=== PATIENT | female | born 1965 | race Caucasian/White ===

== ENCOUNTER 2022-07-07 13:17 | Inpatient (IN) ==
[2022-07-07 13:54] LABS: POC Calcium, Ionized 1.16 (1.16-1.32); POC Creatinine 3.9 (0.6-1.2); POC Potassium 6.5 (3.3-5.1)
[2022-07-07] MEDS ORDERED: 0.9 % SODIUM CHLORIDE 1,000 ML IV ONE (15:33)
--- NOTE | 2022-07-07 15:49 | Cat Scan Report ---
CLINICAL INFORMATION: Leg pain. Possible stone COMPARISON: None. TECHNIQUE: 0.625 mm helical slices were obtained from the mid heart through the subtrochanteric regions. Following reconstruction, 2.5 mm sagittal, coronal and axial reformatted images were processed and reviewed at bone and soft tissue windows.The exam was performed using radiation dose optimization techniques including, but not limited to, automated exposure control, adjustment of the mA and/or kV according to patient size and use of iterative reconstruction technique. FINDINGS: The lung bases are clear. No effusions. The visualized heart is grossly normal. Small hiatal hernia noted. Abdominal images show the noncontrasted gallbladder and bile ducts, liver, adrenal glands, spleen, pancreas and aorta are normal in size, configuration and attenuation without focal lesion. There is no free air, free fluid or adenopathy. Both noncontrasted kidneys are normal and symmetric in size, position, configuration and attenuation: Right is 10.2 cm in length and the left is 10.5 cm in length. There are no solid or cystic lesions. There are no stones or hydronephrosis. Pelvic images show mild diffuse wall thickening of the urinary bladder.. Hysterectomy/oophorectomy changes noted. Small sigmoid diverticuli, but no evidence of diverticulitis. The remaining large bowel, inferior pericecal appendix small bowel and stomach are grossly normal. Bone windows show no osseous abnormality. IMPRESSION: 1. No evidence of obstructing ureteral stone or other acute process. 2. Mild diffuse wall thickening of the urinary bladder which could indicate cystitis or other infiltrative pathology. Please correlate with UA. 3. Moderate edema within the Camper's fascia of the right flank. 4. Sigmoid diverticulosis, but no evidence of diverticulitis 5. Small hiatal hernia. Interpreted and Authenticated by: Esau Martin 07/07/22
[2022-07-07 17:13] LABS: POC Calcium, Ionized 1.13 (1.16-1.32); POC Creatinine 3.4 (0.6-1.2); POC Potassium 6.5 (3.3-5.1)
--- NOTE | 2022-07-07 17:49 | Emergency Department Note ---
HPI General Chief complaint: Recheck/Abnormal Lab/Rx Stated complaint: renal Time Seen by Provider: 07/07/22 13:23 Source: patient Mode of arrival: wheelchair Limitations: no limitations History of Present Illness HPI Narrative: This is a 57-year-old female patient resident of the [facility] with history of CKD stage IV, hyperkalemia, lumbar radiculopathy, T2DM, morbid obesity, hypothyroidism, HLD, history of CAD, iron deficiency anemia, COPD on home oxygen of 3 L, major depressive disorder, and chronic LE edema who presents for ROYER and hyperkalemia. Labs at the [facility] revealed a potassium of 6.5. The patient is c/o B/L lower abdominal pain for several weeks with diarrhea. She is also c/o right flank pain. She has a h/o lumbar stenosis s/p fusion and states the pain she is experiencing in her right flank is different. She denies hematochezia, but does think that her stools have been dark. She denies tarry stools. Previous abdominal surgeries include a hysterectomy and cholecystectomy. Related Data Home Medications Medication Instructions Recorded Confirmed carvedilol 12.5 mg tablet 12.5 mg PO BIDCC 09/28/18 05/07/22 epinephrine 0.3 mg/0.3 mL 0.3 mg IJ PRN PRN Allergic Symptoms 09/28/18 05/07/22 injection, auto-injector (EpiPen 2-Abhi) insulin degludec 200 unit/mL (3 60 unit SQ DAILY 09/28/18 05/07/22 mL) subcutaneous pen (Tresiba FlexTouch U-200 insulin) insulin lispro 100 unit/mL 15 unit SQ TIDCC 09/28/18 05/07/22 subcutaneous half-unit pen (Humalog Parminder KwikPen (U-100)) ipratropium 0.5 mg-albuterol 3 mg 3 ml NEB QID 09/28/18 05/07/22 (2.5 mg base)/3 mL nebulization soln levothyroxine 100 mcg tablet 100 mcg PO ACB 09/28/18 05/07/22 montelukast 10 mg tablet 10 mg PO HS 09/28/18 05/07/22 escitalopram oxalate 20 mg tablet 20 mg PO DAILY 09/29/18 05/07/22 acetaminophen 325 mg tablet 325 mg PO DAILYP PRN Pain 10/02/20 05/07/22 (Tylenol) cholecalciferol (vitamin D3) 25 50 mcg PO DAILY 10/02/20 05/07/22 mcg (1,000 unit) capsule (Vitamin D3) famotidine 20 mg tablet 20 mg PO BID 10/02/20 05/07/22 hydrocodone 10 mg-acetaminophen 1 tab PO Q4HP PRN Pain 10/02/20 05/07/22 325 mg tablet atorvastatin 80 mg tablet 80 mg PO QHS 07/29/21 05/07/22 lamotrigine 25 mg tablet 50 mg PO QHS 07/29/21 05/07/22 amlodipine 5 mg tablet 5 mg PO QAM 04/23/22 05/07/22 clopidogrel 75 mg tablet 75 mg PO QAM 04/23/22 05/07/22 dextroamphetamine-amphetamine 30 30 mg PO BID 04/23/22 05/07/22 mg tablet torsemide 20 mg tablet 40 mg PO QDAY 04/23/22 05/07/22 gabapentin 300 mg capsule 900 mg PO HS 05/07/22 05/07/22 bisacodyl 10 mg rectal suppository 10 mg OH QDAY PRN Constipation 07/07/22 07/07/22 (Dulcolax (bisacodyl)) fluticasone 250 mcg-salmeterol 50 1 inh inhalation BID 07/07/22 07/07/22 mcg/dose blistr powdr for inhalation gabapentin 300 mg capsule 900 mg PO QHS 07/07/22 07/07/22 glucagon HCl 1 mg solution for 1 mg subcut Q20M PRN Hypoglycemia 07/07/22 07/07/22 injection (Glucagon (HCl) Emergency Kit) magnesium hydroxide 400 mg/5 mL 30 ml PO QDAY PRN Constipation 07/07/22 07/07/22 oral suspension (Milk of Magnesia) polysaccharide iron complex 150 mg 150 mg PO QDAY 07/07/22 07/07/22 iron capsule potassium chloride 20 mEq 20 meq PO QDAY 07/07/22 07/07/22 tablet,extended release risperidone 0.5 mg tablet 0.5 mg PO BID 07/07/22 07/07/22 sodium phosphates 19 gram-7 118 ml OH ONCE 07/07/22 07/07/22 gram/118 mL enema (Fleet Enema) spironolactone 50 mg tablet 50 mg PO QDAY 07/07/22 07/07/22 Previous Rx's Medication Instructions Recorded ondansetron HCl 4 mg tablet 4 mg PO Q8H PRN nausea and 11/05/20 (Zofran) vomiting #10 tabs Allergies Allergy/AdvReac Type Severity Reaction Status Date / Time aspirin Allergy Severe Other Verified 07/07/22 19:25 theophylline [From James-Dur] Allergy Severe Other Verified 07/07/22 19:25 Opioids - Morphine Analogues Allergy Unknown unknown Verified 07/07/22 19:25 morphine AdvReac Severe Swelling Verified 07/07/22 19:25 acetaminophen AdvReac Mild Agitated Verified 07/07/22 19:25 [From Darvocet-N] adhesive tape AdvReac Mild Rash Verified 07/07/22 19:25 Docusate [From Colace] AdvReac Mild Other Verified 07/07/22 19:25 Iodinated Contrast Media AdvReac Mild Other Verified 07/07/22 19:25 [Iodinated Contrast- Oral and IV Dye] meperidine [From Demerol] AdvReac Mild Anxiety Verified 07/07/22 19:25 Nickel AdvReac Mild Other Verified 07/07/22 19:25 oxycodone [From Percocet] AdvReac Mild Agitated Verified 07/07/22 19:25 promethazine [From Phenergan] AdvReac Mild Agitated Verified 07/07/22 19:25 propoxyphene AdvReac Mild Agitated Verified 07/07/22 19:25 Review of Systems ROS ROS Narrative: Narrative: All systems ED: reviewed and negative except as stated. PFSH Narrative Patient History Narrative: Narrative: Medical/Surgical/Family History All Active Problems (Updated 07/07/22 @ 19:57 by Kylee Reno PA-C) Acute hyperkalemia (Acute) ROYER (acute kidney injury) (Acute) Hyperkalemia (Chronic) Anemia in stage 4 chronic kidney disease (Chronic) Hypertension in stage 4 chronic kidney disease due to type 2 diabetes mellitus (Chronic) Chronic kidney disease (CKD) stage G4/A3, severely decreased glomerular filtration rate (GFR) between 15-29 mL/min/1.73 square meter and albuminuria creatinine ratio greater than 300 mg/g (Chronic) Acute cystitis with positive culture (Acute) Localized edema due to fluid overload (Chronic) Chronic back pain (Chronic) Noncompliance with treatment (Chronic) Disability (Chronic) Patient noncompliance (Chronic) Neuropathy due to secondary diabetes mellitus (Chronic) History of meningitis (Chronic) Dyspnea on exertion (Chronic) Osteoarthritis (Chronic) Generalized edema (Chronic) Anemia of chronic disease (Chronic) Shortness of breath at rest (Chronic) Diastolic heart failure (Chronic) Low back pain (Chronic) Chronic pain (Chronic) Bronchitis (Chronic) ADD (attention deficit disorder) (Chronic) Myocardial infarction (Chronic) Anxiety (Chronic) Back pain (Chronic) Knee pain (Chronic) CAD (coronary artery disease) (Chronic) Hernia (Chronic) Pain in right knee (Chronic) Elevated blood pressure reading (Chronic) Edema of extremity (Chronic) GERD (gastroesophageal reflux disease) (Chronic) Acid reflux (Chronic) Moderate chronic obstructive pulmonary disease (Chronic) Coronary arteriosclerosis (Chronic) Asthma (Chronic) Essential hypertension (Chronic) Abscess of brain (Chronic) Depressive disorder (Chronic) PTSD (post-traumatic stress disorder) (Chronic) Borderline personality disorder (Chronic) Hypercholesterolemia (Chronic) Dyslipidemia (Chronic) Vitamin D deficiency (Chronic) Diabetes mellitus, type II (Chronic) Hypothyroidism (Chronic) Lumbar radiculopathy (Chronic) Weakness (Chronic) Migraine (Chronic) Headache (Chronic) Postoperative pain of right knee (Chronic) Medical History Abscess of brain Acid reflux ADD (attention deficit disorder) Anemia of chronic disease Anxiety Asthma Back pain Borderline personality disorder Bronchitis CAD (coronary artery disease) Chronic back pain Chronic pain Coronary arteriosclerosis Depressive disorder Diabetes mellitus, type II Diastolic heart failure Disability Dyslipidemia Dyspnea on exertion Edema of extremity Elevated blood pressure reading Essential hypertension Generalized edema GERD (gastroesophageal reflux disease) Headache Hernia History of meningitis Hypercholesterolemia Hypothyroidism Knee pain Low back pain Lumbar radiculopathy Migraine Moderate chronic obstructive pulmonary disease Myocardial infarction Neuropathy due to secondary diabetes mellitus Noncompliance with treatment Osteoarthritis Pain in right knee Patient noncompliance Postoperative pain of right knee PTSD (post-traumatic stress disorder) Shortness of breath at rest Vitamin D deficiency Weakness Surgical History History of back surgery L4-5 fusion with cage and posterior fusion with cage History of cardiac cath History of cholecystectomy History of hernia repair History of hysterectomy History of incision and drainage History of knee surgery right knee replacement History of oral surgery Status post peripherally inserted central catheter (PICC) central line placement Family History Mother Alcohol abuse Father Alcohol abuse Brother Drug abuse Social History Smoking Status: Former smoker Alcohol Intake Frequency: holiday/special occasion only Substance Use: does not use Exam Narrative Narrative: General: AOx3, NAD, nontoxic appearing. Pleasant and conversant. Morbidly obese. HEENT: PERRL, EOMI, normocephalic. Moist mucous membranes. Normal facies and normal dentition. Chest: Symmetric, no pain to palpation Respiratory: Lungs clear to auscultation bilaterally. No respiratory distress. Unlabored breathing. Heart: Regular rate and rhythm, no murmurs/clicks/rubs. Abdomen: Non-tender, mild bilateral lower quadrant discomfort, non distended. No rebound tenderness. No organomegaly. Back: No CVA tenderness. Extremities: Warm and well perfused. Bilateral nonpitting edema. DP 2+ bilaterally. No venous stasis. Neuro: No focal deficits. Cranial nerves II-XII grossly normal. Skin: Warm dry, no rashes or lesions, no cyanosis. Psych: Normal mood and affect Heme/Lymph: No abnormal bruising General Limitations: no limitations Course Course Course Narrative: 57-year-old female with CKD stage IV presents with acute on chronic renal insufficiency and hyperkalemia Reevaluation(s) Reevaluation #1: [id number] Chem-8 with a potassium of 6.5. We will repeat a serum potassium. Hematocrit is 26. Creatinine is 3.9 on a [id number]. Last creatinine was 2.7 on 06/24/2022. BUN is significantly elevated 112. We will give her 1 L of IV fluids and recheck her chemistry panel afterwards. We will also order a CT of the abdomen pelvis without contrast to rule out obstructive uropathy as reason for her worsening kidney function. Medications possibly contributing to her hyperkalemia are spironolactone and a daily potassium 20 mEq. Patient is also on torsemide for chronic heart failure. Reevaluation #2: Repeat [id number] potassium is 6.5. Creatinine has down trended to 3.4 after 1 L of IV fluids. I have discussed the case with Dr. Franklin who feels that this is likely due to dehydration versus possible GIB related given that she is on Plavix and her BUN is significantly elevated. I went ahead and did a bedside guaiac which is negative. I reached out to the hospitalist for admission given the persistent hyperkalemia and acute kidney injury. He is requested that he repeat his CBC to ensure that she does not have worsening anemia. Reevaluation #3: CBC is repeated and shows a stable anemia.. Vital Signs Vital signs: Vital Signs Temperature 97.7 F 07/07/22 13:19 Pulse Rate 80 07/07/22 13:19 Respiratory Rate 18 07/07/22 13:19 Blood Pressure 133/65 07/07/22 13:19 Pulse Oximetry (%) 94 07/07/22 13:19 Oxygen Delivery Method 07/07/22 13:19 Oxygen Flow Rate (L/min) 4 07/07/22 13:19 Temperature 97.7 F 07/07/22 13:19 Pulse Rate 80 07/07/22 18:36 Respiratory Rate 14 07/07/22 16:01 Blood Pressure 137/64 07/07/22 18:36 Pulse Oximetry (%) 97 07/07/22 18:36 Oxygen Delivery Method 07/07/22 13:19 Oxygen Flow Rate (L/min) 4 07/07/22 13:19 [facility] MDM Narrative Medical decision making narrative: Acute on chronic kidney disease with ROYER Hyperkalemia Iron deficiency anemia Patient has been accepted by Dr. Ogden for admission for her acute kidney injury and hyperkalemia. Lab Data Result diagrams: 07/07/22 17:05 07/07/22 14:20 Labs: Lab Results 07/07/22 07/07/22 07/07/22 Range/Units 13:50 14:20 17:05 WBC 8.3 (4.5-11.0) K/mcL RBC 2.96 L (3.59-5.38) M/mcL Hgb 8.9 L (11.2-15.7) g/dL Hct 28.3 L (34.1-44.9) % POC Hct 26.0 L (36-48) MCV 95.6 (80.0-100.0) fL MCH 30.1 (26.0-34.0) pg MCHC 31.4 (31.0-36.0) g/dL RDW 12.3 (11.5-14.5) % Plt Count 194 (140-440) K/mcL MPV 13.0 H (7.4-10.4) fL Immature Gran % (Auto) 0.6 H (0.0-0.5) % Neut % (Auto) 54.9 (38.0-78.0) % Lymph % (Auto) 23.8 (15.5-49.0) % Woodruff % (Auto) 12.6 H (1.0-12.0) % Eos % (Auto) 7.4 H (0.0-7.0) % Baso % (Auto) 0.7 (0.0-2.0) % Lymph # (Auto) 1.96 (1.50-4.80) K/mcL Woodruff # (Auto) 1.04 H (0.10-0.90) K/mcL Eos # (Auto) 0.61 (0.00-0.70) K/mcL Baso # (Auto) 0.06 (0.00-0.30) K/mcL Immature Gran # 0.05 (0.00-0.05) K/mcl Absolute Neutrophils 4.53 (1.80-8.00) K/mcL POC Sodium 135 (133-145) POC Potassium 6.5 H* (3.3-5.1) Potassium 6.4 H* (3.3-5.1) mmol/L POC Chloride 98 (96-108) POC Total CO2 30.0 (22-30) POC BUN 112 H* (6-20) POC Creatinine 3.9 H (0.6-1.2) POC Glucose 219 H (70-105) POC WB Ioniz Calcium 1.16 (1.16-1.32) Total Bilirubin (0.1-1.0) mg/dL Direct Bilirubin (0-0.3) mg/dL AST (<32) U/L ALT (<40) U/L Alkaline Phosphatase (39-117) U/L Total Protein (5.9-8.4) gm/dL Albumin (3.2-5.2) gm/dL Globulin (2.2-3.7) gm/dL TSH (0.27-5.01) uIU/mL 07/07/22 07/07/22 07/07/22 Range/Units 17:05 17:05 17:10 WBC (4.5-11.0) K/mcL RBC (3.59-5.38) M/mcL Hgb (11.2-15.7) g/dL Hct (34.1-44.9) % POC Hct 28.0 L (36-48) MCV (80.0-100.0) fL MCH (26.0-34.0) pg MCHC (31.0-36.0) g/dL RDW (11.5-14.5) % Plt Count (140-440) K/mcL MPV (7.4-10.4) fL Immature Gran % (Auto) (0.0-0.5) % Neut % (Auto) (38.0-78.0) % Lymph % (Auto) (15.5-49.0) % Woodruff % (Auto) (1.0-12.0) % Eos % (Auto) (0.0-7.0) % Baso % (Auto) (0.0-2.0) % Lymph # (Auto) (1.50-4.80) K/mcL Woodruff # (Auto) (0.10-0.90) K/mcL Eos # (Auto) (0.00-0.70) K/mcL Baso # (Auto) (0.00-0.30) K/mcL Immature Gran # (0.00-0.05) K/mcl Absolute Neutrophils (1.80-8.00) K/mcL POC Sodium 135 (133-145) POC Potassium 6.5 H* (3.3-5.1) Potassium (3.3-5.1) mmol/L POC Chloride 98 (96-108) POC Total CO2 27.0 (22-30) POC BUN 112 H* (6-20) POC Creatinine 3.4 H (0.6-1.2) POC Glucose 227 H (70-105) POC WB Ioniz Calcium 1.13 L (1.16-1.32) Total Bilirubin < 0.2 (0.1-1.0) mg/dL Direct Bilirubin < 0.2 (0-0.3) mg/dL AST 11 (<32) U/L ALT 10 (<40) U/L Alkaline Phosphatase 135 H (39-117) U/L Total Protein 6.4 (5.9-8.4) gm/dL Albumin 3.5 (3.2-5.2) gm/dL Globulin 2.9 (2.2-3.7) gm/dL TSH 6.56 H (0.27-5.01) uIU/mL Discharge Plan Patient/Caregiver Discharge Instructions Pt seen by [employer]/PA only: Yes Clinical Impression: Acute hyperkalemia, ROYER (acute kidney injury) Patient Disposition: Xfer As Inpt ([facility]) Discharge Date/Time: 07/07/22 19:56
--- NOTE | 2022-07-07 18:23 | Internal Med History&Physical ---
HPI History of Present Illness Patient information: Note initiated : 07/07/22 at 6:09 pm Service Date, if different from initiated Date: [] Patient: Benny Virk a 57 y/o F admitted on for renal. Chief Complaint: [] History of present illness: Ms. Virk is a 57 year old F Sent into the ED for abnormal labs today. Patient resides at a custodial facility. [facility]. Patient is a poor historian and likely compounded by the fact that she is so sleepy and lethargic. Patient did not know why she had labs at the outside facility, whether it was routine labs or if she had any complaints that elicited the lab draw. She does state that she has some lower abdominal pain but that she has that chronically. She has intermittent diarrhea some days with good symptoms as bad. She admits to being quite sleepy lately. She denies taking extra doses of any of her medications. However she is on pain medications and muscle relaxers that she admits to. In the ED her potassium was 6.5 with a BUN of 112 and a creatinine 3.9. She has chronic headaches. Denies fever chills. Says she has some occasional left sharp chest pain which she says feels like it is in her breast and comes on with Anxiety and goes away when she calms down. Nonradiating. She is on chronic oxygen for COPD. Case discussed with Dr. Franklin. I was told the ER the patient was given Kayexalate today and I am assuming that was at the nursing facility by the physician there prior to arriving. Review of Systems: Pertinent positives as above. Denies fever/chills/nausea/vomiting/diarrhea. Remaining 10 point review of system reviewed PFSH PFSH All Active Problems Hyperkalemia (Chronic) Anemia in stage 4 chronic kidney disease (Chronic) Hypertension in stage 4 chronic kidney disease due to type 2 diabetes mellitus (Chronic) Chronic kidney disease (CKD) stage G4/A3, severely decreased glomerular filtration rate (GFR) between 15-29 mL/min/1.73 square meter and albuminuria creatinine ratio greater than 300 mg/g (Chronic) Acute cystitis with positive culture (Acute) Localized edema due to fluid overload (Chronic) Chronic back pain (Chronic) Noncompliance with treatment (Chronic) Disability (Chronic) Patient noncompliance (Chronic) Neuropathy due to secondary diabetes mellitus (Chronic) History of meningitis (Chronic) Dyspnea on exertion (Chronic) Osteoarthritis (Chronic) Generalized edema (Chronic) Anemia of chronic disease (Chronic) Shortness of breath at rest (Chronic) Diastolic heart failure (Chronic) Low back pain (Chronic) Chronic pain (Chronic) Bronchitis (Chronic) ADD (attention deficit disorder) (Chronic) Myocardial infarction (Chronic) Anxiety (Chronic) Back pain (Chronic) Knee pain (Chronic) CAD (coronary artery disease) (Chronic) Hernia (Chronic) Pain in right knee (Chronic) Elevated blood pressure reading (Chronic) Edema of extremity (Chronic) GERD (gastroesophageal reflux disease) (Chronic) Acid reflux (Chronic) Moderate chronic obstructive pulmonary disease (Chronic) Coronary arteriosclerosis (Chronic) Asthma (Chronic) Essential hypertension (Chronic) Abscess of brain (Chronic) Depressive disorder (Chronic) PTSD (post-traumatic stress disorder) (Chronic) Borderline personality disorder (Chronic) Hypercholesterolemia (Chronic) Dyslipidemia (Chronic) Vitamin D deficiency (Chronic) Diabetes mellitus, type II (Chronic) Hypothyroidism (Chronic) Lumbar radiculopathy (Chronic) Weakness (Chronic) Migraine (Chronic) Headache (Chronic) Postoperative pain of right knee (Chronic) Medical History Abscess of brain Acid reflux ADD (attention deficit disorder) Anemia of chronic disease Anxiety Asthma Back pain Borderline personality disorder Bronchitis CAD (coronary artery disease) Chronic back pain Chronic pain Coronary arteriosclerosis Depressive disorder Diabetes mellitus, type II Diastolic heart failure Disability Dyslipidemia Dyspnea on exertion Edema of extremity Elevated blood pressure reading Essential hypertension Generalized edema GERD (gastroesophageal reflux disease) Headache Hernia History of meningitis Hypercholesterolemia Hypothyroidism Knee pain Low back pain Lumbar radiculopathy Migraine Moderate chronic obstructive pulmonary disease Myocardial infarction Neuropathy due to secondary diabetes mellitus Noncompliance with treatment Osteoarthritis Pain in right knee Patient noncompliance Postoperative pain of right knee PTSD (post-traumatic stress disorder) Shortness of breath at rest Vitamin D deficiency Weakness Surgical History History of back surgery L4-5 fusion with cage and posterior fusion with cage History of cardiac cath History of cholecystectomy History of hernia repair History of hysterectomy History of incision and drainage History of knee surgery right knee replacement History of oral surgery Status post peripherally inserted central catheter (PICC) central line placement Family History Mother Alcohol abuse Father Alcohol abuse Brother Drug abuse Social History (Updated 04/23/22 @ 09:46 by Ann Marie Spencer) lives independently: Yes marital status: education level: high school occupational status: unemployed pets and animals: Yes smoking status: Former smoker alcohol intake frequency: holiday/special occasion only substance use type: does not use seatbelt use: always working smoke detector in home: Yes carbon monox detector in home: Yes MEDS/ALLERGIES Home Medications and Allergies Home Medications Medication Instructions Recorded Confirmed Type albuterol sulfate 90 mcg/actuation 2 puff INH Q4-6HP PRN asthma 09/28/18 05/07/22 History aerosol inhaler (Ventolin HFA) carvedilol 12.5 mg tablet 12.5 mg PO BIDCC 09/28/18 05/07/22 History epinephrine 0.3 mg/0.3 mL 0.3 mg IJ PRN PRN Allergic Symptoms 09/28/18 05/07/22 History injection, auto-injector (EpiPen 2-Abhi) insulin degludec 200 unit/mL (3 60 unit SQ DAILY 09/28/18 05/07/22 History mL) subcutaneous pen (Tresiba FlexTouch U-200 insulin) insulin lispro 100 unit/mL 15 unit SQ TIDCC 09/28/18 05/07/22 History subcutaneous half-unit pen (Humalog Parminder KwikPen (U-100)) ipratropium 0.5 mg-albuterol 3 mg 3 ml NEB QID 09/28/18 05/07/22 History (2.5 mg base)/3 mL nebulization soln levothyroxine 100 mcg tablet 100 mcg PO ACB 09/28/18 05/07/22 History montelukast 10 mg tablet 10 mg PO HS 09/28/18 05/07/22 History escitalopram oxalate 20 mg tablet 20 mg PO DAILY 09/29/18 05/07/22 History acetaminophen 325 mg tablet 325 mg PO DAILYP PRN Pain 10/02/20 05/07/22 History (Tylenol) cholecalciferol (vitamin D3) 25 50 mcg PO DAILY 10/02/20 05/07/22 History mcg (1,000 unit) capsule (Vitamin D3) famotidine 20 mg tablet 20 mg PO BID 10/02/20 05/07/22 History hydrocodone 10 mg-acetaminophen 1 tab PO Q4HP PRN Pain 10/02/20 05/07/22 History 325 mg tablet ondansetron HCl 4 mg tablet 4 mg PO Q8H PRN nausea and 11/05/20 05/07/22 Rx (Zofran) vomiting #10 tabs atorvastatin 80 mg tablet 80 mg PO QHS 07/29/21 05/07/22 History lamotrigine 25 mg tablet 50 mg PO QHS 07/29/21 05/07/22 History lidocaine 5 % topical patch 1 patch topical QDAY 07/29/21 05/07/22 History nystatin 100,000 unit/gram topical 1 applic topical BID 07/29/21 05/07/22 History powder (Nyamyc) risperidone 2 mg tablet 2 mg PO BID 07/29/21 05/07/22 History diazepam 5 mg tablet (Valium) 5 mg .Route ONCE PRN anxiety #2 07/31/21 05/07/22 Rx tabs Devil's claw extract See Rx Instructions PO QDAY 04/23/22 05/07/22 History amlodipine 5 mg tablet 5 mg PO QAM 04/23/22 05/07/22 History budesonide 0.5 mg/2 mL suspension 0.5 mg inhalation QDAY 04/23/22 05/07/22 History for nebulization clopidogrel 75 mg tablet 75 mg PO QAM 04/23/22 05/07/22 History colostrum, bovine PO 04/23/22 05/07/22 History dextroamphetamine-amphetamine 30 30 mg PO BID 04/23/22 05/07/22 History mg tablet ergocalciferol (vitamin D2) 1,250 1,250 mcg PO .2XWK 04/23/22 05/07/22 History mcg (50,000 unit) capsule glipizide 10 mg tablet 10 mg PO BID 04/23/22 05/07/22 History methylprednisolone 4 mg tablets in See Rx Instructions PO PER PKG DIR 04/23/22 04/23/22 History a dose pack torsemide 20 mg tablet 40 mg PO QDAY 04/23/22 05/07/22 History docusate sodium 100 mg capsule 100 mg PO BID PRN 05/07/22 History gabapentin 300 mg capsule 900 mg PO HS 05/07/22 05/07/22 History ciprofloxacin HCl 250 mg tablet 250 mg PO BID #10 tabs 05/10/22 Rx Allergies Allergy/AdvReac Type Severity Reaction Status Date / Time aspirin Allergy Severe Other Verified 05/07/22 14:19 theophylline [From James-Dur] Allergy Severe Other Verified 05/07/22 14:19 Opioids - Morphine Analogues Allergy Unknown unknown Verified 05/07/22 14:19 morphine AdvReac Severe Swelling Verified 05/07/22 14:19 acetaminophen AdvReac Mild Agitated Verified 05/07/22 14:19 [From Darvocet-N] adhesive tape AdvReac Mild Rash Verified 05/07/22 14:19 Docusate [From Colace] AdvReac Mild Other Verified 05/07/22 14:19 Iodinated Contrast Media AdvReac Mild Other Verified 05/07/22 14:19 [Iodinated Contrast- Oral and IV Dye] meperidine [From Demerol] AdvReac Mild Anxiety Verified 05/07/22 14:19 Nickel AdvReac Mild Other Verified 05/07/22 14:19 oxycodone [From Percocet] AdvReac Mild Agitated Verified 05/07/22 14:19 promethazine [From Phenergan] AdvReac Mild Agitated Verified 05/07/22 14:19 propoxyphene AdvReac Mild Agitated Verified 05/07/22 14:19 EXAM Constitutional Vitals: Temp Pulse Resp BP Pulse Ox O2 Del Method O2 Flow Rate 97.7 F 85 14 137/62 96 4 07/07/22 13:19 07/07/22 16:49 07/07/22 16:01 07/07/22 16:16 07/07/22 16:49 07/07/22 13:19 07/07/22 13:19 Exam: General: Sleepy but awakens,, No acute Distress, morbidly obese Eyes/N/T: EOMI, PERRL, dry MM Head/Neck: neck supple, normocephalic atraumatic CV: RRR, No murmurs, normal s1/s2 Pulm: Clear b/l, no wheezing/rhonchi/rales Abd: soft, nontender, +BS x4 Ext: no clubbing/cyanosis, chronic b/l LE edema Neuro: Quite drowsy but will awaken answer questions appropriately, no focal deficits, moves all extremities, CN 2-12 grossly intact, symmetrical strength b/l upper/lower, Skin: warm/dry DATA Data Completed and Pending Labs: Labs from last 24 hours 07/07/22 07/07/22 07/07/22 17:10 14:20 13:50 POC Hct 28.0 L 26.0 L POC Sodium 135 135 POC Potassium 6.5 H* 6.5 H* Potassium 6.4 H* POC Chloride 98 98 POC Total CO2 27.0 30.0 POC BUN 112 H* 112 H* POC Creatinine 3.4 H 3.9 H POC Glucose 227 H 219 H POC WB Ioniz Calcium 1.13 L 1.16 A/P Narrative A/P Narrative: A: *ROYER on CKD IV: Likely from volume depletion and home medications/diuretics -We do not have updated medication list yet *Hyperkalemia, acute on chronic since may: *Encephalopathy(Lethargic): 2/2 above *Anemia (MORIS), chronic: -negative FOBT in ED *DM w/neuropathy: *COPD (3L@home): *h/o diastolic(II) CHF: *HTN/HLD: *Depression/anxiety/PTSD: *Morbid obesity: BMI 47 *Hypothyroidism: *GERD: *Tobacco abuse: P: -IVF -Nephrology consult -monitor UOP, renal fxn - -check TSH -hold diuretics/ for royer -SSI -home IH's, supp O2 -PT/OT -Home medication reconciliation -Smoking cessation counseling >3 minutes -ppx: heparin Time Spent With Patient Time: Total time spent is greater than 50% in coordination of care (as documented) at patient's floor/unit and/or counseling patient: Total time spent with greater than 50% in coordination of care (as documented) at patient's floor/unit and/or counseling patient:: Greater than 70 minutes
[2022-07-07 18:27] LABS: Basophils # (Auto) 0.06 K/mcL (0.00-0.30); Basophils % (Auto) 0.7 % (0.0-2.0); Eosinophils # (Auto) 0.61 K/mcL (0.00-0.70); Eosinophils % (Auto) 7.4 % (0.0-7.0); Hematocrit 28.3 % (34.1-44.9); Hemoglobin 8.9 g/dL (11.2-15.7); Lymphocytes # (Auto) 1.96 K/mcL (1.50-4.80); Lymphocytes % (Auto) 23.8 % (15.5-49.0); Mean Cell Volume 95.6 fL (80.0-100.0); Mean Corpuscular HGB Conc 31.4 g/dL (31.0-36.0); Monocytes # (Auto) 1.04 K/mcL (0.10-0.90); Monocytes % (Auto) 12.6 % (1.0-12.0); Neutrophils % (Auto) 54.9 % (38.0-78.0); Platelet Count 194 K/mcL (140-440); RBC 2.96 M/mcL (3.59-5.38); Red Cell Distribution Width 12.3 % (11.5-14.5); WBC 8.3 K/mcL (4.5-11.0)
[2022-07-07 18:46] LABS: ALT/SGPT 10 U/L (<40); AST/SGOT 11 U/L (<32); Albumin 3.5 gm/dL (3.2-5.2); Alkaline Phosphatase 135 U/L (39-117); Bilirubin,Direct < 0.2 mg/dL (0-0.3); Bilirubin,Total < 0.2 mg/dL (0.1-1.0); Globulin 2.9 gm/dL (2.2-3.7)
--- NOTE | 2022-07-07 19:34 | EKG ---
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
[2022-07-07] MEDS ORDERED: DEXTROSE 50% 50 ML VIAL IV ONE (19:57)
[2022-07-07] MEDS ORDERED: DEXTROSE 31 GM ORAL.SUSP PO PRN (19:57)
[2022-07-07] MEDS ORDERED: INSULIN REGULAR, HUMAN 1 UNIT/0.01 ML UNIT IV ONE (19:57)
[2022-07-07] MEDS ORDERED: ONDANSETRON 4 MG/2 ML VIAL IV PRN (19:57)
[2022-07-07] MEDS ORDERED: SENNOSIDES 1 TABLET PO PRN (19:57)
[2022-07-07] MEDS ORDERED: POLYETHYLENE GLYCOL 3350 17 GM PACKET PO PRN (19:57)
[2022-07-07] MEDS ORDERED: DEXTROSE 50% 50 ML VIAL IV PRN (19:57)
[2022-07-07] MEDS ORDERED: POTASSIUM CHLORIDE 40 MEQ in DEXTROSE 5% IN WATER 500 ML IV PRN (19:57)
[2022-07-07] MEDS ORDERED: POTASSIUM CHLORIDE 20 MEQ TABLET PO PRN (19:57)
[2022-07-07] MEDS ORDERED: IPRATROPIUM/ALBUTEROL 3 ML AMPUL.NEB NEB PRN (19:57)
[2022-07-07] MEDS ORDERED: ACETAMINOPHEN 325 MG TABLET PO PRN (19:57)
[2022-07-07] MEDS ORDERED: MAGNESIUM SULFATE 2 GM/50 ML BAG IV PRN (19:57)
[2022-07-07] MEDS: 0.9 % SODIUM CHLORIDE 1,000 ML IV SCH (20:29)
[2022-07-07] MEDS ORDERED: DEXTROSE 50% 50 ML SYRINGE IV ONE (20:35)
[2022-07-07] MEDS: 0.9 % SODIUM CHLORIDE 10 ML SYRINGE IV SCH (20:37)
[2022-07-07] MEDS ORDERED: INSULIN LISPRO 1 UNIT/0.01 ML UNIT SQ SCH (21:00)
[2022-07-07] MEDS: HEPARIN 5,000 UNIT/ML VIAL SQ SCH (21:07)
[2022-07-07] MEDS: HYDROcodone/APAP 10/325MG TABLET PO PRN (21:18)
[2022-07-07] MEDS: INSULIN LISPRO 1 UNIT/0.01 ML UNIT SQ SCH (22:13)
[2022-07-08] MEDS: INSULIN LISPRO 1 UNIT/0.01 ML UNIT SQ SCH ×7 (00:02→21:19)
[2022-07-08 05:43] LABS: Potassium,Urine Random 35.9 mmol/L; Sodium, Urine Random 67 mmol/L
[2022-07-08 06:23] LABS: Basophils # (Auto) 0.04 K/mcL (0.00-0.30); Basophils % (Auto) 0.5 % (0.0-2.0); Eosinophils # (Auto) 0.51 K/mcL (0.00-0.70); Eosinophils % (Auto) 6.8 % (0.0-7.0); Hematocrit 26.8 % (34.1-44.9); Hemoglobin 8.3 g/dL (11.2-15.7); Lymphocytes # (Auto) 1.98 K/mcL (1.50-4.80); Lymphocytes % (Auto) 26.4 % (15.5-49.0); Mean Cell Volume 96.1 fL (80.0-100.0); Mean Platelet Volume 12.6 fL (7.4-10.4); Monocytes # (Auto) 1.03 K/mcL (0.10-0.90); Monocytes % (Auto) 13.8 % (1.0-12.0); Platelet Count 182 K/mcL (140-440); RBC 2.79 M/mcL (3.59-5.38); Red Cell Distribution Width 12.2 % (11.5-14.5); WBC 7.5 K/mcL (4.5-11.0)
[2022-07-08] MEDS: 0.9 % SODIUM CHLORIDE 1,000 ML IV SCH ×4 (06:36→22:07)
[2022-07-08 07:12] LABS: ALT/SGPT 9 U/L (<40); AST/SGOT 10 U/L (<32); Albumin 3.1 gm/dL (3.2-5.2); Albumin/Globulin Ratio 0.9 (1.0-2.3); Alkaline Phosphatase 122 U/L (39-117); Bilirubin,Direct < 0.2 mg/dL (0-0.3); Bilirubin,Total < 0.2 mg/dL (0.1-1.0); Blood Urea Nitrogen 68 mg/dL (6-20); Carbon Dioxide 28 mmol/L (22-30); Chloride 101 mmol/L (96-108); Globulin 3.4 gm/dL (2.2-3.7); Glomerular Filtration Rate 15; Glucose 67 mg/dL (70-105); Lactate Dehydrogenase 216 U/L (135-225); Phosphorous 5.3 mg/dL (2.5-4.5); Triglycerides 140 mg/dL (<150); Uric Acid 8.1 mg/dL (2.5-8.0)
[2022-07-08] MEDS: 0.9 % SODIUM CHLORIDE 10 ML SYRINGE IV SCH ×3 (07:57→21:26)
--- NOTE | 2022-07-08 08:25 | Internal Med Progress Note ---
SUBJECTIVE Subjective Patient information: Note initiated : 07/08/22 at 8:10 am Service Date, if different from initiated Date: [] Patient: Benny Virk a 57 y/o F admitted on 07/07/22 for renal/Acute Kidney Injury. Chief Complaint: [] Interval history: History of present illness: Ms. Virk is a 57 year old F Sent into the ED for abnormal labs today. Patient resides at a snf facility. [place] [facility]. Patient is a poor historian and likely compounded by the fact that she is so sleepy and lethargic. Patient did not know why she had labs at the outside facility, whether it was routine labs or if she had any complaints that elicited the lab draw. She does state that she has some lower abdominal pain but that she has that chronically. She has intermittent diarrhea some days with good symptoms as bad. She admits to being quite sleepy lately. She denies taking extra doses of any of her medications. However she is on pain medications and muscle relaxers that she admits to. In the ED her potassium was 6.5 with a BUN of 112 and a creatinine 3.9. She has chronic headaches. Denies fever chills. Says she has some occasional left sharp chest pain which she says feels like it is in her breast and comes on with Anxiety and goes away when she calms down. Nonradiating. She is on chronic oxygen for COPD. Case discussed with Dr. Franklin. I was told the ER the patient was given Kayexalate today and I am assuming that was at the nursing facility by the physician there prior to arriving. 07/08 Patient not sleepy like she was yesterday falling asleep on me while I was talking to her. She is still quite tired however. On IV fluids and adequate urine output. She does admit to headache but no nausea today. Potassium still elevated but mildly improved. Renal function trending in the right direction albeit slowly. Review of Systems: denies fever/chills/nausea/vomiting/chest or abdominal pain/cough/dyspnea/diarrhea. Otherwise see above. Constitutional Vitals: Vital Signs Temp Pulse Resp BP Pulse Ox O2 Del Method O2 Flow Rate 98.8 F 78 15 162/71 99 3 07/08/22 04:01 07/08/22 07:01 07/08/22 07:01 07/08/22 07:01 07/08/22 07:01 07/08/22 07:01 07/08/22 07:01 Period Temp Pulse Resp BP Sys/Phan Pulse Ox O2 Del Method O2 Flow Rate Last 24 Hr 97.7 F-98.8 F 74-85 9-29 115-162/55-78 94-99 Nasal Cannula- Nasal Cannula 3-4 Intake and Output 07/07/22 07/08/22 07/08/22 21:59 05:59 13:59 Intake Total 3774 147 8681 Output Total 225 845 300 Balance 775 -605 700 Weight 110.178 kg Intake & Output: Intake & Output 07/07/22 07/08/22 07/08/22 21:59 05:59 13:59 Intake Total 5088 960 0895 Output Total 225 845 300 Balance 775 -605 700 Weight 110.178 kg Intake: IV 1000 1000 Sodium Chloride 0.9% 1,000 ml @ 1000 1000 100 mls/hr IV .Q10H PATRICA Rx#: [id number] Oral 240 Output: Urine Catheter Amount 300 Void Amount 225 845 Other: Urine Appearance Cloudy Clear Clear Urine Color Bright Yellow Bright Yellow Yellow Urine Odor Strong Exam: General: tired but awake, No acute Distress, morbidly obese Eyes/N/T: EOMI, Head/Neck: neck supple, CV: RRR, No murmurs, normal s1/s2 Pulm: Clear b/l, no wheezing/rhonchi/rales Abd: soft, nontender, +BS x4 Ext: no clubbing/cyanosis, chronic b/l LE edema (R>L) Neuro: alert, no focal deficits, moves all extremities Skin: warm/dry OBJ DATA Labs CBC & Chem 7: 07/08/22 05:14 07/08/22 05:14 Labs: Abnormal Lab Results 07/08/22 07/08/22 07/08/22 05:14 05:14 05:14 RBC 2.79 L Hgb 8.3 L Hct 26.8 L POC Hct MPV 12.6 H Immature Gran % (Auto) [place] % (Auto) 13.8 H Eos % (Auto) [place] # (Auto) 1.03 H ESR 46 H POC Potassium Potassium 6.2 H* POC BUN BUN 68 H Creatinine 3.2 H POC Creatinine Glucose 67 L POC Glucose Uric Acid 8.1 H POC WB Ioniz Calcium Phosphorus 5.3 H Alkaline Phosphatase 122 H Albumin 3.1 L Albumin/Globulin Ratio 0.9 L TSH Ur Random Chloride 07/07/22 07/07/22 07/07/22 17:10 17:05 17:05 RBC Hgb Hct POC Hct 28.0 L MPV Immature Gran % (Auto) [place] % (Auto) Eos % (Auto) [place] # (Auto) ESR POC Potassium 6.5 H* Potassium POC BUN 112 H* BUN Creatinine POC Creatinine 3.4 H Glucose POC Glucose 227 H Uric Acid POC WB Ioniz Calcium 1.13 L Phosphorus Alkaline Phosphatase 135 H Albumin Albumin/Globulin Ratio TSH 6.56 H Ur Random Chloride 07/07/22 07/07/22 07/07/22 17:05 14:20 13:50 RBC 2.96 L Hgb 8.9 L Hct 28.3 L POC Hct 26.0 L MPV 13.0 H Immature Gran % (Auto) 0.6 H [place] % (Auto) 12.6 H Eos % (Auto) 7.4 H [place] # (Auto) 1.04 H ESR POC Potassium 6.5 H* Potassium 6.4 H* POC BUN 112 H* BUN Creatinine POC Creatinine 3.9 H Glucose POC Glucose 219 H Uric Acid POC WB Ioniz Calcium Phosphorus Alkaline Phosphatase Albumin Albumin/Globulin Ratio TSH Ur Random Chloride 07/07/22 04:46 RBC Hgb Hct POC Hct MPV Immature Gran % (Auto) [place] % (Auto) Eos % (Auto) [place] # (Auto) ESR POC Potassium Potassium POC BUN BUN Creatinine POC Creatinine Glucose POC Glucose Uric Acid POC WB Ioniz Calcium Phosphorus Alkaline Phosphatase Albumin Albumin/Globulin Ratio TSH Ur Random Chloride 48 L Meds: Medications Acetaminophen (Acetaminophen 325 Mg Tablet) 650 mg PO Q6HP PRN; Protocol PRN Reason: Per Pain Protocol/Fever > 101 Hydrocodone Bitart/Acetaminophen (Hydrocodone/Apap 10/325mg Tablet) 1 tab PO Q4HP PRN; Protocol PRN Reason: Per Pain Protocol Last Admin: 07/07/22 21:18 Dose: 1 tab Albuterol/Ipratropium (Ipratropium/Albuterol 3 Ml Ampul.Neb) 3 ml NEB Q4HP PRN PRN Reason: Shortness Of Breath Dextrose (Dextrose 50% 50 Ml Vial) 0 ml IV UD PRN PRN Reason: Per Sliding Scale Diagnostic Test (Pha) (Accu-Chek 1 Each Strip) 1 each FS [facility] Last Admin: 07/08/22 07:56 Dose: 1 each Glucose (Dextrose 31 Gm Oral.Susp) 15 gm PO PRN PRN PRN Reason: Hypoglycemia Heparin Sodium (Porcine) (Heparin 5,000 Unit/Ml Vial) 5,000 unit SQ Q12 [facility] Last Admin: 07/07/22 21:07 Dose: 5,000 unit Hydralazine HCl (Hydralazine 20 Mg/Ml Vial) 0 mg IV Q2HP PRN PRN Reason: Hypertension Sodium Chloride (Sodium Chloride 0.9%) 1,000 mls @ 100 mls/hr IV .Q10H [facility] Last Admin: 07/08/22 06:36 Dose: 100 mls/hr Magnesium Sulfate (Magnesium Sulfate) 2 gm in 50 mls @ 50 mls/hr IV UD PRN PRN Reason: Magnesium </= 1.6 Insulin Human Lispro (Insulin Lispro 1 Unit/0.01 Ml Unit) 0 unit SQ [facility]; Protocol Last Admin: 07/08/22 07:57 Dose: Not Given Ondansetron HCl (Ondansetron 4 Mg/2 Ml Vial) 4 mg IV Q4HP PRN PRN Reason: Nausea And Vomiting Polyethylene Glycol (Polyethylene Glycol 3350 17 Gm Packet) 17 gm PO DAILYP PRN PRN Reason: Constipation Prednisone (Prednisone 20 Mg Tablet) 60 mg PO [facility] Senna (Sennosides 1 Tablet) 2 tab PO DAILYP PRN PRN Reason: Constipation Sodium Chloride (0.9 % Sodium Chloride 10 Ml Syringe) 10 ml IV Q8 [facility] Last Admin: 07/08/22 07:57 Dose: Not Given A/P Narrative A/P Narrative: A: *ROYER on CKD IV: Likely from volume depletion and home medications/diuretics -pt has been on KCl/Aldactone/torsemide, was possibly on bactrim recently *Hyperkalemia, acute on chronic since may: 2/2 above *Encephalopathy(Lethargic): 2/2 above *Anemia (MORIS), chronic: -negative FOBT in ED *DM w/neuropathy: a1c 8.0 *COPD (3L@home): *h/o diastolic(II) CHF: *HTN/HLD: *Depression/anxiety/PTSD: *Morbid obesity: BMI 47 *Hypothyroidism: mildly elevated TSH but normal T4 *GERD: *Tobacco abuse: cessation counseling P: -IVF -Nephrology following -monitor UOP, renal fxn -hold diuretics for royer -cont home bb/norvasc/plavix -hold lluvia for sedation and worsened renal fxn -SSI -home IH's, supp O2 -PT/OT -ppx: heparin Time Spent With Patient Time: Total time spent is greater than 50% in coordination of care (as documented) at patient's floor/unit and/or counseling patient: Total time spent with greater than 50% in coordination of care (as documented) at patient's floor/unit and/or counseling patient:: 35 - 50 minutes
[2022-07-08] MEDS ORDERED: CLOPIDOGREL 75 MG TABLET PO SCH (09:00)
[2022-07-08] MEDS: FLUTICASONE/SALMETEROL 250/50 INHALER #14 INH SCH ×2 (09:01→19:34)
[2022-07-08] MEDS: IPRATROPIUM/ALBUTEROL SULFATE 1 PUFF INHALER INH SCH ×4 (09:02→19:34)
[2022-07-08] MEDS: amLODIPine 5 MG TABLET PO SCH (09:24)
[2022-07-08] MEDS: IRON POLYSACCHARIDE COMPLEX 150 MG CAPSULE PO SCH (09:24)
[2022-07-08] MEDS: ESCITALOPRAM 20 MG TABLET PO SCH (09:24)
[2022-07-08] MEDS: lamoTRIgine 25 MG TABLET PO SCH ×2 (09:24→21:19)
[2022-07-08] MEDS: HEPARIN 5,000 UNIT/ML VIAL SQ SCH (09:24)
[2022-07-08] MEDS: predniSONE 20 MG TABLET PO SCH (09:26)
[2022-07-08] MEDS: HYDROcodone/APAP 10/325MG TABLET PO PRN (12:43)
--- NOTE | 2022-07-08 13:45 | Nephrology Progress Note ---
SUBJECTIVE Subjective Patient information: Note initiated : 07/08/22 at 1:41 pm Service Date, if different from initiated Date: [] Patient: Benny Virk 57 y/o F admitted on 07/07/22 for renal/Acute Kidney Injury. Chief Complaint: [weakness] Principal diagnosis: Acute on chronic renal failure with hyperkalemia Interval history: See my circulation sales representative note of 07/07/2022 for full details. ARF on CKD g3b/a2 with the development of a marked hyperkalemia (w/o acidosis), heavy proteinuria (UPCR 5) w/o obstruction or rhabdomyolysis. As shown in the 3 grafts below, after several months there is been the surreptitious increase in eosinophils, potassium, and serum creatinine with no change in the acid-base status (CO2 on CHEM panel). By I this argues for acute interstitial nephritis as opposed to acute tubular necrosis superimposed on his underlying CKD 3. Does not fit nicely though is the marked increase in pro teinuria that would argue for a glomerular process. That said the argument can be made for percutaneous renal biopsy. She reports NSAIDS up to recently when she saw Dr Galvan who forbade nsaids moving foward. Her CK is <70 so rhabdo is not in the D/Dx. She is non-oliguric with IV hydration. Serum creatinine Serum potassium Serum bicarbonate Peripheral eosinophil count (%) Vital Signs Temp Pulse Resp BP Pulse Ox O2 Del Method O2 Flow Rate 07/08/22 14:40 79 12 154/71 98 Nasal Cannula 07/08/22 12:28 36.4 C 18 143/73 99 07/08/22 10:03 12 147/66 99 Nasal Cannula 07/08/22 09:01 16 135/62 98 Nasal Cannula 07/08/22 08:14 36.3 C 14 143/63 100 Nasal Cannula 07/08/22 08:00 Nasal Cannula 07/08/22 07:01 78 15 162/71 99 Nasal Cannula 07/08/22 06:43 76 11 L 144/68 98 Nasal Cannula 07/08/22 04:01 37.1 C 77 11 L 128/65 98 Nasal Cannula 07/08/22 03:01 75 11 L 115/65 98 Nasal Cannula 07/08/22 02:01 77 9 L 131/70 99 Nasal Cannula 07/08/22 01:01 74 10 L 127/61 98 Nasal Cannula 3 07/08/22 00:01 36.6 C 78 12 139/78 98 Nasal Cannula 3 07/07/22 23:01 80 11 L 119/62 99 Nasal Cannula 3 07/07/22 22:01 29 H 148/72 Nasal Cannula 3 07/07/22 21:01 14 153/77 Nasal Cannula 3 07/07/22 20:16 77 13 125/68 99 Nasal Cannula 3 07/07/22 20:13 36.9 C 79 17 134/55 98 Nasal Cannula 3 07/07/22 18:36 80 137/64 97 07/07/22 18:35 81 96 07/07/22 16:49 85 96 Intake and Output 07/08/22 07/08/22 07/08/22 05:59 13:59 21:59 Intake Total 240 1547 Output Total 845 850 Balance -605 697 Intake: IV 1307 Sodium Chloride 0.9% 1,000 ml @ 1307 100 mls/hr IV .Q10H [facility] Rx#: [id number] Oral 240 240 Output: Urine Catheter Amount 300 Void Amount 845 550 Other: Meal Breakfast Percent of Meal Consumed 100% Feeding Ability Independent Urine Appearance Clear Clear Urine Color Bright Yellow Yellow Weight 110.178 kg Patient Weight 07/09/22 05:59 Weight 110.178 kg Pertinent ROS: N/A Additional PMFSH (Level 3 Only): N/A Constitutional Vitals: Vital Signs Temp Pulse Resp BP Pulse Ox O2 Del Method O2 Flow Rate 36.4 C 78 18 143/73 99 3 07/08/22 12:28 07/08/22 07:01 07/08/22 12:28 07/08/22 12:28 07/08/22 12:28 07/08/22 10:03 07/08/22 10:03 Period Temp Pulse Resp BP Sys/Phan Pulse Ox O2 Del Method O2 Flow Rate Last 24 Hr 36.3 C-37.1 C 74-85 9-29 115-162/55-78 96-100 Nasal Cannula- Nasal Cannula 3-3 Intake and Output 07/07/22 07/08/22 07/08/22 21:59 05:59 13:59 Intake Total 8804 934 3204 Output Total 225 845 850 Balance 775 -605 697 Weight 110.178 kg Intake & Output: Intake & Output 07/07/22 07/08/22 07/08/22 21:59 05:59 13:59 Intake Total 2452 335 3941 Output Total 225 845 850 Balance 775 -605 697 Weight 110.178 kg Intake: IV 1000 1307 Sodium Chloride 0.9% 1,000 ml @ 1000 1307 100 mls/hr IV .Q10H [facility] Rx#: [id number] Oral 240 240 Output: Urine Catheter Amount 300 Void Amount 225 845 550 Other: Meal Breakfast Percent of Meal Consumed 100% Feeding Ability Independent Urine Appearance Cloudy Clear Clear Urine Color Bright Yellow Bright Yellow Yellow Urine Odor Strong General appearance: no acute distress and obese Head Head exam: Present normal inspection Eye Eye exam: Present EOMI and PERRL ENT ENT exam: Present mucous membranes moist Neck Neck exam: Absent meningismus Additional comments: No visiable JVD Respiratory Respiratory exam: Present rales (coarse, velcro) and rhonchi Cardiovascular Cardiovascular exam: Present normal rate and rhythm, +S1 and +S2; Absent gallop GI/Abdominal GI/Abdominal exam: Present normal bowel sounds Extremities Exam Extremities exam: Absent pedal edema Neurological Exam Neurological exam: Present alert, CN II-XII intact and oriented X3 Additional comments: Some Memory defect Psychiatric Psychiatric exam: Present anxious (Worse with prednisone), normal affect and normal mood Skin Skin exam: Present dry; Absent petechiae or rash A/P Narrative A/P Narrative: 1. ARF on CKD 3/A2 2. ARF is dehydration/diuretics/RAASI therapy(pre-renal), vs ATN (few granular cast and extended pre-renal state) vs AIN (eosinophilia and bactrim therapy in april/may 2022)...no evidence of obstruction 3. CKD 3/A2 is likely NSAID use prior to seeing Dr Galvan earlier this year but damage was done (ANTONIO or less likely membranous GN as no proteinuria before admission). 4. New nephrotic range proteinuria. Plan of Treatment: 1. Hydrate with NS 2. Trend labs 3. I recommend percutaneous renal Biopsy to decide AIN/ANTONIO/ATN/ Membranous GN or diabetic nephropathy. Time Spent With Patient Time: Total time spent is greater than 50% in coordination of care (as documented) at patient's floor/unit and/or counseling patient:
--- NOTE | 2022-07-08 14:50 | Internal Med Progress Note ---
SUBJECTIVE Subjective Patient information: Note initiated : 07/08/22 at 2:47 pm Service Date, if different from initiated Date: [] Patient: Benny Virk a 57 y/o F admitted on 07/07/22 for renal/Acute Kidney Injury. Chief Complaint: [] Interval history: History of present illness: Ms. Virk is a 57 year old F Sent into the ED for abnormal labs today. Patient resides at a correction facility. [facility]. Patient is a poor historian and likely compounded by the fact that she is so sleepy and lethargic. Patient did not know why she had labs at the outside facility, whether it was routine labs or if she had any complaints that elicited the lab draw. She does state that she has some lower abdominal pain but that she has that chronically. She has intermittent diarrhea some days with good symptoms as bad. She admits to being quite sleepy lately. She denies taking extra doses of any of her medications. However she is on pain medications and muscle relaxers that she admits to. In the ED her potassium was 6.5 with a BUN of 112 and a creatinine 3.9. She has chronic headaches. Denies fever chills. Says she has some occasional left sharp chest pain which she says feels like it is in her breast and comes on with Anxiety and goes away when she calms down. Nonradiating. She is on chronic oxygen for COPD. Case discussed with Dr. Franklin. I was told the ER the patient was given Kayexalate today and I am assuming that was at the nursing facility by the physician there prior to arriving. 07/08 Patient not sleepy like she was yesterday falling asleep on me while I was talking to her. She is still quite tired however. On IV fluids and adequate urine output. She does admit to headache but no nausea today. Potassium still elevated but mildly improved. Renal function trending in the right direction albeit slowly. Complement C3 and C4 were in the normal range. 07/09 Patient is on 3L/min nasal cannula oxygen supplementation, elevated blood pressure. Good urine output with improvement in renal function labs. Potassium elevated at 6.5, the patient received IV D50, IV regular insulin and a dose of Kayexalate. She was later started on Lokelma by nephrology. Repeat potassium improved to 6.1. The patient complained of chest pain, reproducible on palpation. No hyperkalemia or ischemic changes on EKG. Troponin T was normal. NT proBNP elevated. Because of acute kidney injury is not clear, nephrology is recommending a percutaneous renal biopsy. Physical exam Head: Atraumatic, normal inspection. Eyes: normal appearance, no scleral icterus. Neck: full ROM Respiratory: no respiratory distress. Cardiovascular: normal rate and rhythm, S1, S2, reproducible chest tenderness with palpation. GI/Abdominal: soft, nontender, no guarding. Extremities: Bilateral lower extremity pitting edema, full range of motion, nontender. Neurological: CN II-XII intact, intact motor, intact sensation. Psychiatric: normal mood. Skin: warm, normal color Constitutional Vitals: Vital Signs Temp Pulse Resp BP Pulse Ox O2 Del Method O2 Flow Rate 97.5 F 78 18 143/73 99 3 07/08/22 12:28 07/08/22 07:01 07/08/22 12:28 07/08/22 12:28 07/08/22 12:28 07/08/22 10:03 07/08/22 10:03 Period Temp Pulse Resp BP Sys/Phan Pulse Ox O2 Del Method O2 Flow Rate Last 24 Hr 97.4 F-98.8 F 74-85 9-29 115-162/55-78 96-100 Nasal Cannula- Nasal Cannula 3-3 Intake and Output 07/08/22 07/08/22 07/08/22 05:59 13:59 21:59 Intake Total 240 1547 Output Total 845 850 Balance -605 697 Intake & Output: Intake & Output 07/08/22 07/08/22 07/08/22 05:59 13:59 21:59 Intake Total 240 1547 Output Total 845 850 Balance -605 697 Intake: IV 1307 Sodium Chloride 0.9% 1,000 ml @ 1307 100 mls/hr IV .Q10H [facility] Rx#: [id number] Oral 240 240 Output: Urine Catheter Amount 300 Void Amount 845 550 Other: Meal Breakfast Percent of Meal Consumed 100% Feeding Ability Independent Urine Appearance Clear Clear Urine Color Bright Yellow Yellow OBJ DATA Labs CBC & Chem 7: 07/09/22 06:04 07/09/22 12:01 Labs: Abnormal Lab Results 07/08/22 07/08/22 07/08/22 05:15 05:14 05:14 RBC Hgb Hct POC Hct MPV Immature Gran % (Auto) [place] % (Auto) Eos % (Auto) [place] # (Auto) ESR 46 H POC Potassium Potassium 6.2 H* POC BUN BUN 68 H Creatinine 3.2 H POC Creatinine Glucose 67 L POC Glucose Hemoglobin A1c 8.0 H Uric Acid 8.1 H POC WB Ioniz Calcium Phosphorus 5.3 H Alkaline Phosphatase 122 H Albumin 3.1 L Albumin/Globulin Ratio 0.9 L TSH Ur Random Chloride 07/08/22 07/07/22 07/07/22 05:14 17:10 17:05 RBC 2.79 L Hgb 8.3 L Hct 26.8 L POC Hct 28.0 L MPV 12.6 H Immature Gran % (Auto) [place] % (Auto) 13.8 H Eos % (Auto) [place] # (Auto) 1.03 H ESR POC Potassium 6.5 H* Potassium POC BUN 112 H* BUN Creatinine POC Creatinine 3.4 H Glucose POC Glucose 227 H Hemoglobin A1c Uric Acid POC WB Ioniz Calcium 1.13 L Phosphorus Alkaline Phosphatase Albumin Albumin/Globulin Ratio TSH 6.56 H Ur Random Chloride 07/07/22 07/07/22 07/07/22 17:05 17:05 14:20 RBC 2.96 L Hgb 8.9 L Hct 28.3 L POC Hct MPV 13.0 H Immature Gran % (Auto) 0.6 H [place] % (Auto) 12.6 H Eos % (Auto) 7.4 H [place] # (Auto) 1.04 H ESR POC Potassium Potassium 6.4 H* POC BUN BUN Creatinine POC Creatinine Glucose POC Glucose Hemoglobin A1c Uric Acid POC WB Ioniz Calcium Phosphorus Alkaline Phosphatase 135 H Albumin Albumin/Globulin Ratio TSH Ur Random Chloride 07/07/22 07/07/22 13:50 04:46 RBC Hgb Hct POC Hct 26.0 L MPV Immature Gran % (Auto) [place] % (Auto) Eos % (Auto) [place] # (Auto) ESR POC Potassium 6.5 H* Potassium POC BUN 112 H* BUN Creatinine POC Creatinine 3.9 H Glucose POC Glucose 219 H Hemoglobin A1c Uric Acid POC WB Ioniz Calcium Phosphorus Alkaline Phosphatase Albumin Albumin/Globulin Ratio TSH Ur Random Chloride 48 L Meds: Medications Acetaminophen (Acetaminophen 325 Mg Tablet) 650 mg PO Q6HP PRN; Protocol PRN Reason: Per Pain Protocol/Fever > 101 Hydrocodone Bitart/Acetaminophen (Hydrocodone/Apap 10/325mg Tablet) 1 tab PO Q4HP PRN; Protocol PRN Reason: Per Pain Protocol Last Admin: 07/08/22 12:43 Dose: 1 tab Albuterol/Ipratropium (Ipratropium/Albuterol 3 Ml Ampul.Neb) 3 ml NEB Q4HP PRN PRN Reason: Shortness Of Breath Albuterol/Ipratropium (Ipratropium/Albuterol Sulfate 1 Puff Inhaler) 1 puff INH QID [facility] Last Admin: 07/08/22 12:56 Dose: Not Given Amlodipine Besylate (Amlodipine 5 Mg Tablet) 5 mg PO QAM [facility] Last Admin: 07/08/22 09:24 Dose: 5 mg Atorvastatin Calcium (Atorvastatin 40 Mg Tablet) 80 mg PO QHS [facility] Carvedilol (Carvedilol 12.5 Mg Tablet) 6.25 mg PO BIDCC [facility] Clopidogrel Bisulfate (Clopidogrel 75 Mg Tablet) 75 mg PO QAM [facility] Last Admin: 07/08/22 09:24 Dose: 75 mg Dextrose (Dextrose 50% 50 Ml Vial) 0 ml IV UD PRN PRN Reason: Per Sliding Scale Diagnostic Test (Pha) (Accu-Chek 1 Each Strip) 1 each FS ACHS [facility] Last Admin: 07/08/22 11:42 Dose: 1 each Escitalopram Oxalate (Escitalopram 20 Mg Tablet) 20 mg PO DAILY [facility] Last Admin: 07/08/22 09:24 Dose: 20 mg Famotidine (Famotidine 20 Mg Tablet) 20 mg PO HS [facility] Glucose (Dextrose 31 Gm Oral.Susp) 15 gm PO PRN PRN PRN Reason: Hypoglycemia Heparin Sodium (Porcine) (Heparin 5,000 Unit/Ml Vial) 5,000 unit SQ Q12 [facility] Last Admin: 07/08/22 09:24 Dose: 5,000 unit Hydralazine HCl (Hydralazine 20 Mg/Ml Vial) 0 mg IV Q2HP PRN PRN Reason: Hypertension Magnesium Sulfate (Magnesium Sulfate) 2 gm in 50 mls @ 50 mls/hr IV UD PRN PRN Reason: Magnesium </= 1.6 Sodium Chloride (Sodium Chloride 0.9%) 1,000 mls @ 75 mls/hr IV .[id number] [facility] Last Admin: 07/08/22 09:36 Dose: Not Given Insulin Human Lispro (Insulin Lispro 1 Unit/0.01 Ml Unit) 0 unit SQ ACHS [facility]; Protocol Last Admin: 07/08/22 12:43 Dose: 2 units Lamotrigine (Lamotrigine 25 Mg Tablet) 50 mg PO BID [facility] Last Admin: 07/08/22 09:24 Dose: 50 mg Levothyroxine Sodium (Levothyroxine 100 Mcg Tablet) 100 mcg PO ACB [facility] Montelukast Sodium (Montelukast 10 Mg Tablet) 10 mg PO HS [facility] Ondansetron HCl (Ondansetron 4 Mg/2 Ml Vial) 4 mg IV Q4HP PRN PRN Reason: Nausea And Vomiting Polyethylene Glycol (Polyethylene Glycol 3350 17 Gm Packet) 17 gm PO DAILYP PRN PRN Reason: Constipation Polysaccharide Iron Complex (Iron Polysaccharide Complex 150 Mg Capsule) 150 mg PO QDAY [facility] Last Admin: 07/08/22 09:24 Dose: 150 mg Prednisone ([facility] 20 Mg Tablet) [facility] Last Admin: 07/08/22 09:26 Dose: 60 mg Fluticasone/Salmeterol (Fluticasone/Salmeterol 250/50 Inhaler #14) 1 puff INH BID [facility] Last Admin: 07/08/22 09:01 Dose: Not Given Senna (Sennosides 1 Tablet) 2 tab PO DAILYP PRN PRN Reason: Constipation Sodium Chloride (0.9 % Sodium Chloride 10 Ml Syringe) 10 ml IV Q8 [facility] Last Admin: 07/08/22 13:45 Dose: Not Given A/P Assessment and plan (1) Renal failure (ARF), acute on chronic: Status: Acute Narrative A/P Narrative: Assessment: 57-year-old female with a history of hypertension, hyperlipidemia, diabetes mellitus, chronic kidney disease stage IV, chronic diastolic heart failure, chronic anemia, hypothyroidism, depression, anxiety, PTSD, GERD, obesity admitted for acute on chronic kidney disease injury complicated by hyperkalemia. #ROYER on CKD IV, broad differential #Hyperkalemia, acute on chronic since may: 11/27 above #DM w/neuropathy: a1c 8.0 #COPD (3L@home): #h/o diastolic(II) CHF: #HTN/HLD: #Depression/anxiety/PTSD: #Morbid obesity: BMI 47 #Hypothyroidism: #GERD: #Tobacco abuse: cessation counseling Plan -D-50 and IV regular insulin, Kayexalate today, follow potassium closely. -Started on Lokelma for hyperkalemia. -Nephrology following, recommends renal biopsy. -monitor UOP, renal fxn, volume status. -cont home bb/norvasc/plavix -hold lluvia for sedation and worsened renal fxn -SSI -tobacco sampler. -home IH's, supp O2 -PT/OT -ppx: heparin Plan of Treatment: 1. Hydrate with NS 2. Trend labs 3. I recommend percutaneous renal Biopsy to decide AIN/ANTONIO/ATN/ Membranous GN or diabetic nephropathy. Time Spent With Patient Time: Total time spent is greater than 50% in coordination of care (as documented) at patient's floor/unit and/or counseling patient:
[2022-07-08] MEDS: hydrALAZINE 20 MG/ML VIAL IV PRN (16:29)
[2022-07-08] MEDS: CARVEDILOL 12.5 MG TABLET PO SCH (17:39)
[2022-07-08] MEDS ORDERED: FAMOTIDINE 20 MG TABLET PO SCH (21:00)
[2022-07-08] MEDS: MONTELUKAST 10 MG TABLET PO SCH (21:19)
[2022-07-08] MEDS: ATORVASTATIN 40 MG TABLET PO SCH (21:19)
[2022-07-08] MEDS ORDERED: INSULIN GLARGINE, HUMAN 1 UNIT/0.01 ML SQ SCH (21:45)
[2022-07-09] MEDS: 0.9 % SODIUM CHLORIDE 10 ML SYRINGE IV SCH ×3 (05:39→20:47)
[2022-07-09] MEDS: LEVOTHYROXINE 100 MCG TABLET PO SCH (07:12)
[2022-07-09] MEDS: INSULIN LISPRO 1 UNIT/0.01 ML UNIT SQ SCH ×6 (07:19→22:25)
[2022-07-09] MEDS: 0.9 % SODIUM CHLORIDE 1,000 ML IV SCH (07:20)
[2022-07-09 07:32] LABS: INR 1.1 (0.9-1.1); Partial Thromboplastin Time 30.1 sec (20.0-37.0); Prothrombin Time 14.8 sec (11.9-14.5)
[2022-07-09 08:34] LABS: Basophils # (Auto) 0.02 K/mcL (0.00-0.30); Basophils % (Auto) 0.2 % (0.0-2.0); Eosinophils # (Auto) 0 K/mcL (0.00-0.70); Eosinophils % (Auto) 0 % (0.0-7.0); Hematocrit 42.1 % (34.1-44.9); Hemoglobin 13.6 g/dL (11.2-15.7); Lymphocytes # (Auto) 1.12 K/mcL (1.50-4.80); Lymphocytes % (Auto) 11.1 % (15.5-49.0); Mean Cell Volume 93.1 fL (80.0-100.0); Mean Corpuscular HGB Conc 32.3 g/dL (31.0-36.0); Mean Platelet Volume 12.8 fL (7.4-10.4); Monocytes # (Auto) 0.52 K/mcL (0.10-0.90); Monocytes % (Auto) 5.1 % (1.0-12.0); Neutrophils % (Auto) 82.3 % (38.0-78.0); Platelet Count 106 K/mcL (140-440); RBC 4.52 M/mcL (3.59-5.38); Red Cell Distribution Width 12.1 % (11.5-14.5); WBC 10.1 K/mcL (4.5-11.0)
[2022-07-09 08:40] LABS: ALT/SGPT 8 U/L (<40); AST/SGOT 9 U/L (<32); Albumin 3.2 gm/dL (3.2-5.2); Albumin/Globulin Ratio 0.9 (1.0-2.3); Alkaline Phosphatase 122 U/L (39-117); Bilirubin,Direct < 0.2 mg/dL (0-0.3); Bilirubin,Total < 0.2 mg/dL (0.1-1.0); Blood Urea Nitrogen 68 mg/dL (6-20); Calcium 9.3 mg/dL (8.6-10.4); Carbon Dioxide 23 mmol/L (22-30); Chloride 104 mmol/L (96-108); Globulin 3.5 gm/dL (2.2-3.7); Glomerular Filtration Rate 18; Glucose 238 mg/dL (70-105); Lactate Dehydrogenase 215 U/L (135-225); Phosphorous 4.4 mg/dL (2.5-4.5); Triglycerides 57 mg/dL (<150); Uric Acid 8.2 mg/dL (2.5-8.0)
[2022-07-09] MEDS ORDERED: INSULIN REGULAR, HUMAN 1 UNIT/0.01 ML UNIT IV ONE (08:43)
[2022-07-09] MEDS ORDERED: SODIUM POLYSTYRENE SULFONATE 15 GM/60 ML SUSPENSION PO ONE (08:44)
[2022-07-09] MEDS: CARVEDILOL 12.5 MG TABLET PO SCH ×2 (08:52→17:03)
[2022-07-09] MEDS: predniSONE 20 MG TABLET PO SCH (08:53)
[2022-07-09] MEDS: ESCITALOPRAM 20 MG TABLET PO SCH (08:58)
[2022-07-09] MEDS: lamoTRIgine 25 MG TABLET PO SCH ×2 (08:58→20:47)
[2022-07-09] MEDS: amLODIPine 5 MG TABLET PO SCH (08:58)
[2022-07-09] MEDS: IRON POLYSACCHARIDE COMPLEX 150 MG CAPSULE PO SCH (08:58)
[2022-07-09] MEDS ORDERED: DEXTROSE 50% 50 ML SYRINGE IV ONE (09:00)
[2022-07-09] MEDS: HYDROcodone/APAP 10/325MG TABLET PO PRN ×3 (09:16→20:49)
[2022-07-09] MEDS ORDERED: NON FORMULARY MEDICATION 1 DOSE MISCELL PO PRN (10:36)
[2022-07-09] MEDS ORDERED: Sodium Zirconium Cyclosilicate [Lokelma] 10 gm Packet PO PRN (10:43)
[2022-07-09] MEDS: FLUTICASONE/SALMETEROL 250/50 INHALER #14 INH SCH ×2 (10:47→20:47)
[2022-07-09] MEDS: IPRATROPIUM/ALBUTEROL SULFATE 1 PUFF INHALER INH SCH ×4 (10:47→20:47)
[2022-07-09] MEDS: hydrALAZINE 20 MG/ML VIAL IV PRN (14:00)
[2022-07-09] MEDS ORDERED: BUTALB/ACETAMINOPHEN/CAFFEINE 1 TABLET PO PRN (14:37)
[2022-07-09] MEDS ORDERED: LABETALOL 5 MG/ML ML IV PRN (14:40)
[2022-07-09] MEDS ORDERED: PHENobarb/HYOSCY/ATROPINE/SCOP 1 DOSE BOTTLE PO ONE (14:40)
--- NOTE | 2022-07-09 15:47 | EKG ---
[facility] Test Date: 2022-07-09 Pat Name: Benny Virk Department: ICU Room: 120C Gender: Female Manager University: : 1965 Requested By: Arun Mcmahan Order Number: [id number] Reading MD: Jessy Schuster D.O. Measurements Intervals [place] Rate: 94 P: 63 [place]: 163 QRS: -32 QRSD: 92 T: 39 QT: 338 QTc: 423 Interpretive Statements Sinus rhythm INFERIOR INFARCT, OLD Borderline low voltage, extremity leads Electronically Signed On 07-09-2022 15:47:30 PDT by Jessy Schuster D.O. /store/M0/[id number]
--- NOTE | 2022-07-09 17:36 | Nephrology Progress Note ---
SUBJECTIVE Subjective Patient information: Note initiated : 07/09/22 at 8:19 am Service Date, if different from initiated Date: [] Patient: Benny Virk 57 y/o F admitted on 07/07/22 for renal/Acute Kidney Injury. Chief Complaint: [] Principal diagnosis: Acute on chronic renal failure with hyperkalemia Interval history: Planned renal biopsy elevated until Thursday as the patient was on Plavix at the time of admission for reasons unknown to me. Differential of acute renal failure remains unclear but high on the list is acute interstitial nephritis evidenced by eosinophilia and prior treatment with Bactrim, overzealous diuresis in the setting of RAASI therapy leading to renal hypoperfusion, and because of the findings of some granular casts on initial urinalysis ATN is in the differential. No evidence found for any obstructive uropathy based on admission scanning. The patient did report nonsteroidal anti-inflammatory medication use for quite a while which may explain her baseline CKD 3 with minimal proteinuria reported by Dr. Galvan and later Dr. Wynn. She also developed nephrotic range proteinuria on this admission. Stopped the RAASI inhibitors as well as her bumetanide, started 60 mg a day of prednisone (which she says will make her crazy), and brought some samples of Lokelma to help control her hyperkalemia. Eosinophils now 0% after prednisone started Pertinent ROS: N/A Additional PMFSH (Level 3 Only): N/A Constitutional Vitals: Vital Signs Temp Pulse Resp BP Pulse Ox O2 Del Method O2 Flow Rate 36.6 C 98 H 31 H 161/81 96 3 07/09/22 08:00 07/09/22 08:00 07/09/22 08:00 07/09/22 08:00 07/09/22 08:00 07/09/22 08:00 07/09/22 08:00 Period Temp Pulse Resp BP Sys/Phan Pulse Ox O2 Del Method O2 Flow Rate Last 24 Hr 36.4 C-36.8 C 79-98 10-31 127-168/50-81 96-100 Nasal Cannula- Nasal Cannula 3-3.0 Intake and Output 07/08/22 07/09/22 07/09/22 21:59 05:59 13:59 Intake Total 660 1000 Output Total 425 1150 400 Balance 235 -1150 600 Weight 110.172 kg Intake & Output: Intake & Output 07/08/22 07/09/22 07/09/22 21:59 05:59 13:59 Intake Total 660 1000 Output Total 425 1150 400 Balance 235 -1150 600 Weight 110.172 kg Intake: IV 0 1000 Sodium Chloride 0.9% 1,000 ml @ 0 1000 75 mls/hr IV .[id number] [facility] Rx#: [id number] Oral 660 Output: Void Amount 425 1150 400 Other: Meal Dinner Percent of Meal Consumed 100% Urine Appearance Clear Clear Cloudy Urine Color Yellow Bright Yellow Bright Yellow Urine Odor Normal General appearance: mild distress and obese Head Head exam: Present normal inspection Eye Eye exam: Present EOMI; Absent scleral icterus Pupils: Present PERRL ENT ENT exam: Present mucous membranes moist Neck Neck exam: Absent meningismus Respiratory Respiratory exam: Present normal respiratory exam Cardiovascular Cardiovascular exam: Present normal rate and rhythm, +S1 and +S2 GI/Abdominal GI/Abdominal exam: Present normal bowel sounds Neurological Exam Neurological exam: Present alert, CN II-XII intact and motor sensory deficit Psychiatric Psychiatric exam: Present anxious Additional comments: More alert than yesterday Skin Skin exam: Present dry; Absent petechiae or rash A/P Assessment and plan (1) Hyperkalemia: Status: Acute (2) Eosinophilia: Status: Acute (3) Acute renal failure superimposed on stage 3 chronic kidney disease: Status: Acute (4) Thrombocytopenia: Status: Acute (5) Essential hypertension: Status: Chronic Plan see below Narrative Plan of Treatment: 1. Hydrate with NS - done 2. Trend labs 3. I recommend percutaneous renal Biopsy to decide AIN/ANTONIO/ATN/ Membranous GN or diabetic nephropathy on THURSDAY 4. HOLD HEPARIN and clopidogrel. 5. Use Lokelma in place of kalexalate for high potassium (>5.8) 6. Avoid RASSI therapy 7. Continue prednisone till post biopsy Time Spent With Patient Time: Total time spent is greater than 50% in coordination of care (as documented) at patient's floor/unit and/or counseling patient:
[2022-07-09] MEDS: MONTELUKAST 10 MG TABLET PO SCH (20:47)
[2022-07-09] MEDS: ATORVASTATIN 40 MG TABLET PO SCH (20:47)
[2022-07-09] MEDS ORDERED: INSULIN GLARGINE, HUMAN 1 UNIT/0.01 ML SQ ONE (20:49)
[2022-07-09] MEDS ORDERED: INSULIN LISPRO 1 UNIT/0.01 ML UNIT SQ ONE (20:50)
[2022-07-09] MEDS ORDERED: INSULIN GLARGINE, HUMAN 1 UNIT/0.01 ML SQ SCH ×2 (21:00)
[2022-07-09] MEDS ORDERED: FAMOTIDINE 20 MG TABLET PO SCH (21:00)
[2022-07-10] MEDS: 0.9 % SODIUM CHLORIDE 10 ML SYRINGE IV SCH ×2 (05:45→14:32)
[2022-07-10] MEDS: LEVOTHYROXINE 100 MCG TABLET PO SCH (07:45)
[2022-07-10] MEDS: CARVEDILOL 12.5 MG TABLET PO SCH (07:45)
[2022-07-10] MEDS: predniSONE 20 MG TABLET PO SCH (07:45)
[2022-07-10] MEDS: INSULIN LISPRO 1 UNIT/0.01 ML UNIT SQ SCH ×2 (07:52→11:58)
--- NOTE | 2022-07-10 08:17 | Nephrology Progress Note ---
SUBJECTIVE Subjective Patient information: Note initiated : 07/10/22 at 8:16 am Service Date, if different from initiated Date: [] Patient: Benny Virk 57 y/o F admitted on 07/07/22 for renal/Acute Kidney Injury. 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 Started on empiric prednisone (60 mg qD) with expected disappearance in eosinophils on CBC. Renal biopsy cancelled till at least Thursday due to mildly elevated INR, Plavix (stopped 07/08 and unclear why she was on this Rx), and development of decreased platelets since hospitalization (~104K 07/09/22). Will d/c today on Prednisone 60 mg a day, holding Plavix and plan for renal bx Thursday to decide if steroids are indicated for AIN vs ATN, and GN as the etiology of UPCR of 5 which is new. Also on hold is spironolactone due hyperkalemia and Bumetamide due to ARF. Serum Creatinine Eosinophils Pertinent ROS: N/A Additional PMFSH (Level 3 Only): N/A Constitutional Vitals: Vital Signs Temp Pulse Resp BP Pulse Ox O2 Del Method O2 Flow Rate 35.9 C L 78 16 139/61 100 3 07/10/22 04:00 07/10/22 06:01 07/10/22 06:01 07/10/22 06:01 07/10/22 06:01 07/10/22 06:01 07/10/22 06:01 Period Temp Pulse Resp BP Sys/Phan Pulse Ox O2 Del Method O2 Flow Rate Last 24 Hr 35.9 C-36.8 C 78-98 10-24 137-184/58-85 95-100 Nasal Cannula- Nasal Cannula 2.5-3 Intake and Output 07/09/22 07/10/22 07/10/22 21:59 05:59 13:59 Intake Total 940 400 150 Output Total 800 750 200 Balance 140 -350 -50 Weight 112.808 kg Intake & Output: Intake & Output 07/09/22 07/10/22 07/10/22 21:59 05:59 13:59 Intake Total 940 400 150 Output Total 800 750 200 Balance 140 -350 -50 Weight 112.808 kg Intake: Oral 940 400 150 Output: Void Amount 800 750 200 Other: Urine Appearance Clear Clear Clear Urine Color Bright Yellow Bright Yellow Yellow Urine Odor Normal Normal Stool Size Small Stool Color Brown Stool Consistency Soft Formed # Bowel Movements 1 General appearance: no acute distress and obese Head Head exam: Present normal inspection Eye Eye exam: Present EOMI Pupils: Present PERRL Respiratory Respiratory exam: Present rhonchi Cardiovascular Cardiovascular exam: Present normal rate and rhythm, +S1 and +S2 GI/Abdominal GI/Abdominal exam: Present normal bowel sounds Extremities Exam Extremities exam: Present pedal edema Additional comments: trace to 1+ Neurological Exam Neurological exam: Present CN II-XII intact and oriented X3 Additional comments: Improved MS Psychiatric Psychiatric exam: Present anxious Skin Skin exam: Present dry A/P Assessment and plan (1) Acute renal failure superimposed on stage 3 chronic kidney disease: Plan: Treating like AIN with Prednisone Biopsy on Thursday Holding RAASI Status: Acute (2) Acute hyperkalemia: Status: Acute Comment: Improved with kayexalate, Lokelma, Insulin and glucose (3) Renal failure (ARF), acute on chronic: Status: Acute (4) Thrombocytopenia: Assessment and plan: Resolved with stopping heparin and hydralazine. Good to go for Bx Thursday. Status: Acute Narrative Plan of Treatment: 1. Hydrate with NS - done 2. Trend labs 3. I recommend percutaneous renal Biopsy to decide AIN/ANTONIO/ATN/ Membranous GN or diabetic nephropathy on THURSDAY 4. HOLD HEPARIN and clopidogrel. 5. Use Lokelma in place of kalexalate for high potassium (>5.8) - currently on hold 6. Avoid RASSI therapy 7. Continue prednisone till post biopsy 8. Follow up with Dr Wynn 1 week post Bx Time Spent With Patient Time: Total time spent is greater than 50% in coordination of care (as documented) at patient's floor/unit and/or counseling patient:
[2022-07-10 08:20] LABS: Basophils # (Auto) 0.02 K/mcL (0.00-0.30); Basophils % (Auto) 0.2 % (0.0-2.0); Eosinophils # (Auto) 0 K/mcL (0.00-0.70); Eosinophils % (Auto) 0 % (0.0-7.0); Hematocrit 27.9 % (34.1-44.9); Hemoglobin 8.6 g/dL (11.2-15.7); Lymphocytes % (Auto) 17.1 % (15.5-49.0); Mean Cell Volume 97.9 fL (80.0-100.0); Mean Corpuscular HGB Conc 30.8 g/dL (31.0-36.0); Mean Platelet Volume 12.3 fL (7.4-10.4); Monocytes # (Auto) 0.97 K/mcL (0.10-0.90); Monocytes % (Auto) 8.3 % (1.0-12.0); Neutrophils % (Auto) 73.6 % (38.0-78.0); Platelet Count 195 K/mcL (140-440); RBC 2.85 M/mcL (3.59-5.38); Red Cell Distribution Width 12.3 % (11.5-14.5); WBC 11.7 K/mcL (4.5-11.0)
[2022-07-10 08:46] LABS: Blood Urea Nitrogen 76 mg/dL (6-20); Calcium 9.2 mg/dL (8.6-10.4); Carbon Dioxide 25 mmol/L (22-30); Chloride 105 mmol/L (96-108); Glomerular Filtration Rate 19; Glucose 115 mg/dL (70-105)
[2022-07-10] MEDS: lamoTRIgine 25 MG TABLET PO SCH (09:19)
[2022-07-10] MEDS: IRON POLYSACCHARIDE COMPLEX 150 MG CAPSULE PO SCH (09:19)
[2022-07-10] MEDS: amLODIPine 5 MG TABLET PO SCH (09:20)
[2022-07-10] MEDS: ESCITALOPRAM 20 MG TABLET PO SCH (09:20)
[2022-07-10] MEDS: FLUTICASONE/SALMETEROL 250/50 INHALER #14 INH SCH (09:20)
[2022-07-10] MEDS: IPRATROPIUM/ALBUTEROL SULFATE 1 PUFF INHALER INH SCH ×2 (09:20→13:43)
[2022-07-10] MEDS: HYDROcodone/APAP 10/325MG TABLET PO PRN (09:43)
--- NOTE | 2022-07-10 11:15 | Discharge Summary ---
Discharge Provider Provider IMPORTANT FOLLOW-UP INFORMATION FOR PCP: Patient information: Note initiated : 07/10/22 at 11:13 am Service Date, if different from initiated Date: [] Patient: Benny Virk a 57 y/o F admitted on 07/07/22 for renal/Acute Kidney Injury. Chief Complaint: [] Date of admission: 07/07/22 19:56 Discharge date: 07/10/22 Primary care physician: VALERIO Negro Consults: 07/07/22 17:36 Consult to Physician [CONS] Stat Comment: Consulting Provider: Jarvis Ogden Reason For Exam: Physician to Consult 07/07/22 17:41 Consult to Physician [CONS] Stat Comment: Consulting Provider: Guanaco Franklin Reason For Exam: Physician to Consult COURSE Hospital Course Hospital course: Ms. Virk is a 57 year old F Sent into the ED for abnormal labs today. Patient [facility]. [place]. Patient is a poor historian and likely compounded by the fact that she is so sleepy and lethargic. Patient did not know why she had labs at the outside facility, whether it was routine labs or if she had any complaints that elicited the lab draw. She does state that she has some lower abdominal pain but that she has that chronically. She has intermittent diarrhea some days with good symptoms as bad. She admits to being quite sleepy lately. She denies taking extra doses of any of her medications. However she is on pain medications and muscle relaxers that she admits to. In the ED her potassium was 6.5 with a BUN of 112 and a creatinine 3.9. She has chronic headaches. Denies fever chills. Says she has some occasional left sharp chest pain which she says feels like it is in her breast and comes on with Anxiety and goes away when she calms down. Nonradiating. She is on chronic oxygen for COPD. Case discussed with Dr. Franklin. I was told the ER the patient was given Kayexalate today and I am assuming that was at the nursing facility by the physician there prior to arriving. 07/08 Patient not sleepy like she was yesterday falling asleep on me while I was talking to her. She is still quite tired however. On IV fluids and adequate urine output. She does admit to headache but no nausea today. Potassium still elevated but mildly improved. Renal function trending in the right direction albeit slowly. Complement C3 and C4 were in the normal range. 07/09 Patient is on 3L/min nasal cannula oxygen supplementation, elevated blood pressure. Good urine output with improvement in renal function labs. Potassium elevated at 6.5, the patient received IV D50, IV regular insulin and a dose of Kayexalate. She was later started on Lokelma by nephrology. Repeat potassium improved to 6.1. The patient complained of chest pain, reproducible on palpation. No hyperkalemia or ischemic changes on EKG. Troponin T was normal. NT proBNP elevated. Because of acute kidney injury is not clear, nephrology is recommending a percutaneous renal biopsy. 07/10 Renal function improving, urine output almost 2 L during the last shift. Potassium down to 5.5. Nephrology feels the patient is ready to discharge with nephrology follow-up, the plan is for an outpatient renal biopsy. Prednisone 60 mg daily continued at discharge per nephrology recommendation. Holding Plavix for the upcoming biopsy. Holding spironolactone per nephrology recommendations. Holding Torsemide until nephrology follow up in clinic. Avoid Bactrim indefinitely. Nephrology provided the patient with a sample of Lokelma and instructions on how to take that medication. Physical exam Head: Atraumatic, normal inspection. Eyes: normal appearance, no scleral icterus. Neck: full ROM Respiratory: no respiratory distress. Cardiovascular: normal rate and rhythm, S1, S2, reproducible chest tenderness with palpation. GI/Abdominal: soft, nontender, no guarding. Extremities: Bilateral lower extremity pitting edema, full range of motion, nontender. Neurological: CN II-XII intact, intact motor, intact sensation. Psychiatric: normal mood. Skin: warm, normal color Discharge diagnosis: Acute on chronic kidney disease injury Secondary discharge diagnosis: Hyperkalemia Time Spent with Patient Time attestation: Total time spent providing and/or coordinating discharge services: Time spent: Greater than 30 minutes EXAM Constitutional Vitals: Temp Pulse Resp BP Pulse Ox O2 Del Method O2 Flow Rate 97 F 83 15 158/69 100 3 07/10/22 08:00 07/10/22 10:01 07/10/22 10:01 07/10/22 10:01 07/10/22 10:01 07/10/22 10:01 07/10/22 10:01 Discharge Data Data Completed and Pending Labs on day of discharge: Labs from last 24 hours 07/10/22 07/10/22 07/09/22 07:33 07:33 18:11 WBC 11.7 H RBC 2.85 L Hgb 8.6 L Hct 27.9 L MCV 97.9 MCH 30.2 MCHC 30.8 L RDW 12.3 Plt Count 195 MPV 12.3 H Immature Gran % (Auto) 0.8 H Neut % (Auto) 73.6 Lymph % (Auto) 17.1 [place] % (Auto) 8.3 Eos % (Auto) 0 Baso % (Auto) 0.2 Lymph # (Auto) 2.00 [place] # (Auto) 0.97 H Eos # (Auto) 0 Baso # (Auto) 0.02 Immature Gran # 0.09 H Absolute Neutrophils 8.61 H Sodium 137 Potassium 5.5 H 5.7 H Chloride 105 Carbon Dioxide 25 Anion Gap 7.0 L BUN 76 H Creatinine 2.6 H GFR Calculation 19 Glucose 115 H Calcium 9.2 Phosphorus 5.0 H Troponin T NT-Pro-B Natriuret Pep Albumin 3.0 L 07/09/22 07/09/22 07/09/22 12:01 12:00 12:00 WBC RBC Hgb Hct MCV MCH MCHC RDW Plt Count MPV Immature Gran % (Auto) Neut % (Auto) Lymph % (Auto) [place] % (Auto) Eos % (Auto) Baso % (Auto) Lymph # (Auto) [place] # (Auto) Eos # (Auto) Baso # (Auto) Immature Gran # Absolute Neutrophils Sodium Potassium 6.1 H* Chloride Carbon Dioxide Anion Gap BUN Creatinine GFR Calculation Glucose Calcium Phosphorus Troponin T 0.02 NT-Pro-B Natriuret Pep 2139.0 H Albumin Discharge Plan Patient/Caregiver Discharge Instructions Activity: increase activity as tolerated Diet: Renal/Consistent Carbs Activity Restrictions/Additional Instructions: You are scheduled for a CT Guided Renal Biopsy on Thursday, July 14. Please check in @ 8:30am at [facility] Radiology Department. Do not take any Aspirin or blood thinners for 3 days prior to procedure. Do not eat or drink anything after midnight prior to procedure. Prescriptions: New gabapentin 300 mg capsule 300 mg PO BID Qty: 60 2RF prednisone 20 mg Tablet 60 mg PO QAMCC 14 Days Qty: 42 0RF Tresiba FlexTouch U-100 100 unit/mL (3 mL) insulin pen 40 unit subcut QDAY Qty: 15 5RF Continued atorvastatin 80 mg tablet 80 mg PO QHS amlodipine 5 mg tablet 5 mg PO QAM carvedilol 12.5 MG tablet 12.5 mg PO BIDCC levothyroxine 100 MCG tablet 100 mcg PO ACB montelukast 10 MG tablet 10 mg PO HS epinephrine [EpiPen 2-Abhi] 0.3 MG/0.3 ML auto-injector 0.3 mg IM PRN PRN (Reason: Allergic Symptoms) escitalopram oxalate 20 MG tablet 20 mg PO DAILY hydrocodone-acetaminophen 10-325 mg Tablet 1 tab PO Q4HP PRN (Reason: Pain) famotidine 20 mg Tablet 20 mg PO QDAY cholecalciferol (vitamin D3) [Vitamin D3] 25 mcg (1,000 unit) Capsule 25 mcg PO DAILY acetaminophen [Tylenol] 325 mg Tablet 650 mg PO Q4H PRN (Reason: Pain) fluticasone propion-salmeterol 250-50 mcg/dose Blister With Device 1 inh INHALATION BID polysaccharide iron complex 150 mg iron Capsule 150 mg PO QDAY magnesium hydroxide [Milk of Magnesia] 400 mg/5 mL Suspension 30 ml PO QDAY PRN (Reason: Constipation) Rx Instructions: As needed for no BM in 3 days bisacodyl [Dulcolax (bisacodyl)] 10 mg Suppository 10 mg ID QDAY PRN (Reason: Constipation) Rx Instructions: insert 1 suppository rectally as needed for no BM on shift following Milk of Magnesia dose risperidone 0.5 mg Tablet 0.5 mg PO BID Glucagon (HCl) Emergency Kit 1 mg Recon Soln 1 mg SUBCUT Q15M PRN (Reason: Hypoglycemia) Rx Instructions: until target blood sugar attained Combivent Respimat 20-100 mcg/actuation mist 1 puff INHALATION QID insulin lispro [Humalog KwikPen Insulin] 100 unit/mL Insulin Pen See Protocol SUBCUT ACHS Protocol: Insulin Sliding Scale, Med Condition: HUMALOG/NOVALOG SC SLIDING Dose/Route: SCALE Condition: FSBS < 70 Dose/Route: Give 4 Oz juice, or 15gm oral Instruction: Glucose, or 25ml D50W IV if Dose/Route: unable to take PO. Recheck in Instruction: 15 min and repeat if FSBS < 70 Condition: FSBS 71-140 Dose/Route: NO COVERAGE Condition: FSBS 141-170 Dose/Route: 2 UNITS Condition: FSBS 171-200 Dose/Route: 4 UNITS Condition: FSBS 201-250 Dose/Route: 6 UNITS Condition: FSBS 251-300 Dose/Route: 8 UNITS Condition: FSBS 301-350 Dose/Route: 10 UNITS Condition: FSBS 351-400 Dose/Route: 12 UNITS Condition: FSBS > 400 Dose/Route: 14 UNITS; REPEAT Q2H X2 Instruction: CONTINUE FOLLOWING SLIDING Condition: SCALE; IF STILL > 400; CALL Dose/Route: PHYSICIAN lamotrigine 50 mg Tablet Extended Release 24hr 50 mg PO BID ondansetron HCl 4 mg tablet 4 mg PO DAILY PRN (Reason: nausea) Discontinued clopidogrel 75 mg tablet 75 mg PO QAM dextroamphetamine-amphetamine 30 mg tablet 30 mg PO BID Rx Instructions: administer doses at least 4-6 hours apart torsemide 20 mg tablet 40 mg PO BID Tresiba FlexTouch U-200 200 UNIT/ML insulin pen 73 unit SQ 1200 Rx Instructions: Take daily in the afternoon gabapentin 300 mg capsule 900 mg PO HS Rx Instructions: 1-2 caps by mouth every morning, and afternoon, and take up to 3 caps every evening Fleet Enema 19-7 gram/118 mL Enema 118 ml ID ONCE Rx Instructions: For no BM on shift following Dulcolax suppository application gabapentin 300 mg Capsule 300 - 600 mg PO BID Rx Instructions: Take 1-2 caps every and afternoon and up to 3 capsules at night spironolactone 50 mg Tablet 50 mg PO QDAY potassium chloride 20 mEq Tablet Extended Release 20 meq PO QDAY Follow Up Plan Follow up with: Lyric Crowder ARNP [Primary Care Provider] - Shaye Wynn MD [Physician] - (Follow up ROYRE on CKD. ) Patient Disposition: [facility] Plan of Treatment: 1. Hydrate with NS - done 2. Trend labs 3. I recommend percutaneous renal Biopsy to decide AIN/ANTONIO/ATN/ Membranous GN or diabetic nephropathy on THURSDAY 4. HOLD HEPARIN and clopidogrel. 5. Use Lokelma in place of kalexalate for high potassium (>5.8) 6. Avoid RASSI therapy 7. Continue prednisone till post biopsy Rehab Potential: Fair I certify that the patient requires SNF services: Yes Overall status at discharge: patient is progressing back to baseline Discharge Orders: Discharge Order (Routine); Ordered 07/10/22 Ordered By: Arun Mcmahan
[2022-07-10] MEDS ORDERED: FLU VACC QS2022-23(6MOS UP)/PF 60 MCG/0.5 ML SYRINGE IM ONE (12:30)
[2022-07-10] MEDS ORDERED: INSULIN GLARGINE, HUMAN 1 UNIT/0.01 ML SQ SCH (21:00)
== END 2022-07-10 14:22 | DRG 682 ==
LOC: ED 13:17 → ICU 19:56
PROVIDERS: ADMIT Internal Medicine; ATTEND Internal Medicine

== ENCOUNTER 2022-09-10 09:26 | Inpatient (IN) ==
--- NOTE | 2022-09-10 10:11 | Internal Med History&Physical ---
HPI History of Present Illness Patient information: Note initiated : 09/10/22 at 10:11 am Service Date, if different from initiated Date: [] Patient: Benny Virk a 57 y/o F admitted on for Acute kidney injury. Chief Complaint: [] History of present illness: Ms. Virk is a 57 year old F 57-year-old female who presented to the ED from a nursing facility for increasing edema and volume overload. She was found to have electrolyte disturbance a potassium of 6.2 creatinine 5.1 BUN of 130. Is mildly hypoglycemic at 68. He was anemic at 6.1. Phos was also elevated. Dr. Wynn was contacted as this is a known patient of him. Patient has a known history of chronic kidney disease stage V. Hemodialysis catheter was requested before transfer to [facility] for likely dialysis. Patient continued become volume overloaded over time and renal function declined. she c/o dyspnea/cough, nausea but no vomiting, constipation. she uses 2-3L O2@home for copd. she received treatment for hyperkalemia in ED as well as d50 for hypoglycemia and blood transfusion for symptomatic anemia. Review of Systems: Pertinent positives as above. Denies fever/chills//vomiting/diarrhea. Remaining 10 point review of system reviewed negative PFSH PFSH All Active Problems (Updated 08/04/22 @ 18:22 by Minesh Pathak PA-C) Fall (on) (from) other stairs and steps, initial encounter (Acute) Contusion of head (Acute) Musculoskeletal pain (Acute) Overdose of loop diuretic (Acute) Postoperative pain of right knee (Chronic) Headache (Chronic) Migraine (Chronic) Weakness (Chronic) Lumbar radiculopathy (Chronic) Hypothyroidism (Chronic) Diabetes mellitus, type II (Chronic) Vitamin D deficiency (Chronic) Dyslipidemia (Chronic) Hypercholesterolemia (Chronic) Borderline personality disorder (Chronic) PTSD (post-traumatic stress disorder) (Chronic) Depressive disorder (Chronic) Abscess of brain (Chronic) Essential hypertension (Chronic) Asthma (Chronic) Coronary arteriosclerosis (Chronic) Moderate chronic obstructive pulmonary disease (Chronic) Acid reflux (Chronic) GERD (gastroesophageal reflux disease) (Chronic) Edema of extremity (Chronic) Elevated blood pressure reading (Chronic) Pain in right knee (Chronic) Hernia (Chronic) CAD (coronary artery disease) (Chronic) Knee pain (Chronic) Back pain (Chronic) Anxiety (Chronic) Myocardial infarction (Chronic) ADD (attention deficit disorder) (Chronic) Bronchitis (Chronic) Chronic pain (Chronic) Low back pain (Chronic) Diastolic heart failure (Chronic) Shortness of breath at rest (Chronic) Anemia of chronic disease (Chronic) Generalized edema (Chronic) Osteoarthritis (Chronic) Dyspnea on exertion (Chronic) History of meningitis (Chronic) Neuropathy due to secondary diabetes mellitus (Chronic) Patient noncompliance (Chronic) Disability (Chronic) Noncompliance with treatment (Chronic) Chronic back pain (Chronic) Localized edema due to fluid overload (Chronic) Acute cystitis with positive culture (Acute) Chronic kidney disease (CKD) stage G4/A3, severely decreased glomerular filtration rate (GFR) between 15-29 mL/min/1.73 square meter and albuminuria creatinine ratio greater than 300 mg/g (Chronic) Hypertension in stage 4 chronic kidney disease due to type 2 diabetes mellitus (Chronic) Anemia in stage 4 chronic kidney disease (Chronic) Hyperkalemia (Acute) ORYER (acute kidney injury) (Acute) Thrombocytopenia (Acute) Eosinophilia (Acute) Medical History Abscess of brain Acid reflux ADD (attention deficit disorder) Anemia of chronic disease Anxiety Asthma Back pain Borderline personality disorder Bronchitis CAD (coronary artery disease) Chronic back pain Chronic pain Coronary arteriosclerosis Depressive disorder Diabetes mellitus, type II Diastolic heart failure Disability Dyslipidemia Dyspnea on exertion Edema of extremity Elevated blood pressure reading Essential hypertension Generalized edema GERD (gastroesophageal reflux disease) Headache Hernia History of meningitis Hypercholesterolemia Hypothyroidism Knee pain Low back pain Lumbar radiculopathy Migraine Moderate chronic obstructive pulmonary disease Myocardial infarction Neuropathy due to secondary diabetes mellitus Noncompliance with treatment Osteoarthritis Pain in right knee Patient noncompliance Postoperative pain of right knee PTSD (post-traumatic stress disorder) Shortness of breath at rest Vitamin D deficiency Weakness Surgical History History of back surgery L4-5 fusion with cage and posterior fusion with cage History of cardiac cath History of cholecystectomy History of hernia repair History of hysterectomy History of incision and drainage History of knee surgery right knee replacement History of oral surgery Status post peripherally inserted central catheter (PICC) central line placement Family History Mother Alcohol abuse Father Alcohol abuse Brother Drug abuse Social History (Updated 04/23/22 @ 09:46 by Ann Marie Spencer) lives independently: Yes marital status: education level: high school occupational status: unemployed pets and animals: Yes smoking status: Former smoker alcohol intake frequency: holiday/special occasion only substance use type: does not use seatbelt use: always working smoke detector in home: Yes carbon monox detector in home: Yes MEDS/ALLERGIES Home Medications and Allergies Home Medications Medication Instructions Recorded Confirmed Type carvedilol 12.5 mg tablet 12.5 mg PO BIDCC 09/28/18 07/17/22 History epinephrine 0.3 mg/0.3 mL 0.3 mg IM PRN PRN Allergic Symptoms 09/28/18 07/17/22 History injection, auto-injector (EpiPen 2-Abhi) levothyroxine 100 mcg tablet 100 mcg PO ACB 09/28/18 07/17/22 History montelukast 10 mg tablet 10 mg PO HS 09/28/18 07/17/22 History escitalopram oxalate 20 mg tablet 20 mg PO DAILY 09/29/18 07/17/22 History acetaminophen 325 mg tablet 650 mg PO Q4H PRN Pain 10/02/20 07/17/22 History (Tylenol) cholecalciferol (vitamin D3) 25 25 mcg PO DAILY 10/02/20 07/17/22 History mcg (1,000 unit) capsule (Vitamin D3) famotidine 20 mg tablet 20 mg PO QDAY 10/02/20 07/17/22 History hydrocodone 10 mg-acetaminophen 1 tab PO Q4HP PRN Pain 10/02/20 07/17/22 History 325 mg tablet atorvastatin 80 mg tablet 80 mg PO QHS 07/29/21 07/17/22 History amlodipine 5 mg tablet 5 mg PO QAM 04/23/22 07/17/22 History bisacodyl 10 mg rectal suppository 10 mg MN QDAY PRN Constipation 07/07/22 07/17/22 History (Dulcolax (bisacodyl)) fluticasone 250 mcg-salmeterol 50 1 inh inhalation BID 07/07/22 07/17/22 History mcg/dose blistr powdr for inhalation glucagon HCl 1 mg solution for 1 mg subcut Q15M PRN Hypoglycemia 07/07/22 07/17/22 History injection (Glucagon (HCl) Emergency Kit) magnesium hydroxide 400 mg/5 mL 30 ml PO QDAY PRN Constipation 07/07/22 07/17/22 History oral suspension (Milk of Magnesia) risperidone 0.5 mg tablet 0.5 mg PO BID 07/07/22 07/17/22 History insulin lispro 100 unit/mL See Protocol subcut ACHS 07/08/22 07/17/22 History subcutaneous pen (Humalog KwikPen (U-100) Insulin) ipratropium 20 mcg-albuterol 100 1 puff inhalation QID 07/08/22 07/17/22 History mcg/actuation mist for inhalation (Combivent Respimat) lamotrigine 50 mg tablet,extended 50 mg PO BID 07/08/22 07/17/22 History release 24 hr ondansetron HCl 4 mg tablet 4 mg PO DAILY PRN nausea 07/08/22 07/17/22 History gabapentin 300 mg capsule 300 mg PO BID #60 caps 07/10/22 07/17/22 Rx insulin degludec 100 unit/mL (3 40 unit (0.4 mL) subcut QDAY #15 mL 07/10/22 07/17/22 Rx mL) subcutaneous pen (Tresiba FlexTouch U-100 insulin) prednisone 20 mg tablet 20 mg PO QDAY #10 tabs 07/17/22 07/17/22 Rx darbepoetin cem in polysorbat 100 100 mcg subcut Q2W PRN hemoglobin 08/05/22 Rx mcg/mL in polysorbate injection <10.0 #1 mL (Aranesp) dextroamphetamine-amphetamine 30 30 mg PO BID 08/05/22 History mg tablet (Adderall) ferrous gluconate 324 mg (38 mg 324 mg PO QDAY 08/05/22 History iron) tablet lidocaine 4 % topical patch 1 patch topical QDAY PRN 08/05/22 History methocarbamol 750 mg tablet 750 mg PO Q6H PRN 08/05/22 History potassium chloride 20 mEq 20 meq PO QDAY 08/05/22 History tablet,extended release torsemide 40 mg tablet 40 mg PO QAM 08/05/22 History Allergies Allergy/AdvReac Type Severity Reaction Status Date / Time theophylline [From James-Dur] Allergy Severe Other Verified 08/04/22 17:04 Opioids - Morphine Analogues Allergy Unknown unknown Verified 08/04/22 17:04 sulfamethoxazole Allergy Unknown Other Verified 08/04/22 17:04 [From Bactrim] trimethoprim [From Bactrim] Allergy Unknown Other Verified 08/04/22 17:04 aspirin AdvReac Severe Other Verified 08/04/22 17:04 morphine AdvReac Severe Swelling Verified 08/04/22 17:04 adhesive tape AdvReac Mild Rash Verified 08/04/22 17:04 Docusate [From Colace] AdvReac Mild CONSTIPATIO Verified 08/04/22 17:04 N Iodinated Contrast Media AdvReac Mild Other Verified 08/04/22 17:04 [Iodinated Contrast- Oral and IV Dye] meperidine [From Demerol] AdvReac Mild Anxiety Verified 08/04/22 17:04 Nickel AdvReac Mild Other Verified 08/04/22 17:04 oxycodone [From Percocet] AdvReac Mild Agitated Verified 08/04/22 17:04 promethazine [From Phenergan] AdvReac Mild Agitated Verified 08/04/22 17:04 propoxyphene AdvReac Mild Agitated Verified 08/04/22 17:04 EXAM Constitutional Exam: General: Alert, Awake, No acute Distress, obesity Eyes/N/T: EOMI, PERRL Head/Neck: neck supple, normocephalic atraumatic CV: RRR, No murmurs, normal s1/s2 Pulm: mild rales b/l, no wheezing Abd: soft, nontender, +BS x4 Ext: no clubbing/cyanosis, b/l LE 3+ edema, anasarca Neuro: Alert, no focal deficits, moves all extremities, CN 2-12 grossly intact, sensations intact b/l upper/lower Skin: warm/dry A/P Narrative A/P Narrative: A: *Volume overload/anasarca: *Hyperkalemia: *ROYER on CKD V w/Renal Failure: *Acute on chronic anemia(MORIS), symptomatic: No gross bleeding -1prbc in outside facility *DM2 w/Hypoglycemia: *diastolic(II) CHF: cxr at outside facility with vascular congestion *CAD w/angioplasty no stents: *COPD(2-3L @home): *Pulm HTN: *HTN/HLD: *GERD: *Hypothyroidism: tsh *Depression/anxiety/OCD: *Obesity: BMI 56 P: -Dr. Wynn for dialysis vs Lasix gtt, electrolytes -Monitor renal function, electrolytes, uop -Follow-up potassium -Monitor H&H -s/p d50 -Basal(hold for now for hypoglycemia) and SSI -Check TSH -Supplemental O2 per home regimen, IS -teds, elevate legs -Home medication reconciliation, cont pertinent medications -CM for placement -ppx: Heparin / home H2 Time Spent With Patient Time: Total time spent is greater than 50% in coordination of care (as documented) at patient's floor/unit and/or counseling patient: Total time spent with greater than 50% in coordination of care (as documented) at patient's floor/unit and/or counseling patient:: Greater than 70 minutes
[2022-09-10] MEDS ORDERED: DEXTROSE 50% 50 ML VIAL IV PRN (10:34)
[2022-09-10] MEDS ORDERED: SENNOSIDES 1 TABLET PO PRN (10:34)
[2022-09-10] MEDS ORDERED: MAGNESIUM SULFATE 2 GM/50 ML BAG IV PRN (10:34)
[2022-09-10] MEDS ORDERED: POTASSIUM CHLORIDE 40 MEQ in DEXTROSE 5% IN WATER 500 ML IV PRN (10:34)
[2022-09-10] MEDS ORDERED: POLYETHYLENE GLYCOL 3350 17 GM PACKET PO PRN (10:34)
[2022-09-10] MEDS ORDERED: DEXTROSE 31 GM ORAL.SUSP PO PRN (10:34)
[2022-09-10] MEDS ORDERED: ONDANSETRON 4 MG/2 ML VIAL IV PRN (10:34)
[2022-09-10] MEDS ORDERED: IPRATROPIUM/ALBUTEROL 3 ML AMPUL.NEB NEB PRN (10:34)
[2022-09-10] MEDS ORDERED: ACETAMINOPHEN 325 MG TABLET PO PRN (10:34)
[2022-09-10] MEDS ORDERED: POTASSIUM CHLORIDE 20 MEQ TABLET PO PRN ×2 (10:34)
[2022-09-10] MEDS: INSULIN LISPRO 1 UNIT/0.01 ML UNIT SQ SCH ×3 (12:30→20:41)
--- OUTSIDE RECORDS SUMMARY | 2022-09-10 12:35 | External Medical Summary | Encounter Summary ---
:1965 Author Care Team Providers Name Role Phone Lyric Crowder NP Primary Care Provider [phone] Esau Love DO Primary Care Provider [phone] Bipin Fernandez MD Yarder Engineer [phone] Esau Sesay MD Interventional Radiologist [phone] Reason for Visit new patient; congestive heart failure Assessment and Plan 1. Chronic diastolic heart failure Fluid status difficult to evalaute give n body habitus. Remains on 3L NC. Stable. LE edema relatively stable. Continue low do se lasix for now. 2. Edema of lower extremity Multifactorial -- obesity, venous insuf ficiency, renal failure, and CHF. Continue low dose lasix. Advised compression. Sto p amlodipine and increase coreg. 3. Mild aortic valve stenosis Stable. 4. Essential hypertension Stop amlodipine. Increase coreg to 25 m g bid. Discussion Note 1. Stop amlodipine 2. Increase coreg to 25 mg bid 3. Start compression 4. Follow up in 4 weeks. Patient educational handouts: No information available. Plan of Care Reminders Provider Appointments Medicare Annual Wellness on or around Lyric Crowder, 10/08/2022 RELIEF PHARMACIST Ir- Established 04/17/2023 11:00AM Esau tello MD Lab None recorded. Referral None recorded. Procedures None recorded. Surgeries None recorded. Imaging None recorded. Medications Name Start Date acetaminophen 325 mg prn Adderall XR 30 mg capsule,extended release 1 tab 2 times everyday albuterol sulf 90 mcg/actuation breath activated powde r inhaler,sensor Inhale 2 puffs twice a day by inhalation route as nee ded. amlodipine 5 mg tablet take 1 tablet by mouth every morning atorvastatin 80 mg tablet Take 1 tablet every day by oral route at bedtime. BD Regina 2nd Gen Pen Needle 32 gauge x 5/32" USE THREE TIMES DAILY budesonide 0.5 mg/2 mL suspension for nebulization Inhale the contents of 1 vial (2 mL) in the nebulizer twice daily carvedilol 12.5 mg tablet 07/23/2022 TAKE 1 TABLET BY MOUTH TWICE DAILY cholecalciferol (vitamin D3) 25 mcg1 tablet po daily Combivent Respimat 20 mcg-100 mcg/actuation solution f or inhalation inhale 1 puff by mouth four times a day Dulcolax (bisacodyl) 10 mg rectal suppository Insert 1 suppository every 8 hours by rectal route as needed. EpiPen 2-Abhi 0.3 mg/0.3 mL injection, auto-injector Take 0.3 autos by injection route as needed. escitalopram 20 mg tablet Take 1 tablet every day by oral route for 30 days. famotidine 20 mg tablet take 1 tablet by mouth once daily Fleet Enema 19 gram-7 gram/118 mL Insert 1 mL by rectal route as needed. fluticasone 250 mcg-salmeterol 50 mcg/dose blistr powd r for inhalation Inhale 1 puff twice a day by inhalation route. gabapentin 300 mg capsule glipizide 10 mg tablet glipizide ER 10 mg tablet, extended release 24 hr Take 1 tablet twice a day by oral route. Glucagon (HCl) Emergency Kit 1 mg solution for injecti on Take 1 mg by injection route as directed. Humalog KwikPen (U-100) Insulin 100 unit/mL subcutaneo us INJECT PER MEDIUM SLIDING SCALE *MAX OF 60 UNITS DELORES Y* hydrocodone 10 mg-acetaminophen 325 mg tablet Take 1 tablet every 4 hours by oral route as needed. insulin lispro (U-100) 100 unit/mL subcutaneous soluti on ipratropium 0.5 mg-albuterol 3 mg (2.5 mg base)/3 mL n ebulization soln Inhale 3 mL 4 times a day by nebulization route. lamotrigine 100 mg tablet take 1/2 tablet by mouth twice a day levothyroxine 100 mcg tablet take 1 tablet by mouth every morning before meals methocarbamol 750 mg tablet Take 1 tablet twice a day by oral route as needed. methylprednisolone 4 mg tablets in a dose pack use as directed FOLLOW DIRECTIONS ON BACK OF FOIL PAC K Milk of Magnesia 400 mg/5 mL oral suspension Take 30 mL every day by oral route as needed. montelukast 10 mg tablet Take 1 tablet every day by oral route. ondansetron 4 mg disintegrating tablet OneTouch Ultra Blue Test Strip TEST three to four times a day OneTouch Ultra Test strips TEST three to four times a day OneTouch UltraSoft Lancets TEST three to four times a day oxygen 2 L at HS polysaccharide iron complex 150 mg iron tablet Take 1 tablet every day by oral route. prednisone 20 mg tablet Take 1 tablet every day by oral route. risperidone 0.5 mg tablet torsemide 20 mg tablet 30 mg once daily in the morning Tresiba FlexTouch U-100 insulin 100 unit/mL (3 mL) sub cutaneous pen inject 70 units subcutaneously daily Tresiba U-100 Insulin 100 unit/mL subcutaneous solutio n 04/17/2022 inject 70 units once daily Notes: Verified medications per facili ty MAR. 08/14/22 Medications Administered None recorded. Vitals Height Weight BMI Blood Pressure 5 ft 1 in 252 lbs 47.6 kg/m2 150/62 mm[Hg] Results Lab Results None recorded. Allergies Code Code System Name Reaction Severity Onset Adhesive Tape 1191 RxNorm Aspirin DARVOCET-N 145898 RxNorm Demerol Iodinated Contrast Media 7052 RxNorm Morphine 58102 RxNorm Percocet 394804 RxNorm Phenergan 8785 RxNorm Propoxyphene CHRISTA-DUR Notes: Some allergies listed in Docume nts: #[id number], #[id number], #[id number], #[id number], #[id number] could not be added to this cole ent's chart. Please review these documents and add these allergies to the patient's chart manually as needed. Problems Name Status Onset Date Source Hypothyroidism Active 01/11/2018 Type 2 Diabetes Mellitus Active 01/11/2018 Dyslipidemia Active 01/11/2018 Borderline Personality Disorder Active 01/11/2018 Posttraumatic Stress Disorder Active 01/11/2018 Coronary Arteriosclerosis Active 01/11/2018 Moderate Chronic Obstructive Pulmonary Disease Active 0 01/11/2018 Chronic Back Pain Active 01/11/2018 Edema of Extremity Active 01/11/2018 Pain in Right Knee Active 02/01/2018 Depressive Disorder Active 07/27/2018 Chronic Kidney Disease Stage 2 Active 03/24/2019 Noncompliance with Treatment Active 03/24/2019 Gastroesophageal Reflux Disease Active 09/27/2020 Vitamin D Deficiency Active 11/15/2020 Disability Active 01/03/2021 Hypercholesterolemia Active 05/21/2021 Essential Hypertension Active 05/21/2021 Asthma Active 05/21/2021 Acid Reflux Active 05/21/2021 Lumbar Radiculopathy Active 07/29/2021 Neuropathy Due to Diabetes Mellitus Active 10/08/2021 History of Meningitis Active 10/08/2021 Patient Noncompliance - General Active 10/30/2021 Left Carotid Artery Stenosis Active 12/30/2021 Osteoarthritis Active 02/10/2022 Anemia of Chronic Disease Active 02/13/2022 Dyspnea on Exertion Active 02/13/2022 Dyspnea at Rest Active 02/13/2022 Generalized Edema Active 02/13/2022 Carotid Artery Stenosis Active 02/27/2022 Diastolic Heart Failure Active 03/06/2022 Abscess of Brain Active Procedures Date Name Performed by 03/18/2022 Angiogram w/Intervention Information not available 10/08/2020 Knee Surgery Information not avai lable Notes: Right total knee arthroplasty. 07/25/2020 PICC Insertion Information not avai lable Notes: PICC line placement as stated above. Ultrasound was used for access and fluoroscopy confirmed placement. 07/25/2020 PICC Insertion Information not avai lable Notes: PICC line placement as stated above. Ultrasound was used for access and fluoroscopy confirmed placement. 06/15/2020 Incision and Drainage of Abscess Informa tion not available Notes: Sterotactic drainag e of intracerebral abscess with multiple cultures taken. 10/26/2019 Hysterectomy Information not avai lable 05/04/2017 Incision and Drainage of Abscess Informa tion not available 09/19/2014 Heart Catheterization Information not av ailable Oral Surgery Procedure Information not a vailable Hernia Repair Information not avai lable Cholecystectomy Information not avai lable Back Surgery Information not avai lable Vaccine List Vaccine Type influenza, injectable, quadrivalent, pre servative free 07/27/20180.5 mL 09/14/20190.5 mL 10/04/20200.5 mL 10.5 mL influenza, unspecified formulation 10/26/2016 pneumococcal polysaccharide PPV23 07/27/20180.5 mL Tdap 06/22/20190.5 mL Notes: Some vaccines listed in Documen ts: #[id number], #[id number], #[id number], #[id number], #[id number], #[id number], #[id number] could not b e added to this patient's chart. Please review these documents and add these vac cines to the patient's chart manually as needed. Social History Tobacco Smoking Status Former Smoker (2 packs per day) Do you have difficulty walking N or climbing stairs? What type of diet are you REGULAR following? Are you able to walk? YESASSIST Are you able to care for Y yourself? Are you currently employed? N Have you processed blood or body N fluids from an Ebola virus disease patient without appropriate PPE? How much tobacco do you chew? none What is your level of alcohol Occasional consumption? Do you have any pets? Y Which illicit or recreational None drugs have you used? Have you been to an area known N to be high risk for COVID-19? Are you deaf or do you have N serious difficulty hearing? Are you passively exposed to Y smoke? Do you use your seat belt or car Y seat routinely? Do you or have you ever used any N other forms of tobacco or nicotine? Do you have difficulty dressing N or bathing? What is the highest grade or [id number] level of school you have completed or the highest degree you have received? Has tobacco cessation counseling Y been provided? Are you blind or do you have N difficulty seeing? Do you have smoke and carbon Y monoxide detectors in your home? Do you have difficulty doing N errands alone? In the 14 days before symptom N onset, have you had close contact with a person who is under investigation for COVID-19 while that person was ill? Do you reside in or have you N traveled to an area where Ebola virus transmission is active? What was the date of your most 07/23/2022 recent tobacco screening? Do you or have you ever used Never used electronic e-cigarettes or vape? cigarettes Do you have an advanced Y directive? General stress level High Do you use any illicit or N recreational drugs? When did you quit smoking? 1-5yearssincelastcigarette Notes : Quit 5 years ago Have there been any changes to Y Notes: having son Sylvester your family or social situation? removed from all record How many years have you smoked 20 tobacco? In the 14 days before symptom N onset, have you had close contact with a laboratory-confirmed COVID-19 while that case was ill? What is your exercise level? None Live alone or with others? with others Do you or have you ever used Never used smokeless tobacco smokeless tobacco? On what date was tobacco 04/17/2022 Notes: N/A cessation counseling provided? Do you have difficulty N concentrating, remembering or making decisions? What is your level of caffeine Occasional consumption? Do you feel stressed (tense, [id number] restless, nervous, or anxious, or unable to sleep at night)? What is your occupation? N/A Functional Status No Impairment. Past Encounters 07/23/2022 Chronic Diastolic Heart Failure; Edema o f Lower Extremity; Mild Aortic Valve Stenosis; Essential Hypertension Bipin Fernandez MD: [address] [place] [address] , [place] [id number], Ph. History of Present Illness Note: <div>Hospital admission for both CHF as well as dehydration.</div><div>
</div><div>Has some SOB. Severe COPD as well -- home oxygen dependant 3LNC. Chronic LE edema.</div><div>
</div><div>Admitted recently to [facility] for acute on chronic renal failure -- partially due to dehydration? Given IVF. Creatinine improved. Now on lower dose diuretic?</div><div>
</div><div><strong>CARDIAC and medical h istory:</strong></div><div>COPD</div><div>Diastolic CHF</div><div>Mild aortic stenosis</div><div>Coronary disease</div><div>CKD stage 4</div><div>Admission 06/2022 renal failure. Dehydration.</div><div>
</div><div><strong>Data review:</strong></div><div>I have independently interpreted:</div><div><div><div><div>CXR . Possible CHF.&l t;/div></div></div></div><div>Echo 02/2022 Normal LV function. Mild .< /div><div><div><div><div>Cardiolite stress test September 2020. The official report states normal study. My review however reveals an ischemic inferior wall defect. The SDS calculated to be 5.</div><div>Echocardiogram April 2020. This reveals normal LV systolic function.</div><div><div>Angiography from 2013. This reveals a nondominant right coronary artery. There is high-grade disease.</div></div></div></div></div>&l t;div>
</div><div><strong>Labs:</strong></div><div>Cr 2.6 06/2022</div><div>BNP 2139 06/2022</div><div>Cr 2.3 04/2022</div><div>AST 19 04/2022</div><div>BNP 454 03/2022</div><div>LDL September& lt;/div><div><div><div>GFR 50 with a creatinine of 1.2. This was September 2020&l t;/div></div></div><div>B12 361</div><div>Ferritin 91.2</div><div>HCT 30</div><div>
</div><div>
</div>Review of Systems: ROS as noted in the HPI Review of Systems Brief Cardiology ROS Reported By: Patient Cardio Basic: Cardiovascular Symptoms: no chest pressure, no chest pain, no syncope, no orthopnea, no palpitation s, no PND, no claudication, lightheadedness, dyspnea on exertion, fatigue, leg edema, shortness of breath Physical Exam Notes: <div>Examination</div><div>< br></div><div>Vitals see above</div><div>
</div><d iv>General. No acute distress. Conversant.</div><div>
</div><div>HEENT. Normocephalic atraumatic. Mucous membranes moist. Scle ra anicteric. Oropharynx clear.</div><div>
</div>< div>Chest. Clear. Normal effort. Symmetric.</div><div>
</d iv><div>Cardiovascular. JVP is normal. Normal S1 and S2. No gallops or rubs.< /div><div>
</div><div>Abdomen. Normal bowel sounds. Soft nontender nondi stended. No appreciated hepatosplenomegaly.</div> <div>
</div><div>Extremities. No cyanosis. No clubbing. 2+ edema.</div><di v>
</div><div>Skin. Warm and dry. No rashes.</div><div>
</d iv><div>Neurological. Alert and oriented x3. Nonfocal. No asymmetry is no felix.</div><div>
</div><div>Psychiatric. Affect and tone are normal.</div><d iv>
</div><div>
</div><div>
</div>
--- OUTSIDE RECORDS SUMMARY | 2022-09-10 12:35 | External Medical Summary ---
:1965 Author Care Team Providers Name Role Phone LYRIC HATFIELD NP Primary Care Provider [phone] RIK CORCORAN MD [employer] Concierge [phone] AMARJIT WU MD Interventional Radiologist [phone] AMARJIT WONG DO Primary Care Provider [phone] Allergies Code Code System Name Reaction Severity Status Onset Adhesive Tape Active 1191 RxNorm Aspirin Active DARVOCET-N Active 670495 RxNorm Demerol Active Iodinated Contrast Media Activ e 7052 RxNorm Morphine Active 90984 RxNorm Percocet Active 046480 RxNorm Phenergan Active 8785 RxNorm Propoxyphene Active CHRISTA-DUR Active Notes: Some allergies listed in Docume nts: #[id number], #[id number], #[id number], #[id number], #[id number] could not be added to this cole ent's chart. Please review these documents and add these allergies to the patient's chart manually as needed. Medications Name Status Start Date Stop Date acetaminophen Active Not available 325 mg prn Adderall XR 30 mg capsule,extended release Active Not available 1 tab 2 times everyday albuterol sulf 90 mcg/actuation breath activated powder inhaler, sensor Active Not available Inhale 2 puffs twice a day by inhalation route as needed. alprazolam 1 mg tablet Completed 06/18/2020 0 Take 1 tablet by oral route as needed. amlodipine 5 mg tablet Active Not avail able aspirin 325 mg tablet,delayed release Completed 10/08/2020 04/17/2022 Take 325 mg by oral route. atorvastatin 40 mg tablet Completed 09/28/20182019 80 mg by oral route. atorvastatin 80 mg tablet Active Not av ailable azithromycin 250 mg tablet Completed 04/15 take 2 tablets by mouth TODAY then take 1 tablet DAILY FOR 4 DA YS BD Regina 2nd Gen Pen Needle 32 gauge x 5/32" Active Not available USE THREE TIMES DAILY BD Ultra-Fine Micro Pen Needle 32 gauge x 1/4" Completed 01/08/2022 INJECT TWICE DAILY (FOR USE WITH HUMALOG) ICD 10:E11.9 BD Veo Insulin Syringe Ultra-Fine 1 mL 31 gauge x 15/64" Complet ed 01/08/2022 INJECT TRESIBA ONCE DAILY NEEDED benzonatate 200 mg capsule Completed 09/28/201810/02 200 mg by oral route. budesonide 0.5 mg/2 mL suspension for Active Not available nebulization carvedilol 12.5 mg tablet Active 07/23/2022 Not av ailable ceftriaxone 1 gram intravenous solution Completed 06/16/20 20 09/10/2020 Inject 2 g twice a day by intravenous route. cefuroxime axetil 500 mg tablet Completed 07/23/2022 cephalexin 500 mg capsule Completed 09/29/20182019 500 mg by oral route. cholecalciferol (vitamin D3) Active Not available 25 mcg1 tablet po daily cholecalciferol (vitamin D3) 25 mcg (1,000 unit) capsule Active 10/02/2020 Not available 50 micrograms by oral route. cholecalciferol (vitamin D3) 25 mcg (1,000 unit) tablet Complete d 12/27/2020 10/30/2021 take 2 tablets by mouth once daily cholecalciferol (vitamin D3) 50 mcg (2,000 unit) capsule Complet ed 07/23/2022 Take 1 capsule twice a week by oral route. ciprofloxacin 250 mg tablet Completed 06/27 ciprofloxacin 500 mg tablet Completed 10/26 Take 1 tablet every 12 hours by oral route. clopidogrel 75 mg tablet Completed 022 colostrum, bovine Completed 04/17/2022 2 tabs QD Combivent Respimat 20 mcg-100 mcg/actuation solution for inhalat ion Active Not available inhale 1 puff by mouth four times a day devil's claw extract (bulk) Completed 03/27 1 cap QD dextroamphetamine-amphetamine 30 mg tablet Completed 07/23/2022 diazepam 5 mg tablet Completed 07/23/2022 Take 1 tablet as needed by oral route before meals. docusate sodium 100 mg capsule Completed 10/08/2020 0 04/17/2022 Take 100 mg by oral route. doxycycline hyclate 100 mg capsule Completed 04/04/2020 Take 1 capsule twice a day by oral route. Dulcolax (bisacodyl) 10 mg rectal suppository Active Not available Insert 1 suppository every 8 hours by rectal route as needed. Eliquis 5 mg tablet Completed 10/08/2021 empagliflozin 25 mg tablet Completed 09/27 Take 1 tablet every day by oral route in the morning. EpiPen 2-Abhi 0.3 mg/0.3 mL injection, auto-injector Active Not available Take 0.3 autos by injection route as needed. escitalopram 10 mg tablet Completed 2017 TAKE ONE TABLET BY MOUTH DAILY escitalopram 20 mg tablet Active Not av ailable famotidine 20 mg tablet Active Not avai lable take 1 tablet by mouth once daily FeroSul 325 mg (65 mg iron) tablet Completed 07/23/2022 Take 1 tablet every day by oral route. Flagyl 500 mg tablet Completed 09/27/2020 Take 1 tablet 4 times a day by oral route. Fleet Enema 19 gram-7 gram/118 mL Active Not available Insert 1 mL by rectal route as needed. Flovent HFA 110 mcg/actuation aerosol inhaler Completed 09/27/2020 Inhale 1 puff twice a day by inhalation route. fluticasone 250 mcg-salmeterol 50 mcg/dose blistr powdr for inha lation Active Not available Inhale 1 puff twice a day by inhalation route. furosemide 20 mg tablet Active 10/02/2020 Not avai lable 20 mg by oral route. furosemide 40 mg tablet Completed 08/14/20 22 Take 1 tablet every day by oral route. gabapentin 300 mg capsule Active Not av ailable gabapentin 600 mg tablet Completed 022 glipizide 10 mg tablet Active Not avail able glipizide ER 10 mg tablet, extended release 24 hr Active Not available Take 1 tablet twice a day by oral route. Glucagon (HCl) Emergency Kit 1 mg solution for injection Active Not available Take 1 mg by injection route as directed. guaifenesin 100 mg/5 mL oral liquid Completed 11/13/2020 Take 10 mL every 4 hours by oral route as needed. Humalog KwikPen (U-100) Insulin 100 unit/mL Active Not available subcutaneous Humalog KwikPen U-200 Insulin 200 unit/mL (3 mL) subcutaneous Un known Not available USE HIGH SLIDING SCALE PRIOR TO MEALS. *MAX 60 UNITS PER DAY.* hydrochlorothiazide 25 mg tablet Completed 09/28/2018 10/02/2020 25 mg by oral route. hydrocodone 10 mg-acetaminophen 325 mg tablet Active Not available Take 1 tablet every 4 hours by oral route as needed. hydrocodone-acetaminophen 325-10 mg tablet Completed 01/11/2018 TAKE 1 TAB QID PRN hydroxyzine pamoate 25 mg capsule Completed 10/08/2021 take 1 capsule by mouth every 6 hours if needed for anxiety ibuprofen 200 mg tablet Completed 09/28/2018 10/02/20 20 600 mg by oral route. ibuprofen 600 mg tablet Completed 03/31/20 19 TAKE ONE TABLET BY MOUTH THREE TIMES A DAY insulin aspart (U-100) 100 unit/mL (3 mL) Completed 11/15/2020 subcutaneous pen insulin degludec (U-200) 200 unit/mL (3 mL) subcutaneous pen Act kat 09/28/2018 Not available 60 units by sub-q route. insulin lispro Completed 11/13/2020 15 units AM insulin lispro (U-100) 100 unit/mL subcutaneous half-unit pe n Completed 09/28/2018 04/17/2022 Inject 15 units by sub-q route. insulin lispro (U-100) 100 unit/mL subcutaneous Active Not available solution ipratropium 0.5 mg-albuterol 3 mg (2.5 mg Active Not available base)/3 mL nebulization soln Januvia 50 mg tablet Completed 09/27/2020 Take 1 tablet every day by oral route. Jardiance 10 mg tablet Completed 0 Take 1 tablet every day by oral route. lamotrigine 100 mg tablet Active Not av ailable take 1/2 tablet by mouth twice a day lamotrigine 25 mg tablet Completed 022 lamotrigine 50 mg disintegrating tablet Completed 11/13/2020 Take 1 tablet every day by oral route at bedtime. Lantus Solostar U-100 Insulin 100 unit/mL (3 mL) subcutaneous pe n Completed 05/23/2019 INJECT 40 UNITS SUBCUTANEOUSLY TWICE DAILY (MORNING AND BEDTIME ) Lantus U-100 Insulin 100 unit/mL subcutaneous solution Completed 01/11/2018 45 U QAM 45 U QHS WITH TAPER UP DIRECTED levothyroxine 100 mcg capsule Completed Take 1 capsule every day by oral route. levothyroxine 100 mcg tablet Active Not available take 1 tablet by mouth every morning before meals lidocaine 5 % medicated patch and dimethicone 5 % topical cream Completed 07/23/2022 Apply 1 Patch to the affected area delores y, leave on for 12 and then off for 12 hours if needed for back pain lidocaine 5 % topical patch Completed 06/2022 apply 1 patch TO THE AFFECTED AREA DELORES Y. LEAVE ON FOR 12 HOURS A... (REFER TO PRESCRIPTION NOTES). rizatriptan 5 mg disintegrating tablet Completed 8 10/02/2020 5 mg by oral route. methocarbamol 750 mg tablet Active Not available methylprednisolone 4 mg tablets in a dose pack Active Not available use as directed FOLLOW DIRECTIONS ON BACK OF FOIL PACK Milk of Magnesia 400 mg/5 mL oral suspension Active Not available Take 30 mL every day by oral route as needed. montelukast 10 mg tablet Active Not tung ilable Take 1 tablet every day by oral route. Nyamyc 100,000 unit/gram topical powder Completed 03/03/2022 apply topically to affected area twice a day ondansetron 4 mg disintegrating tablet Active Not available OneTouch Ultra Blue Test Strip Active N ot available TEST three to four times a day OneTouch Ultra Test strips Active Not a vailable TEST three to four times a day OneTouch UltraSoft Lancets Active Not a vailable TEST three to four times a day oxygen Active Not available 2 L at HS semaglutide 0.25 mg or 0.5 mg (2 mg/1.5 mL) subcutaneous pen injector Completed 10/02/2020 10/02/2020 0.5 mg by sub-q route. polysaccharide iron complex 150 mg iron tablet Active Not available Take 1 tablet every day by oral route. potassium chloride ER 20 mEq tablet,extended Completed 07/23/2022 release(part/cryst) prednisone 10 mg tablet Completed 04/04/20 20 Take 1 tablet every day by oral route. prednisone 20 mg tablet Active Not avai lable Take 1 tablet every day by oral route. prednisone 50 mg tablet Completed 07/23/20 22 Take 1 tablet every day by oral route in the morning. ProAir HFA 90 mcg/actuation aerosol inhaler Completed 07/23/2022 INHALE 2 PUFFS BY MOUTH EVERY 6 HOURS NEEDED risperidone 0.5 mg tablet Active Not av ailable risperidone 1 mg tablet Completed 07/23/20 risperidone 2 mg tablet Completed 03/03/20 spironolactone 50 mg tablet Completed 06/27 sulfamethoxazole 800 mg-trimethoprim 160 mg tablet Completed 03/03/2022 take 1 tablet by mouth twice a day Tessalon Perles 100 mg capsule Completed 0 04/04/2020 Take 1 capsule 3 times a day by oral route. torsemide 20 mg tablet Active Not avail able 30 mg once daily in the morning Tresiba FlexTouch U-100 insulin 100 unit/mL (3 Active Not available mL) subcutaneous pen Tresiba U-100 Insulin 100 unit/mL subcutaneous solution Active 04/17/2022 Not available inject 70 units once daily Tylenol 325 mg tablet Active 10/02/2020 Not availa ble 325 mg by oral route. Vicodin HP 10 mg-300 mg tablet Completed 09/28/2018 1 12/03/2019 1 each by oral route. Vitamin D2 1,250 mcg (50,000 unit) capsule Completed 07/23/2022 vitamin D3 1,250 mcg (50,000 unit)-vitamin K2 200 mcg capsul e Completed 05/08/2022 05/13/2022 Take 1 capsule every week by oral route. Zofran 4 mg tablet Completed 11/05/2020 04/17/2022 Take 4 mg by oral route. Notes: [facility] 08/14/22 Problems Name Status Onset Date Source Hypothyroidism Active 01/11/2018 Type 2 Diabetes Mellitus Active 01/11/2018 Dyslipidemia Active 01/11/2018 Borderline Personality Disorder Active 01/11/2018 Posttraumatic Stress Disorder Active 01/11/2018 Coronary Arteriosclerosis Active 01/11/2018 Moderate Chronic Obstructive Pulmonary Disease Active 0 01/11/2018 Chronic Back Pain Active 01/11/2018 Edema of Extremity Active 01/11/2018 Elevated Blood Pressure Unknown 01/11/2018 Pain in Right Knee Active 02/01/2018 Depressive Disorder Active 07/27/2018 Chronic Kidney Disease Stage 2 Active 03/24/2019 Noncompliance with Treatment Active 03/24/2019 Gastroesophageal Reflux Disease Active 09/27/2020 Vitamin D Deficiency Active 11/15/2020 Disability Active 01/03/2021 Hypercholesterolemia Active 05/21/2021 Essential Hypertension Active 05/21/2021 Asthma Active 05/21/2021 Acid Reflux Active 05/21/2021 Contraception Unknown 07/12/2021 Lumbar Radiculopathy Active 07/29/2021 Neuropathy Due to [...] lable Back Surgery Information not avai lable 11/25/2018 US, Doppler Echocardiogram [facility] [address] [place] [id number] (Work Place) 03/24/2019 US, Renal [facility] [address] [place] [id number] (Work Place) 06/22/2019 Electrocardiogram Chip Perez [facility] [address] [facility] [place] [address] [place] [address], [place] [id number] (Work Place) 05/02/2020 Electrocardiogram Chip Perez [facility]ona [address] [facility] [address] [place] [id number] (Work Place) 07/03/2020 CT, Brain, W/wo Contrast [facility] [address] [place] [id number] (Work Place) 07/03/2020 CT, Maxillofacial, W/o Contrast rm Ra [facility] [address] [place] [id number] (Work Place) 07/24/2020 US, Duplex, Venous, Upper Extremity [facility] [address] [place] [id number] (Work Place) 10/04/2020 MAMMO, Screening, Digital, Bilateral [facility] [address] [place] [id number] (Work Place) 04/09/2021 Electrocardiogram Chip Perez Cardona [address] [facility] [place] [address] [place] [phone] (Work Place) 04/09/2021 MRI, Lumbar Spine, W/o Contrast [facility] [address] [place] [id number] (Work Place) 10/08/2021 US, Duplex, Carotid Artery [facility] [address] [place] [id number] (Work Place) 01/08/2022 XR, Chest, 2 View [facility] [address] [place] [id number] (Work Place) 02/13/2022 US, Echocardiogram [facility] [address] [place] [phone] (Work Place) Results Lab Results Date Name Specimen Result Interpretation Description Value Range Status Address 05/07/2022 Vitamin D, Plasma Low Vitamin D, 21.18 >30.00 Rosy bowling [facility]' 25-Hydroxy, 25-Hydroxy NG/mL NG/mL Michael harrington Lab: Total, Serum [address] [facility] 05/01/2022 CMP, Serum Plasma High Glucose,ran 189 70-105 Aníbal luke [facility]ologists' or Plasma dom mg/dL mg/dL Leydaa l Lab: [address] , [place] Plasma High Blood Urea 53 6-20 Final Patho logists' Nitrogen mg/dL mg/dL Regional Lab: [address] [facility] , [place] Plasma High Creatinine 2.3 0.6-1.1 Final Path ologists' mg/dL mg/dL Regional L ab: [address] [facility] , [place] Plasma Sodium 140 133-145 Final Patholog ists' mmol/L mmol/L Regional L ab: [address] [facility] , [place] Plasma Potassium 4.4 3.3-5.1 Final Patho logists' mmol/L mmol/L Regional L ab: [address] [facility] , [place] Plasma Chloride 103 96-108 Final Patholo gists' mmol/L mmol/L Regional L ab: [address] [facility] , [place] Plasma Carbon 24 22-30 Final Pathologi sts' Dioxide mmol/L mmol/L Regional Lab: [address] [facility] , [place] Plasma Anion Gap 13.0 8.0-16.0 Final Path ologists' Regional L ab: [address] [facility] , [place] Plasma Calcium 9.4 8.6-10.4 Final Pathol ogists' mg/dL mg/dL Regional L ab: [address] [facility] , [place] Plasma Total 6.4 5.9-8.4 Final Pathologi sts' Protein gm/dL gm/dL Regional Lab: [address] [facility] , [place] Plasma Albumin 3.8 3.2-5.2 Final Patholo gists' gm/dL gm/dL Regional L ab: [address] [facility] , [place] Plasma Globulin 2.6 2.2-3.7 Final Pathol ogists' gm/dL gm/dL Regional L ab: [address] [facility] , [place] Plasma Alb/glob 1.5 1.0-2.3 Final Pathol ogists' Ratio Regional L ab: [address] [facility] , [place] Plasma Bilirubin,t 0.2 0.1-1.0 Final Pat hologists' otal mg/dL mg/dL Regional L ab: [address] [facility] , [place] Plasma AST/SGOT 19 U/L <32 U/L Final Pathol ogists' Regional L ab: [address] [facility] , [place] Plasma ALT/SGPT 14 U/L <40 U/L Final Pathol ogists' Regional L ab: [address] [facility] , [place] Plasma High Alkaline 118 U/L 39-117 Final Pathol ogists' Phosphatase U/L Regio nal Lab: [address] [facility] , [place] Plasma Glomerular 23 Final Patho logists' Filtration Region al Lab: Rate [address] [facility] [address] , [place] 04/15/2022 CBC W/ Auto Whole Wbc 8.4 4.5-11.0 Final Pathologists' Diff Blood K/mcL K/mcL Regional L ab: [address] [facility] , [place] Whole Low Rbc 2.84 3.59-5.3 Final Patholog ists' Blood M/mcL 8 M/mcL Regional Lab: [address] [facility] [address] , [place] Whole Low Hgb 8.2 11.2-15. Final Patholog ists' Blood g/dL 7 g/dL Regional L ab: [address] [facility] , [place] Whole Low Hct 26.2 % 34.1-44. Final Patholog ists' Blood 9 % Regional L ab: [address] [facility] , [place] Whole Mcv 92.3 fL 80.0-100 Final Patholo gists' Blood .0 fL Regional L ab: [address] [facility] , [place] Whole Mch 28.9 pg 26.0-34. Final Patholo gists' Blood 0 pg Regional L ab: [address] [facility] , [place] Whole Mchc 31.3 31.0-36. Final Patholog ists' Blood g/dL 0 g/dL Regional L ab: [address] [facility] , [place] Whole Rdw 13.6 % 11.5-14. Final Patholog ists' Blood 5 % Regional L ab: [address] [facility] , [place] Whole Plt CT 232 140-440 Final Patholog ists' Blood K/mcL K/mcL Regional L ab: [address] [facility] , [place] Whole High Mpv 13.2 fL 7.4-10.4 Final Patholo gists' Blood fL Regional L ab: [address] [facility] , [place] Whole Neutrophil 52.6 % 38.0-78. Final Pat hologists' Blood % 0 % Regional L ab: [address] [facility] , [place] Whole Lymphocyte 29.8 % 15.5-49. Final Pat hologists' Blood % 0 % Regional L ab: [address] [facility] , [place] Whole Monocyte % 10.8 % 1.0-12.0 Final Pat hologists' Blood % Regional L ab: [address] [facility] , [place] Whole Eosinophil 6.1 % 0.0-7.0 Final Path ologists' Blood % % Regional L ab: [address] [facility] , [place] Whole Basophil % 0.7 % 0.0-2.0 Final Path ologists' Blood % Regional L ab: [address] [facility] , [place] Whole Absolute 4.39 1.80-8.0 Final Patho logists' Blood Neutrophil K/mcL 0 K/mcL Regio nal Lab: Count [address] [facility] , [place] Whole Lymphocyte 2.49 1.50-4.8 Final Pat hologists' Blood # K/mcL 0 K/mcL Regional Lab: [address] [facility] , [place] Whole Monocyte # 0.90 0.10-0.9 Final Pat hologists' Blood K/mcL 0 K/mcL Regional Lab: [address] [facility] , [place] Whole Eosinophil 0.51 0.00-0.7 Final Pat hologists' Blood # K/mcL 0 K/mcL Regional Lab: [address] [facility] , [place] Whole Basophil # 0.06 0.00-0.3 Final Pat hologists' Blood K/mcL 0 K/mcL Regional Lab: [address] [facility] , [place] 04/15/2022 CMP, Serum Plasma Glucose,ran 92 70-105 Fin al Pathologists' or Plasma dom mg/dL mg/dL Regiona l Lab: [address] [facility] , [place] Plasma High Blood Urea 93 6-20 Final Patho logists' Nitrogen mg/dL mg/dL Regional Lab: [address] [facility] , [place] Plasma High Creatinine 2.8 0.6-1.1 Final Path ologists' mg/dL mg/dL Regional L ab: [address] [facility] , [place] Plasma Sodium 140 133-145 Final Patholog ists' mmol/L mmol/L Regional L ab: [address] [facility] , [place] Plasma Potassium 4.9 3.3-5.1 Final Patho logists' mmol/L mmol/L Regional L ab: [address] [facility] , [place] Plasma Chloride 102 96-108 Final Patholo gists' mmol/L mmol/L Regional L ab: [address] [facility] , [place] Plasma Carbon 23 22-30 Final Pathologi sts' Dioxide mmol/L mmol/L Regional Lab: [address] [facility] , [place] Plasma Anion Gap 15.0 8.0-16.0 Final Path ologists' Regional L ab: [address] [facility] , [place] Plasma Calcium 9.1 8.6-10.4 Final Pathol ogists' mg/dL mg/dL Regional L ab: [address] , [place] Plasma Total 7.0 5.9-8.4 Final Pathologi sts' Protein gm/dL gm/dL Regional Lab: [address] , [place] Plasma Albumin 4.1 3.2-5.2 Final Patholo gists' gm/dL gm/dL Regional L ab: [address] , [place] Plasma Globulin 2.9 2.2-3.7 Final Pathol ogists' gm/dL gm/dL Regional L ab: [address] , [place] Plasma Alb/glob 1.4 1.0-2.3 Final Pathol ogists' Ratio Regional L ab: [address] , [place] Plasma Bilirubin,t 0.2 0.1-1.0 Final Pat hologists' otal mg/dL mg/dL Regional L ab: [address] , [place] Plasma AST/SGOT 23 U/L <32 U/L Final Pathol ogists' Regional L ab: [address] , [place] Plasma ALT/SGPT 17 U/L <40 U/L Final Pathol ogists' Regional L ab: [address] [facility] , [place] Plasma Alkaline 104 U/L 39-117 Final Pathol ogists' Phosphatase U/L Regio nal Lab: [address] , [place] Plasma Glomerular 18 Final Patho logists' Filtration Region al Lab: Rate [address] , [place] 03/27/2022 Pro BNP (Pro Plasma High Probnp 454.9 <125.0 Final Pathologists' B-type pg/mL pg/mL Regional L ab: Natriuretic [address], Peptide), [place] Serum or Plasma 03/27/2022 CMP, Serum Plasma High Glucose,ran 131 70-105 Fin al Pathologists' or Plasma dom mg/dL mg/dL Regiona l Lab: [address] , [place] Plasma High Blood Urea 35 6-20 Final Patho logists' Nitrogen mg/dL mg/dL Regional Lab: [address] , [place] Plasma High Creatinine 1.7 0.6-1.1 Final Path ologists' mg/dL mg/dL Regional L ab: [address] , [place] Plasma Sodium 139 133-145 Final Patholog ists' mmol/L mmol/L Regional L ab: [address] , [place] Plasma High Potassium 5.3 3.3-5.1 Final Patho logists' mmol/L mmol/L Regional L ab: [address] [facility] , [place] Plasma Chloride 103 96-108 Final Patholo gists' mmol/L mmol/L Regional L ab: [address] [facility] , [place] Plasma Carbon 24 22-30 Final Pathologi sts' Dioxide mmol/L mmol/L Regional Lab: [address] [facility] , [place] Plasma Anion Gap 12.0 8.0-16.0 Final Path ologists' Regional L ab: [address] [facility] , [place] Plasma Calcium 9.1 8.6-10.4 Final Pathol ogists' mg/dL mg/dL Regional L ab: [address] [facility] , [place] Plasma Total 6.4 5.9-8.4 Final Pathologi sts' Protein gm/dL gm/dL Regional Lab: [address] [facility] , [place] Plasma Albumin 3.7 3.2-5.2 Final Patholo gists' gm/dL gm/dL Regional L ab: [address] [facility] , [place] Plasma Globulin 2.7 2.2-3.7 Final Pathol ogists' gm/dL gm/dL Regional L ab: [address] [facility] , [place] Plasma Alb/glob 1.4 1.0-2.3 Final Pathol ogists' Ratio Regional L ab: [address] [facility] , [place] Plasma Bilirubin,t 0.2 0.1-1.0 Final Pat hologists' otal mg/dL mg/dL Regional L ab: [address] [facility] , [place] Plasma AST/SGOT 20 U/L <32 U/L Final Pathol ogists' Regional L ab: [address] [facility] , [place] Plasma ALT/SGPT 13 U/L <40 U/L Final Pathol ogists' Regional L ab: [address] [facility] , [place] Plasma Alkaline 106 U/L 39-117 Final Pathol ogists' Phosphatase U/L Regio nal Lab: [address] [facility] , [place] Plasma Glomerular 32 Final Patho logists' Filtration Region al Lab: Rate [address] [facility] , [place] 03/27/2022 HbA1C Hba1C 8.7 Family (Hemoglobin Medic ine: 222 a1C), Blood [facility] 02/27/2022 CBC W/ Auto Whole Wbc 9.9 4.5-11.0 Final Pathologists' Diff Blood K/mcL K/mcL Regional L ab: [address] [facility] , [place] Whole Low Rbc 3.57 3.59-5.3 Final Patholog ists' Blood M/mcL 8 M/mcL Regional Lab: [address] [facility] , [place] Whole Low Hgb 10.2 11.2-15. Final Patholog ists' Blood g/dL 7 g/dL Regional L ab: [address] [facility] , [place] Whole Low Hct 32.6 % 34.1-44. Final Patholog ists' Blood 9 % Regional L ab: [address] [facility] , [place] Whole Mcv 91.3 fL 80.0-100 Final Patholo gists' Blood .0 fL Regional L ab: [address] [facility] , [place] Whole Mch 28.6 pg 26.0-34. Final Patholo gists' Blood 0 pg Regional L ab: [address] [facility] , [place] Whole Mchc 31.3 31.0-36. Final Patholog ists' Blood g/dL 0 g/dL Regional L ab: [address] [facility] , [place] Whole Rdw 12.8 % 11.5-14. Final Patholog ists' Blood 5 % Regional L ab: [address] [facility] , [place] Whole [address]t [place] 197 140-440 Final Patholog ists' Blood K/mcL K/mcL Regional L ab: [address] [facility] , [place] Whole High Mpv 13.5 fL 7.4-10.4 Final Patholo gists' Blood fL Regional L ab: [address] [facility] , [place] Whole Neut % 66.6 % 38.0-78. Final Patholo gists' Blood 0 % Regional L ab: [address] [facility] , [place] Whole Lymph % 20.4 % 15.5-49. Final Pathol ogists' Blood 0 % Regional L ab: [address] [facility] , [place] Whole [place] % 6.5 % 1.0-12.0 Final Patholo gists' Blood % Regional L ab: [address] [facility] , [place] Whole Eos % 5.9 % 0.0-7.0 Final Pathologi sts' Blood % Regional L ab: [address] [facility] , [place] Whole Baso % 0.6 % 0.0-2.0 Final Patholog ists' Blood % Regional L ab: [address] [facility] , [place] Whole Absolute 6.58 1.80-8.0 Final Patho logists' Blood Neutrophil K/mcL 0 K/mcL Regio nal Lab: Count [address] [facility] , [place] Whole Lymph # 2.02 1.50-4.8 Final Pathol ogists' Blood K/mcL 0 K/mcL Regional Lab: [address] [facility] , [place] Whole [place] # 0.64 0.10-0.9 Final Patholo gists' Blood K/mcL 0 K/mcL Regional Lab: [address] [facility] , [place] Whole Eos # 0.58 0.00-0.7 Final Patholog ists' Blood K/mcL 0 K/mcL Regional Lab: [address] [place] [address] , [place] Whole Baso # 0.06 0.00-0.3 Final Patholo gists' Blood K/mcL 0 K/mcL Regional Lab: [address] [place] [address] , [place] 02/27/2022 Pro BNP (Pro Plasma High Probnp 492.8 <125.0 Final Pathologists' B-type pg/mL pg/mL Regional L ab: Natriuretic [address] , Peptide), Lewis n Serum or Plasma 02/27/2022 CMP, Serum Plasma High Glucose,ran 195 70-105 Fin al Pathologists' or Plasma dom mg/dL mg/dL Regiona l Lab: [address] [facility] , [place] Plasma High Blood Urea 60 6-20 Final Patho logists' Nitrogen mg/dL mg/dL Regional Lab: [address] [place] [address] , [place] Plasma High Creatinine 1.8 0.6-1.1 Final Path ologists' mg/dL mg/dL Regional L ab: [address] [facility] , [place] Plasma Sodium 138 133-145 Final Patholog ists' mmol/L mmol/L Regional L ab: [address] [facility] , [place] Plasma Potassium 5.0 3.3-5.1 Final Patho logists' mmol/L mmol/L Regional L ab: [address] [facility] , [place] Plasma Chloride 99 96-108 Final Patholo gists' mmol/L mmol/L Regional L ab: [address] [facility] , [place] Plasma Carbon 27 22-30 Final Pathologi sts' Dioxide mmol/L mmol/L Regional Lab: [address] [facility] , [place] Plasma Anion Gap 12.0 8.0-16.0 Final Path ologists' Regional L ab: [address] [facility] , [place] Plasma Calcium 9.2 8.6-10.4 Final Pathol ogists' mg/dL mg/dL Regional L ab: [address] [facility] , [place] Plasma Total 6.8 5.9-8.4 Final Pathologi sts' Protein gm/dL gm/dL Regional Lab: [address] , [place] Plasma Albumin 4.0 3.2-5.2 Final Patholo gists' gm/dL gm/dL Regional L ab: [address] , [place] Plasma Globulin 2.8 2.2-3.7 Final Pathol ogists' gm/dL gm/dL Regional L ab: [address] , [place] Plasma Alb/glob 1.4 1.0-2.3 Final Pathol ogists' Ratio Regional L ab: [address] [facility] , [place] Plasma Bilirubin,t 0.2 0.1-1.0 Final Pat hologists' otal mg/dL mg/dL Regional L ab: [address] , [place] Plasma AST/SGOT 20 U/L <32 U/L Final Pathol ogists' Regional L ab: [address] [facility] , [place] Plasma ALT/SGPT 24 U/L <40 U/L Final Pathol ogists' Regional L ab: [address] [facility] , [place] Plasma High Alkaline 130 U/L 39-117 Final Pathol ogists' Phosphatase U/L Regio nal Lab: [address] [facility] , [place] Plasma Glomerular 30 Final Patho logists' Filtration Region al Lab: Rate [address] [facility] , [place] 02/13/2022 Pro BNP (Pro Plasma High Probnp 286.1 <125.0 Final Pathologists' B-type pg/mL pg/mL Regional L ab: Natriuretic [address] , Peptide), Lewisto n Serum or Plasma 02/13/2022 CMP, Serum Plasma High Glucose,ran 240 70-105 Fin al Pathologists' or Plasma dom mg/dL mg/dL Regiona l Lab: [address] [facility] , [place] Plasma High Blood Urea 65 6-20 Final Patho logists' Nitrogen mg/dL mg/dL Regional Lab: [address] [facility] , [place] Plasma High Creatinine 1.6 0.6-1.1 Final Path ologists' mg/dL mg/dL Regional L ab: [address] , [place] Plasma Sodium 141 133-145 Final Patholog ists' mmol/L mmol/L Regional L ab: [address] , [place] Plasma Potassium 5.0 3.3-5.1 Final Patho logists' mmol/L mmol/L Regional L ab: [address] , [place] Plasma Chloride 104 96-108 Final Patholo gists' mmol/L mmol/L Regional L ab: [address] [facility] , [place] Plasma Carbon 29 22-30 Final Pathologi sts' Dioxide mmol/L mmol/L Regional Lab: [address] [facility] , [place] Plasma Anion Gap 8.0 8.0-16.0 Final Path ologists' Regional L ab: [address] [facility] , [place] Plasma Calcium 8.8 8.6-10.4 Final Pathol ogists' mg/dL mg/dL Regional L ab: [address] , [place] Plasma Total 6.2 5.9-8.4 Final Pathologi sts' Protein gm/dL gm/dL Regional Lab: [address] [facility] , [place] Plasma Albumin 3.6 3.2-5.2 Final Patholo gists' gm/dL gm/dL Regional L ab: [address] [facility] , [place] Plasma Globulin 2.6 2.2-3.7 Final Pathol ogists' gm/dL gm/dL Regional L ab: [address] [facility] , [place] Plasma Alb/glob 1.4 1.0-2.3 Final Pathol ogists' Ratio Regional L ab: [address] [facility] , [place] Plasma Bilirubin,t <0.2 0.1-1.0 Final Pat hologists' otal mg/dL mg/dL Regional L ab: [address] [facility] , [place] Plasma AST/SGOT 11 U/L <32 U/L Final Pathol ogists' Regional L ab: [address] [facility] , [place] Plasma ALT/SGPT 11 U/L <40 U/L Final Pathol ogists' Regional L ab: [address] [facility] , [place] Plasma Alkaline 110 U/L 39-117 Final Pathol ogists' Phosphatase U/L Regio nal Lab: [address] [facility] , [place] Plasma Glomerular 35 Final Patho logists' Filtration Region al Lab: Rate [address] [facility] , [place] 02/05/2022 Pro BNP (Pro Plasma High Probnp 4201.0 <125.0 Final Pathologists' B-type pg/mL pg/mL Regional L ab: Natriuretic [address], Peptide), Jerrellto n Serum or Plasma 01/29/2022 Drug Screen, U ABNOR Amphetamine suspect Final Pathologists' Urine MAL ,urine positiv Regional Lab: Screen e [address] [facility] , [place] U Barbiturate none Final Path ologists' s, Urine detecte Regiona l Lab: Screen d [address] [facility] , [place] U Benzodiazep none Final Path ologists' letha,urine,s detecte Reg ional Lab: cre d [address] , [place] U Cannabinoid none Final Path ologists' ,urine detecte Regional Lab: Screen d [address] , [place] U Cocaine,uri none Final Path ologists' ne Screen detecte Region al Lab: d [address] , [place] U ABNOR Opiate,urin suspect Final Pat hologists' MAL e Screen positiv Regiona l Lab: e [address] , [place] U Oxycodone,u none Final Path ologists' rine Screen detecte [facility]hi onal Lab: d [address] , [place] U Phenycyclid none Final Path ologists' ine,urine detecte Region al Lab: Screen d [address] , [place] U Methadone,u none Final Path ologists' rine Screen detecte Sh[facility]hi onal Lab: d [address] , [place] 01/29/2022 Amphetamine, U Amphetamine positiv Final Pathologists' QN, Confirm, Confirmation e Regional Lab: Urine [address] , [place] 01/29/2022 Opiates, U Opiate positiv Final Pa thologists' Quantitative Confirmation e Regional Lab: , Urine [address], [place] 01/08/2022 CBC W/ Auto Whole Wbc 7.9 4.5-11.0 Final Pathologists' Diff Blood K/mcL K/mcL Regional L ab: [address] [place] [address] Whole Low Rbc 2.91 3.59-5.3 Final Patholog ists' Blood M/mcL 8 M/mcL Regional Lab: [address] [place] [address] Whole Low Hgb 8.5 11.2-15. Final Patholog ists' Blood g/dL 7 g/dL Regional L ab: [address] [facility] Whole Low Hct 28.0 % 34.1-44. Final Patholog ists' Blood 9 % Regional L ab: [address] [place] [address] Whole Mcv 96.2 fL 80.0-100 Final Patholo gists' Blood .0 fL Regional L ab: [address] [place] [address] Whole Mch 29.2 pg 26.0-34. Final Patholo gists' Blood 0 pg Regional L ab: [address] [facility] , [place] Whole Low Mchc 30.4 31.0-36. Final Patholog ists' Blood g/dL 0 g/dL Regional L ab: [address] [facility] , [place] Whole Rdw 12.7 % 11.5-14. Final Patholog ists' Blood 5 % Regional L ab: [address] [facility] , [place] Whole [address]t [address] 192 140-440 Final Patholog ists' Blood K/mcL K/mcL Regional L ab: [address] [facility] , [facility] High Mpv 13.0 fL 7.4-10.4 Final Patholo gists' Blood fL Regional L ab: [address] [facility] , [place] Whole Neut % 58.5 % 38.0-78. Final Patholo gists' Blood 0 % Regional L ab: [address] [facility] , [place] Whole Lymph % 25.4 % 15.5-49. Final Pathol ogists' Blood 0 % Regional L ab: [address] [facility] , [place] Whole [place] % 9.5 % 1.0-12.0 Final Patholo gists' Blood % Regional L ab: [address] [facility] , [place] Whole Eos % 6.0 % 0.0-7.0 Final Pathologi sts' Blood % Regional L ab: [address] [facility] , [place] Whole Baso % 0.6 % 0.0-2.0 Final Patholog ists' Blood % Regional L ab: [address] [facility] , [place] Whole Absolute 4.59 1.80-8.0 Final Patho logists' Blood Neutrophil K/mcL 0 K/mcL Regio nal Lab: Count [address] [facility] , [place] Whole Lymph # 2.00 1.50-4.8 Final Pathol ogists' Blood K/mcL 0 K/mcL Regional Lab: [address] [facility] , [place] Whole [place] # 0.75 0.10-0.9 Final Patholo gists' Blood K/mcL 0 K/mcL Regional Lab: [address] [facility] , [place] Whole Eos # 0.47 0.00-0.7 Final Patholog ists' Blood K/mcL 0 K/mcL Regional Lab: [address] [facility] , [place] Whole Baso # 0.05 0.00-0.3 Final Patholo gists' Blood K/mcL 0 K/mcL Regional Lab: [address] [facility] , [place] 01/08/2022 Troponin T, Plasma Troponin T 0.01 <0.03 Fin al Pathologists' Serum NG/mL NG/mL Regional L ab: [address] [facility] , [place] 01/08/2022 TIBC (Total Plasma Iron 51 37-145 Final P athologists' Iron-binding ug/dL ug/dL Sh[facility]hi onal Lab: Capacity), [address], Serum [place] Plasma Unsaturated 280 112-346 Final Pat hologists' Iron Binding mcg/dL mcg/dL [facility]hi onal Lab: Cap [address] , [place] Plasma TIBC 331 228-428 Final Pathologi sts' Calculation ug/dL ug/dL Regio nal Lab: [address] , [place] Plasma % 15 % 15-50 % Final Pathologi sts' Transferrin Regio nal Lab: Saturation [address] , [place] 01/08/2022 Ferritin, Plasma Ferritin 36.6 13.0-150 Final Pathologists' Serum or NG/mL .0 NG/mL Region al Lab: Plasma [address] , [place] 01/08/2022 Vitamin B12, Serum Vitamin B12 448.5 232.0-12 Final Pathologists' Serum pg/mL 45.0 Regional L ab: pg/mL [address] [facility] , [place] 01/08/2022 PTH Serum High Parathyroid 65.8 15.0-65. Final Pathologists' (Parathyroid Hormone,inta pg/mL 0 pg/mL Regional Lab: Hormone), ct [address] , [place], [place] Serum or Plasma 01/08/2022 Vitamin D, Plasma Low Vitamin D, 10.20 >30.00 Rosy l Pathologists' 25-Hydroxy, 25-Hydroxy NG/mL NG/mL R egional Lab: Total, Serum [address] , [place] 12/26/2021 Microalbumin U Microalbumi 115.2 F inal Pathologists' , Urine n mg/dL Regional Lab: [address] [place] [address] U High Microalbumi 1398.1 0.5-30.0 Final Pa thologists' n/creatinine mg/gm mg/gm Sh[facility]hi onal Lab: Ratio [address] [facility] U Urine 82.4 28.0-217 Final Patholog ists' Creatinine mg/dL .0 mg/dL Shanthi onal Lab: [address] , [place] 12/26/2021 Hemoglobin Supernate High Hemoglobin 9.2 % 4.0-6.0 Final Pathologists' a1C + a1C HGB % HGB Regional L ab: Average [address], Glucose, QN, [place] ston Blood Supernate Estimated 217 Final Pat hologists' Average mg/dL Regional Lab: Glucose [address], [place] 12/26/2021 CMP, Serum Plasma High Glucose,ran 253 70-105 Fin al Pathologists' or Plasma dom mg/dL mg/dL Regiona l Lab: [address] , [place] Plasma High Blood Urea 53 6-20 Final Patho logists' Nitrogen mg/dL mg/dL Regional Lab: [address] , [place] Plasma High Creatinine 1.8 0.6-1.1 Final Path ologists' mg/dL mg/dL Regional L ab: [address] , [place] Plasma Sodium 138 133-145 Final Patholog ists' mmol/L mmol/L Regional L ab: [address] , [place] Plasma Potassium 4.7 3.3-5.1 Final Patho logists' mmol/L mmol/L Regional L ab: [address] , [place] Plasma Chloride 100 96-108 Final Patholo gists' mmol/L mmol/L Regional L ab: [address] , [place] Plasma Carbon 26 22-30 Final Pathologi sts' Dioxide mmol/L mmol/L Regional Lab: [address] , [place] Plasma Anion Gap 12.0 8.0-16.0 Final Path ologists' Regional L ab: [address] , [place] Plasma Calcium 9.2 8.6-10.4 Final Pathol ogists' mg/dL mg/dL Regional L ab: [address] , [place] Plasma Total 6.8 5.9-8.4 Final Pathologi sts' Protein gm/dL gm/dL Regional Lab: [address] , [place] Plasma Albumin 3.7 3.2-5.2 Final Patholo gists' gm/dL gm/dL Regional L ab: [address] , [place] Plasma Globulin 3.1 2.2-3.7 Final Pathol ogists' gm/dL gm/dL Regional L ab: [address] , [place] Plasma Alb/glob 1.2 1.0-2.3 Final Pathol ogists' Ratio Regional L ab: [address] , [place] Plasma Bilirubin,t 0.3 0.1-1.0 Final Pat hologists' otal mg/dL mg/dL Regional L ab: [address] , [place] Plasma AST/SGOT 21 U/L <32 U/L Final Pathol ogists' Regional L ab: [address] , [place] Plasma ALT/SGPT 13 U/L <40 U/L Final Pathol ogists' Regional L ab: [address] , [place] Plasma Alkaline 116 U/L 39-117 Final Pathol ogists' Phosphatase U/L Regio nal Lab: [address] [facility] , [place] Plasma Glomerular 30 Final Patho logists' Filtration Region al Lab: Rate [address] [facility] , [place] 10/08/2021 UA U Urine Color yellow Final Pathologists' W/microscopi [facility] onal Lab: c Always, [address] , (CS If Ind.) Lewi ston U ABNOR Urine hazy clear Final Pathologis ts' MAL Appearance Region al Lab: [address] [facility] , [place] U Specific 1.013 1.000-1. Final Patho logists' [place],urin 035 Shanthi onal Lab: e [address] , [place] U pH,urine 5.0 5.0-9.0 Final Pathol ogists' Regional L ab: [address] [facility] , [place] U ABNOR Urine 100 negative Final Patholog ists' MAL Protein mg/dL mg/dL Regional Lab: [address] [facility] , [place] U ABNOR Urine 50 negative Final Patholog ists' MAL Glucose (UA) mg/dL mg/dL [facility]hi onal Lab: [address] [facility] , [place] U Urine negativ negative Final Patholo gists' Ketone e mg/dL mg/dL Regional Lab: [address] [facility] , [place] U Urine negativ negative Final Patholo gists' Urobilinogen e mg/dL /normal Re gional Lab: mg/dL [address] [facility] , [place] U Urine negativ negative Final Patholo gists' Bilirubin e mg/dL mg/dL Region al Lab: [address] [facility] , [place] U Urine Blood negativ negative Final P athologists' e mg/dL mg/dL Regional Lab: [address] [facility] , [place] U Urine negativ negative Final Patholo gists' Nitrite e Regional Lab: [address] [facility] , [place] U ABNOR Urine 75 /uL negative Final Patholog ists' MAL Leukocyte /uL Regiona l Lab: Esterase [address] [facility], [place] U Urine RBC 1 /hpf 0-3 /hpf Final Path ologists' Regional L ab: [address] , [place] U High Urine WBC 29 /hpf 0-4 /hpf Final Pat hologists' Regional L ab: [address] [place] [address] U High Urine 5 /hpf 0-4 /hpf Final Patholog ists' Squamous Epi Sh[facility]hi onal Lab: Cells [address] [place] [address] U ABNOR Urine mod 0 /hpf Final Pathologis ts' MAL Bacteria /hpf Regional Lab: [address] [place] [address] U High Urine 19 /lph 0-2 /lph Final Patholo gists' Hyaline Cast [facility] onal Lab: [address] [place] [address] U ABNOR Urine Mucus few none Final Path ologists' MAL /hpf /hpf Regional L ab: [address] [place] [address] U Add no Final Pathologis ts' Culture? Regional Lab: [address] [place] [address] 10/08/2021 CBC W/ Auto Whole Wbc 9.9 4.5-11.0 Final Pathologists' Diff Blood K/mcL K/mcL Regional L ab: [address] [place] [address] Whole Low Rbc 3.47 3.59-5.3 Final Patholog ists' Blood M/mcL 8 M/mcL Regional Lab: [address] [place] [address] Whole Low Hgb 10.2 11.2-15. Final Patholog ists' Blood g/dL 7 g/dL Regional L ab: [address] [place] [address] Whole Low Hct 31.9 % 34.1-44. Final Patholog ists' Blood 9 % Regional L ab: [address] [place] [address] Whole Mcv 91.9 fL 80.0-100 Final Patholo gists' Blood .0 fL Regional L ab: [address] [place] [address] Whole Mch 29.4 pg 26.0-34. Final Patholo gists' Blood 0 pg Regional L ab: [address] [place] [address] Whole Mchc 32.0 31.0-36. Final Patholog ists' Blood g/dL 0 g/dL Regional L ab: [address] [place] [address] Whole Rdw 12.8 % 11.5-14. Final Patholog ists' Blood 5 % Regional L ab: [address] [place] [address] 248 140-440 Final Patholog ists' Blood K/mcL K/mcL Regional L ab: [address] [place] [address] Whole High Mpv 12.8 fL 7.4-10.4 Final Patholo gists' Blood fL Regional L ab: [address] [place] [address] Whole Neut % 65.6 % 38.0-78. Final Patholo gists' Blood 0 % Regional L ab: [address] [facility] , [place] Whole Lymph % 21.7 % 15.5-49. Final Pathol ogists' Blood 0 % Regional L ab: [address] [facility] , [place] Whole [place] % 6.8 % 1.0-12.0 Final Patholo gists' Blood % Regional L ab: [address] [facility] , [place] Whole Eos % 5.4 % 0.0-7.0 Final Pathologi sts' Blood % Regional L ab: [address] [facility] , [place] Whole Baso % 0.5 % 0.0-2.0 Final Patholog ists' Blood % Regional L ab: [address] [facility] , [place] Whole Absolute 6.49 1.80-8.0 Final Patho logists' Blood Neutrophil K/mcL 0 K/mcL Regio nal Lab: Count [address] [facility] , [place] Whole Lymph # 2.14 1.50-4.8 Final Pathol ogists' Blood K/mcL 0 K/mcL Regional Lab: [address] [facility] , [place] Whole [place] # 0.67 0.10-0.9 Final Patholo gists' Blood K/mcL 0 K/mcL Regional Lab: [address] [facility] , [place] Whole Eos # 0.53 0.00-0.7 Final Patholog ists' Blood K/mcL 0 K/mcL Regional Lab: [address] [facility] , [place] Whole Baso # 0.05 0.00-0.3 Final Patholo gists' Blood K/mcL 0 K/mcL Regional Lab: [address] [place] [address] 10/08/2021 Pro BNP (Pro Plasma High Probnp 242.2 <125.0 Final Pathologists' B-type pg/mL pg/mL Regional L ab: Natriuretic [address] , Peptide), [place] n Serum or Plasma 10/08/2021 CMP, Serum Plasma High Glucose,ran 389 70-105 Fin al Pathologists' or Plasma dom mg/dL mg/dL Regiona l Lab: [address] [place] [address] Plasma High Blood Urea 41 6-20 Final Patho logists' Nitrogen mg/dL mg/dL Regional Lab: [address] [place] [address] Plasma High Creatinine 1.6 0.6-1.1 Final Path ologists' mg/dL mg/dL Regional L ab: [address] [facility] , [place] Plasma Sodium 135 133-145 Final Patholog ists' mmol/L mmol/L Regional L ab: [address] , [place] Plasma Potassium 4.7 3.3-5.1 Final Patho logists' mmol/L mmol/L Regional L ab: [address] , [place] Plasma Chloride 96 96-108 Final Patholo gists' mmol/L mmol/L Regional L ab: [address] [facility] , [place] Plasma Carbon 28 22-30 Final Pathologi sts' Dioxide mmol/L mmol/L Regional Lab: [address] [facility] , [place] Plasma Anion Gap 11.0 8.0-16.0 Final Path ologists' Regional L ab: [address] [facility] , [place] Plasma Calcium 9.6 8.6-10.4 Final Pathol ogists' mg/dL mg/dL Regional L ab: [address] [facility] , [place] Plasma Total 6.9 5.9-8.4 Final Pathologi sts' Protein gm/dL gm/dL Regional Lab: [address] [facility] , [place] Plasma Albumin 3.9 3.2-5.2 Final Patholo gists' gm/dL gm/dL Regional L ab: [address] [facility] , [place] Plasma Globulin 3.0 2.2-3.7 Final Pathol ogists' gm/dL gm/dL Regional L ab: [address] [facility] , [place] Plasma Alb/glob 1.3 1.0-2.3 Final Pathol ogists' Ratio Regional L ab: [address] [facility] , [place] Plasma Bilirubin,t 0.2 0.1-1.0 Final Pat hologists' otal mg/dL mg/dL Regional L ab: [address] [facility] , [place] Plasma AST/SGOT 13 U/L <32 U/L Final Pathol ogists' Regional L ab: [address] [facility] , [place] Plasma ALT/SGPT 11 U/L <40 U/L Final Pathol ogists' Regional L ab: [address] [facility] , [place] Plasma High Alkaline 143 U/L 39-117 Final Pathol ogists' Phosphatase U/L Regio nal Lab: [address] [facility] , [place] Plasma Glomerular 35 Final Patho logists' Filtration Region al Lab: Rate [address] [facility] , [place] 10/08/2021 Lipid Panel, Plasma High Cholesterol 206 <200 F inal Pathologists' Blood mg/dL mg/dL Regional L ab: [address] [place] [address] Plasma High Triglycerid 196 <150 Final Path ologists' es mg/dL mg/dL Regional L ab: [address] [place] [address] Plasma High LDL,calcula 119 <100 Final Path ologists' felix mg/dL mg/dL Regional L ab: [address] [place] [address] Plasma HDL 48 >40 Final Pathologis ts' Cholesterol mg/dL mg/dL Regio nal Lab: [address] [place] [address] Plasma High non-HDL 158 <130 Final Patholog ists' Cholesterol mg/dL mg/dL Regio nal Lab: [address] [place] [address] 10/08/2021 TSH, Serum Plasma Thyroid 3.79 0.27-5.0 Final Pathologists' or Plasma Stimulating uIU/mL 1 uIU/mL Regional Lab: Hormone [address] [place] [address] 10/08/2021 Hemoglobin Supernate High Hemoglobin 11.0 % 4.0-6.0 Final Pathologists' a1C + a1C HGB % HGB Regional L ab: Average 415 [facility] S , Glucose, QN, Lewi ston Blood Supernate Estimated 269 Final Pat hologists' Average mg/dL Regional Lab: Glucose [address] [place] [address] 10/08/2021 Microalbumin U Microalbumi 81.2 F inal Pathologists' , Urine n mg/dL Regional Lab: [address] [place] [address] U High Microalbumi 891.3 0.5-30.0 Final Pa thologists' n/creatinine mg/gm mg/gm Sh[facility]hi onal Lab: Ratio [address] [place] [address] U Urine 91.1 28.0-217 Final Patholog ists' Creatinine mg/dL .0 mg/dL Sh[facility] onal Lab: [address] [place] [address] 07/09/2021 CMP, Serum Plasma High Glucose,ran 124 70-105 Fin al Pathologists' or Plasma dom mg/dL mg/dL Regiona l Lab: [address] [place] [address] Plasma High Blood Urea 32 6-20 Final Patho logists' Nitrogen mg/dL mg/dL Regional Lab: [address] [place] [address] Plasma High Creatinine 1.2 0.6-1.1 Final Path ologists' mg/dL mg/dL Regional L ab: [address] [place] [address] Plasma Sodium 140 133-145 Final Patholog ists' mmol/L mmol/L Regional L ab: [address] [facility] [facility] , [place] Plasma Potassium 5.0 3.3-5.1 Final Patho logists' mmol/L mmol/L Regional L ab: [address] [facility] , [place] Plasma Chloride 100 96-108 Final Patholo gists' mmol/L mmol/L Regional L ab: [address] [facility] , [place] Plasma Carbon 26 22-30 Final Pathologi sts' Dioxide mmol/L mmol/L Regional Lab: [address] [facility] , [place] Plasma Anion Gap 14.0 8.0-16.0 Final Path ologists' Regional L ab: [address] [facility] , [place] Plasma Calcium 9.4 8.6-10.4 Final Pathol ogists' mg/dL mg/dL Regional L ab: [address] [facility] , [place] Plasma Total 7.1 5.9-8.4 Final Pathologi sts' Protein gm/dL gm/dL Regional Lab: [address] [facility] , [place] Plasma Albumin 3.8 3.2-5.2 Final Patholo gists' gm/dL gm/dL Regional L ab: [address] [facility] , [place] Plasma Globulin 3.3 2.2-3.7 Final Pathol ogists' gm/dL gm/dL Regional L ab: [address] [facility] , [place] Plasma Alb/glob 1.2 1.0-2.3 Final Pathol ogists' Ratio Regional L ab: [address] [facility] , [place] Plasma Bilirubin,t 0.4 0.1-1.0 Final Pat hologists' otal mg/dL mg/dL Regional L ab: [address] [facility] , [place] Plasma AST/SGOT 14 U/L <32 U/L Final Pathol ogists' Regional L ab: [address] [facility] , [place] Plasma ALT/SGPT 11 U/L <40 U/L Final Pathol ogists' Regional L ab: [address] [facility] , [place] Plasma Alkaline 111 U/L 39-117 Final Pathol ogists' Phosphatase U/L Regio nal Lab: [address] [facility] , [place] Plasma Glomerular 50 Final Patho logists' Filtration Region al Lab: Rate [address] [facility] , [place] 07/09/2021 Microalbumin U Microalbumi 43.4 F inal Pathologists' , Urine n mg/dL Regional Lab: [address] [place] [address] U High Microalbumi 434.0 0.5-30.0 Final Pa thologists' n/creatinine mg/gm mg/gm Shanthi onal Lab: Ratio [address] [place] [address] U Urine 100.0 28.0-217 Final Patholog ists' Creatinine mg/dL .0 mg/dL Shanthi onal Lab: [address] [facility] , [place] 07/09/2021 Hemoglobin Supernate High Hemoglobin 8.7 % 4.0-6.0 Final Pathologists' a1C + a1C HGB % HGB Regional L ab: Average [address], Glucose, QN, Lewi ston Blood Supernate Estimated 203 Final Pat hologists' Average mg/dL Regional Lab: Glucose [address], [place] 04/09/2021 CMP, Serum Plasma High Glucose,ran 111 70-105 Fin al Pathologists' or Plasma dom mg/dL mg/dL Regiona l Lab: [address] [facility] , [place] Plasma High Blood Urea 70 6-20 Final Patho logists' Nitrogen mg/dL mg/dL Regional Lab: [address] [facility] , [place] Plasma High Creatinine 1.7 0.6-1.1 Final Path ologists' mg/dL mg/dL Regional L ab: [address] [facility] , [place] Plasma Sodium 142 133-145 Final Patholog ists' mmol/L mmol/L Regional L ab: [address] [facility] , [place] Plasma High Potassium 5.4 3.3-5.1 Final Patho logists' mmol/L mmol/L Regional L ab: [address] [facility] , [place] Plasma Cl 103 96-108 Final Pathologis ts' mmol/L mmol/L Regional L ab: [address] [facility] , [place] Plasma Carbon 27 22-30 Final Pathologi sts' Dioxide mmol/L mmol/L Regional Lab: [address] [facility] , [place] Plasma Anion Gap 12.0 8.0-16.0 Final Path ologists' Regional L ab: [address] [facility] , [place] Plasma Calcium 9.4 8.6-10.4 Final Pathol ogists' mg/dL mg/dL Regional L ab: [address] [facility] , [place] Plasma Total 7.2 5.9-8.4 Final Pathologi sts' Protein gm/dL gm/dL Regional Lab: [address] [facility] , [place] Plasma Albumin 4.3 3.2-5.2 Final Patholo gists' gm/dL gm/dL Regional L ab: [address] [facility] , [place] Plasma Globulin 2.9 2.2-3.7 Final Pathol ogists' gm/dL gm/dL Regional L ab: [address] [place] [address] , [place] Plasma Alb/glob 1.5 1.0-2.3 Final Pathol ogists' Ratio Regional L ab: [address] [facility] , [place] Plasma Bilirubin,t 0.2 0.1-1.0 Final Pat hologists' otal mg/dL mg/dL Regional L ab: [address] [facility] , [place] Plasma AST/SGOT 17 U/L <32 U/L Final Pathol ogists' Regional L ab: [address] [facility] , [place] Plasma ALT/SGPT 11 U/L <40 U/L Final Pathol ogists' Regional L ab: [address] [place] [address] , [place] Plasma Alkaline 112 U/L 39-117 Final Pathol ogists' Phosphatase U/L Regio nal Lab: [address] [place] [address] , [place] Plasma Glomerular 33 Final Patho logists' Filtration Region al Lab: Rate [address] [place] [address] , [place] 04/09/2021 Troponin T, Plasma Troponin T 0.01 <0.03 Fin al Pathologists' Serum NG/mL NG/mL Regional L ab: [address] [place] [address] , [place] 04/08/2021 CMP, Serum Plasma High Glucose,ran 114 70-105 Fin al Pathologists' or Plasma dom mg/dL mg/dL Regiona l Lab: [address] [facility] , [place] Plasma High Blood Urea 45 6-20 Final Patho logists' Nitrogen mg/dL mg/dL Regional Lab: [address] [place] [address] , [place] Plasma High Creatinine 1.2 0.6-1.1 Final Path ologists' mg/dL mg/dL Regional L ab: [address] [facility] , [place] Plasma Sodium 140 133-145 Final Patholog ists' mmol/L mmol/L Regional L ab: [address] [facility] , [place] Plasma Potassium 5.0 3.3-5.1 Final Patho logists' mmol/L mmol/L Regional L ab: [address] [facility] , [place] Plasma Cl 101 96-108 Final Pathologis ts' mmol/L mmol/L Regional L ab: [address] [facility] , [place] Plasma High Carbon 31 22-30 Final Pathologi sts' Dioxide mmol/L mmol/L Regional Lab: [address] [place] [address] , [place] Plasma Anion Gap 8.0 8.0-16.0 Final Path ologists' Regional L ab: [address] [facility] , [place] Plasma Calcium 9.3 8.6-10.4 Final Pathol ogists' mg/dL mg/dL Regional L ab: [address] , [place] Plasma Total 6.9 5.9-8.4 Final Pathologi sts' Protein gm/dL gm/dL Regional Lab: [address] [facility] , [place] Plasma Albumin 4.0 3.2-5.2 Final Patholo gists' gm/dL gm/dL Regional L ab: [address] [facility] , [place] Plasma Globulin 2.9 2.2-3.7 Final Pathol ogists' gm/dL gm/dL Regional L ab: [address] [facility] , [place] Plasma Alb/glob 1.4 1.0-2.3 Final Pathol ogists' Ratio Regional L ab: [address] [facility] , [place] Plasma Bilirubin,t 0.2 0.1-1.0 Final Pat hologists' otal mg/dL mg/dL Regional L ab: [address] [facility] , [place] Plasma AST/SGOT 15 U/L <32 U/L Final Pathol ogists' Regional L ab: [address] [facility] , [place] Plasma ALT/SGPT 11 U/L <40 U/L Final Pathol ogists' Regional L ab: [address] [facility] , [place] Plasma Alkaline 116 U/L 39-117 Final Pathol ogists' Phosphatase U/L Regio nal Lab: [address] [facility] , [place] Plasma Glomerular 50 Final Patho logists' Filtration Region al Lab: Rate [address] [place] [address] 04/08/2021 Microalbumin U Microalbumi 21.6 F inal Pathologists' , Urine n mg/dL Regional Lab: [address] [place] [address] U High Microalbumi 169.1 0.5-30.0 Final Pa thologists' n/creatinine mg/gm mg/gm Shanthi onal Lab: Ratio [address] [facility] , [place] U Urine 127.7 28.0-217 Final Patholog ists' Creatinine mg/dL .0 mg/dL Shanthi onal Lab: [address] [place] [address] 04/08/2021 Hemoglobin Supernate High Hemoglobin 7.9 % 4.0-6.0 Final Pathologists' a1C + a1C HGB % HGB Regional L ab: Average [address], Glucose, QN, Lewi ston Blood Supernate Estimated 180 Final Pat hologists' Average mg/dL Regional Lab: Glucose [address], [place] 03/05/2021 Drug Screen, U Amphetamine none F inal Pathologists' Urine ,urine detecte Regional Lab: Screen d [address] , [place] U Barbiturate none Final Path ologists' s, Urine detecte Regiona l Lab: Screen d [address] , [place] U Benzodiazep none Final Path ologists' letha,urine,s detecte Reg ional Lab: cre d [address] , [place] U Cannabinoid none Final Path ologists' ,urine detecte Regional Lab: Screen d [address] , [place] U Cocaine,uri none Final Path ologists' ne Screen detecte Region al Lab: d [address] , [place] U ABNOR Opiate,urin suspect Final Pat hologists' MAL e Screen positiv Regiona l Lab: e [address] , [place] U Oxycodone,u none Final Path ologists' rine Screen detecte Shanthi onal Lab: d [address] , [place] U Phenycyclid none Final Path ologists' ine,urine detecte Region al Lab: Screen d [address] , [place] U Methadone,u none Final Path ologists' rine Screen detecte Shanthi onal Lab: d [address] , [place] 03/05/2021 Opiates, U Opiate positiv Final Pa thologists' Quantitative Confirmation e Regional Lab: , Urine [address], [place] 02/19/2021 Drug Screen, U Amphetamine none F inal Pathologists' Urine ,urine detecte Regional Lab: Screen d [address] , [place] U Barbiturate none Final Path ologists' s, Urine detecte Regiona l Lab: Screen d [address] , [place] U Benzodiazep none Final Path ologists' letha,urine,s detecte Reg ional Lab: cre d [address] , [place] U Cannabinoid none Final Path ologists' ,urine detecte Regional Lab: Screen d [address] , [place] U Cocaine,uri none Final Path ologists' ne Screen detecte Region al Lab: d [address] , [place] U Opiate,urin none Final Path ologists' e Screen detecte Regiona l Lab: d [address] , [place] U Oxycodone,u none Final Path ologists' rine Screen detecte Shanthi onal Lab: d [address] [place] [address] , [place] U Phenycyclid none Final Path ologists' ine,urine detecte Region al Lab: Screen d [address] [facility] , [place] U Methadone,u none Final Path ologists' rine Screen detecte Shanthi onal Lab: d [address] [facility] , [place] 10/04/2020 CBC W/ Auto Whole High Wbc 12.4 4.5-11.0 Final Pathologists' Diff Blood K/mcL K/mcL Regional L ab: [address] [facility] , [place] Whole Low Rbc 3.19 4.00-5.2 Final Patholog ists' Blood M/mcL 0 M/mcL Regional Lab: [address] [place] [address] , [place] Whole Low Hgb 8.9 12.0-15. Final Patholog ists' Blood g/dL 0 g/dL Regional L ab: [address] [place] [address] , [place] Whole Low Hct 30.3 % 36.0-48. Final Patholog ists' Blood 0 % Regional L ab: [address] [place] [address] Whole Mcv 95.0 fL 80.0-100 Final Patholo gists' Blood .0 fL Regional L ab: [address] [place] [address] Whole Mch 27.9 pg 26.0-34. Final Patholo gists' Blood 0 pg Regional L ab: [address] [place] [address] Whole Low Mchc 29.4 31.0-36. Final Patholog ists' Blood g/dL 0 g/dL Regional L ab: [address] [place] [address] Whole High Rdw 16.3 % 11.5-14. Final Patholog ists' Blood 5 % Regional L ab: [address] [place] [address] , [place] Whole [address]t [address] 200 140-440 Final Patholog ists' Blood K/mcL K/mcL Regional L ab: [address] [place] [address] , [place] Whole High Mpv 13.0 fL 7.4-10.4 Final Patholo gists' Blood fL Regional L ab: [address] [place] [address] , [place] Whole Neut % 70.2 % 38.0-78. Final Patholo gists' Blood 0 % Regional L ab: [address] [place] [address] , [place] Whole Lymph % 17.3 % 15.0-49. Final Pathol ogists' Blood 0 % Regional L ab: [address] [place] [address] , [place] Whole [place] % 7.5 % 1.0-12.0 Final Patholo gists' Blood % Regional L ab: [address] [facility] , [place] Whole Eos % 4.7 % 0.0-7.0 Final Pathologi sts' Blood % Regional L ab: [address] [facility] , [place] Whole Baso % 0.3 % 0.0-2.0 Final Patholog ists' Blood % Regional L ab: [address] [facility] , [place] Whole High Absolute 8.72 1.80-8.0 Final Patho logists' Blood Neutrophil K/mcL 0 K/mcL Regio nal Lab: Count [address] [facility] , [place] Whole Lymph # 2.15 1.50-4.8 Final Pathol ogists' Blood K/mcL 0 K/mcL Regional Lab: [address] [facility] , [place] Whole High [place] # 0.93 0.10-0.9 Final Patholo gists' Blood K/mcL 0 K/mcL Regional Lab: [address] [facility] , [place] Whole Eos # 0.59 0.00-0.7 Final Patholog ists' Blood K/mcL 0 K/mcL Regional Lab: [address] [facility] , [place] Whole Baso # 0.04 0.00-0.2 Final Patholo gists' Blood K/mcL 0 K/mcL Regional Lab: [address] [place] [address] 10/04/2020 Urinalysis, U Urine Color straw Fi nal Pathologists' Microscopic Regio nal Lab: [address] [facility] , [place] U Urine clear clear Final Pathologis ts' Appearance Region al Lab: [address] [place] [address] U Specific 1.014 1.000-1. Final Patho logists' [place],urin 035 Shanthi onal Lab: e [address] [place] [address] U pH,urine 6.0 5.0-9.0 Final Pathol ogists' Regional L ab: [address] [facility] , [place] U Urine negativ negative Final Patholo gists' Protein e mg/dL mg/dL Regional Lab: [address] [facility] , [place] U ABNOR Urine 150 negative Final Patholog ists' MAL Glucose (UA) mg/dL mg/dL Shanthi onal Lab: [address] [place] [address] U Urine negativ negative Final Patholo gists' Ketone e mg/dL mg/dL Regional Lab: [address] [place] [address] U Urine negativ negative Final Patholo gists' Urobilinogen e mg/dL /normal Re gional Lab: mg/dL [address] [facility] , [place] U Urine negativ negative Final Patholo gists' Bilirubin e mg/dL mg/dL Region al Lab: [address] [place] [address] U Urine Blood negativ negative Final P athologists' e mg/dL mg/dL Regional Lab: [address] [place] [address] U ABNOR Urine pos negative Final Patholog ists' MAL Nitrite Regional Lab: [address] [facility] , [place] U ABNOR Urine 250 /ug negative Final Patholo gists' MAL Leukocyte /ug Regiona l Lab: Esterase [address] [facility], [place] U Urine RBC <1 /hpf 0-1 /hpf Final Pat hologists' Regional L ab: [address] [facility] , [place] U High Urine WBC 53 /hpf 0-4 /hpf Final Pat hologists' Regional L ab: [address] [facility] , [place] U Urine 1 /hpf 0-4 /hpf Final Patholog ists' Squamous Epi Shanthi onal Lab: Cells [address] [place] [address] U ABNOR Urine few 0 /hpf Final Pathologis ts' MAL Bacteria /hpf Regional Lab: [address] [place] [address] U High Urine 8 /lph 0-2 /lph Final Patholog ists' Hyaline Cast Shanthi onal Lab: [address] [place] [address] U ABNOR Urine Mucus few none Final Path ologists' MAL /hpf /hpf Regional L ab: [address] [place] [address] U Add yes Final Pathologis ts' Culture? Regional Lab: [address] [place] [address] 10/04/2020 Ferritin, Plasma Ferritin 91.2 13.0-150 Final Pathologists' Serum or NG/mL .0 NG/mL Region al Lab: Plasma [address] [place] [address] 10/04/2020 Vitamin B12, Serum Vitamin B12 361.2 232.0-12 Final Pathologists' Serum pg/mL 45.0 Regional L ab: pg/mL [address] [place] [address] 09/27/2020 Urinalysis, U Urine Color yellow Fi nal Pathologists' Microscopic Regio nal Lab: [address] [place] [address] U Urine clear clear Final Pathologis ts' Appearance Region al Lab: [address] [place] [address] U Specific 1.017 1.000-1. Final Patho logists' [place],urin 035 Shanthi onal Lab: e [address] [place] [address] U pH,urine 6.0 5.0-9.0 Final Pathol ogists' Regional L ab: [address] , [place] U ABNOR Urine 30 negative Final Patholog ists' MAL Protein mg/dL mg/dL Regional Lab: [address] , [place] U Urine negativ negative Final Patholo gists' Glucose (UA) e mg/dL mg/dL Reg ional Lab: [address] , [place] U Urine negativ negative Final Patholo gists' Ketone e mg/dL mg/dL Regional Lab: [address] , [place] U Urine negativ negative Final Patholo gists' Urobilinogen e mg/dL /normal Re gional Lab: mg/dL [address] , [place] U Urine negativ negative Final Patholo gists' Bilirubin e mg/dL mg/dL Region al Lab: [address] [facility] , [place] U Urine Blood negativ negative Final P athologists' e mg/dL mg/dL Regional Lab: [address] [facility] , [place] U Urine negativ negative Final Patholo gists' Nitrite e Regional Lab: [address] [facility] , [place] U Urine negativ negative Final Patholo gists' Leukocyte e /ug /ug Regiona l Lab: Esterase [address] , [place] U Urine RBC 1 /hpf 0-1 /hpf Final Path ologists' Regional L ab: [address] , [place] U High Urine WBC 10 /hpf 0-4 /hpf Final Pat hologists' Regional L ab: [address] [facility] , [place] U Urine 2 /hpf 0-4 /hpf Final Patholog ists' Squamous Epi Shanthi onal Lab: Cells [address] , [place] U ABNOR Urine few 0 /hpf Final Pathologis ts' MAL Bacteria /hpf Regional Lab: [address] [facility] , [place] U High Urine 8 /lph 0-2 /lph Final Patholog ists' Hyaline Cast Shanthi onal Lab: [address] [facility] , [place] U ABNOR Urine Mucus few none Final Path ologists' MAL /hpf /hpf Regional L ab: [address] [facility] , [place] U Add yes Final Pathologis ts' Culture? Regional Lab: [address] [facility] , [place] 09/27/2020 CBC W/ Auto Whole Wbc 8.7 4.5-11.0 Final Pathologists' Diff Blood K/mcL K/mcL Regional L ab: [address] [facility] , [place] Whole Low Rbc 3.06 4.00-5.2 Final Patholog ists' Blood M/mcL 0 M/mcL Regional Lab: [address] [facility] , [place] Whole Low Hgb 8.5 12.0-15. Final Patholog ists' Blood g/dL 0 g/dL Regional L ab: [address] [facility] , [place] Whole Low Hct 29.0 % 36.0-48. Final Patholog ists' Blood 0 % Regional L ab: [address] [facility] , [place] Whole Mcv 94.8 fL 80.0-100 Final Patholo gists' Blood .0 fL Regional L ab: [address] [facility] , [place] Whole Mch 27.8 pg 26.0-34. Final Patholo gists' Blood 0 pg Regional L ab: [address] [facility] , [place] Whole Low Mchc 29.3 31.0-36. Final Patholog ists' Blood g/dL 0 g/dL Regional L ab: [address] [facility] , [place] Whole High Rdw 16.6 % 11.5-14. Final Patholog ists' Blood 5 % Regional L ab: [address] [facility] , [place] Whole Plt CT 238 140-440 Final Patholog ists' Blood K/mcL K/mcL Regional L ab: [address] [facility] , [place] Whole High Mpv 12.7 fL 7.4-10.4 Final Patholo gists' Blood fL Regional L ab: [address] [facility] , [place] Whole Neut % 60.2 % 38.0-78. Final Patholo gists' Blood 0 % Regional L ab: [address] [facility] , [place] Whole Lymph % 22.6 % 15.0-49. Final Pathol ogists' Blood 0 % Regional L ab: [address] [facility] , [place] Whole [place] % 11.6 % 1.0-12.0 Final Patholo gists' Blood % Regional L ab: [address] [facility] , [place] Whole Eos % 5.1 % 0.0-7.0 Final Pathologi sts' Blood % Regional L ab: [address] [facility] , [place] Whole Baso % 0.5 % 0.0-2.0 Final Patholog ists' Blood % Regional L ab: [address] [facility] , [place] Whole Absolute 5.22 1.80-8.0 Final Patho logists' Blood Neutrophil K/mcL 0 K/mcL Regio nal Lab: Count [address] [facility] , [place] Whole Lymph # 1.96 1.50-4.8 Final Pathol ogists' Blood K/mcL 0 K/mcL Regional Lab: [address] [place] [address] , [place] Whole High [place] # 1.01 0.10-0.9 Final Patholo gists' Blood K/mcL 0 K/mcL Regional Lab: [address] [place] [address] , [place] Whole Eos # 0.44 0.00-0.7 Final Patholog ists' Blood K/mcL 0 K/mcL Regional Lab: [address] [place] [address] , [place] Whole Baso # 0.04 0.00-0.2 Final Patholo gists' Blood K/mcL 0 K/mcL Regional Lab: [address] [place] [address] , [place] 09/27/2020 CMP, Serum Plasma High Glucose,ran 210 70-105 Fin al Pathologists' or Plasma dom mg/dL mg/dL Regiona l Lab: [address] [place] [address] , [place] Plasma High Blood Urea 25 6-20 Final Patho logists' Nitrogen mg/dL mg/dL Regional Lab: [address] [place] [address] , [place] Plasma High Creatinine 1.2 0.6-1.1 Final Path ologists' mg/dL mg/dL Regional L ab: [address] [facility] , [place] Plasma Sodium 140 133-145 Final Patholog ists' mmol/L mmol/L Regional L ab: [address] [place] [address] , [place] Plasma Potassium 4.3 3.3-5.1 Final Patho logists' mmol/L mmol/L Regional L ab: [address] [place] [address] , [place] Plasma Chloride 101 96-108 Final Patholo gists' mmol/L mmol/L Regional L ab: [address] [place] [address] , [place] Plasma Carbon 30 22-30 Final Pathologi sts' Dioxide mmol/L mmol/L Regional Lab: [address] [place] [address] , [place] Plasma Anion Gap 9.0 8.0-16.0 Final Path ologists' Regional L ab: [address] [place] [address] , [place] Plasma Calcium 9.4 8.6-10.4 Final Pathol ogists' mg/dL mg/dL Regional L ab: [address] [facility] , [place] Plasma Total 7.2 5.9-8.4 Final Pathologi sts' Protein gm/dL gm/dL Regional Lab: [address] [place] [address] , [place] Plasma Albumin 3.7 3.2-5.2 Final Patholo gists' gm/dL gm/dL Regional L ab: [address] [place] [address] , [place] Plasma Globulin 3.5 2.2-3.7 Final Pathol ogists' gm/dL gm/dL Regional L ab: [address] , [place] Plasma Alb/glob 1.1 1.0-2.3 Final Pathol ogists' Ratio Regional L ab: [address] [facility] , [place] Plasma Bilirubin,t 0.2 0.1-1.0 Final Pat hologists' otal mg/dL mg/dL Regional L ab: [address] [facility] , [place] Plasma AST/SGOT 12 U/L <32 U/L Final Pathol ogists' Regional L ab: [address] [facility] , [place] Plasma ALT/SGPT 9 U/L <40 U/L Final Pathol ogists' Regional L ab: [address] [facility] , [place] Plasma Alkaline 94 U/L 39-117 Final Patholo gists' Phosphatase U/L Regio nal Lab: [address] [facility] , [place] Plasma Glomerular 50 Final Patho logists' Filtration Region al Lab: Rate [address] [facility] , [place] 09/27/2020 TSH, Serum Plasma Thyroid 2.94 0.27-5.0 Final Pathologists' or Plasma Stimulating uIU/mL 1 uIU/mL Regional Lab: Hormone [address], [place] 09/27/2020 Lipid Panel, Plasma Cholesterol 139 <200 F inal Pathologists' Blood mg/dL mg/dL Regional L ab: [address] [facility] , [place] Plasma Triglycerid 115 <150 Final Path ologists' es mg/dL mg/dL Regional L ab: [address] [facility] , [place] Plasma LDL,calcula 73 <100 Final Path ologists' felix mg/dL mg/dL Regional L ab: [address] [facility] , [place] Plasma HDL 44 >40 Final Pathologis ts' Cholesterol mg/dL mg/dL Regio nal Lab: [address] [facility] , [place] Plasma non-HDL 95 <130 Final Patholog ists' Cholesterol mg/dL mg/dL Regio nal Lab: [address] [facility] , [place] 09/27/2020 Hemoglobin Supernate High Hemoglobin 7.9 % 4.0-6.0 Final Pathologists' a1C + a1C HGB % HGB Regional L ab: Average [address], Glucose, QN, Lewi ston Blood Supernate Estimated 180 Final Pat hologists' Average mg/dL Regional Lab: Glucose [address], [place] 09/27/2020 Vitamin D, Plasma Low Vitamin D, 24.38 >30.00 Rosy l Pathologists' 25-Hydroxy, 25-Hydroxy NG/mL NG/mL R egional Lab: Total, Serum [address] , [place] 09/27/2020 Culture, U Source urine Final Pat hologists' Urine Regional L ab: [address] , [place] U [place] Final Pathologi sts' Count Regional L ab: [address] [facility] , [place] U Result (isolat Final Patholog ists' Comment e 2) Regional Lab: differe [address], nt [place] morphol ogy 2nd colony type U Result Final Pathologi sts' Regional L ab: [address] , [place] 09/27/2020 Microalbumin U Microalbumi 10.5 F inal Pathologists' , Urine n mg/dL Regional Lab: [address] , [place] U High Microalbumi 103.3 0.0-30.0 Final Pa thologists' n/creatinine mg/gm mg/gm [facility]: Ratio [address] [facility] , [place] U Urine 101.6 28.0-217 Final Patholog ists' Creatinine mg/dL .0 mg/dL [facility]: [address] , [place] 06/15/2020 Fungus, ASPIRATE Results P athologists' Culture, Regional Lab: Unspecified [address], Specimen [place] 06/15/2020 Fungus, ASPIRATE Results P athologists' Culture, Regional Lab: Unspecified [address], Specimen [place] 06/15/2020 Culture, Afb ASPIRATE Results Pathologists' (Acid-fast Region al Lab: Bacilli) [address] , [place] 06/15/2020 Culture, Afb ASPIRATE Results Pathologists' (Acid-fast Region al Lab: Bacilli) [address], [place] 04/02/2020 Microalbumin 24 hour Urine 56.8 Final Pathologists' , Urine urine Creatinine mg/dL Regio nal Lab: microalbu [address], min/creat [place] inine mass ratio 24 hour Urine 3.0 Final Pathologi sts' urine Microalbumin mg/dL [facility]: microalbu [address], min/creat [place] inine mass ratio 24 hour High Microalbumi 52.8 0.5-30.0 Final P athologists' urine n/creatinine mg/gm mg/gm [facility]: microalbu Ratio [address], min/creat [place] inine mass ratio 04/02/2020 CMP, Serum Estimatio High Glucose,ran 238 70-105 Final Pathologists' or Plasma n of dom mg/dL mg/dL Regiona l Lab: glomerula [address], r [place] vicentatratio n rate (GFR)/1.7 3 sq m using serum, plasma, or whole blood creatin Estimatio High Blood Urea 38 6-20 Final Pa thologists' n of Nitrogen mg/dL mg/dL Regional Lab: glomerula [address], r [place] filtratio n rate (GFR)/1.7 3 sq m using serum, plasma, or whole blood creatin Estimatio High Creatinine 1.2 0.6-1.1 Final P athologists' n of mg/dL mg/dL Regional L ab: glomerula [address], r [place] filtratio n rate (GFR)/1.7 3 sq m using serum, plasma, or whole blood creatin Estimatio Sodium 138 133-145 Final Patho logists' n of mmol/L mmol/L Regional L ab: glomerula [address], r [place] filtratio n rate (GFR)/1.7 3 sq m using serum, plasma, or whole blood creatin Estimatio Potassium 4.6 3.3-5.1 Final Pa thologists' n of mmol/L mmol/L Regional L ab: glomerula [address], r [place] vicentatratio n rate (GFR)/1.7 3 sq m using serum, plasma, or whole blood creatin Estimatio Chloride 97 96-108 Final Path ologists' n of mmol/L mmol/L Regional L ab: glomerula [address], r [place] filtratio n rate (GFR)/1.7 3 sq m using serum, plasma, or whole blood creatin Estimatio Carbon 28 22-30 Final Pathol ogists' n of Dioxide mmol/L mmol/L Regional Lab: glomerula [address], r [place] filtratio n rate (GFR)/1.7 3 sq m using serum, plasma, or whole blood creatin Estimatio Anion Gap 13.0 8-16 Final Pat hologists' n of Regional L ab: glomerula [address], r [place] filtratio n rate (GFR)/1.7 3 sq m using serum, plasma, or whole blood creatin Estimatio Calcium 10.1 8.6-10.4 Final Pat hologists' n of mg/dL mg/dL Regional L ab: glomerula [address], r [place] filtratio n rate (GFR)/1.7 3 sq m using serum, plasma, or whole blood creatin Estimatio Total 7.5 5.9-8.4 Final Pathol ogists' n of Protein gm/dL gm/dL Regional Lab: glomerula [address], r [place] filtratio n rate (GFR)/1.7 3 sq m using serum, plasma, or whole blood creatin Estimatio Albumin 4.3 3.2-5.2 Final Path ologists' n of gm/dL gm/dL Regional L ab: glomerula [address], r [place] filtratio n rate (GFR)/1.7 3 sq m using serum, plasma, or whole blood creatin Estimatio Globulin 3.2 2.2-3.7 Final Pat hologists' n of gm/dL gm/dL Regional L ab: glomerula [address], r [place] filtratio n rate (GFR)/1.7 3 sq m using serum, plasma, or whole blood creatin Estimatio Alb/glob 1.3 1.0-2.3 Final Pat hologists' n of Ratio Regional L ab: glomerula [address], r [place] filtratio n rate (GFR)/1.7 3 sq m using serum, plasma, or whole blood creatin Estimatio Bilirubin,t 0.2 0.0-1.0 Final Pathologists' n of otal mg/dL mg/dL Regional L ab: glomerula [address], r [place] filtratio n rate (GFR)/1.7 3 sq m using serum, plasma, or whole blood creatin Estimatio AST/SGOT 22 U/l 0-37 U/l Final Pa thologists' n of Regional L ab: glomerula [address], r [place] filtratio n rate (GFR)/1.7 3 sq m using serum, plasma, or whole blood creatin Estimatio ALT/SGPT 21 U/l 0-40 U/l Final Pa thologists' n of Regional L ab: glomerula [address], r [place] filtratio n rate (GFR)/1.7 3 sq m using serum, plasma, or whole blood creatin Estimatio Alkaline 109 U/L 39-117 Final Pat hologists' n of Phosphatase U/L Regio nal Lab: glomerula [address], r [place] filtratio n rate (GFR)/1.7 3 sq m using serum, plasma, or whole blood creatin Estimatio Glomerular 50 Final Pa thologists' n of Filtration Region al Lab: glomerula Rate [address], r [place] filtratio n rate (GFR)/1.7 3 sq m using serum, plasma, or whole blood creatin Estimatio Results Patho logists' n of Regional L ab: glomerula [address], r [place] filtratio n rate (GFR)/1.7 3 sq m using serum, plasma, or whole blood creatin 04/02/2020 Hemoglobin Whole High Hemoglobin 11.3 % 4.0-6.0 Fin al Pathologists' a1C + blood a1C HGB % HGB Regional L ab: Average estimated [address], Glucose, QN, average [place] Blood glucose determina tion by estimatio n fromglyca felix hemoglobi n (mass/vol ume) Whole Estimated 278 Final Pathol ogists' blood Average mg/dL Regional Lab: estimated Glucose [address], average [place] glucose determina tion by estimatio n fromglyca felix hemoglobi n (mass/vol ume) Whole Results Patholog ists' blood Regional L ab: estimated [address], average [place] glucose determina tion by estimatio n fromglyca felix hemoglobi n (mass/vol ume) 12/14/2019 Hemoglobin Whole High Hemoglobin 10.0 % 4.0-6.0 Fin al Pathologists' a1C + blood a1C HGB % HGB Regional L ab: Average estimated [address], Glucose, QN, average [place] Blood glucose determina tion by estimatio n fromglyca felix hemoglobi n (mass/vol ume) Whole Estimated 240 Final Pathol ogists' blood Average mg/dL Regional Lab: estimated Glucose [address], average [place] glucose determina tion by estimatio n fromglyca felix hemoglobi n (mass/vol ume) Whole Results Patholog ists' blood Regional L ab: estimated [address], average [place] glucose determina tion by estimatio n fromglyca felix hemoglobi n (mass/vol ume) 09/12/2019 Hemoglobin Whole High Hemoglobin 13.1 % 4.0-6.0 Fin al Pathologists' a1C + blood a1C HGB % HGB Regional L ab: Average estimated [address], Glucose, QN, average [place] Blood glucose determina tion by estimatio n fromglyca felix hemoglobi n (mass/vol ume) Whole Estimated 329 Final Pathol ogists' blood Average mg/dL Regional Lab: estimated Glucose [address], average [place] glucose determina tion by estimatio n fromglyca felix hemoglobi n (mass/vol ume) Whole Results Patholog ists' blood Regional L ab: estimated [address], average [place] glucose determina tion by estimatio n fromglyca felix hemoglobi n (mass/vol ume) 06/22/2019 Drug Screen, Urine High Amphetamine suspect nondete c Final Pathologists' Urine methadone ,urine positiv [facility] Lab: detection Screen e [address], by [place] screening method Urine Barbiturate none nondetec Final Alexandr mireles' methadone s, Urine detecte felix [facility]: detection Screen d [address], by [place] screening method Urine Benzodiazep none nondetec Final Alexandr fraga methadone letha,urine,s detecte [facility] Lab: detection creen d [address], by [place] screening method Urine Cannabinoid none nondetec Final Alexandr mireles' methadone ,urine detecte [facility] al Lab: detection Screen d [address], by [place] screening method Urine Cocaine,uri none nondetec Final Alexandr mireles' methadone ne Screen detecte felix Reg ional Lab: detection d [address], by [place] screening method Urine Opiate,urin none nondetec Final Alexandr fraga methadone e Screen detecte felix [facility]: detection d [address], by [place] screening method Urine Oxycodone,u none nondetec Final Alexandr fraga methadone rine Screen detecte felix R egional Lab: detection d [address], by [place] screening method Urine Phenycyclid none nondetec Final Pa thologists' methadone ine,urine detecte felix Reg ional Lab: detection Screen d [address], by [place] screening method Urine Methadone,u none nondetec Final Pa thologists' methadone rine Screen detecte felix R egional Lab: detection d [address], by [place] screening method Urine Results Patholog ists' methadone Regiona l Lab: detection [address], by [place] screening method 06/22/2019 Hepatitis C Serum Hepatitis C non negative Final Pathologists' Ab, Serum hepatitis Antibody reactiv R egional Lab: C virus e [address], antibody [place] detection Serum Results Patholog ists' hepatitis Regiona l Lab: C virus [address], antibody [place] detection 06/22/2019 Lipid Panel, Cholesterol 164 <200 F inal Pathologists' Blood mg/dL mg/dL Regional L ab: [address] , [place] Triglycerid 118 <150 Final Path ologists' es mg/dL mg/dL Regional L ab: [address] , [place] HDL 43 >40 Final Pathologis ts' Cholesterol mg/dL mg/dL Regio nal Lab: [address] , [place] LDL,calcula 98 see Final Path ologists' felix mg/dL chart Regional L ab: mg/dL [address] , [place] non-HDL 121 LDL Final Patholog ists' Cholesterol target+3 Reg ional Lab: [address] , [place] 06/22/2019 TSH, Serum Serum or TSH with 0.83 0.27-5.0 Fi nal Pathologists' or Plasma plasma Reflex FT4 uIU/mL 1 uIU/mL R egional Lab: thyroid [address], stimulati [place] ng hormone (TSH) measureme nt (units/vo lume) Serum or Results Pathol ogists' plasma Regional L ab: thyroid [address], stimulati [place] ng hormone (TSH) measureme nt (units/vo lume) 06/22/2019 CBC W/ Auto Automated High Wbc 11.4 4.5-11.0 Fin al Pathologists' Diff blood K/mcL K/mcL Regional L ab: basophil [address], count [place] (number/v olume) Automated Rbc 4.15 4.00-5.2 Final Patho logists' blood M/mcL 0 M/mcL Regional Lab: basophil [address], count [place] (number/v olume) Automated Low Hemoglobin 11.6 12.0-15. Final Pathologists' blood g/dL 0 g/dL Regional L ab: basophil [address], count [place] (number/v olume) Automated Hematocrit 36.0 % 36.0-48. Final Pathologists' blood 0 % Regional L ab: basophil [address], count [place] (number/v olume) Automated Mean Cell 86.9 fL 80.0-100 Final Pathologists' blood Volume .0 fL Regional L ab: basophil [address], count [place] (number/v olume) Automated Mean 27.9 pg 26.0-34. Final Path ologists' blood Corpuscular 0 pg Regio nal Lab: basophil Hemoglobin [address], count [place] (number/v olume) Automated Mean 32.1 31.0-36. Final Patho logists' blood Corpuscular g/dL 0 g/dL Regio nal Lab: basophil HGB Conc [address], count [place] (number/v olume) Automated Red Cell 13.8 % 11.5-14. Final Pa thologists' blood Distribution 5 % [facility] Lab: basophil Width [address], count [place] (number/v olume) Automated Platelet 273 140-440 Final Pat hologists' blood Count K/mcL K/mcL Regional L ab: basophil [address], count [place] (number/v olume) Automated High Mean 11.4 fL 7.4-10.4 Final Path ologists' blood Platelet fL Regional Lab: basophil Volume [address], count [place] (number/v olume) Automated Gran % 68.9 % 38.0-78. Final Path ologists' blood 0 % Regional L ab: basophil [address], count [place] (number/v olume) Automated Lymph % 22.4 % 15.5-49. Final Pat hologists' blood 0 % Regional L ab: basophil [address], count [place] (number/v olume) Automated [place] % 6.1 % 1.0-12.0 Final Path ologists' blood % Regional L ab: basophil [address], count [place] (number/v olume) Automated Eos % 2.1 % 0.0-7.0 Final Pathol ogists' blood % Regional L ab: basophil [address], count [place] (number/v olume) Automated Baso % 0.5 % 0.0-2.0 Final Patho logists' blood % Regional L ab: basophil [address], count [place] (number/v olume) Automated Gran # 7.9 1.8-8.0 Final Patho logists' blood K/mcL K/mcL Regional L ab: basophil [address], count [place] (number/v olume) Automated Lymph # 2.6 1.5-4.8 Final Path ologists' blood K/mcL K/mcL Regional L ab: basophil [address], count [place] (number/v olume) Automated [place] # 0.7 0.1-0.9 Final Patho logists' blood K/mcL K/mcL Regional L ab: basophil [address], count [place] (number/v olume) Automated Eos # 0.2 0.0-0.7 Final Pathol ogists' blood K/mcL K/mcL Regional L ab: basophil [address], count [place] (number/v olume) Automated Baso # 0.1 0.0-0.3 Final Patho logists' blood K/mcL K/mcL Regional L ab: basophil [address], count [place] (number/v olume) 06/22/2019 Hemoglobin Whole High Hemoglobin 14.4 % 4.0-6.0 Fin al Pathologists' a1C + blood a1C HGB % HGB Regional L ab: Average estimated [address], Glucose, QN, average [place] Blood glucose determina tion by estimatio n fromglyca felix hemoglobi n (mass/vol ume) Whole Estimated 367 Final Pathol ogists' blood Average mg/dL Regional Lab: estimated Glucose [address], average [place] glucose determina tion by estimatio n fromglyca felix hemoglobi n (mass/vol ume) Whole Results Patholog ists' blood Regional L ab: estimated [address], average [place] glucose determina tion by estimatio n fromglyca felix hemoglobi n (mass/vol ume) 06/22/2019 Urinalysis, Urine Color yellow Fi nal Pathologists' Microscopic Regio nal Lab: [address] , [place] Urine clear Final Pathologis ts' Appearance Region al Lab: [address] , [place] Specific 1.020 1.003-1. Final Patho logists' [place],urin 030 [facility] Lab: e [address] , [place] pH,urine 7.0 5.0-9.0 Final Pathol ogists' Regional L ab: [address] , [place] Urine neg neg Final Pathologis ts' Protein mg/dL mg/dL Regional Lab: [address] , [place] Urine 500 neg Final Pathologis ts' Glucose (UA) (2+) mg/dL [facility]: mg/dL [address] , [place] Urine neg neg Final Pathologis ts' Ketone mg/dL mg/dL Regional L ab: [address] , [place] Urine norm neg Final Pathologis ts' Urobilinogen mg/dL mg/dL [facility]: [address] , [place] Urine neg neg Final Pathologis ts' Bilirubin mg/dL mg/dL Regiona l Lab: [address] , [place] Urine Blood neg <0.03 Final Path ologists' mg/dL mg/dL Regional L ab: [address] , [place] Urine neg neg Final Pathologis ts' Nitrite Regional Lab: [address] , [place] Urine neg /uL neg /uL Final Patholog ists' Leukocyte Regiona l Lab: Esterase [address], [place] Urine RBC 0 /hpf 0-1 /hpf Final Path ologists' Regional L ab: [address] , [place] Urine WBC 1 /hpf 0-4 /hpf Final Path ologists' Regional L ab: [address] , [place] Urine 3 /hpf 0-4 /hpf Final Patholog ists' Squamous Regional Lab: Epithelial [address], Cell [place] Urine 0 /hpf 0 /hpf Final Pathologis ts' Bacteria Regional Lab: [address] , [place] High Urine 4 /lpf 0-2 /lpf Final Patholog ists' Hyaline Cast [facility] Lab: [address] , [place] Add no Final Pathologis ts' Culture? Regional Lab: [address] , [place] 06/22/2019 Cytology Cervix Specimen satisfa Final [place] Adequacy ctory, Family no Medicine - endocer [place]: [address], compone [place] nt present Cervix Comment Final [facility] - [place]: [address] e [address], [place] Cervix General negativ Final [facility] Categorizati e for Fami ly on intraep Medicine - [facility]: [address] e 2, lesion [place] or maligna ncy Cervix Screening negativ Final [facility] Test e for Family Interpretati intraep Med icine - on [facility]: [address] e 2, lesion [place] or maligna ncy 06/22/2019 Amphetamine, Confirmat Amphetamine positiv N NG /mL Final Pathologists' QN, Confirm, ory Confirmation e NG/mL Regional Lab: Urine quantitat Paml [address], kat urine [place] amphetami ne measureme nt Confirmat Results Patho logists' ory Regional L ab: quantitat [address], kat urine [place] amphetami ne measureme nt 03/28/2019 5-Hydroxyind 24 hour 5-Hiaa,sushila 4.1 < or = Final Pathologists' oleacetate, urine titative 24 mg/24 h 6.0 Regional Lab: 24-Hour creatinin Hour mg/[address], Urine e New measureme nt (mass/guero e) 24 hour Urine Total 2640.0 () mL Final Pat hologists' urine Volume mL Regional L ab: creatinin [address], e [place] measureme nt (mass/guero e) 24 hour Creatinine, 1.06 0.50-2.1 Final P athologists' urine urine g/24 h 5 g/24 h Regional Lab: creatinin [address], e [place] measureme nt (mass/guero e) 24 hour Results Patholo gists' urine Regional L ab: creatinin [address], e [place] measureme nt (mass/guero e) 03/24/2019 CBC W/ Auto Automated Wbc 10.8 4.5-11.0 Fin al Pathologists' Diff blood K/mcL K/mcL Regional L ab: basophil [address], count [place] (number/v olume) Automated Rbc 4.22 4.00-5.2 Final Patho logists' blood M/mcL 0 M/mcL Regional Lab: basophil [address], count [place] (number/v olume) Automated Low Hemoglobin 11.8 12.0-15. Final Pathologists' blood g/dL 0 g/dL Regional L ab: basophil [address], count [place] (number/v olume) Automated Hematocrit 37.3 % 36.0-48. Final Pathologists' blood 0 % Regional L ab: basophil [address], count [place] (number/v olume) Automated Mean Cell 88.3 fL 80.0-100 Final Pathologists' blood Volume .0 fL Regional L ab: basophil [address], count [place] (number/v olume) Automated Mean 27.8 pg 26.0-34. Final Path ologists' blood Corpuscular 0 pg Regio nal Lab: basophil Hemoglobin [address], count [place] (number/v olume) Automated Mean 31.5 31.0-36. Final Patho logists' blood Corpuscular g/dL 0 g/dL Regio nal Lab: basophil HGB Conc [address], count [place] (number/v olume) Automated Red Cell 12.9 % 11.5-14. Final Pa thologists' blood Distribution 5 % [facility] Lab: basophil Width [address], count [place] (number/v olume) Automated Platelet 275 140-440 Final Pat hologists' blood Count K/mcL K/mcL Regional L ab: basophil [address], count [place] (number/v olume) Automated High Mean 13.7 fL 7.4-10.4 Final Path ologists' blood Platelet fL Regional Lab: basophil Volume [address], count [place] (number/v olume) Automated Gran % 70.6 % 38.0-78. Final Path ologists' blood 0 % Regional L ab: basophil [address], count [place] (number/v olume) Automated Lymph % 16.6 % 15.5-49. Final Pat hologists' blood 0 % Regional L ab: basophil [address], count [place] (number/v olume) Automated [place] % 6.2 % 1.0-12.0 Final Path ologists' blood % Regional L ab: basophil [address], count [place] (number/v olume) Automated Eos % 6.1 % 0.0-7.0 Final Pathol ogists' blood % Regional L ab: basophil [address], count [place] (number/v olume) Automated Baso % 0.5 % 0.0-2.0 Final Patho logists' blood % Regional L ab: basophil [address], count [place] (number/v olume) Automated Gran # 7.6 1.8-8.0 Final Patho logists' blood K/mcL K/mcL Regional L ab: basophil [address], count [place] (number/v olume) Automated Lymph # 1.8 1.5-4.8 Final Path ologists' blood K/mcL K/mcL Regional L ab: basophil [address], count [place] (number/v olume) Automated [place] # 0.7 0.1-0.9 Final Patho logists' blood K/mcL K/mcL Regional L ab: basophil [address], count [place] (number/v olume) Automated Eos # 0.7 0.0-0.7 Final Pathol ogists' blood K/mcL K/mcL Regional L ab: basophil [address], count [place] (number/v olume) Automated Baso # 0.1 0.0-0.3 Final Patho logists' blood K/mcL K/mcL Regional L ab: basophil [address], count [place] (number/v olume) 03/24/2019 Microalbumin 24 hour Urine 157.5 Final Pathologists' , Urine urine Creatinine mg/dL Regio nal Lab: microalbu [address], min/creat [place] inine mass ratio 24 hour Urine 7.4 Final Pathologi sts' urine Microalbumin mg/dL [facility] Lab: microalbu [address], min/creat [place] inine mass ratio 24 hour High Microalbumi 46.9 0.5-30.0 Final P athologists' urine n/creatinine mg/gm mg/gm [facility] on[facility] Lab: microalbu Ratio [address], min/creat [place] inine mass ratio 03/24/2019 CMP, Serum Panic Glucose,ran 531 70-105 Fin al Pathologists' or Plasma High dom mg/dL mg/dL Regiona l Lab: [address] , [place] High Blood Urea 37 6-20 Final Patho logists' Nitrogen mg/dL mg/dL Regional Lab: [address] , [place] High Creatinine 1.7 0.6-1.1 Final Path ologists' mg/dL mg/dL Regional L ab: [address] [facility] , [place] Sodium 133 133-145 Final Patholog ists' mmol/L mmol/L Regional L ab: [address] [facility] , [place] Potassium 4.4 3.3-5.1 Final Patho logists' mmol/L mmol/L Regional L ab: [address] [facility] , [place] Low Chloride 88 96-108 Final Patholo gists' mmol/L mmol/L Regional L ab: [address] [facility] , [place] Carbon 29 22-30 Final Pathologi sts' Dioxide mmol/L mmol/L Regional Lab: [address] [place] [address] Anion Gap 16.0 8-16 Final Pathol ogists' Regional L ab: [address] [facility] , [place] Calcium 10.2 8.6-10.4 Final Pathol ogists' mg/dL mg/dL Regional L ab: [address] [facility] , [place] Total 7.9 5.9-8.4 Final Pathologi sts' Protein gm/dL gm/dL Regional Lab: [address] [place] [address] Albumin 4.3 3.2-5.2 Final Patholo gists' gm/dL gm/dL Regional L ab: [address] [facility] , [place] Globulin 3.6 2.2-3.7 Final Pathol ogists' gm/dL gm/dL Regional L ab: [address] [facility] , [place] Alb/glob 1.2 1.0-2.3 Final Pathol ogists' Ratio Regional L ab: [address] [facility] , [place] Bilirubin,t 0.4 0.0-1.0 Final Pat hologists' otal mg/dL mg/dL Regional L ab: [address] [place] [address] AST/SGOT 16 U/l 0-37 U/l Final Patho logists' Regional L ab: [address] [facility] , [place] ALT/SGPT 14 U/l 0-40 U/l Final Patho logists' Regional L ab: [address] [facility] , [place] High Alkaline 150 U/L 39-117 Final Pathol ogists' Phosphatase U/L Regio nal Lab: [address] [facility] , [place] Glomerular 33 Final Patho logists' Filtration Region al Lab: Rate [address] [facility] , [place] 03/24/2019 Lipid Panel, Cholesterol 190 <200 F inal Pathologists' Blood mg/dL mg/dL Regional L ab: [address] , [place] High Triglycerid 239 <150 Final Path ologists' es mg/dL mg/dL Regional L ab: [address] , [place] Low HDL 32 >40 Final Pathologis ts' Cholesterol mg/dL mg/dL Regio nal Lab: [address] , [place] High LDL,calcula 111 see Final Path ologists' felix mg/dL chart Regional L ab: mg/dL [address] , [place] High non-HDL 158 LDL Final Patholog ists' Cholesterol target+3 Reg ional Lab: [address] , [place] 03/24/2019 TSH, Serum Serum or TSH with 1.96 0.27-5.0 Fi nal Pathologists' or Plasma plasma Reflex FT4 uIU/mL 1 uIU/mL R egional Lab: thyroid [address], stimulati [place] ng hormone (TSH) measureme nt (units/vo lume) Serum or Results Pathol ogists' plasma Regional L ab: thyroid [address], stimulati [place] ng hormone (TSH) measureme nt (units/vo lume) 03/24/2019 Hemoglobin Whole High Hemoglobin 15.6 % 4.0-6.0 Fin al Pathologists' a1C + blood a1C HGB % HGB Regional L ab: Average estimated [address], Glucose, QN, average [facility] Blood glucose determina tion by estimatio n fromglyca felix hemoglobi n (mass/vol ume) Whole Estimated 401 Final Pathol ogists' blood Average mg/dL Regional Lab: estimated Glucose [address], average [place] glucose determina tion by estimatio n fromglyca felix hemoglobi n (mass/vol ume) Whole Results Patholog ists' blood Regional L ab: estimated [address], average [place] glucose determina tion by estimatio n fromglyca felix hemoglobi n (mass/vol ume) 11/25/2018 Urinalysis, Urine Color yellow Fi nal Pathologists' Microscopic Regio nal Lab: [address] , [place] Urine turbid Final Pathologis ts' Appearance Region al Lab: [address] , [place] Specific 1.021 1.000-1. Final Patho logists' [place],urin 035 [facility] onal Lab: e [address] , [place] pH,urine 5.0 5.0-9.0 Final Pathol ogists' Regional L ab: [address] , [place] High Urine 100 neg Final Pathologis ts' Protein mg/dL mg/dL Regional Lab: [address] , [place] High Urine 50 neg Final Pathologis ts' Glucose (UA) mg/dL mg/dL [facility] on[facility] Lab: [address] , [place] Urine neg neg Final Pathologis ts' Ketone mg/dL mg/dL Regional L ab: [address] , [place] Urine neg neg Final Pathologis ts' Urobilinogen mg/dL mg/dL [facility] on[facility] Lab: [address] , [place] Urine neg neg Final Pathologis ts' Bilirubin mg/dL mg/dL Regiona l Lab: [address] , [place] High Urine Blood 0.03 <0.03 Final Path ologists' mg/dL mg/dL Regional L ab: [address] , [place] Urine neg neg Final Pathologis ts' Nitrite Regional Lab: [address] , [place] High Urine 500 /uL neg /uL Final Patholog ists' Leukocyte Regiona l Lab: Esterase [address], [place] High Urine RBC 95 /hpf 0-1 /hpf Final Pat hologists' Regional L ab: [address] , [place] High Urine WBC > 182 0-4 /hpf Final Path ologists' /hpf Regional L ab: [address] , [place] High Urine 15 /hpf 0-4 /hpf Final Patholo gists' Squamous Regional Lab: Epithelial [address], Cell [place] High Urine mod 0 /hpf Final Pathologis ts' Bacteria /hpf Regional Lab: [address] , [place] High Urine 95 /lpf 0-2 /lpf Final Patholo gists' Hyaline Cast [facility] onal Lab: [address] , [place] Urine Mucus mod 0 /hpf Final Path ologists' /hpf Regional [facility] ab: [address] , [place] High Urine many 0 /hpf Final Pathologis ts' Budding /hpf Regional Lab: Yeast [address] , [place] Add no Final Pathologis ts' Culture? Regional Lab: [address] , [place] Results Patholog ists' Regional L ab: [address] , [place] 11/25/2018 Microalbumin 24 hour Urine 248.7 Final Pathologists' , Urine urine Creatinine mg/dL Regio nal Lab: microalbu [address], min/creat [place] mass ratio 24 hour Urine 13.7 Final Pathologi sts' urine Microalbumin mg/dL [facility] onal Lab: microalbu [address], min/creat [place] mass ratio 24 hour High Microalbumi 55.0 0.5-30.0 Final P athologists' urine n/creatinine mg/gm mg/gm [facility] onal Lab: microalbu Ratio [address], min/creat [place] mass ratio 11/25/2018 CBC W/ Auto Automated Wbc 10.1 4.5-11.0 Fin al Pathologists' Diff blood K/mcL K/mcL Regional L ab: basophil [address], count [place] (number/v olume) Automated Low Rbc 3.84 4.00-5.2 Final Patho logists' blood M/mcL 0 M/mcL Regional Lab: basophil [address], count [place] (number/v olume) Automated Low Hemoglobin 11.3 12.0-15. Final Pathologists' blood g/dL 0 g/dL Regional L ab: basophil [address], count [place] (number/v olume) Automated Low Hematocrit 35.0 % 36.0-48. Final Pathologists' blood 0 % Regional L ab: basophil [address], count [place] (number/v olume) Automated Mean Cell 91.0 fL 80.0-100 Final Pathologists' blood Volume .0 fL Regional L ab: basophil [address], count [place] (number/v olume) Automated Mean 29.5 pg 26.0-34. Final Path ologists' blood Corpuscular 0 pg Regio nal Lab: basophil Hemoglobin [address], count [place] (number/v olume) Automated Mean 32.4 31.0-36. Final Patho logists' blood Corpuscular g/dL 0 g/dL Regio nal Lab: basophil HGB Conc [address], count [place] (number/v olume) Automated Red Cell 12.5 % 11.5-14. Final Pa thologists' blood Distribution 5 % [facility] onal Lab: basophil Width [address], count [place] (number/v olume) Automated Platelet 297 140-440 Final Pat hologists' blood Count K/mcL K/mcL Regional L ab: basophil [address], count [place] (number/v olume) Automated High Mean 12.6 fL 7.4-10.4 Final Path ologists' blood Platelet fL Regional Lab: basophil Volume [address], count [place] (number/v olume) Automated Gran % 54.5 % 38.0-78. Final Path ologists' blood 0 % Regional L ab: basophil [address], count [place] (number/v olume) Automated Lymph % 32.5 % 15.5-49. Final Pat hologists' blood 0 % Regional L ab: basophil [address], count [place] (number/v olume) Automated [place] % 7.1 % 1.0-12.0 Final Path ologists' blood % Regional L ab: basophil [address], count [place] (number/v olume) Automated Eos % 5.2 % 0.0-7.0 Final Pathol ogists' blood % Regional L ab: basophil [address], count [place] (number/v olume) Automated Baso % 0.7 % 0.0-2.0 Final Patho logists' blood % Regional L ab: basophil [address], count [place] (number/v olume) Automated Gran # 5.5 1.8-8.0 Final Patho logists' blood K/mcL K/mcL Regional L ab: basophil [address], count [place] (number/v olume) Automated Lymph # 3.3 1.5-4.8 Final Path ologists' blood K/mcL K/mcL Regional L ab: basophil [address], count [place] (number/v olume) Automated [place] # 0.7 0.1-0.9 Final Patho logists' blood K/mcL K/mcL Regional L ab: basophil [address], count [place] (number/v olume) Automated Eos # 0.5 0.0-0.7 Final Pathol ogists' blood K/mcL K/mcL Regional L ab: basophil [address], count [place] (number/v olume) Automated Baso # 0.1 0.0-0.3 Final Patho logists' blood K/mcL K/mcL Regional L ab: basophil [address], count [place] (number/v olume) 11/25/2018 Pro BNP (Pro Probnp 59.9 0-125 Final Pathologists' B-type pg/mL pg/mL Regional L ab: Natriuretic [address], Peptide), [place] Serum or Plasma 11/25/2018 TSH, Serum Serum or TSH with 1.10 0.27-5.0 Fi nal Pathologists' or Plasma plasma Reflex FT4 uIU/mL 1 uIU/mL R egional Lab: thyroid [address], stimulati [place] ng hormone (TSH) measureme nt (units/vo lume) Serum or Results Pathol ogists' plasma Regional L ab: thyroid [address], stimulati [place] ng hormone (TSH) measureme nt (units/vo lume) 11/25/2018 CMP, Serum Glucose,ran 95 70-105 Fin al Pathologists' or Plasma dom mg/dL mg/dL Regiona l Lab: [address] [place] [address] High Blood Urea 37 6-20 Final Patho logists' Nitrogen mg/dL mg/dL Regional Lab: [address] [place] [address] High Creatinine 1.8 0.6-1.1 Final Path ologists' mg/dL mg/dL Regional L ab: [address] [place] [address] Sodium 138 133-145 Final Patholog ists' mmol/L mmol/L Regional L ab: [address] [place] [address] Potassium 3.7 3.3-5.1 Final Patho logists' mmol/L mmol/L Regional L ab: [address] [place] [address] Low Chloride 95 96-108 Final Patholo gists' mmol/L mmol/L Regional L ab: [address] [place] [address] Carbon 29 22-30 Final Pathologi sts' Dioxide mmol/L mmol/L Regional Lab: [address] [place] [address] Anion Gap 14.0 8-16 Final Pathol ogists' Regional L ab: [address] [place] [address] Calcium 9.5 8.6-10.4 Final Pathol ogists' mg/dL mg/dL Regional L ab: [address] [facility] , [place] Total 7.8 5.9-8.4 Final Pathologi sts' Protein gm/dL gm/dL Regional Lab: [address] [place] [address] Albumin 4.4 3.2-5.2 Final Patholo gists' gm/dL gm/dL Regional L ab: [address] [place] [address] Globulin 3.4 2.2-3.7 Final Pathol ogists' gm/dL gm/dL Regional L ab: [address] , [place] Alb/glob 1.3 1.0-2.3 Final Pathol ogists' Ratio Regional L ab: [address] , [place] Bilirubin,t 0.3 0.0-1.0 Final Pat hologists' otal mg/dL mg/dL Regional L ab: [address] [facility] , [place] AST/SGOT 14 U/l 0-37 U/l Final Patho logists' Regional L ab: [address] , [place] ALT/SGPT 17 U/l 0-40 U/l Final Patho logists' Regional L ab: [address] , [place] High Alkaline 122 U/L 39-117 Final Pathol ogists' Phosphatase U/L Regio nal Lab: [address] [facility] , [place] Glomerular 31 Final Patho logists' Filtration Region al Lab: Rate [address] [facility] , [place] 11/25/2018 Lipid Panel, High Cholesterol 201 <200 F inal Pathologists' Blood mg/dL mg/dL Regional L ab: [address] [facility] , [place] High Triglycerid 234 <150 Final Path ologists' es mg/dL mg/dL Regional L ab: [address] [facility] , [place] HDL 47 >40 Final Pathologis ts' Cholesterol mg/dL mg/dL Regio nal Lab: [address] [facility] , [place] High LDL,calcula 108 see Final Path ologists' felix mg/dL chart Regional L ab: mg/dL [address] [facility] , [place] High non-HDL 154 LDL Final Patholog ists' Cholesterol target+3 Reg ional Lab: 0 [address] [facility] , [place] 11/25/2018 Hemoglobin Whole High Hemoglobin 14.0 % 4.0-6.0 Fin al Pathologists' a1C + blood a1C HGB % HGB Regional L ab: Average estimated [address], Glucose, QN, average [facility] Blood glucose determina tion by estimatio n fromglyca felix hemoglobi n (mass/vol ume) Whole Estimated 355 Final Pathol ogists' blood Average mg/dL Regional Lab: estimated Glucose [address], average [place] glucose determina tion by estimatio n fromglyca felix hemoglobi n (mass/vol ume) Whole Results Patholog ists' blood Regional L ab: estimated [address], average [place] glucose determina tion by estimatio n fromglyca felix hemoglobi n (mass/vol ume) 09/29/2018 Hemoglobin No Pa thologists' a1C + observation Regio nal Lab: Average recorded. [address], Glucose, QN, [place] Blood 06/23/2018 Lipid Panel, Serum or High Cholesterol 209 <200 Final Pathologists' Blood plasma mg/dL mg/dL Regional L ab: cholester [address], ol non [place] HDL measureme nt (mass/vol ume) Serum or High Triglycerid 216 <150 Final Pa thologists' plasma es mg/dL mg/dL Regional L ab: cholester [address], ol non [place] HDL measureme nt (mass/vol ume) Serum or Low HDL 39 >40 Final Patholog ists' plasma Cholesterol mg/dL mg/dL Regio nal Lab: cholester [address], ol non [place] HDL measureme nt (mass/vol ume) Serum or High LDL,calcula 127 see Final Pa thologists' plasma felix mg/dL chart Regional L ab: cholester mg/dL [address], ol non [place] HDL measureme nt (mass/vol ume) Serum or High non-HDL 170 LDL Final Pathol ogists' plasma Cholesterol target+3 Reg ional Lab: cholester [address], ol non [place] HDL measureme nt (mass/vol ume) Serum or Results Pathol ogists' plasma Regional L ab: cholester [address], ol non [place] HDL measureme nt (mass/vol ume) 04/07/2018 CBC W/ Auto Automated Wbc 9.9 4.5-11.0 Fin al Pathologists' Diff blood K/mcL K/mcL Regional L ab: basophil [address], count [place] (count/vo lume) Automated Low Rbc 3.61 4.00-5.2 Final Patho logists' blood M/mcL 0 M/mcL Regional Lab: basophil [address], count [place] (count/vo lume) Automated Low Hemoglobin 10.6 12.0-15. Final Pathologists' blood g/dL 0 g/dL Regional L ab: basophil [address], count [place] (count/vo lume) Automated Low Hematocrit 31.9 % 36.0-48. Final Pathologists' blood 0 % Regional L ab: basophil [address], count [place] (count/vo lume) Automated Mean Cell 88.4 fL 80.0-100 Final Pathologists' blood Volume .0 fL Regional L ab: basophil [address], count [place] (count/vo lume) Automated Mean 29.3 pg 26.0-34. Final Path ologists' blood Corpuscular 0 pg Regio nal Lab: basophil Hemoglobin [address], count [place] (count/vo lume) Automated Mean 33.1 31.0-36. Final Patho logists' blood Corpuscular g/dL 0 g/dL Regio nal Lab: basophil HGB Conc [address], count [place] (count/vo lume) Automated Red Cell 13.1 % 11.5-14. Final Pa thologists' blood Distribution 5 % [facility] onal Lab: basophil Width [address], count [place] (count/vo lume) Automated Platelet 242 140-440 Final Pat hologists' blood Count K/mcL K/mcL Regional L ab: basophil [address], count [place] (count/vo lume) Automated High Mean 13.0 fL 7.4-10.4 Final Path ologists' blood Platelet fL Regional Lab: basophil Volume [address], count [place] (count/vo lume) Automated Gran % 55.9 % 38.0-78. Final Path ologists' blood 0 % Regional L ab: basophil [address], count [place] (count/vo lume) Automated Lymph % 29.4 % 15.5-49. Final Pat hologists' blood 0 % Regional L ab: basophil [address], count [place] (count/vo lume) Automated [place] % 7.5 % 1.0-12.0 Final Path ologists' blood % Regional L ab: basophil [address], count [place] (count/vo lume) Automated Eos % 6.7 % 0.0-7.0 Final Pathol ogists' blood % Regional L ab: basophil [address], count [place] (count/vo lume) Automated Baso % 0.5 % 0.0-2.0 Final Patho logists' blood % Regional L ab: basophil [address], count [place] (count/vo lume) Automated Gran # 5.6 1.8-8.0 Final Patho logists' blood K/mcL K/mcL Regional L ab: basophil [address], count [place] (count/vo lume) Automated Lymph # 2.9 1.5-4.8 Final Path ologists' blood K/mcL K/mcL Regional L ab: basophil [address], count [place] (count/vo lume) Automated [place] # 0.7 0.1-0.9 Final Patho logists' blood K/mcL K/mcL Regional L ab: basophil [address], count [place] (count/vo lume) Automated Eos # 0.7 0.0-0.7 Final Pathol ogists' blood K/mcL K/mcL Regional L ab: basophil [address], count [place] (count/vo lume) Automated Baso # 0.1 0.0-0.3 Final Patho logists' blood K/mcL K/mcL Regional L ab: basophil [address], count [place] (count/vo lume) 04/07/2018 TIBC (Total Serum or Serum Iron 57 37-145 F inal Pathologists' Iron-binding plasma mcg/dL mcg/dL [facility] onal Lab: Capacity), iron [address], Serum saturatio [place] n measureme nt (molar fraction) Serum or Unsaturated 291 112-346 Final P athologists' plasma Iron Binding mcg/dL mcg/dL [facility] onal Lab: iron Cap [address] , saturatio [place] n measureme nt (molar fraction) Serum or TIBC 348 228-428 Final Patholo gists' plasma Calculation ug/dL ug/dL Regio nal Lab: iron [address] , saturatio [place] n measureme nt (molar fraction) Serum or % 16 % 15-50 % Final Patholo gists' plasma Transferrin Regio nal Lab: iron Saturation [address], saturatio [place] n measureme nt (molar fraction) 04/07/2018 Ferritin, Serum or Ferritin 135.0 13-150 Final Pathologists' Serum or plasma NG/mL NG/mL Regional Lab: Plasma ferritin [address], measureme [place] nt by immunoass ay (mass/vol ume) 04/07/2018 Folate, Folic 5.8 4.2-19.9 Final Pat hologists' Serum Acid/folate NG/mL NG/mL Regio nal Lab: [address] , [place] 04/07/2018 Vitamin B12, Vitamin B12 351.2 232-1245 Final Pathologists' Serum pg/mL pg/mL Regional L ab: [address] , [place] 04/06/2018 CBC W/ Auto Automated Wbc 9.9 4.5-11.0 Fin al Pathologists' Diff blood K/mcL K/mcL Regional L ab: basophil [address], count [place] (count/vo lume) Automated Low Rbc 3.64 4.00-5.2 Final Patho logists' blood M/mcL 0 M/mcL Regional Lab: basophil [address], count [place] (count/vo lume) Automated Low Hemoglobin 10.5 12.0-15. Final Pathologists' blood g/dL 0 g/dL Regional L ab: basophil [address], count [place] (count/vo lume) Automated Low Hematocrit 32.1 % 36.0-48. Final Pathologists' blood 0 % Regional L ab: basophil [address], count [place] (count/vo lume) Automated Mean Cell 88.1 fL 80.0-100 Final Pathologists' blood Volume .0 fL Regional L ab: basophil [address], count [place] (count/vo lume) Automated Mean 29.0 pg 26.0-34. Final Path ologists' blood Corpuscular 0 pg Regio nal Lab: basophil Hemoglobin [address], count [place] (count/vo lume) Automated Mean 32.9 31.0-36. Final Patho logists' blood Corpuscular g/dL 0 g/dL Regio nal Lab: basophil HGB Conc [address], count [place] (count/vo lume) Automated Red Cell 12.8 % 11.5-14. Final Pa thologists' blood Distribution 5 % [facility] onal Lab: basophil Width [address], count [place] (count/vo lume) Automated Platelet 234 140-440 Final Pat hologists' blood Count K/mcL K/mcL Regional L ab: basophil [address], count [place] (count/vo lume) Automated High Mean 12.4 fL 7.4-10.4 Final Path ologists' blood Platelet fL Regional Lab: basophil Volume [address], count [place] (count/vo lume) Automated Gran % 53.7 % 38.0-78. Final Path ologists' blood 0 % Regional L ab: basophil [address], count [place] (count/vo lume) Automated Lymph % 30.1 % 15.5-49. Final Pat hologists' blood 0 % Regional L ab: basophil [address], count [place] (count/vo lume) Automated [place] % 8.5 % 1.0-12.0 Final Path ologists' blood % Regional L ab: basophil [address], count [place] (count/vo lume) Automated High Eos % 7.2 % 0.0-7.0 Final Pathol ogists' blood % Regional L ab: basophil [address], count [place] (count/vo lume) Automated Baso % 0.5 % 0.0-2.0 Final Patho logists' blood % Regional L ab: basophil [address], count [place] (count/vo lume) Automated Gran # 5.3 1.8-8.0 Final Patho logists' blood K/mcL K/mcL Regional L ab: basophil [address], count [place] (count/vo lume) Automated Lymph # 3.0 1.5-4.8 Final Path ologists' blood K/mcL K/mcL Regional L ab: basophil [address], count [place] (count/vo lume) Automated [place] # 0.8 0.1-0.9 Final Patho logists' blood K/mcL K/mcL Regional L ab: basophil [address], count [place] (count/vo lume) Automated Eos # 0.7 0.0-0.7 Final Pathol ogists' blood K/mcL K/mcL Regional L ab: basophil [address], count [place] (count/vo lume) Automated Baso # 0.1 0.0-0.3 Final Patho logists' blood K/mcL K/mcL Regional L ab: basophil [address], count [place] (count/vo lume) 04/06/2018 Unlisted Lab High Hemoglobin 9.1 % 4.0-6.0 F inal Pathologists' a1C HGB % HGB Regional L ab: [address] , [place] Estimated 214 Final Pathol ogists' Average mg/dL Regional Lab: Glucose [address], [place] Results Patholog ists' Regional L ab: [address] , [place] 03/01/2018 Drug Screen, Urine High Amphetamine suspect nondete c Final Pathologists' Urine methadone ,urine positiv felix Region al Lab: detection Screen e [address], by [place] screening method Urine Barbiturate none nondetec Final Pa thologists' methadone s, Urine detecte felix [facility] onal Lab: detection Screen d [address], by [place] screening method Urine Benzodiazep none nondetec Final Pa chi' methadone letha,urine,s detecte felix Regional Lab: detection creen d [address], by [place] screening method Urine Cannabinoid none nondetec Final Pa thologists' methadone ,urine detecte felix Region al Lab: detection Screen d [address], by [place] screening method Urine Cocaine,uri none nondetec Final Pa sukhdevologists' methadone ne Screen detecte felix Reg ional Lab: detection d [address], by [place] screening method Urine High Opiate,urin suspect nondetec Final P athologists' methadone e Screen positiv felix [facility] onal Lab: detection e [address], by [place] screening method Urine Oxycodone,u none nondetec Final Pa chi' methadone rine Screen detecte felix R egional Lab: detection d [address], by [place] screening method Urine Phenycyclid none nondetec Final Pa sukhdevologists' methadone ine,urine detecte felix Reg ional Lab: detection Screen d [address], by [place] screening method Urine Methadone,u none nondetec Final Pa chi' methadone rine Screen detecte felix R egional Lab: detection d [address], by [place] screening method Urine Results Patholog ists' methadone Regiona l Lab: detection [address], by [place] screening method 03/01/2018 Amphetamine, Amphetamine positiv N NG/mL Final Pathologists' QN, Confirm, Confirmation e NG/mL Regional Lab: Urine Paml [address] , [place] 03/01/2018 Opiates, Opiate positiv N NG/mL Final P athologists' Quantitative Confirmation e NG/mL Regional Lab: , Urine Paml [address], [place] Results Patholog ists' Regional L ab: [address] , [place] 01/11/2018 CBC W/ Auto Automated # Wbc 8.8 4.5-11.0 Fin al Pathologists' Diff blood K/mcL K/mcL Regional L ab: basophil [address], count [place] (count/vo lume) Automated Low Rbc 3.48 4.00-5.2 Final Patho logists' blood M/mcL 0 M/mcL Regional Lab: basophil [address], count [place] (count/vo lume) Automated Low Hemoglobin 10.4 12.0-15. Final Pathologists' blood g/dL 0 g/dL Regional L ab: basophil [address], count [place] (count/vo lume) Automated Low Hematocrit 31.6 % 36.0-48. Final Pathologists' blood 0 % Regional L ab: basophil [address], count [place] (count/vo lume) Automated Mean Cell 90.7 fL 80.0-100 Final Pathologists' blood Volume .0 fL Regional L ab: basophil [address], count [place] (count/vo lume) Automated Mean 30.0 pg 26.0-34. Final Path ologists' blood Corpuscular 0 pg Regio nal Lab: basophil Hemoglobin [address], count [place] (count/vo lume) Automated Mean 33.0 31.0-36. Final Patho logists' blood Corpuscular g/dL 0 g/dL Regio nal Lab: basophil HGB Conc [address], count [place] (count/vo lume) Automated Red Cell 12.6 % 11.5-14. Final Pa thologists' blood Distribution 5 % [facility] onal Lab: basophil Width [address], count [place] (count/vo lume) Automated Platelet 232 140-440 Final Pat hologists' blood Count K/mcL K/mcL Regional L ab: basophil [address], count [place] (count/vo lume) Automated High Mean 12.3 fL 7.4-10.4 Final Path ologists' blood Platelet fL Regional Lab: basophil Volume [address], count [place] (count/vo lume) Automated Gran % 53.7 % 38.0-78. Final Path ologists' blood 0 % Regional L ab: basophil [address], count [place] (count/vo lume) Automated Lymph % 31.2 % 15.5-49. Final Pat hologists' blood 0 % Regional L ab: basophil [address], count [place] (count/vo lume) Automated [place] % 4.1 % 1.0-12.0 Final Path ologists' blood % Regional L ab: basophil [address], count [place] (count/vo lume) Automated High Eos % 10.4 % 0.0-7.0 Final Pathol ogists' blood % Regional L ab: basophil [address], count [place] (count/vo lume) Automated Baso % 0.6 % 0.0-2.0 Final Patho logists' blood % Regional L ab: basophil [address], count [place] (count/vo lume) Automated Gran # 4.7 1.8-8.0 Final Patho logists' blood K/mcL K/mcL Regional L ab: basophil [address], count [place] (count/vo lume) Automated Lymph # 2.7 1.5-4.8 Final Path ologists' blood K/mcL K/mcL Regional L ab: basophil [address], count [place] (count/vo lume) Automated [place] # 0.4 0.1-0.9 Final Patho logists' blood K/mcL K/mcL Regional L ab: basophil [address], count [place] (count/vo lume) Automated High Eos # 0.9 0.0-0.7 Final Pathol ogists' blood K/mcL K/mcL Regional L ab: basophil [address], count [place] (count/vo lume) Automated Baso # 0.1 0.0-0.3 Final Patho logists' blood K/mcL K/mcL Regional L ab: basophil [address], count [place] (count/vo lume) 01/11/2018 Unlisted Lab High Hemoglobin 7.3 % 4.0-6.0 F inal Pathologists' a1C HGB % HGB Regional L ab: [address] , [place] Estimated 163 Final Pathol ogists' Average mg/dL Regional Lab: Glucose [address], [place] Results Patholog ists' Regional L ab: [address] , [place] 01/11/2018 CMP, Serum [place] High Glucose,ran 177 70-105 Final Pathologists' or Plasma r dom mg/dL mg/dL Regiona l Lab: filtratio [address], n [place] rate/1.73 sq m.predict ed by creatinin e-based formula (mdrd) [place] High Blood Urea 31 6-20 Final Pa thologists' r Nitrogen mg/dL mg/dL Regional Lab: [address], n [place] rate/1.73 sq m.predict ed by creatinin e-based formula (mdrd) [place] Creatinine 0.9 0.6-1.1 Final P athologists' r mg/dL mg/dL Regional L ab: [address], n [place] rate/1.73 sq m.predict ed by creatinin e-based formula (mdrd) [place] Sodium 141 133-145 Final Patho logists' r mmol/L mmol/L Regional L ab: [address], n [place] rate/1.73 sq m.predict ed by creatinin e-based formula (mdrd) [place] Potassium 4.8 3.3-5.1 Final Pa thologists' r mmol/L mmol/L Regional L ab: [address], n [place] rate/1.73 sq m.predict ed by creatinin e-based formula (mdrd) [place] Chloride 100 96-108 Final Path ologists' r mmol/L mmol/L Regional L ab: [address], n [place] rate/1.73 sq m.predict ed by creatinin e-based formula (mdrd) [place] Carbon 29 22-30 Final Pathol ogists' r Dioxide mmol/L mmol/L Regional Lab: [address], n [place] rate/1.73 sq m.predict ed by creatinin e-based formula (mdrd) [place] Anion Gap 12.0 8-16 Final Pat hologists' r Regional L ab: [address], n [place] rate/1.73 sq m.predict ed by creatinin e-based formula (mdrd) [place] Calcium 9.4 8.6-10.4 Final Pat hologists' r mg/dL mg/dL Regional L ab: [address], n [place] rate/1.73 sq m.predict ed by creatinin e-based formula (mdrd) [place] Total 7.3 5.9-8.4 Final Pathol ogists' r Protein gm/dL gm/dL Regional Lab: [address], n [place] rate/1.73 sq m.predict ed by creatinin e-based formula (mdrd) [place] Albumin 4.3 3.2-5.2 Final Path ologists' r gm/dL gm/dL Regional L ab: filtratio [address] n [place] rate/1.73 sq m.predict ed by creatinin e-based formula (mdrd) [place] Globulin 3.0 2.2-3.7 Final Pat hologists' r gm/dL gm/dL Regional L ab: filtratio [address] [facility], n [place] rate/1.73 sq m.predict ed by creatinin e-based formula (mdrd) [place] Alb/glob 1.4 1.0-2.3 Final Pat hologists' r Ratio Regional L ab: filtratio [address] [facility], n [place] rate/1.73 sq m.predict ed by creatinin e-based formula (mdrd) [place] Bilirubin,t 0.2 0.0-1.0 Final Pathologists' r otal mg/dL mg/dL Regional L ab: filtratio [address] [facility], n [place] rate/1.73 sq m.predict ed by creatinin e-based formula (mdrd) [place] AST/SGOT 13 U/l 0-37 U/l Final Pa thologists' r Regional L ab: filtratio [address] [facility] [facility], n [place] rate/1.73 sq m.predict ed by creatinin e-based formula (mdrd) [place] ALT/SGPT 12 U/l 0-40 U/l Final Pa thologists' r Regional L ab: filtratio [address] [facility], n [place] rate/1.73 sq m.predict ed by creatinin e-based formula (mdrd) [place] Alkaline 95 U/L 39-117 Final Path ologists' r Phosphatase U/L Regio nal Lab: filtratio [address] [facility] [address], n [place] rate/1.73 sq m.predict ed by creatinin e-based formula (mdrd) [place] Glomerular 72 Final Pa thologists' r Filtration Region al Lab: filtratio Rate [address], n [place] rate/1.73 sq m.predict ed by creatinin e-based formula (mdrd) [place] Results Patho logists' r Regional L ab: filtratio [address] [facility], n [place] rate/1.73 sq m.predict ed by creatinin e-based formula (mdrd) Past Encounters 08/14/2022 Chronic Diastolic Heart Failure; Edema o f Lower Extremity; Mild Aortic Valve Stenosis; Essential Hypertension; Chronic Kidney Disease Stage 4; Pulmonary Hypertension Danyelle Mederos [employer]CROSSE PLAYER: [address] [place] [address], [place] [address], Ph. 07/23/2022 Chronic Diastolic Heart Failure; Edema o f Lower Extremity; Mild Aortic Valve Stenosis; Essential Hypertension Rik Corcoran MD: [address] [place] [address] , [place] [address], Ph. 05/01/2022 Type 2 Diabetes Mellitus; Chronic Kidney Disease Stage 2 Lyric Hatfield [employer]CROSSE PLAYER: [address] [facility] [place] [address], Ph. 04/17/2022 Carotid Artery Stenosis Amarjit Wu MD: [address] [place] [address], [place] [phone], Ph. 04/15/2022 Type 2 Diabetes Mellitus; Borderline Per sonality Disorder; Posttraumatic Stress Disorder; Depressive Disorder Lyric Hatfield [employer]CROSSE PLAYER: [address] [facility] [place] [address], Ph. 03/27/2022 Type 2 Diabetes Mellitus; Chronic Kidney Disease Stage 2; Essential Hypertension; Generalized Edema; Carotid Artery Stenosis; Moderate Chronic Obstructive Pulmonary Disease Lyric Hatfield [employer]CROSSE PLAYER: [address] [facility] [place] [address], Ph. 03/03/2022 Right Carotid Artery Stenosis Amarjit Wu MD: [address] [place] [address], [place] [address], Ph. 02/27/2022 Generalized Edema; Dyspnea on Exertion; Carotid Artery Stenosis; Anemia of Chronic Disease; Type 2 Diabetes Mellitus; Osteoarthritis Lyric Hatfield LACROSSE PLAYER: [address] [facility] [place] [address], Ph. 02/13/2022 Generalized Edema; Dyspnea on Exertion; Dyspnea at Rest; Moderate Chronic Obstructive Pulmonary Disease; Type 2 Diabetes Mellitus; Chronic Kidney Disease Stage 2; Vitamin D Deficiency; Anemia of Chronic Disease Lyric Hatfield LACROSSE PLAYER: 222 [facility] [place] [address], Ph. 01/29/2022 Moderate Chronic Obstructive Pulmonary D isease; Chronic Back Pain; Long-term Current Use of Opiate Analgesic Drug Lyric Hatfield LACROSSE PLAYER: [address] [facility] [place] [address], Ph. 01/08/2022 Chronic Kidney Disease Stage 3; Type 2 D iabetes Mellitus; Essential Hypertension; Anemia; Atypical Chest Pain; Body Fluid Retention; Neuropathy Due to Diabetes Mellitus Lyric Hatfield [employer]CROSSE PLAYER: [address] [place] [address], Ph. 10/30/2021 Type 2 Diabetes Mellitus; Chronic Kidney Disease Stage 3; Patient Noncompliance - General; Hypercholesterolemia Lyric Hatfield [employer]CROSSE PLAYER: [address] [place] [address], Ph. 10/08/2021 Adult Health Examination; Coronary Arter iosclerosis; Hypercholesterolemia; Essential Hypertension; Chronic Kidney Disease Stage 2; Type 2 Diabetes Mellitus; Moderate Chronic Obstructive Pulmonary Diseas e; Asthma; Hypothyroidism; Lumbar Radicu lopathy; History of Meningitis; Borderline Personality Disorder; Depressive Disorder; Disability; Posttraumatic Stress Disorder; Vitamin D Deficiency; Carotid Bru it; Administration of Influenza Vaccine; Neuropathy Due to Diabetes Mellitus Lyric Hatfield [employer]CROSSE PLAYER: [address] [place] [address], Ph. 07/12/2021 Borderline Personality Disorder; Type 2 Diabetes Mellitus; Lumbar Radiculopathy; Chronic Back Pain; Homeless Single Person Lyric Hatfield LACROSSE PLAYER: [address] [address], [place] [address], Ph. 04/09/2021 Chest Pain; Coronary Arteriosclerosis; C hronic Back Pain; Lumbar Radiculopathy; Type 2 Diabetes Mellitus Lyric Hatfield [employer]CROSSE PLAYER: [address] [address], [place] [address], Ph. Social History Tobacco Smoking Status Former Smoker (2 packs per day) Vaccine List Vaccine Type influenza, injectable, quadrivalent, pre servative free 07/27/20180.5 mL 09/14/20190.5 mL 10/04/20200.5 mL 10.5 mL influenza, unspecified formulation 10/26/2016 pneumococcal polysaccharide PPV23 .5 mL Tdap 06/22/20190.5 mL Notes: Some vaccines listed in Documen ts: #[id number], #[id number], #[id number], #[id number], #[id number], #[id number], #[id number] could not b e added to this patient's chart. Please review these documents and add these vac cines to the patient's chart manually as needed. Plan of Care Reminders Provider Appointments None recorded. Lab None recorded. Referral None recorded. Procedures None recorded. Surgeries None recorded. Imaging None recorded. Vitals 08/14/2022 02:00PM Danyelle- Established Long Height Weight BMI Blood Pressure 5 ft 1 in 262 lbs 49.5 kg/m2 146/68 mm[Hg] 07/23/2022 12:15PM CARDIO- NEW PATIENT Height Weight BMI Blood Pressure 5 ft 1 in 252 lbs 47.6 kg/m2 150/62 mm[Hg] 05/01/2022 01:30PM Established Patient 30 Height Weight BMI Blood Pressure 5 ft 1 in 219 lbs 41.4 kg/m2 116/66 mm[Hg] 04/17/2022 11:20AM IR- ESTABLISHED Height Weight BMI Blood Pressure 5 ft 1.5 in 220 lbs 40.9 kg/m2 (1) 132/64 mm[H g] (2) 111/54 mm[Hg ] 04/15/2022 03:30PM Established Patient 45 Height Weight BMI Blood Pressure 5 ft 1.5 in 224.5 lbs 41.7 kg/m2 128/66 mm[Hg] 03/27/2022 02:00PM Established Patient 45 Height Weight BMI Blood Pressure 5 ft 1.5 in 228.6 lbs 42.5 kg/m2 168/82 mm[Hg] 03/03/2022 02:20PM IR- NEW PATIENT Height Weight BMI Blood Pressure 5 ft 1.5 in 219.2 lbs 40.7 kg/m2 (1) 158/84 mm[H g] (2) 157/65 mm[Hg ] 02/27/2022 02:15PM Established Patient 30 Height Weight BMI Blood Pressure 5 ft 1.5 in 219.2 lbs 40.7 kg/m2 130/70 mm[Hg] 02/13/2022 02:45PM Established Patient 30 Height Weight BMI Blood Pressure 5 ft 1.5 in 224.8 lbs 41.8 kg/m2 132/72 mm[Hg] 01/29/2022 03:00PM Established Patient 30 Height Weight BMI Blood Pressure 5 ft 1.5 in 229.4 lbs 42.6 kg/m2 154/78 mm[Hg] 01/08/2022 02:30PM Established Patient 30 Height Weight BMI Blood Pressure 5 ft 1.5 in 234.4 lbs 43.6 kg/m2 140/80 mm[Hg] 10/30/2021 01:30PM Established Patient 30 Height Weight BMI Blood Pressure 5 ft 1.5 in 207.3 lbs 38.5 kg/m2 132/80 mm[Hg] 10/08/2021 03:00PM Physical 45 Height Weight BMI Blood Pressure 5 ft 1.5 in 208.8 lbs 38.8 kg/m2 132/70 mm[Hg] 07/12/2021 10:30AM Established Patient 30 Height Weight BMI Blood Pressure 5 ft 1.5 in 210.4 lbs 39.1 kg/m2 128/70 mm[Hg] 04/09/2021 02:00PM Established Patient 30 Height Weight BMI Blood Pressure 5 ft 1.5 in 210.7 lbs 39.2 kg/m2 132/86 mm[Hg] 02/11/2021 03:00PM CARDIO-ESTABLISHED PATIENT Height Weight BMI Blood Pressure 5 ft 1.5 in 210 lbs 39 kg/m2 136/84 mm[Hg] 01/03/2021 03:00PM Established Patient 30 Height Weight BMI Blood Pressure 5 ft 1.5 in 198.6 lbs 36.9 kg/m2 120/68 mm[Hg] 12/27/2020 03:00PM Established Patient 30 Weight Blood Pressure 208 lbs 130/76 mm[Hg] 11/15/2020 01:15PM Established Patient 30 Height Weight BMI Blood Pressure 5 ft 1.5 in 192.3 lbs 35.7 kg/m2 122/78 mm[Hg] 11/13/2020 03:45PM CARDIO- NEW PATIENT Height Weight BMI Blood Pressure 5 ft 1.5 in 193 lbs 35.9 kg/m2 108/80 mm[Hg] 10/04/2020 10:15AM New Patient 45 Height Weight BMI Blood Pressure 5 ft 1.5 in 213 lbs 39.6 kg/m2 104/68 mm[Hg] 09/27/2020 11:00AM Established Patient 30 Height Weight BMI Blood Pressure 5 ft 1.5 in 218 lbs 40.5 kg/m2 106/64 mm[Hg] 09/10/2020 10:00AM Established Patient 30 Height Weight BMI Blood Pressure 5 ft 1.5 in 211 lbs 39.2 kg/m2 146/80 mm[Hg] 06/18/2020 02:00PM Established Patient 30 Height Weight BMI Blood Pressure 5 ft 1.5 in 211 lbs 39.2 kg/m2 150/82 mm[Hg] 05/17/2020 03:00PM Established Patient 30 Height Weight BMI Blood Pressure 5 ft 1.5 in 211 lbs 39.2 kg/m2 165/101 mm[Hg] 05/02/2020 01:30PM Established Patient 30 Height Weight BMI Blood Pressure 5 ft 1.5 in 210 lbs 39 kg/m2 122/80 mm[Hg] 04/04/2020 01:30PM Established Patient 30 Height Weight BMI Blood Pressure 5 ft 1.5 in 204 lbs 37.9 kg/m2 102/64 mm[Hg] 01/02/2020 01:30PM Established Patient 30 Height Weight BMI Blood Pressure 5 ft 1.5 in 203 lbs 37.7 kg/m2 136/74 mm[Hg] 10/03/2019 02:00PM Established Patient 30 Height Weight BMI Blood Pressure 5 ft 1.5 in 186.9 lbs 34.7 kg/m2 112/70 mm[Hg] 09/14/2019 02:00PM Established Patient 30 Height Weight BMI Blood Pressure 5 ft 1.5 in 186.8 lbs 34.7 kg/m2 110/64 mm[Hg] 07/06/2019 03:00PM Established Patient 30 Height Weight BMI Blood Pressure 5 ft 1.5 in 177.8 lbs 33.1 kg/m2 124/78 mm[Hg] 06/22/2019 11:00AM Physical 45 Height Weight BMI Blood Pressure 5 ft 1.5 in 180.9 lbs 33.6 kg/m2 140/86 mm[Hg] 03/31/2019 02:00PM Established Patient 30 Height Weight BMI Blood Pressure 5 ft 1.5 in 186.9 lbs 34.7 kg/m2 106/74 mm[Hg] 03/24/2019 02:30PM Established Patient 30 Height Weight BMI Blood Pressure 5 ft 1.5 in 181.1 lbs 33.7 kg/m2 98/70 mm[Hg] 11/25/2018 02:30PM Any 30 Height Weight BMI Blood Pressure 5 ft 1.5 in 191 lbs 35.5 kg/m2 112/78 mm[Hg] 07/27/2018 02:30PM Any 30 Height Weight BMI Blood Pressure 5 ft 1.5 in 180.3 lbs 33.5 kg/m2 132/82 mm[Hg] 06/23/2018 04:00PM Any 30 Height Weight BMI Blood Pressure 5 ft 1.5 in 184.3 lbs 34.3 kg/m2 124/78 mm[Hg] 04/21/2018 11:00AM Established Patient 30 Height Weight BMI Blood Pressure 5 ft 1.5 in 188 lbs 34.9 kg/m2 90/60 mm[Hg] 04/07/2018 11:30AM Any 30 Height Weight BMI Blood Pressure 5 ft 1.5 in 189.2 lbs 35.2 kg/m2 100/60 mm[Hg] 03/01/2018 02:00PM Any 15 Height Weight BMI Blood Pressure 5 ft 1.5 in 188 lbs 34.9 kg/m2 130/76 mm[Hg] 02/01/2018 03:15PM Any 15 Height Weight BMI Blood Pressure 5 ft 1.5 in 187.3 lbs 34.8 kg/m2 118/74 mm[Hg] 01/18/2018 04:00PM Any 15 Height Weight BMI Blood Pressure 5 ft 1.5 in 195.4 lbs 36.3 kg/m2 124/84 mm[Hg] 01/11/2018 01:00PM Any 15 Height Weight BMI Blood Pressure 5 ft 1.5 in 197 lbs 36.6 kg/m2 172/84 mm[Hg]
--- OUTSIDE RECORDS SUMMARY | 2022-09-10 12:35 | External Medical Summary | Encounter Summary ---
:1965 Author Care Team Providers Name Role Phone Lyric Crowder NP Primary Care Provider [phone] Esau Love DO Primary Care Provider [phone] Bipin Fernandez MD Corridor Redevelopment Manager [phone] Esau Sesay MD Interventional Radiologist [phone] Reason for Visit hospital follow up Admit to [facility] 08/06 - 08/09 for CHF exa cerbation Assessment and Plan Assessment Note Total time: 45 minutes. Preparing to se e the patient (i.e. review of tests, prior records, imaging, etc.), obtaining revie wing history, performing medically appropriate examination and evaluation, counseling and education with the patient/family/caregiver, ordering medic ations, tests, or procedures, referring and communicating with other healthcare prof essionals, documenting clinical information in the health record, documentation on t he day of encounter, independently interpreting results (not if separately reported), communicating results to patient/family/caregiver, and care coord ination (that is not separately reported). 1. Chronic diastolic heart failure Fluid status difficult to evalaute give n body habitus. Remains on 3L NC. Stable. LE edema relatively stable. We will increase furosemide. Likely XOCHITL. Does not want to wear a CPAP . instructions to custodial* - 1. Ca rvedilol 25 mg bid 2. Increase torsemide to 60 mg daily for one week 3. BMP before a ppointment next week 4. Start sildenafil 20 mg tid 5. F/U one week NO NITRATES 2. Edema of lower extremity Multifactorial given obesity, venous in sufficiency, renal failure, and CHF. We will try increasing the furosemide ov er the next week. Likely she is heading toward dialysis given her fluid status continues to worsen. 3. Mild aortic valve stenosis Stable. 4. Essential hypertension Stop amlodipine. Did not increase Coreg previously. Instructed to do so. 5. Chronic kidney disease stage 4 CKD IV-V Will try increasing diuretics for the ne xt week. Progressing to hemodialysis? 6. Pulmonary hypertension We will try sildenafil 20 mg tid. Needs to diurese as well. CCB not a good choice currently given edema. Discussion Note 1. Carvedilol 25 mg bid 2. Increase torsemide to 60 mg daily fo r one week 3. BMP before appointment next week 4. Start sildenafil 20 mg tid 5. F/U one week Patient educational handouts: No information available. Plan of Care Reminders Provider Appointments Medicare Annual Wellness on or around Lyric Crowder, 10/08/2022 SUPERVISOR TUBING Ir- Established 04/17/2023 11:00AM Esau tello MD [...] 2nd Gen Pen Needle 32 gauge x 32" USE THREE TIMES DAILY budesonide 0.5 mg/2 [...] in 262 lbs 49.5 kg/m2 146/68 mm[Hg] Results Lab Results None recorded. Allergies Code Code System Name Reaction Severity Onset Adhesive Tape 1191 RxNorm Aspirin DARVOCET-N 563623 RxNorm Demerol Iodinated Contrast Media 7052 RxNorm Morphine 32936 RxNorm Percocet 058310 RxNorm Phenergan 8785 RxNorm Propoxyphene CHRISTA-DUR Notes: Some allergies listed in Docume nts: #[id number], #[id number], #[id number], #[id number], #[id number] could not be added to this cole [...] Notes: Some vaccines listed in Documen ts: #[id number], #[id number], #[id number], #[id number], #[id number], #[id number], #[id number] could not b e added to this [...] bathing? What is the highest grade or [id number] level of school you have completed or [...] Occasional consumption? Do you feel stressed (tense, [id number] restless, nervous, or anxious, or unable to sleep at night)? What is your occupation? N/A Functional Status No Impairment. Past Encounters 08/14/2022 Chronic Diastolic Heart Failure; Edema o f Lower Extremity; Mild Aortic Valve Stenosis; Essential Hypertension; Chronic Kidney Disease Stage 4; Pulmonary Hypertension Danyelle Mederos NP: [address] [place] [address], [place] [address], Ph. 07/23/2022 Chronic Diastolic Heart Failure; Edema o f Lower Extremity; Mild Aortic Valve Stenosis; Essential Hypertension Bipin Fernandez MD: [address] [place] [address] , [place] [address], Ph. History of Present Illness Note: <div>Benny returns today for hospital f/u for CHF. </div><div>
</div ><div>Last visit:</div><div>1. Stop amlodipine </div><div>2. Increase coreg to 25 mg bid </div><div>3. Start compression </div><div>4. Follow upin 4 weeks.</div><div>
</div><div>CARDIAC and medical history: </div><div>COPD </div><div>Diastolic CHF </div><div>Mild aortic stenosis </div><div>Coronary disease </div><div>CKD stage 4 </div><div>Admission 06/2022 renal failure. Dehydration. </div><div>Admission 07/2022 CHF exacerbation</div><div> </div><div>Data review: </div><div>I have independently interpreted: </div><div>
</div><div>08/07/22 US/COMPLETE ECHOCAR DIOGRAPHY</div><div>CONCLUSIONS: </div><div>1. Normal biventricular size and systolic function. The estimated </div><div>left ventricular ejection fraction is 65-70%with no segmental wall </div><div>motion abnormalities. </div><div>2. Moderate grade 2 left ventricular diastolic dysfunction, with </div><div>elevated left ventricular filling pressure. </div><div>3. Mild biatrial enlargement. </div><div>4. Mild calcific aortic stenosis. </div><div>5. Mild mitral and tricuspid regurgitation. </div><div>6. Moderate pulmonary hypertension with a pulmonary artery systolic </div><div>pressure of 51 mm Hg. </div><div>7. No pericardial effusion. </div><div>8. To the prior study 5 months ago in February 2022, the pulmonary artery </div><div>pressures have increased. </div><div>
</div><div>
</div><div>Echo 02/2022 Normal LV function. Mild . </div><div>Cardiolite stress test September 2020. The official report states normal study. My review however reveals an ischemic inferior wall defect. The SDS calculated to be 5. </div><div>Echocardiogram April 2020. This reveals normal LV systolic function. </div><div>Angiography from 2013. This reveals a nondominantright coronary artery. There is high-grade disease. </div><div> </div><div>Labs: </div><div>
</div><div>08/09/22</div><div>CR 2.8</div><div>NA 138</div><div>K 4.5</div><div>
</div>&lt ;div>08/08/22</div><div>A1C 7.9</div><div>
</div><div&gt ;08/06/22</div><div>PROBNP 1891</div><div>
</div><div>Cr 2.6 06/2022 </div><div>BNP 2139 06/2022 </div><div>Cr 2.3 04/2022 </div><div>AST 19 04/2022 </div><div>BNP 454 03/2022 </div><div>LDL 70 September2020 </div><div>GFR 50 with a creatinine of 1.2. This was September 2020 </div><div>B12 361 </div><div>Ferritin 91.2 </div><div>HCT 30</div>Review of Systems: ROS as noted in the HPI Review of Systems Brief Cardiology ROS Reported By: Patient Cardio Basic: Cardiovascular Symptoms: no chest pressure, no chest pain, no syncope, no orthopnea, no palpitation s, no PND, no claudication, lightheadedness, dyspnea on exertion, fatigue, leg edema, shortness of breath Physical Exam Notes: <div>General. No acute distr ess. Conversant. </div><div> </div><div>HEENT. Normocephalic atraumatic. Mu cous membranes moist. Sclera anicteric. Oropharynx clear. </div><div> </div> <div>Chest. Clear. Normal effort. Symmetric. </div><div> </div><div>Ca rdiovascular. JVP is normal. Normal S1 and S2. No gallops or rubs. </div><d iv> </div><div>Abdomen. Normal bowel sounds. Soft nontender nondistended. No a ppreciated hepatosplenomegaly. </div><div> </div><div>Extremities. No c yanosis. No clubbing. 2+ edema. </div><div> </div><div>Skin. Warm and dr y. No rashes. </div><div> </div><div>Neurological. Alert and oriented x3. Nonfo sukh. No asymmetry is noted. </div><div> </div><div>Psychiatric. Affe ct and tone are normal.</div>
--- OUTSIDE RECORDS SUMMARY | 2022-09-10 12:36 | External Medical Summary ---
:1965 Author Organization [facility] Address [address] [place] [address] Care Team Providers Name Role Phone AMANDA HUBBARD Unavailable Unavailable PROBLEMS Type Condition ICD9-CM Code EDN84-DQ Code Onset Condition SNO MED Code Dates Status Problem Status post Z95.828 Active PICC central line placement ALLERGIES Substance Reaction Event Type Date Status Promethazine HCl Unknown Drug Allergy Aug, Active Metoclopramide HCl Unknown Drug Allergy Aug, Active Propoxyphene Unknown Drug Allergy Aug, Active Tape Unknown Non Drug Allergy Aug, Active Theophylline Unknown Drug Allergy Aug, Active Meperidine HCl Unknown Drug Allergy Aug, Active Oxycodone HCl Unknown Drug Allergy Aug, Active Morphine Sulfate Unknown Drug Allergy Aug, Active Iodinated Contrast Agents Unknown Non Drug Allergy Aug, 0 Active ENCOUNTERS Encounter Location Date Diagnosis [facility] [address] Jul,2018 [place] [id number] disease (COVID-19) U07.1 [facility] [address] Jun, [place] [id number] knee M25 .561 [facility] [address] May, [place] [id number] disorder , currently manic, moderate F31.12 and Status post PICC central line sandy cement Z95.828 IMMUNIZATIONS No Known Immunizations SOCIAL HISTORY Qualifiers Date Former Smoker REASON FOR REFERRAL FUNCTIONAL STATUS PLAN OF CARE Activity Details Follow Up prn Reason: VITAL SIGNS Height 62 in 2020-07-26 Height 62 in 2020-06-26 Height 62 in 2020-06-05 Weight 208 lbs 2020-07-26 Weight 215 lbs 2020-06-26 Weight 205.6 lbs 2020-06-05 BMI 38.04 kg/m2 2020-07-26 BMI 39.32 kg/m2 2020-06-26 BMI 37.60 kg/m2 2020-06-05 Heart Rate 82 2020-06-26 Heart Rate 83 2020-06-05 Oximetry 06 2020-07-26 Temperature 97 degrees Fahrenheit 2020-07-26 Temperature 97.5 degrees Fahrenheit 2020-06-26 Temperature 97.3 degrees Fahrenheit 2020-06-05 Blood pressure systolic 130 2020-07-26 Blood pressure diastolic 90 2020-07-26 MEDICATIONS Medication Instructions Dosage Frequency Start Date End Date Duration S tatus See facility med Active list in pt docs PROCEDURES Procedure Date Ordered Result Body Site DOC MEDS VERIFIED W/PT OR RE Jun 05, 2020 SNF Sub Level 2 Jul 26, 2020 SNF Sub Level 2 Jun 26, 2020 RESULTS No Results REASON FOR VISIT nhv, NHV, New admit Insurance Providers Formerly [facility] Member Patient Patient Patient Patient Patient Subscriber Subscriber Subscriber Group Insurance Plan Plan Plan Plan ID Relationship Address Phone Name Date of ID Name Date of No Type Insurance Insurance Insurance Coverage to Subscriber Address Phone Name Dates MEDICAID [address] [phone] [place] self [id number] OF ID [id number] POP ID [id number] OF ID EDS [place] [id number]
--- NOTE | 2022-09-10 13:17 | Nephrology Consult Note ---
HPI Date of Consult Consult Date: 09/10/22 Requesting physician: Jarvis Ogden Primary Care Provider: VALERIO Negro Consult Narrative Chief complaint: Edema Reason for consult: End stage renal disease History of present illness: Benny Virk is a 57-year-old female with diabetes mellitus type 2, hypertension, chronic kidney disease stage G5/A3 with nephrotic range proteinuria due to diabetic nephropathy by a kidney biopsy on 07/14/22 transferred from [facility] on 09/10/22. She presented to [facility] ED on 09/09/22 for worsening edema. She has been on oral diuretics. In ED, her labs was significant for worsening kidney function with hyperkalemia. She had a recent presentation in July, sent to [facility] for admission. Kassie jang had an outpatient appointment with me on 09/11/22. I was planning initiation of chronic hemodialysis. I discussed the patient with the ED physician. I recommended admission to [facility] overnight, treatment of hyperkalemia medically, placement of tunneled hemodialysis catheter by IR and inpatient transfer to [facility] for hemodialysis. cc:: CC: Jarvis Ogden Constitutional Constitutional: Present lethargy and weakness EENT Nose, mouth and throat: Absent nasal congestion or nasal discharge Cardiovascular Cardiovascular: Present dyspnea and leg edema Respiratory Respiratory: Present dyspnea and dyspnea on exertion Gastrointestinal Gastrointestinal: Absent nausea or vomiting Genitourinary Genitourinary: Absent dysuria or hematuria Musculoskeletal Musculoskeletal: Absent deformity or joint swelling Integumentary Integumentary: Absent rash or wounds Neurological Neurological: Absent confusion or weakness Psychiatric Psychiatric: Absent anxiety or panic attacks Hematologic/Lymphatic Hematologic/Lymphatic: Absent easy bleeding or easy bruising Allergic/Immunologic Allergic/Immunologic: Absent tongue swelling or uticaria PFSH PFSH All Active Problems (Updated 09/10/22 @ 13:13 by Shaye Wynn MD) Anemia in ESRD (end-stage renal disease) (Chronic) Renal anasarca (Chronic) ESRD (end stage renal disease) on dialysis (Chronic) Fall (on) (from) other stairs and steps, initial encounter (Acute) Contusion of head (Acute) Musculoskeletal pain (Acute) Overdose of loop diuretic (Acute) Postoperative pain of right knee (Chronic) Headache (Chronic) Migraine (Chronic) Weakness (Chronic) Lumbar radiculopathy (Chronic) Hypothyroidism (Chronic) Diabetes mellitus, type II (Chronic) Vitamin D deficiency (Chronic) Dyslipidemia (Chronic) Hypercholesterolemia (Chronic) Borderline personality disorder (Chronic) PTSD (post-traumatic stress disorder) (Chronic) Depressive disorder (Chronic) Abscess of brain (Chronic) Essential hypertension (Chronic) Asthma (Chronic) Coronary arteriosclerosis (Chronic) Moderate chronic obstructive pulmonary disease (Chronic) Acid reflux (Chronic) GERD (gastroesophageal reflux disease) (Chronic) Edema of extremity (Chronic) Elevated blood pressure reading (Chronic) Pain in right knee (Chronic) Hernia (Chronic) CAD (coronary artery disease) (Chronic) Knee pain (Chronic) Back pain (Chronic) Anxiety (Chronic) Myocardial infarction (Chronic) ADD (attention deficit disorder) (Chronic) Bronchitis (Chronic) Chronic pain (Chronic) Low back pain (Chronic) Diastolic heart failure (Chronic) Shortness of breath at rest (Chronic) Anemia of chronic disease (Chronic) Generalized edema (Chronic) Osteoarthritis (Chronic) Dyspnea on exertion (Chronic) History of meningitis (Chronic) Neuropathy due to secondary diabetes mellitus (Chronic) Patient noncompliance (Chronic) Disability (Chronic) Noncompliance with treatment (Chronic) Chronic back pain (Chronic) Localized edema due to fluid overload (Chronic) Chronic kidney disease (CKD) stage G4/A3, severely decreased glomerular filtration rate (GFR) between 15-29 mL/min/1.73 square meter and albuminuria creatinine ratio greater than 300 mg/g (Chronic) Hypertension in stage 4 chronic kidney disease due to type 2 diabetes mellitus (Chronic) Anemia in stage 4 chronic kidney disease (Chronic) Hyperkalemia (Acute) Thrombocytopenia (Acute) Eosinophilia (Acute) Medical History Abscess of brain Acid reflux ADD (attention deficit disorder) Anemia of chronic disease Anxiety Asthma Back pain Borderline personality disorder Bronchitis CAD (coronary artery disease) Chronic back pain Chronic pain Coronary arteriosclerosis Depressive disorder Diabetes mellitus, type II Diastolic heart failure Disability Dyslipidemia Dyspnea on exertion Edema of extremity Elevated blood pressure reading Essential hypertension Generalized edema GERD (gastroesophageal reflux disease) Headache Hernia History of meningitis Hypercholesterolemia Hypothyroidism Knee pain Low back pain Lumbar radiculopathy Migraine Moderate chronic obstructive pulmonary disease Myocardial infarction Neuropathy due to secondary diabetes mellitus Noncompliance with treatment Osteoarthritis Pain in right knee Patient noncompliance Postoperative pain of right knee PTSD (post-traumatic stress disorder) Shortness of breath at rest Vitamin D deficiency Weakness Surgical History History of back surgery L4-5 fusion with cage and posterior fusion with cage History of cardiac cath History of cholecystectomy History of hernia repair History of hysterectomy History of incision and drainage History of knee surgery right knee replacement History of oral surgery Status post peripherally inserted central catheter (PICC) central line placement Family History Mother Alcohol abuse Father Alcohol abuse Brother Drug abuse Social History (Updated 04/23/22 @ 09:46 by Ann Marie Spencer) lives independently: Yes marital status: education level: high school occupational status: unemployed pets and animals: Yes smoking status: Former smoker alcohol intake frequency: holiday/special occasion only substance use type: does not use seatbelt use: always working smoke detector in home: Yes carbon monox detector in home: Yes MEDS/ALLERGIES Home Medications and Allergies Home Medications Medication Instructions Recorded Confirmed Type carvedilol 12.5 mg tablet 12.5 mg PO BIDCC 09/28/18 07/17/22 History epinephrine 0.3 mg/0.3 mL 0.3 mg IM PRN PRN Allergic Symptoms 09/28/18 07/17/22 History injection, auto-injector (EpiPen 2-Abhi) levothyroxine 100 mcg tablet 100 mcg PO ACB 09/28/18 07/17/22 History montelukast 10 mg tablet 10 mg PO HS 09/28/18 07/17/22 History escitalopram oxalate 20 mg tablet 20 mg PO DAILY 09/29/18 07/17/22 History acetaminophen 325 mg tablet 650 mg PO Q4H PRN Pain 10/02/20 07/17/22 History (Tylenol) cholecalciferol (vitamin D3) 25 25 mcg PO DAILY 10/02/20 07/17/22 History mcg (1,000 unit) capsule (Vitamin D3) famotidine 20 mg tablet 20 mg PO QDAY 10/02/20 07/17/22 History hydrocodone 10 mg-acetaminophen 1 tab PO Q4HP PRN Pain 10/02/20 07/17/22 History 325 mg tablet atorvastatin 80 mg tablet 80 mg PO QHS 07/29/21 07/17/22 History amlodipine 5 mg tablet 5 mg PO QAM 04/23/22 07/17/22 History bisacodyl 10 mg rectal suppository 10 mg MI QDAY PRN Constipation 07/07/22 07/17/22 History (Dulcolax (bisacodyl)) fluticasone 250 mcg-salmeterol 50 1 inh inhalation BID 07/07/22 07/17/22 History mcg/dose blistr powdr for inhalation glucagon HCl 1 mg solution for 1 mg subcut Q15M PRN Hypoglycemia 07/07/22 07/17/22 History injection (Glucagon (HCl) Emergency Kit) magnesium hydroxide 400 mg/5 mL 30 ml PO QDAY PRN Constipation 07/07/22 07/17/22 History oral suspension (Milk of Magnesia) risperidone 0.5 mg tablet 0.5 mg PO BID 07/07/22 07/17/22 History insulin lispro 100 unit/mL See Protocol subcut ACHS 07/08/22 07/17/22 History subcutaneous pen (Humalog KwikPen (U-100) Insulin) ipratropium 20 mcg-albuterol 100 1 puff inhalation QID 07/08/22 07/17/22 History mcg/actuation mist for inhalation (Combivent Respimat) lamotrigine 50 mg tablet,extended 50 mg PO BID 07/08/22 07/17/22 History release 24 hr ondansetron HCl 4 mg tablet 4 mg PO DAILY PRN nausea 07/08/22 07/17/22 History gabapentin 300 mg capsule 300 mg PO BID #60 caps 07/10/22 07/17/22 Rx insulin degludec 100 unit/mL (3 40 unit (0.4 mL) subcut QDAY #15 mL 07/10/22 07/17/22 Rx mL) subcutaneous pen (Tresiba FlexTouch U-100 insulin) prednisone 20 mg tablet 20 mg PO QDAY #10 tabs 07/17/22 07/17/22 Rx darbepoetin cem in polysorbat 100 100 mcg subcut Q2W PRN hemoglobin 08/05/22 Rx mcg/mL in polysorbate injection <10.0 #1 mL (Aranesp) dextroamphetamine-amphetamine 30 30 mg PO BID 08/05/22 History mg tablet (Adderall) ferrous gluconate 324 mg (38 mg 324 mg PO QDAY 08/05/22 History iron) tablet lidocaine 4 % topical patch 1 patch topical QDAY PRN 08/05/22 History methocarbamol 750 mg tablet 750 mg PO Q6H PRN 08/05/22 History potassium chloride 20 mEq 20 meq PO QDAY 08/05/22 History tablet,extended release torsemide 40 mg tablet 40 mg PO QAM 08/05/22 History Allergies Allergy/AdvReac Type Severity Reaction Status Date / Time theophylline [From James-Dur] Allergy Severe Other Verified 08/04/22 17:04 Opioids - Morphine Analogues Allergy Unknown unknown Verified 08/04/22 17:04 sulfamethoxazole Allergy Unknown Other Verified 08/04/22 17:04 [From Bactrim] trimethoprim [From Bactrim] Allergy Unknown Other Verified 08/04/22 17:04 aspirin AdvReac Severe Other Verified 08/04/22 17:04 morphine AdvReac Severe Swelling Verified 08/04/22 17:04 adhesive tape AdvReac Mild Rash Verified 08/04/22 17:04 Docusate [From Colace] AdvReac Mild CONSTIPATIO Verified 08/04/22 17:04 N Iodinated Contrast Media AdvReac Mild Other Verified 08/04/22 17:04 [Iodinated Contrast- Oral and IV Dye] meperidine [From Demerol] AdvReac Mild Anxiety Verified 08/04/22 17:04 Nickel AdvReac Mild Other Verified 08/04/22 17:04 oxycodone [From Percocet] AdvReac Mild Agitated Verified 08/04/22 17:04 promethazine [From Phenergan] AdvReac Mild Agitated Verified 08/04/22 17:04 propoxyphene AdvReac Mild Agitated Verified 08/04/22 17:04 Physical Examination Vital Signs Vital signs: Temp Pulse Resp BP Pulse Ox O2 Del Method O2 Flow Rate 97.6 F 87 20 137/68 93 2 09/10/22 12:20 09/10/22 12:20 09/10/22 12:20 09/10/22 12:20 09/10/22 12:20 09/10/22 12:20 09/10/22 12:20 General Appearance General appearance: obese, chronically ill and fatigue EENT EENT: mucous membranes dry Respiratory Respiratory: rales and course breath sounds Cardiovascular Cardiology: edema, regular rate and regular rhythm Gastrointestinal Gastrointestinal: no tenderness and no guarding Integumentary Integumentary: no rash and warm and dry Neurologic Neurologic: alert and oriented x3 Musculoskeletal Musculoskeletal: no deformities Psychiatric Psychiatric: mood/affect appropriate and cooperative A/P Assessment and plan (1) ESRD (end stage renal disease) on dialysis: Assessment and plan: End stage renal disease due to diabetic nephropathy by a kidney biopsy on 07/14/22 requiring inpatient chronic hemodialysis initiation for intractable fluid overload, hyperkalemia and uremia (weakness). eGFR 51 in 2017, 29-56 in 2019, 27-55 in 2020, 45 on 01/17/22, 38 on 02/05/22, 45 on 03/12/22, 18 on 04/15/22, 23 on 05/07/22, 21 on 06/11/22, 19 on 07/10/22, 14 on 09/03/22. Random urine microalbumin/creatinine ratio 4,431 mg/g creatinine, random urine total protein/creatinine ratio 6,130 mg/g creatinine on 06/11/22. Kidney biopsy on 07/14/22. Diabetic nephropathy, advanced with focal global and focal segmental glomerulosclerosis/scarring; patchy interstitial neutrophilic aggregates and rare neutrophilic casts; acute tubular injury; mild arteriosclerosis and focal severe arteriolar hyalinosis; moderate interstitial fibrosis and tubular atrophy. Renal Doppler US on 05/14/22: Both kidneys and urinary bladder unremarkable. 60% stenosis proximal right renal artery. Left renal artery widely patent. No family history of kidney disease. History of NSAID use: She quit Ibuprofen in 2019. Serologic work-up was unremarkable. Renal replacement therapy options with risks and benefits discussed. She required in-center hemodialysis with a tunneled hemodialysis catheter. Kidney transplant, US vein mapping and vascular surgery AV fistula referral will be done subsequently. Hypertension, well controlled. Localized edema associated with fluid overload, not adequately controlled. Home medications: Amlodipine 10 mg daily, Carvedilol 25 mg twice daily, Hydralazine 50 mg three times daily, Furosemide 60 mg twice daily. 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 Most recent (05/07/22) Vitamin D Total (25-Hydroxy) 10.20, PTH (intact) 56.1. Cholecalciferol 2,000 units daily will be resumed. Chronic anemia associated with chronic kidney disease and iron deficiency, not adequately controlled. She received 1 unit PRBC for Hb of 6.1 in [facility] ED on 09/09/22. Most recent hemoglobin 6.6 (09/10/22), TIBC 28% (05/07/22), vitamin B12 355.3 (05/07/22), RBC folate 882 (05/07/22). Target hemoglobin >10, TIBC >25% and ferritin >200 ng/mL. Aranesp will be started with hemodialysis. Plan: Hemodialysis daily for 2.5 hours, QD/QB 500/250, target UF: 2.5 kg, 2K dialysate, Heparin 2,000 units bolus, 500 units per hour. Outpatient hemodialysis set up. Antihypertensive medications: Change Furosemide to 20 mg/hour infusion. Keep Wilson catheter for now. Hold Amlodipine 10 mg daily, Carvedilol 25 mg twice daily and Hydralazine 50 mg three times daily. Status: Chronic (2) Renal anasarca: Status: Chronic (3) Hyperkalemia: Status: Acute (4) Anemia in ESRD (end-stage renal disease): Status: Chronic Time Spent With Patient Time: Total time spent is greater than 50% in coordination of care (as documented) at patient's floor/unit and/or counseling patient:
[2022-09-10] MEDS: FUROSEMIDE 250 MG in 0.9 % SODIUM CHLORIDE 225 ML IV SCH (13:20)
[2022-09-10] MEDS: 0.9 % SODIUM CHLORIDE 10 ML SYRINGE IV SCH ×2 (13:20→22:40)
[2022-09-10] MEDS: HYDROcodone/APAP 10/325MG TABLET PO PRN ×2 (18:00→21:39)
[2022-09-10] MEDS: HEPARIN 5,000 UNIT/ML VIAL SQ SCH (20:34)
[2022-09-10] MEDS: FAMOTIDINE 20 MG TABLET PO SCH (20:34)
[2022-09-10] MEDS: DOCUSATE SODIUM 100 MG CAPSULE PO SCH (20:35)
[2022-09-11] MEDS: FUROSEMIDE 250 MG in 0.9 % SODIUM CHLORIDE 225 ML IV SCH ×2 (00:14→13:33)
[2022-09-11 02:53] LABS: ALT/SGPT 16 U/L (<40); AST/SGOT 16 U/L (<32); Albumin 3.5 gm/dL (3.2-5.2); Albumin/Globulin Ratio 1.4 (1.0-2.3); Alkaline Phosphatase 113 U/L (39-117); Basophils # (Auto) 0.02 K/mcL (0.00-0.30); Basophils % (Auto) 0.3 % (0.0-2.0); Bilirubin,Direct < 0.2 mg/dL (0-0.3); Bilirubin,Total 0.3 mg/dL (0.1-1.0); Blood Urea Nitrogen 82 mg/dL (6-20); Calcium 7.9 mg/dL (8.6-10.4); Carbon Dioxide 25 mmol/L (22-30); Chloride 98 mmol/L (96-108); Eosinophils # (Auto) 0.52 K/mcL (0.00-0.70); Eosinophils % (Auto) 6.7 % (0.0-7.0); Globulin 2.5 gm/dL (2.2-3.7); Glomerular Filtration Rate 14; Glucose 49 mg/dL (70-105); Hematocrit 21.4 % (34.1-44.9); Hemoglobin 6.5 g/dL (11.2-15.7); Lactate Dehydrogenase 334 U/L (135-225); Lymphocytes # (Auto) 1.22 K/mcL (1.50-4.80); Lymphocytes % (Auto) 15.7 % (15.5-49.0); Mean Cell Volume 96.8 fL (80.0-100.0); Mean Corpuscular HGB Conc 30.4 g/dL (31.0-36.0); Mean Platelet Volume 12.9 fL (8.8-12.5); Monocytes # (Auto) 0.94 K/mcL (0.10-0.90); Monocytes % (Auto) 12.1 % (1.0-12.0); Neutrophils % (Auto) 64.6 % (38.0-78.0); Phosphorous 6.6 mg/dL (2.5-4.5); Platelet Count 172 K/mcL (140-440); RBC 2.21 M/mcL (3.59-5.38); Red Cell Distribution Width 16.3 % (11.5-14.5); Triglycerides 46 mg/dL (<150); Uric Acid 7.1 mg/dL (2.5-8.0); WBC 7.8 K/mcL (4.5-11.0)
[2022-09-11] MEDS ORDERED: 0.9 % SODIUM CHLORIDE 250 ML IV SCH (03:15)
[2022-09-11] MEDS: 0.9 % SODIUM CHLORIDE 10 ML SYRINGE IV SCH ×3 (05:19→21:23)
--- NOTE | 2022-09-11 06:06 | Nephrology Progress Note ---
SUBJECTIVE Subjective Patient information: Note initiated : 09/11/22 at 6:03 am Patient: Benny Virk 57 y/o F admitted on 09/10/22 for Acute kidney injury. Chief Complaint: Altered mental status Pertinent ROS: Altered mental status Weakness Anasarca Wilson catheter with clear urine Constitutional Vitals: Vital Signs Temp Pulse Resp BP Pulse Ox O2 Del Method O2 Flow Rate 97.8 F 80 20 119/62 93 2 09/11/22 04:00 09/11/22 04:33 09/11/22 04:33 09/11/22 04:30 09/11/22 04:33 09/11/22 02:21 09/11/22 02:21 Period Temp Pulse Resp BP Sys/Phan Pulse Ox O2 Del Method O2 Flow Rate Last 24 Hr 97.4 F-97.8 F 77-88 12-25 105-150/49-100 90-96 Nasal Cannula- Nasal Cannula 2-2 Intake and Output 09/10/22 09/11/22 09/11/22 19:59 03:59 11:59 Intake Total 218 Output Total 3025 950 Balance -3025 -732 Weight 287 lb 281 lb 6 oz Intake & Output: Intake & Output 09/10/22 09/11/22 09/11/22 19:59 03:59 11:59 Intake Total 218 Output Total 3025 950 Balance -3025 -732 Weight 287 lb 281 lb 6 oz Intake: IV 218 Lasix 250 mg In Sodium Chloride 218 0.9% 225 ml @ 20 MG/HR 20 mls/ hr IV Q12H [facility] Rx#:[id number] Output: Urine Catheter Amount 525 950 Hemodialysis UF 2500 Other: Meal Dinner Percent of Meal Consumed 100% Feeding Ability Assist with Tray Set Up Urine Appearance Clear Clear Uretheral (Wilson) Clear Clear Urine Color Bright Yellow Yellow Uretheral (Wilson) Yellow Yellow Pale Urine Odor Normal General appearance: cooperative and no acute distress Head Head exam: Present atraumatic, normal inspection and normocephalic ENT ENT exam: Present mucous membranes moist Respiratory Respiratory exam: Present rales Cardiovascular Cardiovascular exam: Present RRR, +S1 and +S2 GI/Abdominal GI/Abdominal exam: Present soft Extremities Exam Extremities exam: Present pedal edema Neurological Exam Neurological exam: Present alert Psychiatric Psychiatric exam: Present normal affect and normal mood Skin Skin exam: Present pallor A/P Assessment and plan (1) ESRD (end stage renal disease) on dialysis: Assessment and plan: End stage renal disease due to diabetic nephropathy by a kidney biopsy on 07/14/22 requiring inpatient chronic hemodialysis initiation for intractable fluid overload, hyperkalemia and uremia (weakness). Labs on 09/09/22 from [facility]: Serum creatinine 5.3, BUN 134, eGFR 9. eGFR 51 in 2017, 29-56 in 2019, 27-55 in 2020, 45 on 01/17/22, 38 on 02/05/22, 45 on 03/12/22, 18 on 04/15/22, 23 on 05/07/22, 21 on 06/11/22, 19 on 07/10/22, 14 on 09/03/22, 9 on 09/09/22. Random urine microalbumin/creatinine ratio 4,431 mg/g creatinine, random urine total protein/creatinine ratio 6,130 mg/g creatinine on 06/11/22. Kidney biopsy on 07/14/22. Diabetic nephropathy, advanced with focal global and focal segmental glomerulosclerosis/scarring; patchy interstitial neutrophilic aggregates and rare neutrophilic casts; acute tubular injury; mild arteriosclerosis and focal severe arteriolar hyalinosis; moderate interstitial fibrosis and tubular atrophy. Renal Doppler US on 05/14/22: Both kidneys and urinary bladder unremarkable. 60% stenosis proximal right renal artery. Left renal artery widely patent. No family history of kidney disease. History of NSAID use: She quit Ibuprofen in 2019. Serologic work-up was unremarkable. Renal replacement therapy options with risks and benefits discussed. She requires in-center hemodialysis with a tunneled hemodialysis catheter. Kidney transplant, US vein mapping and vascular surgery AV fistula referral will be done subsequently. Hypertension, well controlled. Renal anasarca, not adequately controlled. Home medications: Amlodipine 10 mg daily, Carvedilol 25 mg twice daily, Hydralazine 50 mg three times daily, Furosemide 60 mg twice daily. 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 Most recent (05/07/22) Vitamin D Total (25-Hydroxy) 10.20, PTH (intact) 56.1. Chronic anemia associated with chronic kidney disease and iron deficiency, not adequately controlled. She received 1 unit PRBC for Hb of 6.1 in [facility] ED on 09/09/22. Most recent hemoglobin 6.6 (09/10/22), TIBC 28% (05/07/22), vitamin B12 355.3 (05/07/22), RBC folate 882 (05/07/22). Target hemoglobin >10, TIBC >25% and ferritin >200 ng/mL. Aranesp will be started with hemodialysis. Progress: First hemodialysis on 09/10/22 for 2.5 hours, QD/QB 500/250, net UF: 2.5 kg, 2K dialysate, Heparin 2,000 units bolus, 500 units per hour. Plan: Hemodialysis today for 2.5 hours, QD/QB 500/250, target UF: 2.5 kg, 4K dialysate, Heparin 2,000 units bolus, 500 units per hour. Outpatient hemodialysis set up. Antihypertensive medications: Furosemide to 20 mg/hour infusion. Keep Wilson catheter for now. Hold Amlodipine 10 mg daily, Carvedilol 25 mg twice daily and Hydralazine 50 mg three times daily. PRBC transfusion pending for Hb 6.5. Ergocalciferol 50,000 units weekly ordered. Status: Chronic (2) Renal anasarca: Status: Chronic (3) Hyperkalemia: Status: Acute (4) Anemia in ESRD (end-stage renal disease): Status: Chronic Time Spent With Patient Time: Total time spent is greater than 50% in coordination of care (as documented) at patient's floor/unit and/or counseling patient:
[2022-09-11] MEDS ORDERED: DEXTROSE 50% 50 ML SYRINGE IV ONE (07:58)
[2022-09-11] MEDS: INSULIN LISPRO 1 UNIT/0.01 ML UNIT SQ SCH ×4 (08:16→21:31)
[2022-09-11] MEDS ORDERED: ERGOCALCIFEROL (VITAMIN D2) 50,000 UNIT CAPSULE PO SCH (09:00)
[2022-09-11] MEDS: HEPARIN 5,000 UNIT/ML VIAL SQ SCH ×2 (10:12→21:30)
[2022-09-11] MEDS: DOCUSATE SODIUM 100 MG CAPSULE PO SCH ×2 (10:12→21:05)
[2022-09-11] MEDS: HYDROcodone/APAP 10/325MG TABLET PO PRN (12:58)
--- NOTE | 2022-09-11 13:05 | Internal Med Progress Note ---
SUBJECTIVE Subjective Patient information: Note initiated : 09/11/22 at 1:04 pm Service Date, if different from initiated Date: [] Patient: Benny Virk 57 y/o F admitted on 09/10/22 for Acute kidney injury. Chief Complaint: [] Interval history: 09/11 Hypertensive overnight, hemoglobin this morning was 6.5. 1 unit RBC transfusion ordered. Patient was difficult to match for transfustion due to multiple antibodies. Continues on Lasix infusion per nephrology. Plan is to repeat hemodialysis today. Physical exam Head: Atraumatic, normal inspection. Eyes: normal appearance, no scleral icterus. Neck: full ROM Respiratory: Nasal cannula oxygen supplementation,no respiratory distress. Cardiovascular: Right IJ tunneled catheter, normal rate and rhythm, S1, S2. GI/Abdominal: Obesely distended, soft, nontender, no guarding. Extremities: Bilateral lower extremity pitting edema full range of motion, nontender. Neurological: CN II-XII intact, intact motor, intact sensation. Psychiatric: normal mood. Skin: warm, normal color Constitutional Vitals: Vital Signs Temp Pulse Resp BP Pulse Ox O2 Del Method O2 Flow Rate 97.7 F 84 10 L 156/74 95 2 09/11/22 12:14 09/11/22 12:14 09/11/22 12:04 09/11/22 12:14 09/11/22 12:04 09/11/22 08:26 09/11/22 08:26 Period Temp Pulse Resp BP Sys/Phan Pulse Ox O2 Del Method O2 Flow Rate Last 24 Hr 96.6 F-98.6 F 76-88 10-25 105-167/49-100 93-96 Nasal Cannula- Nasal Cannula 2-2 Intake and Output 09/11/22 09/11/22 09/11/22 03:59 11:59 19:59 Intake Total 218 120 Output Total 412 204 0528 Balance -732 -230 -2500 Weight 127.63 kg Intake & Output: Intake & Output 09/11/22 09/11/22 09/11/22 03:59 11:59 19:59 Intake Total 218 120 Output Total 650 350 2956 Balance -732 -230 -2500 Weight 127.63 kg Intake: IV 218 Lasix 250 mg In Sodium Chloride 218 0.9% 225 ml @ 20 MG/HR 20 mls/ hr IV Q12H [facility] Rx#:[id number] Oral 120 Output: Urine Catheter Amount 950 350 Hemodialysis UF 2500 Other: Meal Breakfast Percent of Meal Consumed 25% Feeding Ability Assist with Tray Set Up Urine Appearance Clear Clear Uretheral (Wilson) Clear Clear Urine Color Yellow Yellow Pale Uretheral (Wilson) Yellow Yellow Pale Pale Urine Odor Normal Normal Uretheral (Wilson) Normal OBJ DATA Labs CBC & Chem 7: 09/11/22 09:39 09/11/22 01:39 Labs: Abnormal Lab Results 09/11/22 09/11/22 09/11/22 09:39 01:39 01:39 RBC 2.21 L Hgb 6.8 L* 6.5 L* Hct 21.4 L MCHC 30.4 L RDW 16.3 H MPV 12.9 H Immature Gran % (Auto) 0.6 H Miller % (Auto) 12.1 H Lymph # (Auto) 1.22 L [place] # (Auto) 0.94 H BUN 82 H Creatinine 3.4 H Glucose 49 L Calcium 7.9 L Phosphorus 6.6 H* Magnesium 2.6 H GGT 65 H Lactate Dehydrogenase 334 H Meds: Medications Acetaminophen (Acetaminophen 325 Mg Tablet) 650 mg PO Q6HP PRN; Protocol PRN Reason: Per Pain Protocol/Fever > 101 Last Admin: 09/10/22 16:58 Dose: 650 mg Hydrocodone Bitart/Acetaminophen (Hydrocodone/Apap 10/325mg Tablet) 1 tab PO Q4HP PRN; Protocol PRN Reason: Per Pain Protocol Last Admin: 09/11/22 12:58 Dose: 1 tab Albuterol/Ipratropium (Ipratropium/Albuterol 3 Ml Ampul.Neb) 3 ml NEB Q4HP PRN PRN Reason: Shortness Of Breath Dextrose (Dextrose 50% 50 Ml Vial) 0 ml IV UD PRN PRN Reason: Per Sliding Scale Last Admin: 09/11/22 08:00 Dose: 25 ml Diagnostic Test (Pha) (Accu-Chek 1 Each Strip) 1 each FS ACHS [facility] Last Admin: 09/11/22 11:22 Dose: 1 each Docusate Sodium (Docusate Sodium 100 Mg Capsule) 100 mg PO BID [facility] Last Admin: 09/11/22 10:12 Dose: 100 mg Ergocalciferol (Ergocalciferol (Vitamin D2) 50,000 Unit Capsule) 50,000 unit PO Th@0900 [facility] Last Admin: 09/11/22 10:12 Dose: 50,000 unit Famotidine (Famotidine 20 Mg Tablet) 20 mg PO HS [facility] Last Admin: 09/10/22 20:34 Dose: 20 mg Glucose (Dextrose 31 Gm Oral.Susp) 15 gm PO PRN PRN PRN Reason: Hypoglycemia Heparin Sodium (Porcine) (Heparin 5,000 Unit/Ml Vial) 5,000 unit SQ Q12 [facility] Last Admin: 09/11/22 10:12 Dose: 5,000 unit Potassium Chloride 40 meq/ (Dextrose) 520 mls @ 130 mls/hr IV UD PRN PRN Reason: Potassium < 3 Magnesium Sulfate (Magnesium Sulfate) 2 gm in 50 mls @ 50 mls/hr IV UD PRN PRN Reason: Magnesium </= 1.6 Furosemide 250 mg/ Sodium (Chloride) 250 mls @ 20 mls/hr IV Q12H [facility]; Protocol Last Admin: 09/11/22 00:14 Dose: 20 mg/hr, 20 mls/hr Sodium Chloride (Sodium Chloride 0.9%) 250 mls @ 20 mls/hr IV .[id number] [facility] Stop: 09/11/22 15:44 Insulin Human Lispro (Insulin Lispro 1 Unit/0.01 Ml Unit) 0 unit SQ ACHS [facility]; Protocol Last Admin: 09/11/22 11:23 Dose: Not Given Ondansetron HCl (Ondansetron 4 Mg/2 Ml Vial) 4 mg IV Q4HP PRN PRN Reason: Nausea And Vomiting Polyethylene Glycol (Polyethylene Glycol 3350 17 Gm Packet) 17 gm PO DAILYP PRN PRN Reason: Constipation Potassium Chloride (Potassium Chloride 20 Meq Tablet) 40 meq PO UD PRN PRN Reason: Potssium is 3-3.5 Potassium Chloride (Potassium Chloride 20 Meq Tablet) 40 meq PO UD PRN PRN Reason: Potassium < 3 Senna (Sennosides 1 Tablet) 2 tab PO DAILYP PRN PRN Reason: Constipation Sodium Chloride (0.9 % Sodium Chloride 10 Ml Syringe) 10 ml IV Q8 [facility] Last Admin: 09/11/22 05:19 Dose: 10 ml A/P Narrative A/P Narrative: A: *Volume overload/anasarca: *ROYER on CKD V w/Renal Failure: *Acute on chronic anemia(MORIS), symptomatic: No gross bleeding -1prbc in outside facility -1prbc at [facility] *Resolved hyperkalemia: *DM2 w/Hypoglycemia: *diastolic(II) CHF: cxr at outside facility with vascular congestion *CAD w/angioplasty no stents: *COPD(2-3L @home): *Pulm HTN: *HTN/HLD: *GERD: *Hypothyroidism: *Depression/anxiety/OCD: *Obesity: BMI 56 *High risk for XOCHITL *Polypharmacy P: -Dr. Wynn for dialysis vs Lasix gtt, electrolytes -Monitor hemoglobin, transfuse for hemoglobin less than 7 or symptomatic anemia. -Check iron and TIBC. -Monitor renal function, electrolytes, uop -Humalog SSIlow dose. -Supplemental O2 per home regimen, IS -teds, elevate legs -Continue home Tylenol, albuterol, formoterol, budesonide, Plavix, risperidone, sildenafil, atorvastatin, escitalopram, famotidine, lamotrigine, levothyroxine, montelukast. -CM for placement -ppx: Heparin / home H2 Time Spent With Patient Time: Total time spent is greater than 50% in coordination of care (as documented) at patient's floor/unit and/or counseling patient: QUALITY VTE Deep Vein Thrombosis/Pulmonary Embolism Present on Admission: No
[2022-09-11] MEDS ORDERED: ACETAMINOPHEN (PP) 325MG TABLET (#50) PO PRN (13:15)
[2022-09-11] MEDS ORDERED: ALBUTEROL SULFATE 60 PUFF INHALER INH PRN (13:15)
[2022-09-11] MEDS: CARVEDILOL 12.5 MG TABLET PO SCH ×2 (13:35→17:21)
[2022-09-11] MEDS: diphenhydrAMINE 50 MG/ML VIAL IV PRN (13:50)
[2022-09-11 14:04] LABS: POC Calcium, Ionized 1.01 (1.16-1.32); POC Creatinine 2.8 (0.6-1.2); POC Potassium 3.5 (3.3-5.1)
[2022-09-11] MEDS: IPRATROPIUM/ALBUTEROL SULFATE 1 PUFF INHALER INH SCH ×2 (18:11→21:08)
[2022-09-11] MEDS: FORMOTEROL FUMARATE 20 MCG/2 ML INH SCH (20:25)
[2022-09-11] MEDS ORDERED: LAMOTRIGINE 50 MG PO SCH (21:00)
[2022-09-11] MEDS: MONTELUKAST 10 MG TABLET PO SCH (21:31)
[2022-09-11] MEDS: risperiDONE 0.25 MG TABLET PO SCH (21:31)
[2022-09-11] MEDS: lamoTRIgine 25 MG TABLET PO SCH (21:31)
[2022-09-11] MEDS: LEVOTHYROXINE 100 MCG TABLET PO SCH (21:31)
[2022-09-11] MEDS: ATORVASTATIN 40 MG TABLET PO SCH (21:31)
[2022-09-11] MEDS: FAMOTIDINE 20 MG TABLET PO SCH (21:32)
[2022-09-12] MEDS: HYDROcodone/APAP 10/325MG TABLET PO PRN ×3 (01:58→20:22)
[2022-09-12] MEDS: FUROSEMIDE 250 MG in 0.9 % SODIUM CHLORIDE 225 ML IV SCH ×2 (02:00→15:14)
[2022-09-12 07:00] LABS: Basophils # (Auto) 0.03 K/mcL (0.00-0.30); Basophils % (Auto) 0.4 % (0.0-2.0); Eosinophils # (Auto) 0.39 K/mcL (0.00-0.70); Eosinophils % (Auto) 4.8 % (0.0-7.0); Hematocrit 22.7 % (34.1-44.9); Hemoglobin 7.1 g/dL (11.2-15.7); Lymphocytes # (Auto) 1.22 K/mcL (1.50-4.80); Lymphocytes % (Auto) 14.9 % (15.5-49.0); Mean Cell Volume 93.8 fL (80.0-100.0); Mean Corpuscular HGB Conc 31.3 g/dL (31.0-36.0); Monocytes # (Auto) 1.22 K/mcL (0.10-0.90); Monocytes % (Auto) 14.9 % (1.0-12.0); Neutrophils % (Auto) 64.6 % (38.0-78.0); Platelet Count 168 K/mcL (140-440); RBC 2.42 M/mcL (3.59-5.38); Red Cell Distribution Width 15.9 % (11.5-14.5); WBC 8.2 K/mcL (4.5-11.0)
[2022-09-12 07:30] LABS: Albumin 3.3 gm/dL (3.2-5.2); Calcium 8.6 mg/dL (8.6-10.4)
[2022-09-12] MEDS: INSULIN LISPRO 1 UNIT/0.01 ML UNIT SQ SCH ×4 (07:43→20:24)
[2022-09-12] MEDS: 0.9 % SODIUM CHLORIDE 10 ML SYRINGE IV SCH ×3 (07:43→20:52)
[2022-09-12] MEDS: diphenhydrAMINE 50 MG/ML VIAL IV PRN ×3 (07:44→20:23)
[2022-09-12] MEDS: CARVEDILOL 12.5 MG TABLET PO SCH ×2 (07:44→17:08)
--- NOTE | 2022-09-12 07:44 | Nephrology Progress Note ---
SUBJECTIVE Subjective Patient information: Note initiated : 09/12/22 at 7:40 am Patient: Benny Virk 57 y/o F admitted on 09/10/22 for Acute kidney injury. Chief Complaint: Weakness Pertinent ROS: Weakness Edema Constitutional Vitals: Vital Signs Temp Pulse Resp BP Pulse Ox O2 Del Method O2 Flow Rate 99.7 F H 80 9 L 147/68 95 2 09/12/22 02:00 09/12/22 06:02 09/12/22 06:02 09/12/22 05:01 09/12/22 06:02 09/12/22 04:01 09/12/22 04:01 Period Temp Pulse Resp BP Sys/Phan Pulse Ox O2 Del Method O2 Flow Rate Last 24 Hr 96.6 F-99.7 F 76-95 07-17 114-183/52-154 90-100 Nasal Cannula- Room Air 2-2 Intake and Output 09/11/22 09/12/22 09/12/22 19:59 03:59 11:59 Intake Total 690 874 Output Total 3395 1400 404 Balance -2705 -526 -404 Weight 281 lb 6 oz 274 lb 11.2 oz Intake & Output: Intake & Output 09/11/22 09/12/22 09/12/22 19:59 03:59 11:59 Intake Total 690 874 Output Total 3395 1400 404 Balance -2705 -526 -404 Weight 281 lb 6 oz 274 lb 11.2 oz Intake: IV 250 249 Lasix 250 mg In Sodium Chloride 250 249 0.9% 225 ml @ 20 MG/HR 20 mls/ hr IV Q12H [facility] Rx#:[id number] Oral 440 300 Blood Product 325 Output: Urine Catheter Amount 670 1400 404 # of times incontinent of urine 225 Hemodialysis UF 2500 Other: Meal Dinner Percent of Meal Consumed 100% Feeding Ability Assist with Tray Set Up Urine Appearance Clear Clear Uretheral (Wilson) Clear Urine Color Yellow Yellow Yellow Pale Pale Pale Uretheral (Wilson) Yellow Pale Urine Odor Normal Uretheral (Wilson) Normal Stool Size Moderate Small Stool Color Brown Brown Black Blood Tinged Stool Consistency Soft Soft Formed # Bowel Movements 1 3 # of times incontinent of 0 Bowels General appearance: cooperative and no acute distress Head Head exam: Present atraumatic, normal inspection and normocephalic ENT ENT exam: Present mucous membranes dry Respiratory Respiratory exam: Present rales Cardiovascular Cardiovascular exam: Present normal rate and rhythm GI/Abdominal GI/Abdominal exam: Present soft Extremities Exam Extremities exam: Present pedal edema Neurological Exam Neurological exam: Present alert Psychiatric Psychiatric exam: Present normal affect and normal mood Skin Skin exam: Present pallor A/P Assessment and plan (1) ESRD (end stage renal disease) on dialysis: Assessment and plan: End stage renal disease due to diabetic nephropathy by a kidney biopsy on 07/14/22 requiring inpatient chronic hemodialysis initiation for intractable f luid overload, hyperkalemia and uremia (weakness). Labs on 09/09/22 from [facility]: Serum creatinine 5.3, BUN 134, eGFR 9. eGFR 51 in 2018, 29-56 in 2019, 27-55 in 2020, 45 on 01/17/22, 38 on 02/05/22, 45 on 03/12/22, 18 on 04/15/22, 23 on 05/07/22, 21 on 06/11/22, 19 on 07/10/22, 14 on 09/03/22, 9 on 09/09/22. Random urine microalbumin/creatinine ratio 4,431 mg/g creatinine, random urine total protein/creatinine ratio 6,130 mg/g creatinine on 06/11/22. Kidney biopsy on 07/14/22. Diabetic nephropathy, advanced with focal global and focal segmental glomerulosclerosis/scarring; patchy interstitial neutrophilic aggregates and rare neutrophilic casts; acute tubular injury; mild arteriosclerosis and focal severe arteriolar hyalinosis; moderate interstitial fibrosis and tubular atrophy. Renal Doppler US on 05/14/22: Both kidneys and urinary bladder unremarkable. 60% stenosis proximal right renal artery. Left renal artery widely patent. No family history of kidney disease. History of NSAID use: She quit Ibuprofen in 2019. Serologic work-up was unremarkable. Renal replacement therapy options with risks and benefits discussed. She requires in-center hemodialysis with a tunneled hemodialysis catheter. Kidney transplant, US vein mapping and vascular surgery AV fistula referral will be done subsequently. Hypertension, well controlled. Renal anasarca, not adequately controlled. Home medications: Amlodipine 10 mg daily, Carvedilol 25 mg twice daily, Hydralazine 50 mg three times daily, Furosemide 60 mg twice daily. 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 Most recent (05/07/22) Vitamin D Total (25-Hydroxy) 10.20, PTH (intact) 56.1. Chronic anemia associated with chronic kidney disease and iron deficiency, not adequately controlled. She received 1 unit PRBC for Hb of 6.1 in [facility] ED on 09/09/22. Most recent hemoglobin 6.6 (09/10/22), TIBC 28% (05/07/22), vitamin B12 355.3 (05/07/22), RBC folate 882 (05/07/22). Target hemoglobin >10, TIBC >25% and ferritin >200 ng/mL. Aranesp will be started with hemodialysis. Progress: First hemodialysis on 09/10/22 for 2.5 hours, QD/QB 500/250, net UF: 2.5 kg, 2K dialysate, Heparin 2,000 units bolus, 500 units per hour. Second hemodialysis on 09/11/22 for 2.5 hours, QD/QB 500/250, target UF: 2.5 kg, 4K dialysate, Heparin 2,000 units bolus, 500 units per hour. Urine output: 2,420 ml reported in the past 24 hours. Plan: Hemodialysis today for 2.5 hours, QD/QB 500/250, target UF: 2.5 kg, 4K dialysate, Heparin 2,000 units bolus, 500 units per hour. Outpatient hemodialysis set up. Antihypertensive medications: Furosemide to 20 mg/hour infusion. Keep Wilson catheter for now. Carvedilol 25 mg twice daily resumed. Hold Amlodipine 10 mg daily and Hydralazine 50 mg three times daily. She may be discharged from dialysis point of view. Discharge recommendations: Continue:Carvedilol 25 mg twice daily and Furosemide 80 mg twice daily. Discontinue Amlodipine 10 mg daily and Hydralazine 50 mg three times daily. She was not on any other diuretics or antihypertensive. Status: Chronic (2) Renal anasarca: Status: Chronic (3) Hyperkalemia: Status: Acute (4) Anemia in ESRD (end-stage renal disease): Status: Chronic Time Spent With Patient Time: Total time spent is greater than 50% in coordination of care (as documented) at patient's floor/unit and/or counseling patient:
[2022-09-12] MEDS: HEPARIN 5,000 UNIT/ML VIAL SQ SCH ×2 (08:33→20:23)
[2022-09-12] MEDS: lamoTRIgine 25 MG TABLET PO SCH ×2 (08:34→20:23)
[2022-09-12] MEDS: CLOPIDOGREL 75 MG TABLET PO SCH (08:35)
[2022-09-12] MEDS: FAMOTIDINE 20 MG TABLET PO SCH ×2 (08:35→20:22)
[2022-09-12] MEDS: DOCUSATE SODIUM 100 MG CAPSULE PO SCH ×2 (09:08→20:04)
[2022-09-12] MEDS: BUDESONIDE 0.5 MG/2 ML AMPUL.NEB NEB SCH (09:45)
[2022-09-12] MEDS: FORMOTEROL FUMARATE 20 MCG/2 ML INH SCH ×2 (09:47→19:32)
[2022-09-12] MEDS: IPRATROPIUM/ALBUTEROL SULFATE 1 PUFF INHALER INH SCH (11:43)
[2022-09-12] MEDS: risperiDONE 0.25 MG TABLET PO SCH ×2 (11:44→20:22)
[2022-09-12] MEDS: ESCITALOPRAM 20 MG TABLET PO SCH (11:45)
[2022-09-12 12:52] LABS: Hemoglobin 8.1 g/dL (11.2-15.7)
--- NOTE | 2022-09-12 14:06 | Internal Med Progress Note ---
SUBJECTIVE Subjective Patient information: Note initiated : 09/12/22 at 2:03 pm Service Date, if different from initiated Date: [] Patient: Benny Virk 57 y/o F admitted on 09/10/22 for Acute kidney injury. Chief Complaint: [] Interval history: 09/11 Hypertensive overnight, hemoglobin this morning was 6.5. 1 unit RBC transfusion ordered. Patient was difficult to match for transfustion due to multiple antibodies. Continues on Lasix infusion per nephrology. Plan is to repeat hemodialysis today. 09/12 Nephrology okay with discharge back to [facility], the patient will continue on Lasix infusion until discharge. The patient will not receive hemodialysis over the weekend. Likely [facility] to the [facility] tomorrow morning. Physical exam Head: Atraumatic, normal inspection. Eyes: normal appearance, no scleral icterus. Neck: full ROM Respiratory: Nasal cannula oxygen supplementation,no respiratory distress. Cardiovascular: Right IJ tunneled catheter, normal rate and rhythm, S1, S2. GI/Abdominal: Obesely distended, soft, nontender, no guarding. Extremities: Bilateral lower extremity pitting edema full range of motion, nontender. Neurological: CN II-XII intact, intact motor, intact sensation. Psychiatric: normal mood. Skin: warm, normal color Constitutional Vitals: Vital Signs Temp Pulse Resp BP Pulse Ox O2 Del Method O2 Flow Rate 97.8 F 79 13 138/48 100 2 09/12/22 12:18 09/12/22 13:09 09/12/22 13:09 09/12/22 13:01 09/12/22 13:09 09/12/22 10:15 09/12/22 10:15 Period Temp Pulse Resp BP Sys/Phan Pulse Ox O2 Del Method O2 Flow Rate Last 24 Hr 97.7 F-99.7 F 70-95 9-23 88-183/42-154 72-100 Nasal Cannula- Nasal Cannula 2-2 Intake and Output 09/12/22 09/12/22 09/12/22 03:59 11:59 19:59 Intake Total 874 240 Output Total 1400 3499 Balance -526 -0665 Weight 124.602 kg Intake & Output: Intake & Output 09/12/22 09/12/22 09/12/22 03:59 11:59 19:59 Intake Total 874 240 Output Total 1400 3499 Balance -522 -7259 Weight 124.602 kg Intake: IV 249 Lasix 250 mg In Sodium Chloride 249 0.9% 225 ml @ 20 MG/HR 20 mls/ hr IV Q12H [facility] Rx#:[id number] Oral 300 240 Blood Product 325 Output: Urine Catheter Amount 1400 1499 Hemodialysis UF 1999 Other: Meal Breakfast Percent of Meal Consumed 100% Feeding Ability Assist with Tray Set Up Urine Appearance Clear Clear Uretheral (Wilson) Clear Clear Urine Color Yellow Yellow Pale Pale Uretheral (Wilson) Yellow Yellow Pale Pale Urine Odor Normal Uretheral (Wilson) Normal Normal Stool Size Small Large Stool Color Brown Brown Blood Tinged Stool Consistency Soft Soft Loose # Bowel Movements 3 3 # of times incontinent of 0 0 Bowels OBJ DATA Labs CBC & Chem 7: 09/12/22 12:13 09/12/22 05:21 Labs: Abnormal Lab Results 09/12/22 09/12/22 09/12/22 12:13 05:21 05:21 RBC 2.42 L Hgb 8.1 L 7.1 L Hct 25.0 L 22.7 L POC Hct MCHC RDW 15.9 H MPV 13.0 H Immature Gran % (Auto) Lymph % (Auto) 14.9 L [place] % (Auto) 14.9 H Lymph # (Auto) 1.22 L [place] # (Auto) 1.22 H POC BUN BUN 66 H Creatinine 2.7 H POC Creatinine Glucose POC Glucose Calcium POC WB Ioniz Calcium Phosphorus 5.0 H Magnesium Iron 35 L TIBC 184 L GGT Lactate Dehydrogenase 09/11/22 09/11/22 09/11/22 16:15 14:02 09:39 RBC Hgb 7.0 L* 6.8 L* Hct POC Hct 21.0 L MCHC RDW MPV Immature Gran % (Auto) Lymph % (Auto) [place] % (Auto) Lymph # (Auto) [place] # (Auto) POC BUN 58 H BUN Creatinine POC Creatinine 2.8 H Glucose POC Glucose 111 H Calcium POC WB Ioniz Calcium 1.01 L Phosphorus Magnesium Iron TIBC GGT Lactate Dehydrogenase 09/11/22 09/11/22 01:39 01:39 RBC 2.21 L Hgb 6.5 L* Hct 21.4 L POC Hct MCHC 30.4 L RDW 16.3 H MPV 12.9 H Immature Gran % (Auto) 0.6 H Lymph % (Auto) [place] % (Auto) 12.1 H Lymph # (Auto) 1.22 L [place] # (Auto) 0.94 H POC BUN BUN 82 H Creatinine 3.4 H POC Creatinine Glucose 49 L POC Glucose Calcium 7.9 L POC WB Ioniz Calcium Phosphorus 6.6 H* Magnesium 2.6 H Iron TIBC GGT 65 H Lactate Dehydrogenase 334 H Meds: Medications Acetaminophen (Acetaminophen 325 Mg Tablet) 650 mg PO Q6HP PRN; Protocol PRN Reason: Per Pain Protocol/Fever > 101 Last Admin: 09/10/22 16:58 Dose: 650 mg Hydrocodone Bitart/Acetaminophen (Hydrocodone/Apap 10/325mg Tablet) 1 tab PO Q4HP PRN; Protocol PRN Reason: Per Pain Protocol Last Admin: 09/12/22 01:58 Dose: 1 tab Albuterol Sulfate (Albuterol Sulfate 200 Puff Inhaler) 2 puff INH Q6HP PRN PRN Reason: wheezing Albuterol/Ipratropium (Ipratropium/Albuterol 3 Ml Ampul.Neb) 3 ml NEB AC PATRICA Albuterol/Ipratropium (Ipratropium/Albuterol 3 Ml Ampul.Neb) 3 ml NEB Q6HRT PATRICA Atorvastatin Calcium (Atorvastatin 40 Mg Tablet) 80 mg PO HS [facility] Last Admin: 09/11/22 21:31 Dose: 80 mg Budesonide (Budesonide 0.5 Mg/2 Ml Ampul.Neb) 0.5 mg NEB DAILY [facility] Last Admin: 09/12/22 09:45 Dose: 0.5 mg Carvedilol (Carvedilol 12.5 Mg Tablet) 25 mg PO BIDCC [facility] Last Admin: 09/12/22 07:44 Dose: 25 mg Clopidogrel Bisulfate (Clopidogrel 75 Mg Tablet) 75 mg PO QAM [facility] Last Admin: 09/12/22 08:35 Dose: 75 mg Dextrose (Dextrose 50% 50 Ml Vial) 0 ml IV UD PRN PRN Reason: Per Sliding Scale Last Admin: 09/11/22 08:00 Dose: 25 ml Diagnostic Test (Pha) (Accu-Chek 1 Each Strip) 1 each FS ACHS [facility] Last Admin: 09/12/22 11:17 Dose: 1 each Diphenhydramine HCl (Diphenhydramine 50 Mg/Ml Vial) 50 mg IV Q6HP PRN PRN Reason: Allergic Symptoms Docusate Sodium (Docusate Sodium 100 Mg Capsule) 100 mg PO BID [facility] Last Admin: 09/12/22 09:08 Dose: Not Given Ergocalciferol (Ergocalciferol (Vitamin D2) 50,000 Unit Capsule) 50,000 unit PO Th@0900 [facility] Last Admin: 09/11/22 10:12 Dose: 50,000 unit Escitalopram Oxalate (Escitalopram 20 Mg Tablet) 20 mg PO DAILY [facility] Last Admin: 09/12/22 11:45 Dose: 20 mg Famotidine (Famotidine 20 Mg Tablet) 20 mg PO HS [facility] Last Admin: 09/11/22 21:32 Dose: 20 mg Famotidine (Famotidine 20 Mg Tablet) 20 mg PO QDAY [facility] Last Admin: 09/12/22 08:35 Dose: 20 mg Glucose (Dextrose 31 Gm Oral.Susp) 15 gm PO PRN PRN PRN Reason: Hypoglycemia Heparin Sodium (Porcine) (Heparin 5,000 Unit/Ml Vial) 5,000 unit SQ Q12 [facility] Last Admin: 09/12/22 08:33 Dose: 5,000 unit Potassium Chloride 40 meq/ (Dextrose) 520 mls @ 130 mls/hr IV UD PRN PRN Reason: Potassium < 3 Magnesium Sulfate (Magnesium Sulfate) 2 gm in 50 mls @ 50 mls/hr IV UD PRN PRN Reason: Magnesium </= 1.6 Furosemide 250 mg/ Sodium (Chloride) 250 mls @ 20 mls/hr IV Q12H [facility]; Protocol Last Admin: 09/12/22 02:00 Dose: 20 mg/hr, 20 mls/hr Insulin Human Lispro (Insulin Lispro 1 Unit/0.01 Ml Unit) 0 unit SQ ACHS [facility]; Protocol Last Admin: 09/12/22 11:22 Dose: Not Given Lamotrigine (Lamotrigine 25 Mg Tablet) 50 mg PO BID [facility] Last Admin: 09/12/22 08:34 Dose: 50 mg Levothyroxine Sodium (Levothyroxine 100 Mcg Tablet) 100 mcg PO [facility] Last Admin: 09/11/22 21:31 Dose: 100 mcg Montelukast Sodium (Montelukast 10 Mg Tablet) 10 mg PO [facility] Last Admin: 09/11/22 21:31 Dose: 10 mg Ondansetron HCl (Ondansetron 4 Mg/2 Ml Vial) 4 mg IV Q4HP PRN PRN Reason: Nausea And Vomiting Formoterol Fumarate 20 Mcg/2 Ml Solution For Nebulizing 1 dose INH BID [facility] Last Admin: 09/12/22 09:47 Dose: 1 dose Sildenafil (Pulm. Hypertension) 20 Mg Tablet 1 dose PO TID [facility] Last Admin: 09/12/22 08:34 Dose: 1 dose Polyethylene Glycol (Polyethylene Glycol 3350 17 Gm Packet) 17 gm PO DAILYP PRN PRN Reason: Constipation Potassium Chloride (Potassium Chloride 20 Meq Tablet) 40 meq PO UD PRN PRN Reason: Potssium is 3-3.5 Last Admin: 09/11/22 17:55 Dose: 40 meq Potassium Chloride (Potassium Chloride 20 Meq Tablet) 40 meq PO UD PRN PRN Reason: Potassium < 3 Risperidone (Risperidone 0.25 Mg Tablet) 0.5 mg PO BID [facility] Last Admin: 09/12/22 11:44 Dose: 0.5 mg Senna (Sennosides 1 Tablet) 2 tab PO DAILYP PRN PRN Reason: Constipation Sodium Chloride (0.9 % Sodium Chloride 10 Ml Syringe) 10 ml IV Q8 [facility] Last Admin: 09/12/22 07:43 Dose: 10 ml A/P Narrative A/P Narrative: A: *Volume overload/anasarca: *ROYER on CKD V w/Renal Failure: *Acute on chronic anemia(MORIS), symptomatic: No gross bleeding -1prbc in outside facility -1prbc at [facility] *Resolved hyperkalemia: *DM2 w/Hypoglycemia: *diastolic(II) CHF: cxr at outside facility with vascular congestion *CAD w/angioplasty no stents: *COPD(2-3L @home): *Pulm HTN: *HTN/HLD: *GERD: *Hypothyroidism: *Depression/anxiety/OCD: *Obesity: BMI 56 *High risk for XOCHITL *Polypharmacy P: -Dr. Wynn for nephrology. -Lasix infusion. -Monitor hemoglobin, transfuse for hemoglobin less than 7 or symptomatic anemia. -Monitor renal function, electrolytes, uop -Humalog SSIlow dose. -Supplemental O2 per home regimen, IS -Continue home Tylenol, albuterol, Coreg, formoterol, budesonide, Plavix, risperidone, sildenafil, atorvastatin, escitalopram, famotidine, lamotrigine, levothyroxine, montelukast. -CM for placement -ppx: Heparin / home H2 -Disposition: [facility], likely tomorrow [facility]. Time Spent With Patient Time: Total time spent is greater than 50% in coordination of care (as documented) at patient's floor/unit and/or counseling patient: QUALITY VTE Deep Vein Thrombosis/Pulmonary Embolism Present on Admission: No
[2022-09-12] MEDS: hydrALAZINE 25 MG TABLET PO SCH ×2 (15:29→20:23)
[2022-09-12] MEDS: IPRATROPIUM/ALBUTEROL 3 ML AMPUL.NEB NEB SCH (19:32)
[2022-09-12] MEDS: ATORVASTATIN 40 MG TABLET PO SCH (20:22)
[2022-09-12] MEDS: LEVOTHYROXINE 100 MCG TABLET PO SCH (20:23)
[2022-09-12] MEDS: MONTELUKAST 10 MG TABLET PO SCH (20:24)
[2022-09-13] MEDS: IPRATROPIUM/ALBUTEROL 3 ML AMPUL.NEB NEB SCH ×2 (02:05→07:24)
[2022-09-13] MEDS: diphenhydrAMINE 50 MG/ML VIAL IV PRN ×2 (03:05→07:57)
[2022-09-13 04:47] LABS: Albumin 3.4 gm/dL (3.2-5.2); Blood Urea Nitrogen 48 mg/dL (6-20); Calcium 8.7 mg/dL (8.6-10.4); Carbon Dioxide 28 mmol/L (22-30); Chloride 100 mmol/L (96-108); Glomerular Filtration Rate 22; Glucose 252 mg/dL (70-105)
[2022-09-13] MEDS: FUROSEMIDE 250 MG in 0.9 % SODIUM CHLORIDE 225 ML IV SCH (04:53)
[2022-09-13] MEDS: 0.9 % SODIUM CHLORIDE 10 ML SYRINGE IV SCH (05:53)
--- NOTE | 2022-09-13 06:59 | Nephrology Progress Note ---
SUBJECTIVE Subjective Patient information: Note initiated : 09/13/22 at 6:56 am Patient: Benny Virk 57 y/o F admitted on 09/10/22 for Acute kidney injury. Chief Complaint: Weakness Pertinent ROS: Weakness Wilson catheter removed Dressed for discharge Constitutional Vitals: Vital Signs Temp Pulse Resp BP Pulse Ox O2 Del Method O2 Flow Rate 97.9 F 85 14 148/88 95 2 09/13/22 04:00 09/13/22 04:00 09/13/22 06:03 09/13/22 06:03 09/13/22 04:00 09/13/22 06:03 09/13/22 06:03 Period Temp Pulse Resp BP Sys/Phan Pulse Ox O2 Del Method O2 Flow Rate Last 24 Hr 97.8 F-98.9 F 70-87 - 88-171/42-99 72-100 Nasal Cannula- Room Air 2-2 Intake and Output 09/12/22 09/13/22 09/13/22 19:59 03:59 11:59 Intake Total 625 250 Output Total 1280 1000 Balance -655 250 -1000 Weight 272 lb 8 oz Intake & Output: Intake & Output 09/12/22 09/13/22 09/13/22 19:59 03:59 11:59 Intake Total 625 250 Output Total 1280 1000 Balance -655 250 -1000 Weight 272 lb 8 oz Intake: IV 250 250 Lasix 250 mg In Sodium Chloride 250 250 0.9% 225 ml @ 20 MG/HR 20 mls/ hr IV Q12H PATRICA Rx#:[id number] Oral 375 Output: Urine Catheter Amount 1280 1000 Other: Meal Lunch snack Percent of Meal Consumed 100% 75% Urine Appearance Clear Clear Urine Color Yellow Pale Pale Urine Odor Normal Stool Size Small Stool Color Brown Stool Consistency Soft Loose # Bowel Movements 1 General appearance: cooperative and no acute distress Head Head exam: Present normal inspection Eye Eye exam: Present normal appearance ENT ENT exam: Present mucous membranes moist Respiratory Respiratory exam: Absent respiratory distress Cardiovascular Cardiovascular exam: Present normal rate and rhythm GI/Abdominal GI/Abdominal exam: Present soft; Absent tenderness Extremities Exam Extremities exam: Absent joint swelling or pedal edema Neurological Exam Neurological exam: Present alert and oriented X3 Psychiatric Psychiatric exam: Present normal affect and normal mood Skin Skin exam: Present warm; Absent rash A/P Assessment and plan (1) ESRD (end stage renal disease) on dialysis: Assessment and plan: End stage renal disease due to diabetic nephropathy by a kidney biopsy on 07/14/22 requiring inpatient chronic hemodialysis initiation for intractable fluid overload, hyperkalemia and uremia (weakness, anorexia, confusion). Predialysis labs on 09/09/22 from [facility]: Serum creatinine 5.3, BUN 134, eGFR 9. eGFR 51 in 2018, 29-56 in 2019, 27-55 in 2020, 45 on 01/17/22, 38 on 02/05/22, 45 on 03/12/22, 18 on 04/15/22, 23 on 05/07/22, 21 on 06/11/22, 19 on 07/10/22, 14 on 09/03/22, 9 on 09/09/22. Random urine microalbumin/creatinine ratio 4,431 mg/g creatinine, random urine total protein/creatinine ratio 6,130 mg/g creatinine on 06/11/22. Kidney biopsy on 07/14/22. Diabetic nephropathy, advanced with focal global and focal segmental glomerulosclerosis/scarring; patchy interstitial neutrophilic aggregates and rare neutrophilic casts; acute tubular injury; mild arteriosclerosis and focal severe arteriolar hyalinosis; moderate interstitial fibrosis and tubular atrophy. Renal Doppler US on 05/14/22: Both kidneys and urinary bladder unremarkable. 60% stenosis proximal right renal artery. Left renal artery widely patent. No family history of kidney disease. History of NSAID use: She quit Ibuprofen in 2019. Serologic work-up was unremarkable. Renal replacement therapy options with risks and benefits discussed. She requires in-center hemodialysis with a tunneled hemodialysis catheter. Kidney transplant, US vein mapping and vascular surgery AV fistula referral will be done subsequently. Hypertension, well controlled. Renal anasarca, not adequately controlled. Home medications: Amlodipine 10 mg daily, Carvedilol 25 mg twice daily, Hydralazine 50 mg three times daily, Furosemide 60 mg twice daily. 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 Most recent (05/07/22) Vitamin D Total (25-Hydroxy) 10.20, PTH (intact) 56.1. Chronic anemia associated with ESRD and iron deficiency, not adequately controlled. She received 1 unit PRBC at [facility] ED on 09/09/22 and 1 unit PRBC at [facility] on 09/12/22. Most recent hemoglobin 8.1 (09/12/22), TIBC 19% (09/12/22), vitamin B12 355.3 (05/07/22), RBC folate 882 (05/07/22). Araariannap will be started with hemodialysis. Progress: First hemodialysis on 09/10/22 for 2.5 hours, QD/QB 500/250, net UF: 2.5 kg, 2K dialysate, Heparin 2,000 units bolus, 500 units per hour. Second hemodialysis on 09/11/22 for 2.5 hours, QD/QB 500/250, net UF: 2.5 kg, 4K dialysate, Heparin 2,000 units bolus, 500 units per hour. Third hemodialysis on 09/12/22 for 2.5 hours, QD/QB 500/250, net UF: 2.0 kg, 4K dialysate, Heparin 2,000 units bolus, 500 units per hour. Urine output: 2,779 ml reported in the past 24 hours. I/O: -11.8L since admit. Plan: Outpatient hemodialysis set up at [facility]. She may be discharged from dialysis point of view. Discharge recommendations: Continue: Renal diet with 1500 ml/day fluid restriction. Carvedilol 25 mg twice daily. Amlodipine 10 mg daily. Hydralazine 50 mg three times daily. Furosemide 80 mg twice daily. She was not on any other diuretics or antihypertensive. Cholecalciferol 2,000 units daily. Status: Chronic (2) Renal anasarca: Status: Chronic (3) Hyperkalemia: Status: Acute (4) Anemia in ESRD (end-stage renal disease): Status: Chronic Time Spent With Patient Time: Total time spent is greater than 50% in coordination of care (as documented) at patient's floor/unit and/or counseling patient:
[2022-09-13] MEDS: BUDESONIDE 0.5 MG/2 ML AMPUL.NEB NEB SCH (07:24)
--- NOTE | 2022-09-13 07:32 | Discharge Summary ---
Discharge Provider Provider IMPORTANT FOLLOW-UP INFORMATION FOR PCP: Patient information: Note initiated : 09/13/22 at 7:29 am Service Date, if different from initiated Date: [] Patient: Benny iVrk a 57 y/o F admitted on 09/10/22 for Acute kidney injury. Chief Complaint: [] Date of admission: 09/10/22 12:20 Discharge date: 09/13/22 Primary care physician: VALERIO Negro Consults: 09/10/22 10:38 Consult to Physician [CONS] Routine Comment: Consulting Provider: Shaye Wynn Reason For Exam: Physician to Consult COURSE Hospital Course Hospital course: Ms. Virk is a 57 year old F 57-year-old female who presented to the ED from a nursing facility for increasing edema and volume overload. She was found to have electrolyte disturbance a potassium of 6.2 creatinine 5.1 BUN of 130. Is mildly hypoglycemic at 68. He was anemic at 6.1. Phos was also elevated. Dr. Wynn was contacted as this is a known patient of him. Patient has a known history of chronic kidney disease stage V. Hemodialysis catheter was requested before transfer to [facility] for likely dialysis. Patient continued become volume overloaded over time and renal function declined. she c/o dyspnea/cough, nausea but no vomiting, constipation. she uses 2-3L O2@home for copd. she received treatment for hyperkalemia in ED as well as d50 for hypoglycemia and blood transfusion for symptomatic anemia. 09/11 Hypertensive overnight, hemoglobin this morning was 6.5. 1 unit RBC transfusion ordered. Patient was difficult to match for transfusion due to multiple antibodies. Continues on Lasix infusion per nephrology. Plan is to repeat hemodialysis today. 09/12 Hemoglobin 8.1 today. Nephrology okay with discharge back to long term facility, the patient will continue on Lasix infusion until discharge. The patient will not receive hemodialysis over the weekend. Likely discharge back to the long term facility tomorrow morning. 09/13 Stable overnight, volume status significantly improved but still has bilateral pitting edema in lower extremities. Discharged to long term facility and will continue hemodialysis next week. Discharged on Lasix 80 mg p.o. twice michelle y per nephrology recommendations. Continue Coreg 25 mg twice daily, discontinued amlodipine and hydralazine per nephrology recommendations. Physical exam Head: Atraumatic, normal inspection. Eyes: normal appearance, no scleral icterus. Neck: full ROM Respiratory: Nasal cannula oxygen supplementation,no respiratory distress. Cardiovascular: Right IJ tunneled catheter, normal rate and rhythm, S1, S2. GI/Abdominal: Obesely distended, soft, nontender, no guarding. Extremities: Bilateral lower extremity pitting edema full range of motion, nontender. Neurological: CN II-XII intact, intact motor, intact sensation. Psychiatric: normal mood. Skin: warm, normal color Discharge diagnosis: Acute on chronic kidney injury Secondary discharge diagnosis: Anasarca Time Spent with Patient Time attestation: Total time spent providing and/or coordinating discharge services: Time spent: Greater than 30 minutes EXAM Constitutional Vitals: Temp Pulse Resp BP Pulse Ox O2 Del Method O2 Flow Rate 97.9 F 85 12 135/57 95 2 09/13/22 04:00 09/13/22 04:00 09/13/22 07:11 09/13/22 07:11 09/13/22 07:28 09/13/22 07:28 09/13/22 07:28 Discharge Data Data Completed and Pending Labs on day of discharge: Labs from last 24 hours 09/13/22 09/12/22 09/12/22 03:51 12:13 05:21 Hgb 8.1 L Hct 25.0 L Sodium 137 140 Potassium 4.3 3.9 Chloride 100 101 Carbon Dioxide 28 30 Anion Gap 9.0 9.0 BUN 48 H 66 H Creatinine 2.3 H 2.7 H GFR Calculation 22 19 Glucose 252 H 81 Calcium 8.7 8.6 Phosphorus 4.0 5.0 H Iron 35 L TIBC 184 L Unsat Iron Binding 149 Transferrin % Sat 19 Albumin 3.4 3.3 Discharge Plan Patient/Caregiver Discharge Instructions Activity: as per physical therapy Diet: Consistent Carbohydrate Prescriptions: New furosemide [Lasix] 80 mg tablet 80 mg PO BID Qty: 60 3RF Continued Aranesp (in polysorbate) 100 mcg/mL solution 100 mcg subcut Q2W PRN (Reason: hemoglobin <10.0) Qty: 1 0RF dextroamphetamine-amphetamine [Adderall] 30 mg tablet 30 mg PO BID Rx Instructions: administer doses at least 4-6 hours apart methocarbamol 750 mg tablet 750 mg PO Q6H PRN (Reason: Muscle Spasm) atorvastatin 80 mg tablet 80 mg PO QHS carvedilol 12.5 MG tablet 25 mg PO BIDCC Rx Instructions: Hold if SBP < 100 or P <60. Notify MD if held 3x in 7 day period levothyroxine 100 MCG tablet 100 mcg PO HS montelukast 10 MG tablet 10 mg PO HS epinephrine [EpiPen 2-Abhi] 0.3 MG/0.3 ML auto-injector 0.3 mg IM PRN PRN (Reason: Allergic Symptoms) escitalopram oxalate 20 MG tablet 20 mg PO DAILY hydrocodone-acetaminophen 10-325 mg Tablet 1 tab PO Q4HP PRN (Reason: Pain) famotidine 20 mg Tablet 20 mg PO QDAY cholecalciferol (vitamin D3) [Vitamin D3] 25 mcg (1,000 unit) Capsule 25 mcg PO DAILY acetaminophen [Tylenol] 325 mg Tablet 650 mg PO Q4H PRN (Reason: Pain) magnesium hydroxide [Milk of Magnesia] 400 mg/5 mL Suspension 30 ml PO QDAY PRN (Reason: Constipation) Rx Instructions: As needed for no BM in 3 days bisacodyl [Dulcolax (bisacodyl)] 10 mg Suppository 10 mg SC QDAY PRN (Reason: Constipation) Rx Instructions: insert 1 suppository rectally as needed for no BM on shift following Milk of Magnesia dose risperidone 0.5 mg Tablet 0.5 mg PO BID Glucagon (HCl) Emergency Kit 1 mg Recon Soln 1 mg SUBCUT Q15M PRN (Reason: Hypoglycemia) Rx Instructions: until target blood sugar attained Combivent Respimat 20-100 mcg/actuation mist 1 puff INHALATION QID clopidogrel 75 mg tablet 1 tab PO QAM budesonide 0.5 mg/2 mL Suspension For Nebulization 1 mg inhalation DAILY sildenafil (pulm.hypertension) 20 mg tablet 1 tab PO TID Rx Instructions: For Pulomary artery HTN formoterol fumarate 20 mcg/2 mL solution for nebulization 1 vial INHALATION BID benzonatate 100 mg Capsule 100 mg PO TID PRN (Reason: Cough) albuterol sulfate 90 mcg/actuation HFA aerosol inhaler 2 puff INHALATION Q6HP PRN (Reason: wheezing) lamotrigine 100 mg Tablet 50 mg PO BID Discontinued amlodipine 5 mg tablet 10 mg PO QAM gabapentin 400 mg Capsule 400 mg PO HS metolazone 5 mg Tablet 5 mg PO QDAY hydralazine 50 mg tablet 1 tab PO TID furosemide 20 mg Tablet 60 mg PO BID sodium polystyrene sulfonate 15 gram/60 mL Suspension 30 g PO ONCE PRN (Reason: Hyperkalemia) Fleet Enema 19-7 gram/118 mL Enema 118 ml SC ONCE sodium chloride 0.65 % Mist 2 spray INTRANASAL Q2H PRN (Reason: congestion) gabapentin 300 mg capsule 600 mg PO BID insulin degludec [Tresiba FlexTouch U-100] 100 unit/mL (3 mL) insulin pen 45 unit subcut BID Other Ambulatory Orders: OT Discharge Order (Routine) Location: None Selected Ordered By: Arun Mcmahan Physical Therapy at Discharge - General (Routine) Location: None Selected Ordered By: Arun Mcmahan Follow Up Plan Follow up with: Shaye Wynn MD [Physician] - Patient Disposition: Xfer SNF Rehab Potential: Fair I certify that the patient requires SNF services: Yes Overall status at discharge: patient is progressing back to baseline Discharge Orders: Discharge Order (Routine); Ordered 09/13/22 Ordered By: Arun Mcmahan QUALITY VTE Deep Vein Thrombosis/Pulmonary Embolism Present on Admission: No
[2022-09-13] MEDS: CARVEDILOL 12.5 MG TABLET PO SCH (07:48)
[2022-09-13] MEDS: INSULIN LISPRO 1 UNIT/0.01 ML UNIT SQ SCH (07:48)
[2022-09-13] MEDS: DOCUSATE SODIUM 100 MG CAPSULE PO SCH (07:49)
[2022-09-13] MEDS: hydrALAZINE 25 MG TABLET PO SCH (07:49)
[2022-09-13] MEDS: HEPARIN 5,000 UNIT/ML VIAL SQ SCH (07:49)
[2022-09-13] MEDS: lamoTRIgine 25 MG TABLET PO SCH (07:49)
[2022-09-13] MEDS: ESCITALOPRAM 20 MG TABLET PO SCH (07:50)
[2022-09-13] MEDS: FORMOTEROL FUMARATE 20 MCG/2 ML INH SCH (07:50)
[2022-09-13] MEDS: risperiDONE 0.25 MG TABLET PO SCH (07:51)
[2022-09-13] MEDS: FAMOTIDINE 20 MG TABLET PO SCH (07:51)
[2022-09-13] MEDS: CLOPIDOGREL 75 MG TABLET PO SCH (07:51)
[2022-09-13] MEDS ORDERED: amLODIPine 5 MG TABLET PO SCH (09:00)
[2022-09-13] MEDS ORDERED: IPRATROPIUM/ALBUTEROL 3 ML AMPUL.NEB NEB SCH (09:00)
== END 2022-09-13 09:42 | DRG 291 ==
LOC: ICU 12:20
PROVIDERS: ADMIT Internal Medicine; ATTEND Internal Medicine

== ENCOUNTER 2023-01-19 13:10 | Inpatient (IN) ==
[2023-01-19] MEDS ORDERED: ONDANSETRON 4 MG ODT TABLET SL ONE (13:33)
--- NOTE | 2023-01-19 13:35 | Emergency Department Note ---
HPI General Chief complaint: Weakness Stated complaint: weak, vomiting Time Seen by Provider: 01/19/23 13:14 Source: EMS Mode of arrival: EMS Limitations: no limitations History of Present Illness HPI Narrative: Narrative: Presents emergency department for evaluation generalized weakness, abdominal pain, vomiting. Symptoms started today. She felt too ill to go to dialysis this morning. Gets dialysis Thursday. No fever. Was seen 2 days ago in the emergency department for being overly somnolent, her mental status improved with Narcan. No other complaints. Vomiting shortly after arrival to the emergency department, Gastroccult positive. Related Data Home Medications Medication Instructions Recorded Confirmed carvedilol 12.5 mg tablet 25 mg PO BIDCC 09/28/18 11/30/22 epinephrine 0.3 mg/0.3 mL 0.3 mg IM PRN PRN Allergic Symptoms 09/28/18 11/30/22 injection, auto-injector (EpiPen 2-Abhi) levothyroxine 100 mcg tablet 100 mcg PO HS 09/28/18 11/30/22 montelukast 10 mg tablet 10 mg PO HS 09/28/18 11/30/22 escitalopram oxalate 20 mg tablet 20 mg PO DAILY 09/29/18 11/30/22 acetaminophen 325 mg tablet 650 mg PO Q4H PRN Pain 10/02/20 11/30/22 (Tylenol) cholecalciferol (vitamin D3) 25 25 mcg PO DAILY 10/02/20 11/30/22 mcg (1,000 unit) capsule (Vitamin D3) famotidine 20 mg tablet 20 mg PO QDAY 10/02/20 11/30/22 atorvastatin 80 mg tablet 80 mg PO QHS 07/29/21 11/30/22 bisacodyl 10 mg rectal suppository 10 mg IA DAILYP PRN Constipation 07/07/22 11/30/22 (Dulcolax (bisacodyl)) glucagon HCl 1 mg solution for 1 mg subcut Q15M PRN Hypoglycemia 07/07/22 11/30/22 injection (Glucagon (HCl) Emergency Kit) magnesium hydroxide 400 mg/5 mL 30 ml PO QDAY PRN Constipation 07/07/22 11/30/22 oral suspension (Milk of Magnesia) risperidone 0.5 mg tablet 0.5 mg PO BID 07/07/22 11/30/22 ipratropium 20 mcg-albuterol 100 1 puff inhalation QID 07/08/22 11/30/22 mcg/actuation mist for inhalation (Combivent Respimat) dextroamphetamine-amphetamine 30 30 mg PO BID 08/05/22 11/30/22 mg tablet (Adderall) methocarbamol 750 mg tablet 750 mg PO Q6H PRN Muscle Spasm 08/05/22 11/30/22 albuterol sulfate 90 mcg/actuation 2 puff inhalation Q6HP PRN wheezing 09/10/22 11/30/22 aerosol inhaler budesonide 0.5 mg/2 mL suspension 1 mg inhalation DAILY 09/10/22 11/30/22 for nebulization clopidogrel 75 mg tablet 75 mg PO DAILY 09/10/22 11/30/22 formoterol fumarate 20 mcg/2 mL 1 vial inhalation BID 09/10/22 11/30/22 solution for nebulization sildenafil (pulm.hypertension) 20 1 tab PO TID 09/10/22 11/30/22 mg tablet lamotrigine 100 mg tablet 50 mg PO BID 09/11/22 11/30/22 calcium carbonate 500 mg calcium 500 mg PO TIDWMEAL 11/30/22 11/30/22 (1,250 mg) chewable tablet insulin degludec 100 unit/mL (3 45 unit subcut BID 11/30/22 11/30/22 mL) subcutaneous pen (Tresiba FlexTouch U-100 insulin) lidocaine 4 % topical patch 1 patch topical DAILY PRN Pain 11/30/22 11/30/22 (Blue-Emu Lidocaine Patch) ondansetron 4 mg disintegrating 4 mg PO Q4HP PRN Nausea 11/30/22 11/30/22 tablet Previous Rx's Medication Instructions Recorded darbepoetin cem in polysorbat 100 100 mcg subcut Q2W PRN hemoglobin 08/05/22 mcg/mL in polysorbate injection <10.0 #1 mL (Aranesp) furosemide 80 mg tablet (Lasix) 80 mg PO BID #60 tabs 09/12/22 amlodipine 10 mg tablet (Norvasc) 10 mg PO QDAY #30 tabs 09/13/22 hydralazine 50 mg tablet 50 mg PO TID #90 tabs 09/13/22 hydrocodone 10 mg-acetaminophen 1 tab PO Q4HP PRN pain #7 tabs 09/13/22 325 mg tablet cefazolin 2 gram/100 mL in 0.9 % 100 ml IV .q mwf Catheter 12/08/22 sodium chloride intravenous infection #400 mL solution phenazopyridine 200 mg tablet 200 mg PO TID PRN pain #14 tabs 12/20/22 (Pyridium) ciprofloxacin HCl 250 mg tablet 250 mg PO BID #14 tabs 12/25/22 vancomycin 750 mg intravenous 750 mg IV 3XW #4 ea 01/07/23 solution Allergies Allergy/AdvReac Type Severity Reaction Status Date / Time theophylline [From James-Dur] Allergy Severe Other Verified 01/19/23 13:16 Opioids - Morphine Analogues Allergy Unknown unknown Verified 01/19/23 13:16 sulfamethoxazole Allergy Unknown Other Verified 01/19/23 13:16 [From Bactrim] trimethoprim [From Bactrim] Allergy Unknown Other Verified 01/19/23 13:16 morphine AdvReac Severe Swelling Verified 01/19/23 13:16 aspirin AdvReac Intermediate Other Verified 01/19/23 13:16 adhesive tape AdvReac Mild Rash Verified 01/19/23 13:16 Docusate [From Colace] AdvReac Mild CONSTIPATIO Verified 01/19/23 13:16 N Iodinated Contrast Media AdvReac Mild Other Verified 01/19/23 13:16 [Iodinated Contrast- Oral and IV Dye] meperidine [From Demerol] AdvReac Mild Anxiety Verified 01/19/23 13:16 Nickel AdvReac Mild Other Verified 01/19/23 13:16 oxycodone [From Percocet] AdvReac Mild Agitated Verified 01/19/23 13:16 promethazine [From Phenergan] AdvReac Mild Agitated Verified 01/19/23 13:16 propoxyphene AdvReac Mild Agitated Verified 01/19/23 13:16 Review of Systems ROS ROS Narrative: Narrative: As above PFSH Narrative Patient History Narrative: Narrative: Medical/Surgical/Family History All Active Problems (Updated 01/19/23 @ 17:33 by Yoan Milton MD) SBO (small bowel obstruction) (Acute) Somnolence (Acute) Line sepsis associated with dialysis catheter (Acute) MSSA bacteremia (Acute) Postoperative pain of right knee (Chronic) Headache (Chronic) Migraine (Chronic) Weakness (Chronic) Lumbar radiculopathy (Chronic) Hypothyroidism (Chronic) Diabetes mellitus, type II (Chronic) Vitamin D deficiency (Chronic) Dyslipidemia (Chronic) Hypercholesterolemia (Chronic) Borderline personality disorder (Chronic) PTSD (post-traumatic stress disorder) (Chronic) Depressive disorder (Chronic) Abscess of brain (Chronic) Essential hypertension (Chronic) Asthma (Chronic) Coronary arteriosclerosis (Chronic) Moderate chronic obstructive pulmonary disease (Chronic) Acid reflux (Chronic) GERD (gastroesophageal reflux disease) (Chronic) Edema of extremity (Chronic) Elevated blood pressure reading (Chronic) Pain in right knee (Chronic) Hernia (Chronic) CAD (coronary artery disease) (Chronic) Knee pain (Chronic) Back pain (Chronic) Anxiety (Chronic) Myocardial infarction (Chronic) ADD (attention deficit disorder) (Chronic) Bronchitis (Chronic) Chronic pain (Chronic) Low back pain (Chronic) Diastolic heart failure (Chronic) Shortness of breath at rest (Chronic) Generalized edema (Chronic) Osteoarthritis (Chronic) Dyspnea on exertion (Chronic) History of meningitis (Chronic) Neuropathy due to secondary diabetes mellitus (Chronic) Patient noncompliance (Chronic) Disability (Chronic) Noncompliance with treatment (Chronic) Chronic back pain (Chronic) Localized edema due to fluid overload (Chronic) Thrombocytopenia (Acute) Eosinophilia (Acute) Fall (on) (from) other stairs and steps, initial encounter (Acute) Contusion of head (Acute) Musculoskeletal pain (Acute) Anemia in ESRD (end-stage renal disease) (Chronic) Bacteremia (Acute) ESRD on hemodialysis (Chronic) Staphylococcus aureus bacteremia with sepsis (Chronic) Hemodialysis catheter infection (Acute) Morbid (severe) obesity due to excess calories (Chronic) Sepsis (Acute) Ground-level fall (Acute) UTI (urinary tract infection) (Acute) Medical History Abscess of brain Acid reflux ADD (attention deficit disorder) Anxiety Asthma Back pain Borderline personality disorder Bronchitis CAD (coronary artery disease) Chronic back pain Chronic pain Coronary arteriosclerosis Depressive disorder Diabetes mellitus, type II Diastolic heart failure Disability Dyslipidemia Dyspnea on exertion Edema of extremity Elevated blood pressure reading Essential hypertension Generalized edema GERD (gastroesophageal reflux disease) Headache Hernia History of meningitis Hypercholesterolemia Hypothyroidism Knee pain Low back pain Lumbar radiculopathy Migraine Moderate chronic obstructive pulmonary disease Myocardial infarction Neuropathy due to secondary diabetes mellitus Noncompliance with treatment Osteoarthritis Pain in right knee Patient noncompliance Postoperative pain of right knee PTSD (post-traumatic stress disorder) Shortness of breath at rest Vitamin D deficiency Weakness Surgical History History of back surgery L4-5 fusion with cage and posterior fusion with cage History of cardiac cath History of cholecystectomy History of hernia repair History of hysterectomy History of incision and drainage History of knee surgery right knee replacement History of oral surgery Status post peripherally inserted central catheter (PICC) central line placement Family History Mother Alcohol abuse Father Alcohol abuse Brother Drug abuse Social History Smoking Status: Never smoker Alcohol Intake Frequency: holiday/special occasion only Substance Use: does not use Exam Narrative Narrative: Narrative: General Limitations: no limitations General appearance: Present alert Head Head: Present atraumatic, normocephalic and normal inspection Eye Eye: Present normal appearance, PERRL and EOMI ENT ENT: Present normal exam Neck Neck: Present normal inspection Adbominal Abdominal: Present soft and other (No tenderness elicited on palpation.); Absent distention, tenderness, guarding or rebound Extremities Extremities: Present normal inspection Neurological Neurological: Present alert and CN II-XII intact Psychiatric Psychiatric: Present normal affect Skin Skin: Present warm (WNL) Course Vital Signs Vital signs: Vital Signs Pulse Rate 88 01/19/23 14:04 Blood Pressure 128/84 01/19/23 14:04 Pulse Oximetry (%) 94 01/19/23 14:04 Pulse Rate 103 H 01/19/23 16:43 Respiratory Rate 16 01/19/23 15:46 Blood Pressure 151/92 01/19/23 17:02 Pulse Oximetry (%) 96 01/19/23 16:43 [facility] MDM Narrative Medical decision making narrative: Narrative: 57-year-old female who presents emergency department for generalized weakness, abdominal pain, vomiting. Differential diagnosis includes gastritis, electrolyte abnormality, dehydration, upper GI bleed. She had some brown appearing emesis on arrival to the emergency department which is Gastroccult positive. Emergency department treatment: Patient given IV Protonix and given Zofran. Test interpreted: White blood cell count normal, hemoglobin is actually increased a little bit from most recent, chemistry panel with elevated creatinine, CT abdomen pelvis read by radiology shows: 1. Mechanical small bowel obstruction. This involves the jejunum with a transition point in the left upper quadrant. Lesser sac hernia or paraduodenal hernia possible. 2. Dilated fluid-filled esophagus. Distended fluid-filled stomach. Esophagogastric tube may be considered 3. Atherosclerotic calcification including coronary artery calcification 4. Infiltration of subcutaneous fat in the right lateral anterior abdominal wall. Findings are unchanged. No focal fluid collection or mass 5. Previous hysterectomy 6. Diverticulosis without evidence for diverticulitis NG tube was ordered and placed by nursing. Follow-up x-ray was reviewed with radiologist who feels that the NG tube is in appropriate placement. NG tube hooked to low intermediate suction. Spoke with Dr. Copeland on-call surgeon, Dr. Edward of the patient's plaster lather, and Dr. Ribeiro on-call hospitalist. Case reviewed in detail over the phone. Hospitalist agreed with admission, surgery plans to consult and nephrology plans to perform dialysis tomorrow. Discussed with the patient. Her questions were answered. She is agreeable with the plan. Lab Data 01/19/23 14:26 01/19/23 14:25 Labs: Lab Results 01/19/23 01/19/23 01/19/23 Range/Units 14:19 14:25 14:26 WBC 10.5 (4.5-11.0) K/mcL RBC 3.85 (3.59-5.38) M/mcL Hgb 11.7 (11.2-15.7) g/dL Hct 38.7 (34.1-44.9) % POC Hct 40.0 (36-48) MCV 100.5 H (80.0-100.0) fL MCH 30.4 (26.0-34.0) pg MCHC 30.2 L (31.0-36.0) g/dL RDW 14.1 (11.5-14.5) % Plt Count 210 (140-440) K/mcL MPV 11.9 (8.8-12.5) fL Immature Gran % (Auto) 0.4 (0.0-0.5) % Neut % (Auto) 72.1 (38.0-78.0) % Lymph % (Auto) 12.1 L (15.5-49.0) % [place] % (Auto) 9.8 (1.0-12.0) % Eos % (Auto) 5.2 (0.0-7.0) % Baso % (Auto) 0.4 (0.0-2.0) % Lymph # (Auto) 1.26 L (1.50-4.80) K/mcL [place] # (Auto) 1.02 H (0.10-0.90) K/mcL Eos # (Auto) 0.54 (0.00-0.70) K/mcL Baso # (Auto) 0.04 (0.00-0.30) K/mcL Immature Gran # 0.04 (0.00-0.05) K/mcl Absolute Neutrophils 7.55 (1.80-8.00) K/mcL ABG Methemoglobin (0.4-1.5) % VBG pH (7.32-7.42) U VBG pCO2 (41.0-51.0) mmHg VBG pO2 (25.0-40.0) mmHg VBG HCO3 (24.0-28.0) mmol/L VBG Total CO2 (25.0-29.0) mmol/L VBG O2 Saturation (40.0-70.0) % VBG Base Excess (-2-3) Carboxyhemoglobin (0.0-1.5) % THgb Total Hemoglobin (12.0-15.0) gm/Dl POC Sodium 139 (133-145) Sodium 137 (133-145) mmol/L POC Potassium 4.9 (3.3-5.1) Potassium 4.8 (3.3-5.1) mmol/L POC Chloride 96 (96-108) Chloride 92 L (96-108) mmol/L Carbon Dioxide 31 H (22-30) mmol/L POC Total CO2 41.0 H (22-30) Anion Gap 14.0 (8.0-16.0) POC BUN 61 H (6-20) BUN 54 H (6-20) mg/dL Creatinine 4.6 H (0.6-1.1) mg/dL POC Creatinine 5.2 H* (0.6-1.2) GFR Calculation 10 Glucose 107 H (70-105) mg/dL POC Glucose 111 H (70-105) Calcium 9.7 (8.6-10.4) mg/dL POC WB Ioniz Calcium 1.16 (1.16-1.32) Total Bilirubin 0.2 (0.1-1.0) mg/dL AST 15 (<32) U/L ALT 12 (<40) U/L Alkaline Phosphatase 103 (39-117) U/L Total Protein 7.9 (5.9-8.4) gm/dL Albumin 3.9 (3.2-5.2) gm/dL Globulin 4.0 H (2.2-3.7) gm/dL Albumin/Globulin Ratio 1.0 (1.0-2.3) Lipase 40 (7-60) U/L 01/19/23 Range/Units 16:50 WBC (4.5-11.0) K/mcL RBC (3.59-5.38) M/mcL Hgb (11.2-15.7) g/dL Hct (34.1-44.9) % POC Hct (36-48) MCV (80.0-100.0) fL MCH (26.0-34.0) pg MCHC (31.0-36.0) g/dL RDW (11.5-14.5) % Plt Count (140-440) K/mcL MPV (8.8-12.5) fL Immature Gran % (Auto) (0.0-0.5) % Neut % (Auto) (38.0-78.0) % Lymph % (Auto) (15.5-49.0) % [place] % (Auto) (1.0-12.0) % Eos % (Auto) (0.0-7.0) % Baso % (Auto) (0.0-2.0) % Lymph # (Auto) (1.50-4.80) K/mcL [place] # (Auto) (0.10-0.90) K/mcL Eos # (Auto) (0.00-0.70) K/mcL Baso # (Auto) (0.00-0.30) K/mcL Immature Gran # (0.00-0.05) K/mcl Absolute Neutrophils (1.80-8.00) K/mcL ABG Methemoglobin 0.3 L (0.4-1.5) % VBG pH 7.38 (7.32-7.42) U VBG pCO2 60.5 H* (41.0-51.0) mmHg VBG pO2 50.6 H (25.0-40.0) mmHg VBG HCO3 35.3 H (24.0-28.0) mmol/L VBG Total CO2 37.2 H (25.0-29.0) mmol/L VBG O2 Saturation 81.5 H (40.0-70.0) % VBG Base Excess 8 H (-2-3) Carboxyhemoglobin 3.9 H (0.0-1.5) % THgb Total Hemoglobin 12.9 (12.0-15.0) gm/Dl POC Sodium (133-145) Sodium (133-145) mmol/L POC Potassium (3.3-5.1) Potassium (3.3-5.1) mmol/L POC Chloride (96-108) Chloride (96-108) mmol/L Carbon Dioxide (22-30) mmol/L POC Total CO2 (22-30) Anion Gap (8.0-16.0) POC BUN (6-20) BUN (6-20) mg/dL Creatinine (0.6-1.1) mg/dL POC Creatinine (0.6-1.2) GFR Calculation Glucose (70-105) mg/dL POC Glucose (70-105) Calcium (8.6-10.4) mg/dL POC WB Ioniz Calcium (1.16-1.32) Total Bilirubin (0.1-1.0) mg/dL AST (<32) U/L ALT (<40) U/L Alkaline Phosphatase (39-117) U/L Total Protein (5.9-8.4) gm/dL Albumin (3.2-5.2) gm/dL Globulin (2.2-3.7) gm/dL Albumin/Globulin Ratio (1.0-2.3) Lipase (7-60) U/L Discharge Plan Patient/Caregiver Discharge Instructions Pt seen by ANESTHESIOLOGY TECH/PA only: No Clinical Impression: SBO (small bowel obstruction) Patient Disposition: Xfer As Inpt ([facility]) Follow up with: Lyric Crowder ARNP [Primary Care Provider] - Prescriptions: No Action Aranesp (in polysorbate) 100 mcg/mL solution 100 mcg subcut Q2W PRN (Reason: hemoglobin <10.0) Qty: 1 0RF dextroamphetamine-amphetamine [Adderall] 30 mg tablet 30 mg PO BID Rx Instructions: administer doses at least 4-6 hours apart methocarbamol 750 mg tablet 750 mg PO Q6H PRN (Reason: Muscle Spasm) cefazolin in 0.9% sod chloride 2 gram/100 mL solution 100 ml IV .q mwf Qty: 400 0RF Rx Instructions: Complete 14 day course after first set of negative blood cultures ciprofloxacin HCl 250 mg tablet 250 mg PO BID Qty: 14 0RF vancomycin 750 mg recon soln 750 mg IV 3XW Qty: 4 0RF Rx Instructions: Vancomycin 750 mg IV at the en of hemodialysis 3 times weekly x 4 doses atorvastatin 80 mg tablet 80 mg PO QHS carvedilol 12.5 MG tablet 25 mg PO BIDCC Rx Instructions: Hold if SBP < 100 or P <60. Notify MD if held 3x in 7 day period levothyroxine 100 MCG tablet 100 mcg PO HS montelukast 10 MG tablet 10 mg PO HS epinephrine [EpiPen 2-Abhi] 0.3 MG/0.3 ML auto-injector 0.3 mg IM PRN PRN (Reason: Allergic Symptoms) escitalopram oxalate 20 MG tablet 20 mg PO DAILY famotidine 20 mg Tablet 20 mg PO QDAY cholecalciferol (vitamin D3) [Vitamin D3] 25 mcg (1,000 unit) Capsule 25 mcg PO DAILY acetaminophen [Tylenol] 325 mg Tablet 650 mg PO Q4H PRN (Reason: Pain) magnesium hydroxide [Milk of Magnesia] 400 mg/5 mL Suspension 30 ml PO QDAY PRN (Reason: Constipation) Rx Instructions: As needed for no BM in 3 days bisacodyl [Dulcolax (bisacodyl)] 10 mg Suppository 10 mg IA DAILYP PRN (Reason: Constipation) Rx Instructions: insert 1 suppository rectally as needed for no BM on shift following Milk of Magnesia dose risperidone 0.5 mg Tablet 0.5 mg PO BID glucagon HCl [Glucagon (HCl) Emergency Kit] 1 mg Recon Soln 1 mg SUBCUT Q15M PRN (Reason: Hypoglycemia) Rx Instructions: until target blood sugar attained Combivent Respimat 20-100 mcg/actuation mist 1 puff INHALATION QID clopidogrel 75 mg tablet 75 mg PO DAILY budesonide 0.5 mg/2 mL Suspension For Nebulization 1 mg inhalation DAILY sildenafil (pulm.hypertension) 20 mg tablet 1 tab PO TID Rx Instructions: For Pulomary artery HTN formoterol fumarate 20 mcg/2 mL solution for nebulization 1 vial INHALATION BID albuterol sulfate 90 mcg/actuation HFA aerosol inhaler 2 puff INHALATION Q6HP PRN (Reason: wheezing) lamotrigine 100 mg Tablet 50 mg PO BID furosemide [Lasix] 80 mg tablet 80 mg PO BID Qty: 60 3RF hydrocodone-acetaminophen 10-325 mg tablet 1 tab PO Q4HP PRN (Reason: pain) Qty: 7 0RF hydralazine 50 mg Tablet 50 mg PO TID Qty: 90 0RF amlodipine [Norvasc] 10 mg Tablet 10 mg PO QDAY Qty: 30 0RF insulin degludec [Tresiba FlexTouch U-100] 100 unit/mL (3 mL) insulin pen 45 unit subcut BID calcium carbonate 500 mg calcium (1,250 mg) Tablet,Chewable 500 mg PO TIDWMEAL ondansetron 4 mg Tablet,Disintegrating 4 mg PO Q4HP PRN (Reason: Nausea) lidocaine [Blue-Emu Lidocaine Patch] 4 % Adhesive Patch,Medicated 1 patch TOPICAL DAILY PRN (Reason: Pain) phenazopyridine [Pyridium] 200 mg tablet 200 mg PO TID PRN (Reason: pain) Qty: 14 0RF
[2023-01-19] MEDS ORDERED: PANTOPRAZOLE 40 MG VIAL IV ONE (13:36)
[2023-01-19] MEDS ORDERED: ONDANSETRON 4 MG/2 ML VIAL ONE (13:47)
[2023-01-19] MEDS ORDERED: ONDANSETRON 4 MG/2 ML VIAL IV ONE (13:53)
[2023-01-19 14:23] LABS: POC Calcium, Ionized 1.16 (1.16-1.32); POC Creatinine 5.2 (0.6-1.2); POC Potassium 4.9 (3.3-5.1)
[2023-01-19 15:06] LABS: Basophils # (Auto) 0.04 K/mcL (0.00-0.30); Basophils % (Auto) 0.4 % (0.0-2.0); Eosinophils # (Auto) 0.54 K/mcL (0.00-0.70); Eosinophils % (Auto) 5.2 % (0.0-7.0); Hematocrit 38.7 % (34.1-44.9); Hemoglobin 11.7 g/dL (11.2-15.7); Lymphocytes # (Auto) 1.26 K/mcL (1.50-4.80); Lymphocytes % (Auto) 12.1 % (15.5-49.0); Mean Cell Volume 100.5 fL (80.0-100.0); Mean Corpuscular HGB Conc 30.2 g/dL (31.0-36.0); Mean Platelet Volume 11.9 fL (8.8-12.5); Monocytes # (Auto) 1.02 K/mcL (0.10-0.90); Monocytes % (Auto) 9.8 % (1.0-12.0); Neutrophils % (Auto) 72.1 % (38.0-78.0); Platelet Count 210 K/mcL (140-440); RBC 3.85 M/mcL (3.59-5.38); Red Cell Distribution Width 14.1 % (11.5-14.5); WBC 10.5 K/mcL (4.5-11.0)
--- NOTE | 2023-01-19 15:25 | Cat Scan Report ---
INDICATION: abd pain, vomiting COMPARISON: Previous examination dated 12/01/2022, 07/07/2022 TECHNIQUE: Axial images were obtained through the abdomen and pelvis. Sagittally and coronally reformatted images. FINDINGS: Lung bases:No pulmonary parenchymal density. No calcified or noncalcified nodule. No pleural or pericardial effusion. There is prominent coronary artery calcification Liver:Negative to the limits of noncontrast enhanced examination. Liver contour is smooth without evidence for cirrhosis Gallbladder, bilary:Previous cholecystectomy. No intra or extrahepatic bile duct dilatation Spleen:No splenomegaly Pancreas:No pancreatic mass. No peripancreatic abnormality Adrenal glands:Negative Kidneys,ureters,bladder:No solid renal mass. No hydronephrosis. No obstructing or nonobstructing calculi. No hydroureter. No ureteral calculus. No bladder stone. No detectable bladder mass. Gastrointestinal:There is colonic diverticulosis. No evidence for diverticulitis. No detectable colonic mass There is a hiatal hernia. Distal esophagus is dilated and fluid-filled. The stomach is distended and contains fluid. There is dilatation of the duodenum and proximal jejunum in the left upper quadrant. There is small bowel feces. Appearance is consistent with mechanical small bowel obstruction. There is a transition point in the left upper quadrant. This may be a lesser sac hernia or paraduodenal hernia. There is no evidence for volvulus. No obstructing mass identified. Ileum is negative. Appendix: The appendix is negative Vascular:There is atherosclerotic calcification of the abdominal aorta. No abdominal aortic aneurysm. Calcification appears advanced for age. There is calcification at the origins of the celiac trunk and superior mesenteric artery. Lymphatic:No retroperitoneal adenopathy. No significant mesenteric adenopathy. Mesentery, peritoneum:No free intraperitoneal fluid. No intra-abdominal abscess. No pneumoperitoneum Reproductive:Uterus is not identified consistent with hysterectomy. No adnexal mass Musculoskeletal:Multilevel degenerative disc disease. Previous posterior spinal fusion at L4-5 No anterior abdominal wall or inguinal hernia. Again demonstrated is infiltration of the subcutaneous fat in the right lateral abdominal wall. Appearance is unchanged. There is no focal fluid collection or discrete mass IMPRESSION: 1. Mechanical small bowel obstruction. This involves the jejunum with a transition point in the left upper quadrant. Lesser sac hernia or paraduodenal hernia possible. 2. Dilated fluid-filled esophagus. Distended fluid-filled stomach. Esophagogastric tube may be considered 3. Atherosclerotic calcification including coronary artery calcification 4. Infiltration of subcutaneous fat in the right lateral anterior abdominal wall. Findings are unchanged. No focal fluid collection or mass 5. Previous hysterectomy 6. Diverticulosis without evidence for diverticulitis The exam was performed using radiation dose optimization techniques including, but not limited to, automated exposure control, adjustment of the mA and/or kV according to patient size and use of iterative reconstruction technique. Interpreted and Authenticated by: Esau Barillas 01/19/23
[2023-01-19 15:36] LABS: ALT/SGPT 12 U/L (<40); AST/SGOT 15 U/L (<32); Albumin 3.9 gm/dL (3.2-5.2); Alkaline Phosphatase 103 U/L (39-117); Bilirubin,Total 0.2 mg/dL (0.1-1.0); Blood Urea Nitrogen 54 mg/dL (6-20); Calcium 9.7 mg/dL (8.6-10.4); Carbon Dioxide 31 mmol/L (22-30); Chloride 92 mmol/L (96-108); Glomerular Filtration Rate 10; Glucose 107 mg/dL (70-105)
--- NOTE | 2023-01-19 16:14 | XRay Report ---
INDICATION: NG placement TECHNIQUE: Supine abdomen. COMPARISON: Previous CT scan dated 01/19/2023 FINDINGS:Interval placement of an esophagogastric tube. Tip of the catheter is in the gastric antrum. IMPRESSION: Esophagogastric tube within the stomach Interpreted and Authenticated by: Esau Barillas 01/19/23
--- NOTE | 2023-01-19 16:46 | Nephrology Consult Note ---
HPI Date of Consult Consult Date: 01/19/23 Requesting physician: Yoan Milton Primary Care Provider: VALERIO Negro Consult Narrative Chief complaint: Weakness, abdominal pain, vomiting Reason for consult: End stage renal disease on hemodialysis History of present illness: Benny Virk is a 57-year-old female with end stage renal disease on hemodialysis (due to diabetic nephropathy by a kidney biopsy on 07/14/22), chronic anemia due to ESRD, hypertension, diabetes mellitus type 2, recent line sepsis presented to ED on 01/19/23 for weakness, abdominal pain, vomiting. She missed her dialysis. In ED, workup was consistent with small bowel obstruction. She is being admitted. Nephrology consultation was requested for end stage renal disease. cc:: CC: Constitutional Constitutional: Present anorexia and weakness EENT Nose, mouth and throat: Absent nasal congestion or sore throat Cardiovascular Cardiovascular: Absent chest pain or palpatations Respiratory Respiratory: Absent dyspnea or wheezing Gastrointestinal Gastrointestinal: Present abdominal pain, nausea and vomiting Genitourinary Genitourinary: Absent dysuria or hematuria Integumentary Integumentary: Absent rash or wounds Neurological Neurological: Present weakness; Absent confusion Psychiatric Psychiatric: Absent anxiety or panic attacks Hematologic/Lymphatic Hematologic/Lymphatic: Absent easy bleeding or easy bruising Allergic/Immunologic Allergic/Immunologic: Absent tongue swelling or uticaria PFSH PFSH All Active Problems (Updated 01/19/23 @ 16:45 by Shaye Wynn MD) Somnolence (Acute) Line sepsis associated with dialysis catheter (Acute) MSSA bacteremia (Acute) Postoperative pain of right knee (Chronic) Headache (Chronic) Migraine (Chronic) Weakness (Chronic) Lumbar radiculopathy (Chronic) Hypothyroidism (Chronic) Diabetes mellitus, type II (Chronic) Vitamin D deficiency (Chronic) Dyslipidemia (Chronic) Hypercholesterolemia (Chronic) Borderline personality disorder (Chronic) PTSD (post-traumatic stress disorder) (Chronic) Depressive disorder (Chronic) Abscess of brain (Chronic) Essential hypertension (Chronic) Asthma (Chronic) Coronary arteriosclerosis (Chronic) Moderate chronic obstructive pulmonary disease (Chronic) Acid reflux (Chronic) GERD (gastroesophageal reflux disease) (Chronic) Edema of extremity (Chronic) Elevated blood pressure reading (Chronic) Pain in right knee (Chronic) Hernia (Chronic) CAD (coronary artery disease) (Chronic) Knee pain (Chronic) Back pain (Chronic) Anxiety (Chronic) Myocardial infarction (Chronic) ADD (attention deficit disorder) (Chronic) Bronchitis (Chronic) Chronic pain (Chronic) Low back pain (Chronic) Diastolic heart failure (Chronic) Shortness of breath at rest (Chronic) Generalized edema (Chronic) Osteoarthritis (Chronic) Dyspnea on exertion (Chronic) History of meningitis (Chronic) Neuropathy due to secondary diabetes mellitus (Chronic) Patient noncompliance (Chronic) Disability (Chronic) Noncompliance with treatment (Chronic) Chronic back pain (Chronic) Localized edema due to fluid overload (Chronic) Thrombocytopenia (Acute) Eosinophilia (Acute) Fall (on) (from) other stairs and steps, initial encounter (Acute) Contusion of head (Acute) Musculoskeletal pain (Acute) Anemia in ESRD (end-stage renal disease) (Chronic) Bacteremia (Acute) ESRD on hemodialysis (Chronic) Staphylococcus aureus bacteremia with sepsis (Chronic) Hemodialysis catheter infection (Acute) Morbid (severe) obesity due to excess calories (Chronic) Sepsis (Acute) Ground-level fall (Acute) UTI (urinary tract infection) (Acute) Medical History Abscess of brain Acid reflux ADD (attention deficit disorder) Anxiety Asthma Back pain Borderline personality disorder Bronchitis CAD (coronary artery disease) Chronic back pain Chronic pain Coronary arteriosclerosis Depressive disorder Diabetes mellitus, type II Diastolic heart failure Disability Dyslipidemia Dyspnea on exertion Edema of extremity Elevated blood pressure reading Essential hypertension Generalized edema GERD (gastroesophageal reflux disease) Headache Hernia History of meningitis Hypercholesterolemia Hypothyroidism Knee pain Low back pain Lumbar radiculopathy Migraine Moderate chronic obstructive pulmonary disease Myocardial infarction Neuropathy due to secondary diabetes mellitus Noncompliance with treatment Osteoarthritis Pain in right knee Patient noncompliance Postoperative pain of right knee PTSD (post-traumatic stress disorder) Shortness of breath at rest Vitamin D deficiency Weakness Surgical History History of back surgery L4-5 fusion with cage and posterior fusion with cage History of cardiac cath History of cholecystectomy History of hernia repair History of hysterectomy History of incision and drainage History of knee surgery right knee replacement History of oral surgery Status post peripherally inserted central catheter (PICC) central line placement Family History Mother Alcohol abuse Father Alcohol abuse Brother Drug abuse Social History (Updated 04/23/22 @ 09:46 by Ann Marie Spencer) lives independently: Yes marital status: education level: high school occupational status: unemployed pets and animals: Yes smoking status: Never smoker alcohol intake frequency: holiday/special occasion only substance use type: does not use seatbelt use: always working smoke detector in home: Yes carbon monox detector in home: Yes MEDS/ALLERGIES Home Medications and Allergies Home Medications Medication Instructions Recorded Confirmed Type carvedilol 12.5 mg tablet 25 mg PO BIDCC 09/28/18 11/30/22 History epinephrine 0.3 mg/0.3 mL 0.3 mg IM PRN PRN Allergic Symptoms 09/28/18 11/30/22 History injection, auto-injector (EpiPen 2-Abhi) levothyroxine 100 mcg tablet 100 mcg PO HS 09/28/18 11/30/22 History montelukast 10 mg tablet 10 mg PO HS 09/28/18 11/30/22 History escitalopram oxalate 20 mg tablet 20 mg PO DAILY 09/29/18 11/30/22 History acetaminophen 325 mg tablet 650 mg PO Q4H PRN Pain 10/02/20 11/30/22 History (Tylenol) cholecalciferol (vitamin D3) 25 25 mcg PO DAILY 10/02/20 11/30/22 History mcg (1,000 unit) capsule (Vitamin D3) famotidine 20 mg tablet 20 mg PO QDAY 10/02/20 11/30/22 History atorvastatin 80 mg tablet 80 mg PO QHS 07/29/21 11/30/22 History bisacodyl 10 mg rectal suppository 10 mg AK DAILYP PRN Constipation 07/07/22 11/30/22 History (Dulcolax (bisacodyl)) glucagon HCl 1 mg solution for 1 mg subcut Q15M PRN Hypoglycemia 07/07/22 11/30/22 History injection (Glucagon (HCl) Emergency Kit) magnesium hydroxide 400 mg/5 mL 30 ml PO QDAY PRN Constipation 07/07/22 11/30/22 History oral suspension (Milk of Magnesia) risperidone 0.5 mg tablet 0.5 mg PO BID 07/07/22 11/30/22 History ipratropium 20 mcg-albuterol 100 1 puff inhalation QID 07/08/22 11/30/22 History mcg/actuation mist for inhalation (Combivent Respimat) darbepoetin cem in polysorbat 100 100 mcg subcut Q2W PRN hemoglobin 08/05/22 11/30/22 Rx mcg/mL in polysorbate injection <10.0 #1 mL (Aranesp) dextroamphetamine-amphetamine 30 30 mg PO BID 08/05/22 11/30/22 History mg tablet (Adderall) methocarbamol 750 mg tablet 750 mg PO Q6H PRN Muscle Spasm 08/05/22 11/30/22 History albuterol sulfate 90 mcg/actuation 2 puff inhalation Q6HP PRN wheezing 09/10/22 11/30/22 History aerosol inhaler budesonide 0.5 mg/2 mL suspension 1 mg inhalation DAILY 09/10/22 11/30/22 History for nebulization clopidogrel 75 mg tablet 75 mg PO DAILY 09/10/22 11/30/22 History formoterol fumarate 20 mcg/2 mL 1 vial inhalation BID 09/10/22 11/30/22 History solution for nebulization sildenafil (pulm.hypertension) 20 1 tab PO TID 09/10/22 11/30/22 History mg tablet lamotrigine 100 mg tablet 50 mg PO BID 09/11/22 11/30/22 History furosemide 80 mg tablet (Lasix) 80 mg PO BID #60 tabs 09/12/22 11/30/22 Rx amlodipine 10 mg tablet (Norvasc) 10 mg PO QDAY #30 tabs 09/13/22 11/30/22 Rx hydralazine 50 mg tablet 50 mg PO TID #90 tabs 09/13/22 11/30/22 Rx hydrocodone 10 mg-acetaminophen 1 tab PO Q4HP PRN pain #7 tabs 09/13/22 11/30/22 Rx 325 mg tablet calcium carbonate 500 mg calcium 500 mg PO TIDWMEAL 11/30/22 11/30/22 History (1,250 mg) chewable tablet insulin degludec 100 unit/mL (3 45 unit subcut BID 11/30/22 11/30/22 History mL) subcutaneous pen (Tresiba FlexTouch U-100 insulin) lidocaine 4 % topical patch 1 patch topical DAILY PRN Pain 11/30/22 11/30/22 History (Blue-Emu Lidocaine Patch) ondansetron 4 mg disintegrating 4 mg PO Q4HP PRN Nausea 11/30/22 11/30/22 History tablet cefazolin 2 gram/100 mL in 0.9 % 100 ml IV .q mwf Catheter 12/08/22 Rx sodium chloride intravenous infection #400 mL solution phenazopyridine 200 mg tablet 200 mg PO TID PRN pain #14 tabs 12/20/22 Rx (Pyridium) ciprofloxacin HCl 250 mg tablet 250 mg PO BID #14 tabs 12/25/22 Rx vancomycin 750 mg intravenous 750 mg IV 3XW #4 ea 01/07/23 Rx solution Allergies Allergy/AdvReac Type Severity Reaction Status Date / Time theophylline [From James-Dur] Allergy Severe Other Verified 01/19/23 13:16 Opioids - Morphine Analogues Allergy Unknown unknown Verified 01/19/23 13:16 sulfamethoxazole Allergy Unknown Other Verified 01/19/23 13:16 [From Bactrim] trimethoprim [From Bactrim] Allergy Unknown Other Verified 01/19/23 13:16 morphine AdvReac Severe Swelling Verified 01/19/23 13:16 aspirin AdvReac Intermediate Other Verified 01/19/23 13:16 adhesive tape AdvReac Mild Rash Verified 01/19/23 13:16 Docusate [From Colace] AdvReac Mild CONSTIPATIO Verified 01/19/23 13:16 N Iodinated Contrast Media AdvReac Mild Other Verified 01/19/23 13:16 [Iodinated Contrast- Oral and IV Dye] meperidine [From Demerol] AdvReac Mild Anxiety Verified 01/19/23 13:16 Nickel AdvReac Mild Other Verified 01/19/23 13:16 oxycodone [From Percocet] AdvReac Mild Agitated Verified 01/19/23 13:16 promethazine [From Phenergan] AdvReac Mild Agitated Verified 01/19/23 13:16 propoxyphene AdvReac Mild Agitated Verified 01/19/23 13:16 Physical Examination Vital Signs Vital signs: Pulse Resp BP Pulse Ox 90 16 168/90 95 01/19/23 16:15 01/19/23 15:46 01/19/23 16:15 01/19/23 16:15 General Appearance General appearance: obese, chronically ill and fatigue EENT EENT: mucous membranes moist Neck Neck: no JVD Respiratory Respiratory: clear Cardiovascular Cardiology: edema Gastrointestinal Gastrointestinal: tenderness, obese and distended Integumentary Integumentary: no rash Neurologic Neurologic: no focal deficit and alert and oriented x3 Musculoskeletal Musculoskeletal: no deformities Psychiatric Psychiatric: mood/affect appropriate and cooperative Results Lab Results 01/19/23 14:26 01/19/23 14:25 Lab results: Most recent lab results Calcium 9.7 mg/dL (8.6-10.4) 01/19/23 14:25 A/P Assessment and plan (1) ESRD on hemodialysis: Assessment and plan: Benny Virk is a 57-year-old female with end stage renal disease on hemodial ysis(due to diabetic nephropathy by a kidney biopsy on 07/14/22), chronic anemia due to ESRD, hypertension, diabetes mellitus type 2, recent line sepsis presented to ED on 01/19/23 for weakness, abdominal pain, vomiting. She missed her dialysis. In ED, workup was consistent with small bowel obstruction. She is being admitted. Nephrology consultation was requested for end stage renal disease. End stage renal disease on hemodialysis on Thursday, Thursday, Thursday at [facility]. Last outpatient hemodialysis on 01/16/23. Access: Tunneled HD catheter. Chronic anemia due to ESRD. Recommendations/Plan: Hemodialysis tomorrow. Status: Chronic Time Spent With Patient Time: Total time spent is greater than 50% in coordination of care (as documented) at patient's floor/unit and/or counseling patient:
[2023-01-19 17:19] LABS: ABG Methemoglobin 0.3 % (0.4-1.5); Total Hemoglobin 12.9 gm/Dl (12.0-15.0); VBG Base Excess 8 (-2-3); VBG HCO3 35.3 mmol/L (24.0-28.0); VBG Oxygen Saturation 81.5 % (40.0-70.0); VBG PCO2 60.5 mmHg (41.0-51.0); VBG PH 7.38 U (7.32-7.42); VBG PO2 50.6 mmHg (25.0-40.0); VBG Total CO2 37.2 mmol/L (25.0-29.0)
--- NOTE | 2023-01-19 17:21 | Internal Med History&Physical ---
HPI History of Present Illness Patient information: Note initiated : 01/19/23 at 5:20 pm Service Date, if different from initiated Date: [] Patient: Benny Virk a 57 y/o F admitted on for weak, vomiting. Chief Complaint: [] History of present illness: Ms. Virk is a 57 year old female resident at [facility] has history of ESRD on HD on MWF, diabetes mellitus 2 on insulin, hypertension, COPD requiring supplemental oxygen, hypothyroidism, history of back surgery, chronic back pain on opioids, ADHD, bipolar affective disorder, borderline personality disorder presented with acute onset of nausea, vomiting and abdominal pain since this morning. Patient reported she got up with nausea, had multiple episodes of emesis, nonbloody and constant 10/10 abdominal pain. She reported feeling cold but denied any fever. She was recently hospitalized for septic shock secondary to hemodialysis catheter infection, MSSA bacteremia, encephalopathy and was discharged to higher level of care on 12/03/2022.. It seems like patient is getting serial blood cultures during hemodialysis, patient positive blood culture with coagulase- negative staph on 12/28/2022, apparently nephrology is planning for outpatient transesophageal echocardiogram. Review of record reveals patient has history of cholecystectomy, hysterectomy and hernia repair. In the ED a CT scan of abdomen and pelvis demonstrated mechanical small bowel obstruction with a transition point in left upper quadrant. Gastroccult positive. Lab work showed WBC 10.5, hemoglobin 11.7, renal profile consistent with ESRD. VBG showed elevated PCO2 of 60. Dr. Copeland from general surgery has seen patient. NG tube has been placed and is draining dark-colored material. Follow-up x-ray shows NG is in appropriate placement. Dr. Wynn plans to perform hemodialysis tomorrow. I discussed with ED physician and suggested to add lactic acid and blood cultures. Discussed case with Dr. Copeland from surgery, recommended to start patient on antibiotic, hold Plavix should patient need surgery. Review of systems No fever but reports chills, feels tired Nausea, vomiting, abdominal pain present No shortness of breath, cough or sputum production No chest pain or palpitations No skin rashes No visual disturbance, no diplopia, no headache Denies any depression Exam General General appearance: Present alert but appears tired, in no acute distress Head Head: Present atraumatic, normocephalic and normal inspection Eye Eye: Present normal appearance, PERRL and EOMI ENT ENT: Present normal exam Neck Neck: Present normal inspection Adbominal Abdominal: Present soft, mildly distended, diffuse tenderness, no rebound or rigidity, bowel sounds hypoactive Extremities Extremities: Present normal inspection Neurological Neurological: Present Sleepy but becomes alert, CN II-XII intact, no focal deficits Psychiatric Psychiatric: Present normal affect Skin Skin: Present warm (WNL) Imaging CT abdomen pelvis read by radiology shows: IMPRESSION: 1. Mechanical small bowel obstruction. This involves the jejunum with a transition point in the left upper quadrant. Lesser sac hernia or paraduodenal hernia possible. 2. Dilated fluid-filled esophagus. Distended fluid-filled stomach. Esophagogastric tube may be considered 3. Atherosclerotic calcification including coronary artery calcification 4. Infiltration of subcutaneous fat in the right lateral anterior abdominal wall. Findings are unchanged. No focal fluid collection or mass 5. Previous hysterectomy 6. Diverticulosis without evidence for diverticulitis Physical exam Head: Atraumatic, normal inspection. Eyes: normal appearance, no scleral icterus. Neck: full ROM Respiratory: no respiratory distress. Cardiovascular: Healing right upper chest incision from recent tunneled HD catheter, normal rate and rhythm, S1, S2. GI/Abdominal: Obesely distended, soft, nontender, no guarding. Extremities: Bilateral lower extremity pitting edema, full range of motion, nontender. Neurological: CN II-XII intact, intact motor, intact sensation. Psychiatric: normal mood. Skin: warm, normal color Assessment and plan Small bowel obstruction, acute. Involving jejunum with transition point in left upper quadrant. Dr. Copeland seen patient. Continue NG tube, n.p.o., IV fluids. IV Zosyn per surgery recommendations. Lactic acid is pending Diastolic CHF. Patient currently on IV fluids, patient is NPO. We will monitor closely for volume overload ESRD on HD. Dr. Wynn plans to perform hemodialysis tomorrow. Hemodialysis per nephrology Recent MSSA bacteremia secondary to hemodialysis catheter infection. Patient without fever, no leukocytosis. Blood cultures ordered. Nephrology will follow Anemia, mild, chronic. On Epogen per nephrology Diabetes mellitus 2. Patient is n.p.o. insulin sliding scale every 6 hours. Monitor BG's CAD. Hold Plavix in case surgery is needed for bowel obstruction COPD, DuoNebs, budesonide. Supplemental oxygen Chronic hypoxic respiratory failure. Secondary to COPD continue supplemental oxygen Hypertension, BP stable, home norvasc/bb/hydralazine on hold. IV hydralazine as needed Morbid obesity, BMI over 45. Weight reduction advised. Generalized weakness/deconditioning. PT eval Psychiatric issues. History of ADHD, bipolar disorder, borderline personality disorder. Psychotropic medications on hold as patient is n.p.o. CODE STATUS, full code PFSH PFSH All Active Problems (Updated 01/19/23 @ 17:33 by Yoan Milton MD) SBO (small bowel obstruction) (Acute) Somnolence (Acute) Line sepsis associated with dialysis catheter (Acute) MSSA bacteremia (Acute) Postoperative pain of right knee (Chronic) Headache (Chronic) Migraine (Chronic) Weakness (Chronic) Lumbar radiculopathy (Chronic) Hypothyroidism (Chronic) Diabetes mellitus, type II (Chronic) Vitamin D deficiency (Chronic) Dyslipidemia (Chronic) Hypercholesterolemia (Chronic) Borderline personality disorder (Chronic) PTSD (post-traumatic stress disorder) (Chronic) Depressive disorder (Chronic) Abscess of brain (Chronic) Essential hypertension (Chronic) Asthma (Chronic) Coronary arteriosclerosis (Chronic) Moderate chronic obstructive pulmonary disease (Chronic) Acid reflux (Chronic) GERD (gastroesophageal reflux disease) (Chronic) Edema of extremity (Chronic) Elevated blood pressure reading (Chronic) Pain in right knee (Chronic) Hernia (Chronic) CAD (coronary artery disease) (Chronic) Knee pain (Chronic) Back pain (Chronic) Anxiety (Chronic) Myocardial infarction (Chronic) ADD (attention deficit disorder) (Chronic) Bronchitis (Chronic) Chronic pain (Chronic) Low back pain (Chronic) Diastolic heart failure (Chronic) Shortness of breath at rest (Chronic) Generalized edema (Chronic) Osteoarthritis (Chronic) Dyspnea on exertion (Chronic) History of meningitis (Chronic) Neuropathy due to secondary diabetes mellitus (Chronic) Patient noncompliance (Chronic) Disability (Chronic) Noncompliance with treatment (Chronic) Chronic back pain (Chronic) Localized edema due to fluid overload (Chronic) Thrombocytopenia (Acute) Eosinophilia (Acute) Fall (on) (from) other stairs and steps, initial encounter (Acute) Contusion of head (Acute) Musculoskeletal pain (Acute) Anemia in ESRD (end-stage renal disease) (Chronic) Bacteremia (Acute) ESRD on hemodialysis (Chronic) Staphylococcus aureus bacteremia with sepsis (Chronic) Hemodialysis catheter infection (Acute) Morbid (severe) obesity due to excess calories (Chronic) Sepsis (Acute) Ground-level fall (Acute) UTI (urinary tract infection) (Acute) Medical History Abscess of brain Acid reflux ADD (attention deficit disorder) Anxiety Asthma Back pain Borderline personality disorder Bronchitis CAD (coronary artery disease) Chronic back pain Chronic pain Coronary arteriosclerosis Depressive disorder Diabetes mellitus, type II Diastolic heart failure Disability Dyslipidemia Dyspnea on exertion Edema of extremity Elevated blood pressure reading Essential hypertension Generalized edema GERD (gastroesophageal reflux disease) Headache Hernia History of meningitis Hypercholesterolemia Hypothyroidism Knee pain Low back pain Lumbar radiculopathy Migraine Moderate chronic obstructive pulmonary disease Myocardial infarction Neuropathy due to secondary diabetes mellitus Noncompliance with treatment Osteoarthritis Pain in right knee Patient noncompliance Postoperative pain of right knee PTSD (post-traumatic stress disorder) Shortness of breath at rest Vitamin D deficiency Weakness Surgical History History of back surgery L4-5 fusion with cage and posterior fusion with cage History of cardiac cath History of cholecystectomy History of hernia repair History of hysterectomy History of incision and drainage History of knee surgery right knee replacement History of oral surgery Status post peripherally inserted central catheter (PICC) central line placement Family History Mother Alcohol abuse Father Alcohol abuse Brother Drug abuse Social History (Updated 04/23/22 @ 09:46 by Ann Marie Spencer) lives independently: Yes marital status: education level: high school occupational status: unemployed pets and animals: Yes smoking status: Never smoker alcohol intake frequency: holiday/special occasion only substance use type: does not use seatbelt use: always working smoke detector in home: Yes carbon monox detector in home: Yes MEDS/ALLERGIES Home Medications and Allergies Home Medications Medication Instructions Recorded Confirmed Type carvedilol 12.5 mg tablet 25 mg PO BIDCC 09/28/18 11/30/22 History epinephrine 0.3 mg/0.3 mL 0.3 mg IM PRN PRN Allergic Symptoms 09/28/18 11/30/22 History injection, auto-injector (EpiPen 2-Abhi) levothyroxine 100 mcg tablet 100 mcg PO HS 09/28/18 11/30/22 History montelukast 10 mg tablet 10 mg PO HS 09/28/18 11/30/22 History escitalopram oxalate 20 mg tablet 20 mg PO DAILY 09/29/18 11/30/22 History acetaminophen 325 mg tablet 650 mg PO Q4H PRN Pain 10/02/20 11/30/22 History (Tylenol) cholecalciferol (vitamin D3) 25 25 mcg PO DAILY 10/02/20 11/30/22 History mcg (1,000 unit) capsule (Vitamin D3) famotidine 20 mg tablet 20 mg PO QDAY 10/02/20 11/30/22 History atorvastatin 80 mg tablet 80 mg PO QHS 07/29/21 11/30/22 History bisacodyl 10 mg rectal suppository 10 mg NJ DAILYP PRN Constipation 07/07/22 11/30/22 History (Dulcolax (bisacodyl)) glucagon HCl 1 mg solution for 1 mg subcut Q15M PRN Hypoglycemia 07/07/22 11/30/22 History injection (Glucagon (HCl) Emergency Kit) magnesium hydroxide 400 mg/5 mL 30 ml PO QDAY PRN Constipation 07/07/22 11/30/22 History oral suspension (Milk of Magnesia) risperidone 0.5 mg tablet 0.5 mg PO BID 07/07/22 11/30/22 History ipratropium 20 mcg-albuterol 100 1 puff inhalation QID 07/08/22 11/30/22 History mcg/actuation mist for inhalation (Combivent Respimat) darbepoetin cem in polysorbat 100 100 mcg subcut Q2W PRN hemoglobin 08/05/22 11/30/22 Rx mcg/mL in polysorbate injection <10.0 #1 mL (Aranesp) dextroamphetamine-amphetamine 30 30 mg PO BID 08/05/22 11/30/22 History mg tablet (Adderall) methocarbamol 750 mg tablet 750 mg PO Q6H PRN Muscle Spasm 08/05/22 11/30/22 History albuterol sulfate 90 mcg/actuation 2 puff inhalation Q6HP PRN wheezing 09/10/22 11/30/22 History aerosol inhaler budesonide 0.5 mg/2 mL suspension 1 mg inhalation DAILY 09/10/22 11/30/22 History for nebulization clopidogrel 75 mg tablet 75 mg PO DAILY 09/10/22 11/30/22 History formoterol fumarate 20 mcg/2 mL 1 vial inhalation BID 09/10/22 11/30/22 History solution for nebulization sildenafil (pulm.hypertension) 20 1 tab PO TID 09/10/22 11/30/22 History mg tablet lamotrigine 100 mg tablet 50 mg PO BID 09/11/22 11/30/22 History furosemide 80 mg tablet (Lasix) 80 mg PO BID #60 tabs 09/12/22 11/30/22 Rx amlodipine 10 mg tablet (Norvasc) 10 mg PO QDAY #30 tabs 09/13/22 11/30/22 Rx hydralazine 50 mg tablet 50 mg PO TID #90 tabs 09/13/22 11/30/22 Rx hydrocodone 10 mg-acetaminophen 1 tab PO Q4HP PRN pain #7 tabs 09/13/22 11/30/22 Rx 325 mg tablet calcium carbonate 500 mg calcium 500 mg PO TIDWMEAL 11/30/22 11/30/22 History (1,250 mg) chewable tablet insulin degludec 100 unit/mL (3 45 unit subcut BID 11/30/22 11/30/22 History mL) subcutaneous pen (Tresiba FlexTouch U-100 insulin) lidocaine 4 % topical patch 1 patch topical DAILY PRN Pain 11/30/22 11/30/22 History (Blue-Emu Lidocaine Patch) ondansetron 4 mg disintegrating 4 mg PO Q4HP PRN Nausea 11/30/22 11/30/22 History tablet cefazolin 2 gram/100 mL in 0.9 % 100 ml IV .q mwf Catheter 12/08/22 Rx sodium chloride intravenous infection #400 mL solution phenazopyridine 200 mg tablet 200 mg PO TID PRN pain #14 tabs 12/20/22 Rx (Pyridium) ciprofloxacin HCl 250 mg tablet 250 mg PO BID #14 tabs 12/25/22 Rx vancomycin 750 mg intravenous 750 mg IV 3XW #4 ea 01/07/23 Rx solution Allergies Allergy/AdvReac Type Severity Reaction Status Date / Time theophylline [From James-Dur] Allergy Severe Other Verified 01/19/23 13:16 Opioids - Morphine Analogues Allergy Unknown unknown Verified 01/19/23 13:16 sulfamethoxazole Allergy Unknown Other Verified 01/19/23 13:16 [From Bactrim] trimethoprim [From Bactrim] Allergy Unknown Other Verified 01/19/23 13:16 morphine AdvReac Severe Swelling Verified 01/19/23 13:16 aspirin AdvReac Intermediate Other Verified 01/19/23 13:16 adhesive tape AdvReac Mild Rash Verified 01/19/23 13:16 Docusate [From Colace] AdvReac Mild CONSTIPATIO Verified 01/19/23 13:16 N Iodinated Contrast Media AdvReac Mild Other Verified 01/19/23 13:16 [Iodinated Contrast- Oral and IV Dye] meperidine [From Demerol] AdvReac Mild Anxiety Verified 01/19/23 13:16 Nickel AdvReac Mild Other Verified 01/19/23 13:16 oxycodone [From Percocet] AdvReac Mild Agitated Verified 01/19/23 13:16 promethazine [From Phenergan] AdvReac Mild Agitated Verified 01/19/23 13:16 propoxyphene AdvReac Mild Agitated Verified 01/19/23 13:16 EXAM Constitutional Vitals: Pulse Resp BP Pulse Ox 103 H 16 151/92 96 01/19/23 16:43 01/19/23 15:46 01/19/23 17:02 01/19/23 16:43 DATA Data Completed and Pending Labs: Labs from last 24 hours 01/19/23 01/19/23 01/19/23 16:50 16:50 14:26 WBC 10.5 RBC 3.85 Hgb 11.7 Hct 38.7 POC Hct MCV 100.5 H MCH 30.4 MCHC 30.2 L RDW 14.1 Plt Count 210 MPV 11.9 Immature Gran % (Auto) 0.4 Neut % (Auto) 72.1 Lymph % (Auto) 12.1 L Cobb % (Auto) 9.8 Eos % (Auto) 5.2 Baso % (Auto) 0.4 Lymph # (Auto) 1.26 L Cobb # (Auto) 1.02 H Eos # (Auto) 0.54 Baso # (Auto) 0.04 Immature Gran # 0.04 Absolute Neutrophils 7.55 ABG Methemoglobin 0.3 L VBG pH 7.38 VBG pCO2 60.5 H* VBG pO2 50.6 H VBG HCO3 35.3 H VBG Total CO2 37.2 H VBG O2 Saturation 81.5 H VBG Base Excess 8 H VBG Lactic Acid Pending Carboxyhemoglobin 3.9 H Total Hemoglobin 12.9 POC Sodium Sodium POC Potassium Potassium POC Chloride Chloride Carbon Dioxide POC Total CO2 Anion Gap POC BUN BUN Creatinine POC Creatinine GFR Calculation Glucose POC Glucose Calcium POC WB Ioniz Calcium Total Bilirubin AST ALT Alkaline Phosphatase Total Protein Albumin Globulin Albumin/Globulin Ratio Lipase 01/19/23 01/19/23 14:25 14:19 WBC RBC Hgb Hct POC Hct 40.0 MCV MCH MCHC RDW Plt Count MPV Immature Gran % (Auto) Neut % (Auto) Lymph % (Auto) Cobb % (Auto) Eos % (Auto) Baso % (Auto) Lymph # (Auto) Cobb # (Auto) Eos # (Auto) Baso # (Auto) Immature Gran # Absolute Neutrophils ABG Methemoglobin VBG pH VBG pCO2 VBG pO2 VBG HCO3 VBG Total CO2 VBG O2 Saturation VBG Base Excess VBG Lactic Acid Carboxyhemoglobin Total Hemoglobin POC Sodium 139 Sodium 137 POC Potassium 4.9 Potassium 4.8 POC Chloride 96 Chloride 92 L Carbon Dioxide 31 H POC Total CO2 41.0 H Anion Gap 14.0 POC BUN 61 H BUN 54 H Creatinine 4.6 H POC Creatinine 5.2 H* GFR Calculation 10 Glucose 107 H POC Glucose 111 H Calcium 9.7 POC WB Ioniz Calcium 1.16 Total Bilirubin 0.2 AST 15 ALT 12 Alkaline Phosphatase 103 Total Protein 7.9 Albumin 3.9 Globulin 4.0 H Albumin/Globulin Ratio 1.0 Lipase 40 A/P Time Spent With Patient Time: Total time spent is greater than 50% in coordination of care (as documented) at patient's floor/unit and/or counseling patient: Critical Care Time: Yes Total Critical Care Time: 55
--- NOTE | 2023-01-19 17:34 | General Surgery Consult Note ---
[facility] Date of Consult Consult Date: 01/19/23 Requesting physician: Yoan Milton Primary Care Provider: VALERIO Negro Consult Narrative Chief complaint: Nausea and Vomiting Reason for consult: Small Bowel Obstruction History of present illness: Benny is seen in ER Consultation after awaking this morning with nausea, vomiting and some abdominal pain. She has been in and out of the ER several times over the past few weeks including as recently as yesterday. A CT scan was obtained which demonstrated evidence of a proximal SBO with esophageal, gastric, duodenal and proximal jejunal distension. There was no reported pneumatosis, free air, or evidence of vascular compromise of the small bowel. She has had prior past abdominal surgeries including Cholecystectomy, Hysterectomy and prior Hernia Repair (? ventral vs inguinal). She has a multitude of serious medical issues including known CAD, ESRD with dialysis, current use of Plavix, severe obesity, and others. She denies any prior bouts of obstruction and denies any history of Gastric Bypass. She currently resides in a registered phlebotomist part time assisted living facility. She reports a bowel movement this morning. An NGT has been placed. cc:: CC: Review of Systems All systems: reviewed and no additional remarkable complaints except as stated Constitutional Additional comments: has been somnolent of late EENT Additional comments: no recent changes Cardiovascular Additional comments: known CAD, on Plavix ? for Stent Respiratory Additional comments: has COPD Gastrointestinal Additional comments: see HPI Genitourinary Additional comments: End Stage Renal Failure Neurological Additional comments: somnolence, otherwise no recent changes Hematologic/Lymphatic Additional comments: on plavix PFSH PFSH All Active Problems SBO (small bowel obstruction) (Acute) Somnolence (Acute) Line sepsis associated with dialysis catheter (Acute) MSSA bacteremia (Acute) Postoperative pain of right knee (Chronic) Headache (Chronic) Migraine (Chronic) Weakness (Chronic) Lumbar radiculopathy (Chronic) Hypothyroidism (Chronic) Diabetes mellitus, type II (Chronic) Vitamin D deficiency (Chronic) Dyslipidemia (Chronic) Hypercholesterolemia (Chronic) Borderline personality disorder (Chronic) PTSD (post-traumatic stress disorder) (Chronic) Depressive disorder (Chronic) Abscess of brain (Chronic) Essential hypertension (Chronic) Asthma (Chronic) Coronary arteriosclerosis (Chronic) Moderate chronic obstructive pulmonary disease (Chronic) Acid reflux (Chronic) GERD (gastroesophageal reflux disease) (Chronic) Edema of extremity (Chronic) Elevated blood pressure reading (Chronic) Pain in right knee (Chronic) Hernia (Chronic) CAD (coronary artery disease) (Chronic) Knee pain (Chronic) Back pain (Chronic) Anxiety (Chronic) Myocardial infarction (Chronic) ADD (attention deficit disorder) (Chronic) Bronchitis (Chronic) Chronic pain (Chronic) Low back pain (Chronic) Diastolic heart failure (Chronic) Shortness of breath at rest (Chronic) Generalized edema (Chronic) Osteoarthritis (Chronic) Dyspnea on exertion (Chronic) History of meningitis (Chronic) Neuropathy due to secondary diabetes mellitus (Chronic) Patient noncompliance (Chronic) Disability (Chronic) Noncompliance with treatment (Chronic) Chronic back pain (Chronic) Localized edema due to fluid overload (Chronic) Thrombocytopenia (Acute) Eosinophilia (Acute) Fall (on) (from) other stairs and steps, initial encounter (Acute) Contusion of head (Acute) Musculoskeletal pain (Acute) Anemia in ESRD (end-stage renal disease) (Chronic) Bacteremia (Acute) ESRD on hemodialysis (Chronic) Staphylococcus aureus bacteremia with sepsis (Chronic) Hemodialysis catheter infection (Acute) Morbid (severe) obesity due to excess calories (Chronic) Sepsis (Acute) Ground-level fall (Acute) UTI (urinary tract infection) (Acute) Medical History Abscess of brain Acid reflux ADD (attention deficit disorder) Anxiety Asthma Back pain Borderline personality disorder Bronchitis CAD (coronary artery disease) Chronic back pain Chronic pain Coronary arteriosclerosis Depressive disorder Diabetes mellitus, type II Diastolic heart failure Disability Dyslipidemia Dyspnea on exertion Edema of extremity Elevated blood pressure reading Essential hypertension Generalized edema GERD (gastroesophageal reflux disease) Headache Hernia History of meningitis Hypercholesterolemia Hypothyroidism Knee pain Low back pain Lumbar radiculopathy Migraine Moderate chronic obstructive pulmonary disease Myocardial infarction Neuropathy due to secondary diabetes mellitus Noncompliance with treatment Osteoarthritis Pain in right knee Patient noncompliance Postoperative pain of right knee PTSD (post-traumatic stress disorder) Shortness of breath at rest Vitamin D deficiency Weakness Surgical History History of back surgery L4-5 fusion with cage and posterior fusion with cage History of cardiac cath History of cholecystectomy History of hernia repair History of hysterectomy History of incision and drainage History of knee surgery right knee replacement History of oral surgery Status post peripherally inserted central catheter (PICC) central line placement Family History Mother Alcohol abuse Father Alcohol abuse Brother Drug abuse Social History lives independently: Yes marital status: education level: high school occupational status: unemployed pets and animals: Yes smoking status: Never smoker alcohol intake frequency: holiday/special occasion only substance use type: does not use seatbelt use: always working smoke detector in home: Yes carbon monox detector in home: Yes MEDS/ALLERGIES Home Medications and Allergies Home Medications Medication Instructions Recorded Confirmed Type carvedilol 12.5 mg tablet 25 mg PO BIDCC 09/28/18 11/30/22 History epinephrine 0.3 mg/0.3 mL 0.3 mg IM PRN PRN Allergic Symptoms 09/28/18 11/30/22 History injection, auto-injector (EpiPen 2-Abhi) levothyroxine 100 mcg tablet 100 mcg PO HS 09/28/18 11/30/22 History montelukast 10 mg tablet 10 mg PO HS 09/28/18 11/30/22 History escitalopram oxalate 20 mg tablet 20 mg PO DAILY 09/29/18 11/30/22 History acetaminophen 325 mg tablet 650 mg PO Q4H PRN Pain 10/02/20 11/30/22 History (Tylenol) cholecalciferol (vitamin D3) 25 25 mcg PO DAILY 10/02/20 11/30/22 History mcg (1,000 unit) capsule (Vitamin D3) famotidine 20 mg tablet 20 mg PO QDAY 10/02/20 11/30/22 History atorvastatin 80 mg tablet 80 mg PO QHS 07/29/21 11/30/22 History bisacodyl 10 mg rectal suppository 10 mg TN DAILYP PRN Constipation 07/07/22 11/30/22 History (Dulcolax (bisacodyl)) glucagon HCl 1 mg solution for 1 mg subcut Q15M PRN Hypoglycemia 07/07/22 11/30/22 History injection (Glucagon (HCl) Emergency Kit) magnesium hydroxide 400 mg/5 mL 30 ml PO QDAY PRN Constipation 07/07/22 11/30/22 History oral suspension (Milk of Magnesia) risperidone 0.5 mg tablet 0.5 mg PO BID 07/07/22 11/30/22 History ipratropium 20 mcg-albuterol 100 1 puff inhalation QID 07/08/22 11/30/22 History mcg/actuation mist for inhalation (Combivent Respimat) darbepoetin cem in polysorbat 100 100 mcg subcut Q2W PRN hemoglobin 08/05/22 11/30/22 Rx mcg/mL in polysorbate injection <10.0 #1 mL (Aranesp) dextroamphetamine-amphetamine 30 30 mg PO BID 08/05/22 11/30/22 History mg tablet (Adderall) methocarbamol 750 mg tablet 750 mg PO Q6H PRN Muscle Spasm 08/05/22 11/30/22 History albuterol sulfate 90 mcg/actuation 2 puff inhalation Q6HP PRN wheezing 09/10/22 11/30/22 History aerosol inhaler budesonide 0.5 mg/2 mL suspension 1 mg inhalation DAILY 09/10/22 11/30/22 History for nebulization clopidogrel 75 mg tablet 75 mg PO DAILY 09/10/22 11/30/22 History formoterol fumarate 20 mcg/2 mL 1 vial inhalation BID 09/10/22 11/30/22 History solution for nebulization sildenafil (pulm.hypertension) 20 1 tab PO TID 09/10/22 11/30/22 History mg tablet lamotrigine 100 mg tablet 50 mg PO BID 09/11/22 11/30/22 History furosemide 80 mg tablet (Lasix) 80 mg PO BID #60 tabs 09/12/22 11/30/22 Rx amlodipine 10 mg tablet (Norvasc) 10 mg PO QDAY #30 tabs 09/13/22 11/30/22 Rx hydralazine 50 mg tablet 50 mg PO TID #90 tabs 09/13/22 11/30/22 Rx hydrocodone 10 mg-acetaminophen 1 tab PO Q4HP PRN pain #7 tabs 09/13/22 11/30/22 Rx 325 mg tablet calcium carbonate 500 mg calcium 500 mg PO TIDWMEAL 11/30/22 11/30/22 History (1,250 mg) chewable tablet insulin degludec 100 unit/mL (3 45 unit subcut BID 11/30/22 11/30/22 History mL) subcutaneous pen (Tresiba FlexTouch U-100 insulin) lidocaine 4 % topical patch 1 patch topical DAILY PRN Pain 11/30/22 11/30/22 History (Blue-Emu Lidocaine Patch) ondansetron 4 mg disintegrating 4 mg PO Q4HP PRN Nausea 11/30/22 11/30/22 History tablet cefazolin 2 gram/100 mL in 0.9 % 100 ml IV .q mwf Catheter 12/08/22 Rx sodium chloride intravenous infection #400 mL solution phenazopyridine 200 mg tablet 200 mg PO TID PRN pain #14 tabs 12/20/22 Rx (Pyridium) ciprofloxacin HCl 250 mg tablet 250 mg PO BID #14 tabs 12/25/22 Rx vancomycin 750 mg intravenous 750 mg IV 3XW #4 ea 01/07/23 Rx solution Allergies Allergy/AdvReac Type Severity Reaction Status Date / Time theophylline [From James-Dur] Allergy Severe Other Verified 01/19/23 13:16 Opioids - Morphine Analogues Allergy Unknown unknown Verified 01/19/23 13:16 sulfamethoxazole Allergy Unknown Other Verified 01/19/23 13:16 [From Bactrim] trimethoprim [From Bactrim] Allergy Unknown Other Verified 01/19/23 13:16 morphine AdvReac Severe Swelling Verified 01/19/23 13:16 aspirin AdvReac Intermediate Other Verified 01/19/23 13:16 adhesive tape AdvReac Mild Rash Verified 01/19/23 13:16 Docusate [From Colace] AdvReac Mild CONSTIPATIO Verified 01/19/23 13:16 N Iodinated Contrast Media AdvReac Mild Other Verified 01/19/23 13:16 [Iodinated Contrast- Oral and IV Dye] meperidine [From Demerol] AdvReac Mild Anxiety Verified 01/19/23 13:16 Nickel AdvReac Mild Other Verified 01/19/23 13:16 oxycodone [From Percocet] AdvReac Mild Agitated Verified 01/19/23 13:16 promethazine [From Phenergan] AdvReac Mild Agitated Verified 01/19/23 13:16 propoxyphene AdvReac Mild Agitated Verified 01/19/23 13:16 Physical Examination Vital Signs Vital signs: Pulse Resp BP Pulse Ox 103 H 16 151/92 96 01/19/23 16:43 01/19/23 15:46 01/19/23 17:02 01/19/23 16:43 General physical appearance General physical exam: other (resting comfortably with NGT in place, able to answer questions ) Eyes Eye exam: normal ocular movement ENT ENT exam: other (Normal facial exam ) Head Head exam IM: Present atraumatic Neck Neck exam: trachea midline and no lymphadenopathy Cardiovascular Cardiovascular exam IM: Present normal rate and rhythm Respiratory Respiratory exam: other (non labored without distress ) Abdomen Abdomen: Present soft (belly is obese, NGT in place, seems minimally to nontender, soft to palpation ) Integumentary Integumentary: Present other (normal appearing intact skin ) Neurologic Neurologic: Present other (grossly intact ) Results Labs 01/19/23 14:26 01/19/23 14:25 Labs: Abnormal lab results 01/19/23 01/19/23 01/19/23 Range/Units 14:19 14:25 14:26 MCV 100.5 H (80.0-100.0) fL MCHC 30.2 L (31.0-36.0) g/dL Lymph % (Auto) 12.1 L (15.5-49.0) % Lymph # (Auto) 1.26 L (1.50-4.80) K/mcL Wetzel # (Auto) 1.02 H (0.10-0.90) K/mcL ABG Methemoglobin (0.4-1.5) % VBG pCO2 (41.0-51.0) mmHg VBG pO2 (25.0-40.0) mmHg VBG HCO3 (24.0-28.0) mmol/L VBG Total CO2 (25.0-29.0) mmol/L VBG O2 Saturation (40.0-70.0) % VBG Base Excess (-2-3) Carboxyhemoglobin (0.0-1.5) % THgb Chloride 92 L (96-108) mmol/L Carbon Dioxide 31 H (22-30) mmol/L POC Total CO2 41.0 H (22-30) POC BUN 61 H (6-20) BUN 54 H (6-20) mg/dL Creatinine 4.6 H (0.6-1.1) mg/dL POC Creatinine 5.2 H* (0.6-1.2) Glucose 107 H (70-105) mg/dL POC Glucose 111 H (70-105) Globulin 4.0 H (2.2-3.7) gm/dL 01/19/23 Range/Units 16:50 MCV (80.0-100.0) fL MCHC (31.0-36.0) g/dL Lymph % (Auto) (15.5-49.0) % Lymph # (Auto) (1.50-4.80) K/mcL Wetzel # (Auto) (0.10-0.90) K/mcL ABG Methemoglobin 0.3 L (0.4-1.5) % VBG pCO2 60.5 H* (41.0-51.0) mmHg VBG pO2 50.6 H (25.0-40.0) mmHg VBG HCO3 35.3 H (24.0-28.0) mmol/L VBG Total CO2 37.2 H (25.0-29.0) mmol/L VBG O2 Saturation 81.5 H (40.0-70.0) % VBG Base Excess 8 H (-2-3) Carboxyhemoglobin 3.9 H (0.0-1.5) % THgb Chloride (96-108) mmol/L Carbon Dioxide (22-30) mmol/L POC Total CO2 (22-30) POC BUN (6-20) BUN (6-20) mg/dL Creatinine (0.6-1.1) mg/dL POC Creatinine (0.6-1.2) Glucose (70-105) mg/dL POC Glucose (70-105) Globulin (2.2-3.7) gm/dL Diabetes panel 01/19/23 Range/Units 14:25 Sodium 137 (133-145) mmol/L Potassium 4.8 (3.3-5.1) mmol/L Chloride 92 L (96-108) mmol/L Carbon Dioxide 31 H (22-30) mmol/L BUN 54 H (6-20) mg/dL Creatinine 4.6 H (0.6-1.1) mg/dL Glucose 107 H (70-105) mg/dL Calcium 9.7 (8.6-10.4) mg/dL AST 15 (<32) U/L ALT 12 (<40) U/L Alkaline Phosphatase 103 (39-117) U/L Total Protein 7.9 (5.9-8.4) gm/dL Albumin 3.9 (3.2-5.2) gm/dL Calcium panel 01/19/23 Range/Units 14:25 Calcium 9.7 (8.6-10.4) mg/dL Albumin 3.9 (3.2-5.2) gm/dL Pituitary panel 01/19/23 Range/Units 14:25 Sodium 137 (133-145) mmol/L Potassium 4.8 (3.3-5.1) mmol/L Chloride 92 L (96-108) mmol/L Carbon Dioxide 31 H (22-30) mmol/L BUN 54 H (6-20) mg/dL Creatinine 4.6 H (0.6-1.1) mg/dL Glucose 107 H (70-105) mg/dL Calcium 9.7 (8.6-10.4) mg/dL Adrenal panel 01/19/23 Range/Units 14:25 Sodium 137 (133-145) mmol/L Potassium 4.8 (3.3-5.1) mmol/L Chloride 92 L (96-108) mmol/L Carbon Dioxide 31 H (22-30) mmol/L BUN 54 H (6-20) mg/dL Creatinine 4.6 H (0.6-1.1) mg/dL Glucose 107 H (70-105) mg/dL Calcium 9.7 (8.6-10.4) mg/dL Total Bilirubin 0.2 (0.1-1.0) mg/dL AST 15 (<32) U/L ALT 12 (<40) U/L Alkaline Phosphatase 103 (39-117) U/L Total Protein 7.9 (5.9-8.4) gm/dL Albumin 3.9 (3.2-5.2) gm/dL All other labs normal. A/P Assessment and plan (1) SBO (small bowel obstruction): Assessment and plan: Small Bowel Obstruction Presumably this is an adhesion related SBO that, in the absence of a mass or evident hernia, may resolve with non operative mgmt to include NGT decompression, IV hydration, and IV ABs with ongoing observation. There are no current definitive indications for emergent or urgent operative intervention but its possible she could end up requiring surgery. I've recommended consideration for transfer to a higher level of care given her medical issues but will defer to our Hospitalist Service if they feel she can be appropriately managed here or not. Issues have been discussed and reviewed at length and we will follow along with her care if she ends up being admitted here. IVFs, NGT Bowel Decompression, IV ABs, and Hold the Plavix +/- Bridging which is deferred to Medicine Status: Acute Time Spent With Patient Time: Total time spent is greater than 50% in coordination of care (as documented) at patient's floor/unit and/or counseling patient:
[2023-01-19] MEDS ORDERED: LACTULOSE 20 GM/30 ML ORAL.SOL PO PRN (17:51)
[2023-01-19] MEDS ORDERED: SENNOSIDES 1 TABLET PO PRN (17:51)
[2023-01-19] MEDS ORDERED: PIPERACILLIN SODIUM/TAZOBACTAM 3.375 GM in DEXTROSE 5% IN WATER 50 ML IV SCH (18:00)
[2023-01-19] MEDS ORDERED: hydrALAZINE 20 MG/ML VIAL IV PRN (18:20)
[2023-01-19] MEDS: PIPERACILLIN SODIUM/TAZOBACTAM 2.25 GM in DEXTROSE 5% IN WATER 50 ML IV SCH ×2 (18:40→23:22)
[2023-01-19] MEDS ORDERED: BUDESONIDE 0.5 MG/2 ML AMPUL.NEB ONE (18:48)
[2023-01-19 19:00] LABS: ALT/SGPT 13 U/L (<40); AST/SGOT 14 U/L (<32); Albumin 4.2 gm/dL (3.2-5.2); Albumin/Globulin Ratio 1.1 (1.0-2.3); Alkaline Phosphatase 107 U/L (39-117); Bilirubin,Total 0.2 mg/dL (0.1-1.0); Blood Urea Nitrogen 52 mg/dL (6-20); Calcium 9.9 mg/dL (8.6-10.4); Carbon Dioxide 34 mmol/L (22-30); Chloride 94 mmol/L (96-108); Globulin 3.7 gm/dL (2.2-3.7); Glomerular Filtration Rate 11; Glucose 86 mg/dL (70-105)
[2023-01-19] MEDS: IPRATROPIUM/ALBUTEROL 3 ML AMPUL.NEB NEB SCH (19:20)
[2023-01-19] MEDS: BUDESONIDE 0.5 MG/2 ML AMPUL.NEB NEB SCH (19:20)
[2023-01-19] MEDS: ONDANSETRON 4 MG/2 ML VIAL IV PRN (19:34)
[2023-01-19] MEDS: LACTATED RINGERS 1,000 ML IV SCH (20:00)
[2023-01-19] MEDS: HYDROcodone/APAP 5/325MG TABLET PO PRN ×2 (20:26→23:46)
[2023-01-19] MEDS: FAMOTIDINE/PF 20 MG/2 ML VIAL IV SCH (20:26)
[2023-01-19] MEDS: DOCUSATE SODIUM 100 MG CAPSULE PO SCH (20:26)
[2023-01-19] MEDS: HYDROmorphone 0.5 MG/0.5 ML SYRINGE IV PRN (20:27)
[2023-01-19] MEDS: 0.9 % SODIUM CHLORIDE 10 ML SYRINGE IV SCH (21:19)
[2023-01-19] MEDS: INSULIN LISPRO 1 UNIT/0.01 ML UNIT SQ SCH (23:32)
[2023-01-19] MEDS: DEXTROSE 31 GM ORAL.SUSP PO PRN (23:38)
[2023-01-20] MEDS: IPRATROPIUM/ALBUTEROL 3 ML AMPUL.NEB NEB SCH ×3 (00:55→13:41)
[2023-01-20] MEDS ORDERED: DEXTROSE 50% 50 ML SYRINGE IV ONE (02:00)
[2023-01-20] MEDS: DEXTROSE 50% 50 ML VIAL IV PRN ×2 (02:01→05:09)
[2023-01-20] MEDS: HYDROcodone/APAP 5/325MG TABLET PO PRN ×2 (03:35→20:24)
[2023-01-20] MEDS: LACTATED RINGERS 1,000 ML IV SCH (04:29)
[2023-01-20] MEDS: 0.9 % SODIUM CHLORIDE 10 ML SYRINGE IV SCH ×4 (05:08→22:05)
[2023-01-20] MEDS: PIPERACILLIN SODIUM/TAZOBACTAM 2.25 GM in DEXTROSE 5% IN WATER 50 ML IV SCH ×3 (05:09→21:21)
[2023-01-20] MEDS: INSULIN LISPRO 1 UNIT/0.01 ML UNIT SQ SCH ×3 (05:09→17:23)
[2023-01-20] MEDS: DEXTROSE 50% 50 ML SYRINGE IV ONE ×2 (05:11→05:40)
[2023-01-20 06:28] LABS: Basophils # (Auto) 0.02 K/mcL (0.00-0.30); Basophils % (Auto) 0.2 % (0.0-2.0); Eosinophils # (Auto) 1.35 K/mcL (0.00-0.70); Eosinophils % (Auto) 10.6 % (0.0-7.0); Hematocrit 37.9 % (34.1-44.9); Hemoglobin 10.9 g/dL (11.2-15.7); Lymphocytes # (Auto) 1.19 K/mcL (1.50-4.80); Lymphocytes % (Auto) 9.4 % (15.5-49.0); Mean Corpuscular HGB Conc 28.8 g/dL (31.0-36.0); Mean Platelet Volume 12.1 fL (8.8-12.5); Monocytes # (Auto) 1.14 K/mcL (0.10-0.90); Neutrophils % (Auto) 70.5 % (38.0-78.0); Platelet Count 198 K/mcL (140-440); RBC 3.61 M/mcL (3.59-5.38); Red Cell Distribution Width 14.4 % (11.5-14.5); WBC 12.7 K/mcL (4.5-11.0)
[2023-01-20] MEDS: DOCUSATE SODIUM 100 MG CAPSULE PO SCH ×2 (08:34→20:04)
[2023-01-20] MEDS: FAMOTIDINE/PF 20 MG/2 ML VIAL IV SCH ×2 (08:34→20:05)
[2023-01-20] MEDS: HYDROmorphone 0.5 MG/0.5 ML SYRINGE IV PRN ×2 (08:34→22:21)
[2023-01-20] MEDS: BUDESONIDE 0.5 MG/2 ML AMPUL.NEB NEB SCH (10:07)
[2023-01-20] MEDS ORDERED: EPINEPHRINE 0.3 MG/0.3 ML IM PRN (10:33)
[2023-01-20] MEDS ORDERED: DARBEPOETIN ALFA 100 MCG/ML VIAL SQ PRN (10:33)
[2023-01-20] MEDS ORDERED: [UNRECOGNIZED DRUG - OTHER] IM PRN (10:33)
--- NOTE | 2023-01-20 10:33 | Internal Med Progress Note ---
SUBJECTIVE Subjective Patient information: Note initiated : 01/20/23 at 10:25 am Service Date, if different from initiated Date: [] Patient: Benny Virk a 57 y/o F admitted on 01/19/23 for weak, vomiting. Chief Complaint: [] Additional PMFSH (Level 3 Only): Ms. Virk is a 57 year old female resident at [facility] has history of ESRD on HD on MWF, diabetes mellitus 2 on insulin, hypertension, COPD requiring supplemental oxygen, hypothyroidism, history of back surgery, chronic back pain on opioids, ADHD, bipolar affective disorder, borderline personality disorder presented with acute onset of nausea, vomiting and abdominal pain since this morning. Patient reported she got up with nausea, had multiple episodes of emesis, nonbloody and constant 10/10 abdominal pain. She reported feeling cold but denied any fever. She was recently hospitalized for septic shock secondary to hemodialysis catheter infection, MSSA bacteremia, encephalopathy and was discharged to higher level of care on 12/03/2022.. It seems like patient is getting serial blood cultures during hemodialysis, patient positive blood culture with coagulase-negative staph on 12/28/2022, apparently nephrology is planning for outpatient transesophageal echocardiogram. Review of record reveals patient has history of cholecystectomy, hysterectomy and hernia repair. In the ED a CT scan of abdomen and pelvis demonstrated mechanical small bowel obstruction with a transition point in left upper quadrant. Gastroccult positive. Lab work showed WBC 10.5, hemoglobin 11.7, renal profile consistent with ESRD. VBG showed elevated PCO2 of 60. Dr. Copeland from general surgery saw patient in consultation. NG tube was placed. Nephrology plan to perform hemodialysis next day. Plavix was held. Patient was started on IV Zosyn per surgery. 01/20. Seen and examined. Overall feeling a little better. NG tube output 1100 overnight. Patient reports she is burping a lot however has not passed any flatus, no bowel movement. Surgery will be evaluating patient. She had low blood glucose of 60 this morning and was given oral glucose and blood glucose improved to 160s. She is on IV fluids. Patient will be dialyzed today per nephrology. Review of systems No fever no chills, still tired but improved from before Less nausea, no vomiting, NG tube in with drainage, no bowel movement yet, burping No shortness of breath, cough or sputum production No chest pain or palpitations No skin rashes No visual disturbance, no diplopia, no headache Denies any depression Exam General General appearance: Present alertawake, well nourished female, resting in bed getting ready for hemodialysis Head Head: Present atraumatic, normocephalic and normal inspection Eye Eye: Present normal appearance, PERRL and EOMI ENT ENT: Present normal exam Neck Neck: Present normal inspection Adbominal Abdominal: Present soft, mildly distended, tenderness is minimal now, bowel sounds are more active, no rebound or rigidity Extremities Extremities: Present normal inspection Neurological Neurological: Present alert and awake, , CN II-XII intact, no focal deficits Psychiatric Psychiatric: Present normal affect Skin Skin: Present warm (WNL) Assessment and plan Small bowel obstruction, acute. Involving jejunum with transition point in left upper quadrant. Continue nonoperative management with bowel rest, NG tube decompression, IV fluids, IV Zosyn. Small bowel series and management per surgery discretion. Dr. Copeland from surgery recommendations appreciated. Diastolic CHF. Patient currently on IV fluids, patient is NPO. We will monitor closely for volume overload plans to perform hemodialysis tomorrow. Hemodialysis per nephrology Recent MSSA bacteremia secondary to hemodialysis catheter infection. Patient without fever, no leukocytosis. Blood cultures ordered. Nephrology will follow Anemia, mild, chronic. On Epogen per nephrology Diabetes mellitus 2. Patient is n.p.o. insulin sliding scale every 6 hours. Monitor BG's. Avoid hypoglycemia CAD. Hold Plavix in case surgery is needed for bowel obstruction COPD, DuoNebs, budesonide. Supplemental oxygen Chronic hypoxic respiratory failure. Secondary to COPD continue supplemental oxygen Hypertension, BP stable, homenorvasc/bb/hydralazine on hold. IV hydralazine as needed Morbid obesity, BMI over 45. Weight reduction advised. Generalized weakness/deconditioning. PT eval Psychiatric issues. History of ADHD, bipolar disorder, borderline personality disorder. Psychotropic medications on hold as patient is n.p.o. CODE STATUS, full code Constitutional Vitals: Vital Signs Temp Pulse Resp BP Pulse Ox O2 Del Method O2 Flow Rate 99.3 F H 98 H 11 L 133/83 98 Nasal Cannula 2 01/20/23 08:01 01/20/23 08:01 01/20/23 10:01 01/20/23 10:01 01/20/23 08:01 01/20/23 10:01 01/20/23 10:01 Period Temp Pulse Resp BP Sys/Phan Pulse Ox O2 Del Method O2 Flow Rate Last 24 Hr 97 F-99.3 F 79-111 11-22 117-177/62-126 93-100 Nasal Cannula- Room Air, Nasal Cannula 2-5 Intake and Output 01/19/23 01/20/23 01/20/23 19:59 03:59 11:59 Intake Total 50 50 898 Output Total 300 900 700 Balance -250 -850 198 Weight 104.598 kg 104.598 kg Intake & Output: Intake & Output 01/19/23 01/20/23 01/20/23 19:59 03:59 11:59 Intake Total 50 50 898 Output Total 300 900 700 Balance -250 -850 198 Weight 104.598 kg 104.598 kg Intake: IV 50 50 898 Lactated Ringers 1,000 ml @ 100 848 mls/hr IV .Q10H [facility] Rx#: [id number] Zosyn 2.25 gm In Dextrose 5% in 50 50 50 Water 50 ml @ 100 mls/hr IV Q8H [facility] Rx#:[id number] Oral 0 Tube Feeding 0 0 Output: Gastric Drainage 300 600 500 Right Nare 300 600 500 Urine Catheter Amount 0 Void Amount 300 200 # of times incontinent of urine 0 Other: Urine Appearance Clear Clear Urine Color Yellow Yellow Urine Odor Normal # Voids 0 # Bowel Movements 0 # of times incontinent of 0 Bowels # Emeses 0 OBJ DATA Labs 01/20/23 05:12 01/19/23 16:55 Labs: Abnormal Lab Results 01/20/23 01/19/23 01/19/23 05:12 16:55 16:50 WBC 12.7 H Hgb 10.9 L MCV 105.0 H MCHC 28.8 L Lymph % (Auto) 9.4 L Eos % (Auto) 10.6 H Lymph # (Auto) 1.19 L Morehouse # (Auto) 1.14 H Eos # (Auto) 1.35 H Absolute Neutrophils 8.96 H ABG Methemoglobin 0.3 L VBG pCO2 60.5 H* VBG pO2 50.6 H VBG HCO3 35.3 H VBG Total CO2 37.2 H VBG O2 Saturation 81.5 H VBG Base Excess 8 H Carboxyhemoglobin 3.9 H Chloride 94 L Carbon Dioxide 34 H POC Total CO2 POC BUN BUN 52 H Creatinine 4.3 H POC Creatinine Glucose POC Glucose Globulin 01/19/23 01/19/23 01/19/23 14:26 14:25 14:19 WBC Hgb MCV 100.5 H MCHC 30.2 L Lymph % (Auto) 12.1 L Eos % (Auto) Lymph # (Auto) 1.26 L Morehouse # (Auto) 1.02 H Eos # (Auto) Absolute Neutrophils ABG Methemoglobin VBG pCO2 VBG pO2 VBG HCO3 VBG Total CO2 VBG O2 Saturation VBG Base Excess Carboxyhemoglobin Chloride 92 L Carbon Dioxide 31 H POC Total CO2 41.0 H POC BUN 61 H BUN 54 H Creatinine 4.6 H POC Creatinine 5.2 H* Glucose 107 H POC Glucose 111 H Globulin 4.0 H Meds: Medications Hydrocodone Bitart/Acetaminophen (Hydrocodone/Apap 5/325mg Tablet) 1 tab PO Q4HP PRN; Protocol PRN Reason: Per Pain Protocol Last Admin: 01/20/23 03:35 Dose: 1 tab Albuterol/Ipratropium (Ipratropium/Albuterol 3 Ml Ampul.Neb) 3 ml NEB Q6HRT [facility] Last Admin: 01/20/23 10:07 Dose: Not Given Budesonide (Budesonide 0.5 Mg/2 Ml Ampul.Neb) 0.5 mg NEB Q12 [facility] Last Admin: 01/20/23 10:07 Dose: Not Given Dextrose (Dextrose 50% 50 Ml Vial) 0 ml IV UD PRN PRN Reason: Per Sliding Scale Last Admin: 01/20/23 05:09 Dose: 50 ml Diagnostic Test (Pha) (Accu-Chek 1 Each Strip) 1 each FS Q6 [facility] Last Admin: 01/20/23 08:41 Dose: 1 each Docusate Sodium (Docusate Sodium 100 Mg Capsule) 100 mg PO BID [facility] Last Admin: 01/20/23 08:34 Dose: Not Given Famotidine (Famotidine/Pf 20 Mg/2 Ml Vial) 20 mg IV Q12 [facility] Last Admin: 01/20/23 08:34 Dose: 20 mg Glucose (Dextrose 31 Gm Oral.Susp) 15 gm PO PRN PRN PRN Reason: Hypoglycemia Last Admin: 01/19/23 23:38 Dose: 15 gm Hydralazine HCl (Hydralazine 20 Mg/Ml Vial) 10 mg IV Q4-6HP PRN PRN Reason: Hypertension Hydromorphone HCl (Hydromorphone 0.5 Mg/0.5 Ml Syringe) 0.5 mg IV Q4HP PRN; Protocol PRN Reason: Per Pain Protocol Last Admin: 01/20/23 08:34 Dose: 0.5 mg Lactated Ringer's (Lactated Ringers) 1,000 mls @ 100 mls/hr IV .Q10H [facility] Last Admin: 01/20/23 04:29 Dose: 100 mls/hr Piperacillin Sod/Tazobactam (Sod 2.25 gm/ Dextrose) 50 mls @ 100 mls/hr IV Q8H [facility] Last Infusion: 01/20/23 05:39 Dose: Infused Insulin Human Lispro (Insulin Lispro 1 Unit/0.01 Ml Unit) 0 unit SQ Q6 [facility]; Protocol Last Admin: 01/20/23 05:09 Dose: Not Given Lactulose (Lactulose 20 Gm/30 Ml Oral.Lilly) 10 gm PO DAILYP PRN PRN Reason: Constipation Ondansetron HCl (Ondansetron 4 Mg/2 Ml Vial) 4 mg IV Q4HP PRN; Protocol PRN Reason: Nausea And Vomiting Last Admin: 01/19/23 19:34 Dose: 4 mg Senna (Sennosides 1 Tablet) 2 tab PO HSP PRN PRN Reason: Constipation Sodium Chloride (0.9 % Sodium Chloride 10 Ml Syringe) 10 ml IV Q8 [facility] Last Admin: 01/20/23 08:34 Dose: 10 ml ABG Interpretation ABG results: 01/19/23 16:50 ABG Methemoglobin 0.3 L VBG pH 7.38 VBG pCO2 60.5 H* VBG pO2 50.6 H VBG HCO3 35.3 H VBG Total CO2 37.2 H VBG O2 Saturation 81.5 H VBG Base Excess 8 H A/P Time Spent With Patient Time: Total time spent is greater than 50% in coordination of care (as documented) at patient's floor/unit and/or counseling patient: Initial: Total time with patient: 55 - 74 minutes QUALITY VTE Deep Vein Thrombosis/Pulmonary Embolism Present on Admission: No
[2023-01-20 11:02] LABS: Appearance,Urine HAZY (Clear); Bilirubin,Urine Negative (Negative); Color,Urine YELLOW; Culture Indicated,Urine No; Glucose,Urine (UA) 50 mg/dL (Negative); Ketones,Urine Negative (Negative); Leukocyte Esterase,Urine Negative /uL (Negative); Mucus,Urine FEW /hpf; Nitrate,Urine Negative (Negative); Protein,Urine >=500 mg/dL (Negative); Specific Gravity,Urine 1.016 (1.000-1.035); Urine Blood Negative (Negative); Urine Hyaline Cast 17 /lph (0-2); Urine RBC 4 /hpf (0-3); Urine Squamous Epithelial Cell 7 /hpf (0-4); Urine WBC 7 /hpf (0-4); Urobilinogen,Urine Negative
[2023-01-20] MEDS: DEXTROSE 5%-NS 1,000 ML IV SCH (11:49)
[2023-01-20] MEDS: DEXTROSE 31 GM ORAL.SUSP PO PRN (11:53)
[2023-01-20] MEDS: Ipratropium-Albuterol [Combivent Respimat] 20-100 mcg Inhaler INH SCH ×2 (11:59→16:52)
--- NOTE | 2023-01-20 12:59 | Nephrology Progress Note ---
SUBJECTIVE Subjective Patient information: Note initiated : 01/20/23 at 12:56 pm Patient: Benny Virk 57 y/o F admitted on 01/19/23 for weak, vomiting. Chief Complaint: Abdominal pain Pertinent ROS: Abdominal pain Weakness Constitutional Vitals: Vital Signs Temp Pulse Resp BP Pulse Ox O2 Del Method O2 Flow Rate 97.5 F 105 H 20 111/84 97 Nasal Cannula 2 01/20/23 12:01 01/20/23 12:42 01/20/23 12:01 01/20/23 12:42 01/20/23 12:01 01/20/23 12:01 01/20/23 12:01 Period Temp Pulse Resp BP Sys/Phan Pulse Ox O2 Del Method O2 Flow Rate Last 24 Hr 97 F-99.3 F 79-114 11-22 88-177/60-126 93-100 Nasal Cannula- Room Air, Nasal Cannula 2-5 Intake and Output 01/20/23 01/20/23 01/20/23 03:59 11:59 19:59 Intake Total 50 1631 Output Total 900 700 Balance -850 931 Weight 230 lb 9.6 oz Intake & Output: Intake & Output 01/20/23 01/20/23 01/20/23 03:59 11:59 19:59 Intake Total 50 1631 Output Total 900 700 Balance -850 931 Weight 230 lb 9.6 oz Intake: IV 50 1631 Lactated Ringers 1,000 ml @ 100 1581 mls/hr IV .Q10H [facility] Rx#: [id number] Zosyn 2.25 gm In Dextrose 5% in 50 50 Water 50 ml @ 100 mls/hr IV Q8H [facility] Rx#:[id number] Oral 0 Tube Feeding 0 Output: Gastric Drainage 600 500 Right Nare 600 500 Urine Catheter Amount 0 Void Amount 300 200 # of times incontinent of urine 0 Other: Urine Appearance Clear Clear Urine Color Yellow Yellow Urine Odor Normal # Voids 0 # Bowel Movements 0 # of times incontinent of 0 Bowels # Emeses 0 General appearance: cooperative and no acute distress Head Head exam: Present normal inspection Eye Eye exam: Present normal appearance ENT Additional comments: NG tube with black drainage Respiratory Respiratory exam: Absent respiratory distress Cardiovascular Cardiovascular exam: Present normal rate and rhythm GI/Abdominal GI/Abdominal exam: Present distended and tenderness Extremities Exam Extremities exam: Absent joint swelling or pedal edema Neurological Exam Neurological exam: Present alert and oriented X3 Psychiatric Psychiatric exam: Present normal affect and normal mood Skin Skin exam: Present warm; Absent rash A/P Assessment and plan (1) ESRD on hemodialysis: Assessment and plan: Benny Virk is a 57-year-old female with end stage renal disease on hemodialysis(due to diabetic nephropathy by a kidney biopsy on 07/14/22), chronic anemia due to ESRD, hypertension, diabetes mellitus type 2, recent line sepsis presented to ED on 01/19/23 for weakness, abdominal pain, vomiting. She missed her dialysis. In ED, workup was consistent with small bowel obstruction. She is being admitted. Nephrology consultation was requested for end stage renal disease. End stage renal disease on hemodialysis on Thursday, Thursday, Thursday at [facility]. Last outpatient hemodialysis on 01/16/23. Access: Tunneled HD catheter. Chronic anemia due to ESRD. Recommendations/Plan: Hemodialysis today without heparin. The patient seen and evaluated during hemodialysis. Next hemodialysis on Thursday and Thursday. Status: Chronic Time Spent With Patient Time: Total time spent is greater than 50% in coordination of care (as documented) at patient's floor/unit and/or counseling patient:
[2023-01-20] MEDS ORDERED: IPRATROPIUM/ALBUTEROL 3 ML AMPUL.NEB NEB PRN (13:44)
[2023-01-20] MEDS: CARVEDILOL 12.5 MG TABLET PO SCH (16:56)
--- OUTSIDE RECORDS SUMMARY | 2023-01-20 17:53 | External Medical Summary ---
Author Name AMANDA HUBBARD Address [address] [place] [address] Organization [facility] Address [address] [place] [address] Care Team Providers Care Machine I Trimmer Name Role Phone AMANDA HUBBARD Unavailable [phone] PROBLEMS Type Condition ICD9-CM Code [id number] Code Onset Dates Condition Status SNOMED Code Problem Status post PICC central line placement Z95.828 Active ALLERGIES Substance Reaction Event Type Date Status Promethazine HCl Unknown Drug Allergy Aug, Acti ve Metoclopramide HCl Unknown Drug Allergy Aug, Ac tive Propoxyphene Unknown Drug Allergy Aug, Active Tape Unknown Non Drug Allergy Aug, Active Theophylline Unknown Drug Allergy Aug, Active Meperidine HCl Unknown Drug Allergy Aug, Active Oxycodone HCl Unknown Drug Allergy Aug, Active Morphine Sulfate Unknown Drug Allergy Aug, Acti ve Iodinated Contrast Agents Unknown Non Drug Allergy 2019 Active ENCOUNTERS Encounter Location Date Diagnosis [place] [id number] Jul,2018 novel coronavirus disease (COVID-19) U07.1 [place] [address] Jun, Recurrent pain of right knee M25.561 [facility] [place] [address] May, Bipolar affective disorder, currently manic, moderate F31.12 and Status post PICC central line placement Z95.828 IMMUNIZATIONS No Known Immunizations SOCIAL HISTORY Qualifiers Date Former Smoker REASON FOR REFERRAL FUNCTIONAL STATUS PLAN OF CARE Activity Details VITAL SIGNS Height 62 in 2020-07-26 Height 62 in 2020-06-26 Height 62 in 2020-06-05 Weight 208 lbs 2020-07-26 Weight 215 lbs 2020-06-26 Weight 205.6 lbs 2020-06-05 BMI 38.04 kg/m2 2020-07-26 BMI 39.32 kg/m2 2020-06-26 BMI 37.60 kg/m2 2020-06-05 Heart Rate 82 2020-06-26 Heart Rate 83 2020-06-05 Oximetry 06 2020-07-26 Temperature 97 degrees Fahrenheit 2020-07-26 Temperature 97.5 degrees Fahrenheit Temperature 97.3 degrees Fahrenheit Blood pressure systolic 130 Blood pressure diastolic 90 2020-07 MEDICATIONS Medication Instructions Dosage Frequency Start Date End Date Du ration Status See facility med list in pt docs Acti ve PROCEDURES Procedure Date Ordered Result Body Site DOC MEDS VERIFIED W/PT OR RE Jun 05, 2020 SNF Sub Level 2 Jul 26, 2020 SNF Sub Level 2 Jun 26, 2020 RESULTS No Results REASON FOR VISIT nhv, NHV, New admit Insurance Providers Health Insurance Type Health Plan Insurance Address Health Plan Insurance Phone Health Plan Insurance Name Health Plan Coverage Dates Member ID Patient Relationship to Subscriber Patient Address Patient Phone Patient Name Patient Date of Subscriber ID Subscriber Name Subscriber Date of Group No [place] [address] [place] [address] [place] self Benny Virk [id number]
[2023-01-20] MEDS: DEXTROAMPHETAMINE AMPHETAMINE 15 MG PO SCH (20:01)
[2023-01-20] MEDS: MONTELUKAST 10 MG TABLET PO SCH (20:04)
[2023-01-20] MEDS: FORMOTEROL FUMARATE 20 MCG/2 ML INH SCH (20:06)
[2023-01-20] MEDS: lamoTRIgine 100 MG TABLET PO SCH (20:09)
[2023-01-20] MEDS: risperiDONE 1 MG TABLET PO SCH (20:09)
--- NOTE | 2023-01-20 20:26 | General Surgery Progress Note ---
SUBJECTIVE Subjective Patient information: Note initiated : 01/20/23 at 1340 pm Service Date, if different from initiated Date: [] Patient: Benny Virk 57 y/o F admitted on 01/19/23 for weak, vomiting. Chief Complaint: [] Remains in ICU currently on hemodialysis which per nursing she is tolerating well. She has had no signifcant Abdominal Pain per nursing as well and NGT has been functional. Constitutional Vitals: Vital Signs Temp Pulse Resp BP Pulse Ox O2 Del Method O2 Flow Rate 97.9 F 93 H 23 H 131/95 99 Nasal Cannula 2 01/20/23 16:00 01/20/23 18:28 01/20/23 18:28 01/20/23 18:28 01/20/23 18:28 01/20/23 18:28 01/20/23 18:28 Period Temp Pulse Resp BP Sys/Phan Pulse Ox O2 Del Method O2 Flow Rate Last 24 Hr 97.2 F-99.3 F 90-114 11-23 88-154/60-117 96-100 Nasal Cannula- Room Air, Nasal Cannula 2-5 Intake and Output 01/20/23 01/20/23 01/21/23 11:59 19:59 03:59 Intake Total 1631 100 Output Total 700 1426 Balance 931 -1326 Weight 230 lb 9.6 oz Patient Weight 01/21/23 03:59 Weight 230 lb 9.6 oz Intake & Output: Intake & Output 01/20/23 01/20/23 01/21/23 11:59 19:59 03:59 Intake Total 1631 100 Output Total 700 1426 Balance 931 -1326 Weight 230 lb 9.6 oz Intake: IV 1631 50 Lactated Ringers 1,000 ml @ 100 1581 mls/hr IV .Q10H [facility] Rx#: [id number] Zosyn 2.25 gm In Dextrose 5% in 50 50 Water 50 ml @ 100 mls/hr IV Q8H [facility] Rx#:[id number] Oral 0 50 Tube Feeding 0 0 Output: Gastric Drainage 500 300 Right Nare 500 300 Urine Catheter Amount 0 Void Amount 200 125 # of times incontinent of urine 0 1 Hemodialysis UF 1000 Other: Urine Appearance Clear Cloudy Urine Color Yellow Yellow Urine Odor Normal # Voids 0 # Bowel Movements 0 0 # of times incontinent of 0 0 Bowels Exam: resting comfortably without distress GI/Abdominal Additional comments: soft and obese, seems non tender, non distended NGT in place with good function A/P Assessment and plan (1) SBO (small bowel obstruction): Assessment and plan: Adhesion related SBO Ongoing management with bowel rest and NGT decompression Re check plain films in the AM and continue present management for now Status: Acute Time Spent With Patient Time: Total time spent is greater than 50% in coordination of care (as documented) at patient's floor/unit and/or counseling patient:
[2023-01-20] MEDS: ONDANSETRON 4 MG/2 ML VIAL IV PRN (20:31)
[2023-01-20] MEDS ORDERED: LEVOTHYROXINE 100 MCG TABLET PO SCH (21:00)
[2023-01-21] MEDS: INSULIN LISPRO 1 UNIT/0.01 ML UNIT SQ SCH ×4 (00:24→17:23)
[2023-01-21] MEDS: DEXTROSE 5%-NS 1,000 ML IV SCH ×2 (03:03→18:28)
[2023-01-21] MEDS: PIPERACILLIN SODIUM/TAZOBACTAM 2.25 GM in DEXTROSE 5% IN WATER 50 ML IV SCH (05:06)
[2023-01-21] MEDS: 0.9 % SODIUM CHLORIDE 10 ML SYRINGE IV SCH ×3 (05:12→21:03)
[2023-01-21 06:26] LABS: Basophils # (Auto) 0.02 K/mcL (0.00-0.30); Basophils % (Auto) 0.2 % (0.0-2.0); Eosinophils # (Auto) 1.17 K/mcL (0.00-0.70); Eosinophils % (Auto) 12.3 % (0.0-7.0); Hematocrit 31.3 % (34.1-44.9); Hemoglobin 9.4 g/dL (11.2-15.7); Lymphocytes # (Auto) 1.85 K/mcL (1.50-4.80); Lymphocytes % (Auto) 19.5 % (15.5-49.0); Mean Cell Volume 101.3 fL (80.0-100.0); Monocytes # (Auto) 0.92 K/mcL (0.10-0.90); Monocytes % (Auto) 9.7 % (1.0-12.0); Neutrophils % (Auto) 58.1 % (38.0-78.0); Platelet Count 144 K/mcL (140-440); RBC 3.09 M/mcL (3.59-5.38); Red Cell Distribution Width 14.4 % (11.5-14.5); WBC 9.5 K/mcL (4.5-11.0)
[2023-01-21 06:40] LABS: ALT/SGPT 9 U/L (<40); AST/SGOT 13 U/L (<32); Albumin 3.4 gm/dL (3.2-5.2); Albumin/Globulin Ratio 1.1 (1.0-2.3); Alkaline Phosphatase 82 U/L (39-117); Bilirubin,Total 0.3 mg/dL (0.1-1.0); Blood Urea Nitrogen 27 mg/dL (6-20); Calcium 8.6 mg/dL (8.6-10.4); Carbon Dioxide 28 mmol/L (22-30); Chloride 97 mmol/L (96-108); Glomerular Filtration Rate 13; Glucose 93 mg/dL (70-105)
--- NOTE | 2023-01-21 07:35 | Nephrology Progress Note ---
SUBJECTIVE Subjective Patient information: Note initiated : 01/21/23 at 7:32 am Patient: Benny Virk 57 y/o F admitted on 01/19/23 for weak, vomiting. Chief Complaint: Nausea Pertinent ROS: NG tube Weakness Constitutional Vitals: Vital Signs Temp Pulse Resp BP Pulse Ox O2 Del Method O2 Flow Rate 98.7 F 84 12 137/62 99 Nasal Cannula 2 01/21/23 04:02 01/21/23 06:01 01/21/23 06:01 01/21/23 06:01 01/21/23 06:01 01/21/23 06:00 01/21/23 06:00 Period Temp Pulse Resp BP Sys/Phan Pulse Ox O2 Del Method O2 Flow Rate Last 24 Hr 97.2 F-99.3 F 78-114 11-23 88-143/44-117 95-100 Nasal Cannula- Nasal Cannula 2-2 Intake and Output 01/20/23 01/21/23 01/21/23 19:59 03:59 11:59 Intake Total 100 1100 50 Output Total 1426 225 0 Balance -1326 875 50 Weight 230 lb 9.6 oz 230 lb 6.4 oz Intake & Output: Intake & Output 01/20/23 01/21/23 01/21/23 19:59 03:59 11:59 Intake Total 100 1100 50 Output Total 1426 225 0 Balance -1326 875 50 Weight 230 lb 9.6 oz 230 lb 6.4 oz Intake: IV 50 1050 50 Dextrose 5%-Ns IV Solution 1, 1000 000 ml @ 70 mls/hr IV .[id number] [facility]ICA Rx#:[id number] Zosyn 2.25 gm In Dextrose 5% in 50 50 50 Water 50 ml @ 100 mls/hr IV Q8H [facility] Rx#:[id number] Oral 50 0 Tube Feeding 0 50 Output: Gastric Drainage 300 200 Right Nare 300 200 Void Amount 125 25 0 # of times incontinent of urine 1 Stool 0 0 Hemodialysis UF 1000 Other: Urine Appearance Cloudy Urine Color Yellow Stool Size Smear # Bowel Movements 0 1 # of times incontinent of 0 Bowels General appearance: cooperative and no acute distress Head Head exam: Present normal inspection Eye Eye exam: Present normal appearance ENT Additional comments: NG tube with black drainage Respiratory Respiratory exam: Absent respiratory distress Cardiovascular Cardiovascular exam: Present normal rate and rhythm GI/Abdominal GI/Abdominal exam: Present soft Extremities Exam Extremities exam: Absent joint swelling or pedal edema Neurological Exam Neurological exam: Present alert and oriented X3 Psychiatric Psychiatric exam: Present normal affect and normal mood Skin Skin exam: Present warm; Absent rash A/P Assessment and plan (1) ESRD on hemodialysis: Assessment and plan: Benny Virk is a 57-year-old female with end stage renal disease on hemodialysis(due to diabetic nephropathy by a kidney biopsy on 07/14/22), chronic anemia due to ESRD, hypertension, diabetes mellitus type 2, recent line sepsis presented to ED on 01/19/23 for weakness, abdominal pain, vomiting. She missed her dialysis. In ED, workup was consistent with small bowel obstruction. She is being admitted. Nephrology consultation was requested for end stage renal disease. End stage renal disease on hemodialysis on Thursday, Thursday, Thursday at [facility]. Last hemodialysis on 01/20/23. Access: Tunneled HD catheter. Chronic anemia due to ESRD. Recommendations/Plan: Hemodialysis today with heparin. The patient seen and evaluated during hemodialysis at 12:40. Tolerating well. Next hemodialysis on Thursday. Status: Chronic Time Spent With Patient Time: Total time spent is greater than 50% in coordination of care (as documented) at patient's floor/unit and/or counseling patient:
--- NOTE | 2023-01-21 08:00 | XRay Report ---
INDICATION: eval sbo TECHNIQUE: Supine and upright abdomen. COMPARISON: Previous CT scans dated 12/01/2022 and 01/19/2023 FINDINGS:Esophagogastric tube with its tip in the gastric antrum. There is gas and fecal material within the colon. No dilated gas-filled small bowel. Bowel gas pattern has improved since previous examination. There is no pneumoperitoneum. No biliary or portal venous gas. IMPRESSION: Improved bowel gas pattern Interpreted and Authenticated by: Esau Barillas 01/21/23
[2023-01-21] MEDS: FORMOTEROL FUMARATE 20 MCG/2 ML INH SCH ×2 (08:24→20:30)
--- NOTE | 2023-01-21 08:28 | Internal Med Progress Note ---
SUBJECTIVE Subjective Patient information: Note initiated : 01/21/23 at 8:21 am Service Date, if different from initiated Date: [] Patient: Benny Virk a 57 y/o F admitted on 01/19/23 for weak, vomiting. Chief Complaint: [] Interval history: Ms. Virk is a 57 year old female resident at [facility] has history of ESRD on HD on MWF, diabetes mellitus 2 on insulin, hypertension, COPD requiring supplemental oxygen, hypothyroidism, history of back surgery, chronic back pain on opioids, ADHD, bipolar affective disorder, borderline personality disorder presented with acute onset of nausea, vomiting and abdominal pain since this morning. Patient reported she got up with nausea, had multiple episodes of emesis, nonbloody and constant 10/10 abdominal pain. She reported feeling cold but denied any fever. She was recently hospitalized for septic shock secondary to hemodialysis catheter infection, MSSA bacteremia, encephalopathy and was discharged to higher level of care on 12/03/2022.. It seems like patient is getting serial blood cultures during hemodialysis, patient positive blood culture with coagulase- negative staph on 12/28/2022, apparently nephrology is planning for outpatient transesophageal echocardiogram. Review of record reveals patient has history of cholecystectomy, hysterectomy and hernia repair. In the ED a CT scan of abdomen and pelvis demonstrated mechanical small bowel obstruction with a transition point in left upper quadrant. Gastroccult positive. Lab work showed WBC 10.5, hemoglobin 11.7, renal profile consistent with ESRD. VBG showed elevated PCO2 of 60. Dr. Copeland from general surgery saw patient in consultation. NG tube was placed. Nephrology plan to perform hemodialysis next day. Plavix was held. Patient was started on IV Zosyn per surgery. 01/20. Seen and examined. Overall feeling a little better. NG tube output 1100 overnight. Patient reports she is burping a lot however has not passed any flatus, no bowel movement. Surgery will be evaluating patient. She had low blood glucose of 60 this morning and was given oral glucose and blood glucose improved to 160s. She is on IV fluids. Patient will be dialyzed today per nephrology. 01/21: There was no major overnight events. No hypoglycemia episodes overnight. Patient is feeling very good this morning. She denies any abdominal pain. She denies any nausea or vomiting. Repeat KUB this morning showing improved bowel gas pattern. We will see what general surgeons recommend regarding the NG tube, when to feed patients, and overall management of the small bowel obstructions. We will keep the patient n.p.o. status for the time being and we will continue D5 NS. We will DC Zosyn because there is no sign of active infections and the leukocytosis resolved. We will downgrade the patient from stepdown ICU to [facility] and will DC telemetry. Constitutional Vitals: Vital Signs Temp Pulse Resp BP Pulse Ox O2 Del Method O2 Flow Rate 37.1 C 83 13 142/65 98 Nasal Cannula 2 01/21/23 08:07 01/21/23 08:07 01/21/23 08:07 01/21/23 08:07 01/21/23 08:07 01/21/23 08:07 01/21/23 08:07 Period Temp Pulse Resp BP Sys/Phan Pulse Ox O2 Del Method O2 Flow Rate Last 24 Hr 36.2 C-37.1 C 78-114 11-23 88-143/44-117 91-100 BiPAP-Nasal Cannula 2-30 Intake and Output 01/20/23 01/21/23 01/21/23 19:59 03:59 11:59 Intake Total 100 1100 373 Output Total 1426 225 0 Balance -1326 875 373 Weight 104.598 kg 104.508 kg Intake & Output: Intake & Output 01/20/23 01/21/23 01/21/23 19:59 03:59 11:59 Intake Total 100 1100 373 Output Total 1426 225 0 Balance -1326 875 373 Weight 104.598 kg 104.508 kg Intake: IV 50 1050 373 Dextrose 5%-Ns IV Solution 1, 1000 323 000 ml @ 70 mls/hr IV .[id number] [facility] Rx#:[id number] Zosyn 2.25 gm In Dextrose 5% in 50 50 50 Water 50 ml @ 100 mls/hr IV Q8H [facility] Rx#:[id number] Oral 50 0 Tube Feeding 0 50 0 Output: Gastric Drainage 300 200 Right Nare 300 200 Void Amount 125 25 0 # of times incontinent of urine 1 Stool 0 0 Hemodialysis UF 1000 Other: Urine Appearance Cloudy Urine Color Yellow Stool Size Smear # Bowel Movements 0 1 # of times incontinent of 0 Bowels Head Head exam: Present atraumatic and normal inspection Eye Eye exam: Present normal appearance ENT ENT exam: Present mucous membranes moist, normal exam and normal external ear exam Additional comments: NG tube and Nasal cannula in place Neck Neck exam: Present normal inspection Respiratory Respiratory exam: Present normal respiratory exam Cardiovascular Cardiovascular exam: Present normal rate and rhythm GI/Abdominal GI/Abdominal exam: Present normal bowel sounds Additional comments: Hypoactive bowel sound Back Exam Back exam: Present normal inspection Neurological Exam Neurological exam: Present alert and oriented X3 Skin Skin exam: Present intact and warm OBJ DATA Labs 01/21/23 05:16 01/21/23 05:16 Labs: Abnormal Lab Results 01/21/23 01/21/23 01/20/23 05:16 05:16 09:25 WBC RBC 3.09 L Hgb 9.4 L Hct 31.3 L MCV 101.3 H MCHC 30.0 L Lymph % (Auto) Eos % (Auto) 12.3 H Lymph # (Auto) Grainger # (Auto) 0.92 H Eos # (Auto) 1.17 H Absolute Neutrophils ABG Methemoglobin VBG pCO2 VBG pO2 VBG HCO3 VBG Total CO2 VBG O2 Saturation VBG Base Excess Carboxyhemoglobin Chloride Carbon Dioxide POC Total CO2 POC BUN BUN 27 H Creatinine 3.6 H POC Creatinine Glucose POC Glucose Globulin Urine Appearance Hazy A Urine Protein >=500 A Urine Glucose (UA) 50 A Urine RBC 4 H Urine WBC 7 H Ur Squamous Epith Cells 7 H Hyaline Casts 17 H Urine Mucus Few A 01/20/23 01/19/23 01/19/23 05:12 16:55 16:50 WBC 12.7 H RBC Hgb 10.9 L Hct MCV 105.0 H MCHC 28.8 L Lymph % (Auto) 9.4 L Eos % (Auto) 10.6 H Lymph # (Auto) 1.19 L Grainger # (Auto) 1.14 H Eos # (Auto) 1.35 H Absolute Neutrophils 8.96 H ABG Methemoglobin 0.3 L VBG pCO2 60.5 H* VBG pO2 50.6 H VBG HCO3 35.3 H VBG Total CO2 37.2 H VBG O2 Saturation 81.5 H VBG Base Excess 8 H Carboxyhemoglobin 3.9 H Chloride 94 L Carbon Dioxide 34 H POC Total CO2 POC BUN BUN 52 H Creatinine 4.3 H POC Creatinine Glucose POC Glucose Globulin Urine Appearance Urine Protein Urine Glucose (UA) Urine RBC Urine WBC Ur Squamous Epith Cells Hyaline Casts Urine Mucus 01/19/23 01/19/23 01/19/23 14:26 14:25 14:19 WBC RBC Hgb Hct MCV 100.5 H MCHC 30.2 L Lymph % (Auto) 12.1 L Eos % (Auto) Lymph # (Auto) 1.26 L Grainger # (Auto) 1.02 H Eos # (Auto) Absolute Neutrophils ABG Methemoglobin VBG pCO2 VBG pO2 VBG HCO3 VBG Total CO2 VBG O2 Saturation VBG Base Excess Carboxyhemoglobin Chloride 92 L Carbon Dioxide 31 H POC Total CO2 41.0 H POC BUN 61 H BUN 54 H Creatinine 4.6 H POC Creatinine 5.2 H* Glucose 107 H POC Glucose 111 H Globulin 4.0 H Urine Appearance Urine Protein Urine Glucose (UA) Urine RBC Urine WBC Ur Squamous Epith Cells Hyaline Casts Urine Mucus Meds: Medications Hydrocodone Bitart/Acetaminophen (Hydrocodone/Apap 5/325mg Tablet) 1 tab PO Q4HP PRN; Protocol PRN Reason: Per Pain Protocol Last Admin: 01/20/23 20:24 Dose: 1 tab Albuterol/Ipratropium (Ipratropium/Albuterol 3 Ml Ampul.Neb) 3 ml NEB Q6HRT PRN PRN Reason: Shortness Of Breath Or Wheezing Carvedilol (Carvedilol 12.5 Mg Tablet) 25 mg PO BIDCC [facility] Last Admin: 01/20/23 16:56 Dose: 25 mg Dextrose (Dextrose 50% 50 Ml Vial) 0 ml IV UD PRN PRN Reason: Per Sliding Scale Last Admin: 01/20/23 05:09 Dose: 50 ml Diagnostic Test (Pha) (Accu-Chek 1 Each Strip) 1 each FS Q6 [facility] Last Admin: 01/21/23 05:16 Dose: 1 each Docusate Sodium (Docusate Sodium 100 Mg Capsule) 100 mg PO BID [facility] Last Admin: 01/20/23 20:04 Dose: 100 mg Escitalopram Oxalate (Escitalopram 20 Mg Tablet) 20 mg PO DAILY [facility] Famotidine (Famotidine/Pf 20 Mg/2 Ml Vial) 20 mg IV Q12 [facility] Last Admin: 01/20/23 20:05 Dose: 20 mg Glucose (Dextrose 31 Gm Oral.Susp) 15 gm PO PRN PRN PRN Reason: Hypoglycemia Last Admin: 01/20/23 11:53 Dose: 15 gm Hydralazine HCl (Hydralazine 20 Mg/Ml Vial) 10 mg IV Q4-6HP PRN PRN Reason: Hypertension Hydromorphone HCl (Hydromorphone 0.5 Mg/0.5 Ml Syringe) 0.5 mg IV Q4HP PRN; Protocol PRN Reason: Per Pain Protocol Last Admin: 01/20/23 22:21 Dose: 0.5 mg Dextrose/Sodium Chloride (Dextrose 5%-Ns Iv Solution) 1,000 mls @ 70 mls/hr IV .[id number] [facility] Last Infusion: 01/21/23 08:05 Dose: 70 mls/hr Insulin Human Lispro (Insulin Lispro 1 Unit/0.01 Ml Unit) 0 unit SQ Q6 [facility]; Protocol Last Admin: 01/21/23 05:16 Dose: Not Given Lactulose (Lactulose 20 Gm/30 Ml Oral.Lilly) 10 gm PO DAILYP PRN PRN Reason: Constipation Lamotrigine (Lamotrigine 100 Mg Tablet) 50 mg PO BID [facility] Last Admin: 01/20/23 20:09 Dose: 50 mg Levothyroxine Sodium (Levothyroxine 100 Mcg Tablet) 100 mcg PO HS [facility] Last Admin: 01/20/23 20:09 Dose: 100 mcg Levothyroxine Sodium (Levothyroxine 100 Mcg Vial) 100 mcg IV QAMAC [facility] Montelukast Sodium (Montelukast 10 Mg Tablet) 10 mg PO HS [facility] Last Admin: 01/20/23 20:04 Dose: 10 mg Ondansetron HCl (Ondansetron 4 Mg/2 Ml Vial) 4 mg IV Q4HP PRN; Protocol PRN Reason: Nausea And Vomiting Last Admin: 01/20/23 20:31 Dose: 4 mg Dextroamphetamine- Amphetamine [ Adderall] 15 Mg Tab 2 dose PO BID [facility] Last Admin: 01/20/23 20:01 Dose: 2 dose Formoterol Fumarate 20 Mcg/2 Ml Solution For Nebulizing 1 dose INH BID [facility] Last Admin: 01/20/23 20:06 Dose: 1 dose Sildenafil (Pulm. Hypertension) 20 Mg Tablet 1 dose PO TID [facility] Last Admin: 01/20/23 20:05 Dose: 1 dose Risperidone (Risperidone 1 Mg Tablet) 1 mg PO BID [facility] Last Admin: 01/20/23 20:09 Dose: 1 mg Senna (Sennosides 1 Tablet) 2 tab PO HSP PRN PRN Reason: Constipation Sodium Chloride (0.9 % Sodium Chloride 10 Ml Syringe) 10 ml IV Q8 [facility] Last Admin: 01/21/23 05:12 Dose: Not Given Throat Lozenges (Benzocaine/Menthol 1 Lozenge) 1 lozenge PO PRN PRN PRN Reason: Sore Throat ABG Interpretation ABG results: 01/19/23 16:50 ABG Methemoglobin 0.3 L VBG pH 7.38 VBG pCO2 60.5 H* VBG pO2 50.6 H VBG HCO3 35.3 H VBG Total CO2 37.2 H VBG O2 Saturation 81.5 H VBG Base Excess 8 H A/P Assessment and plan (1) SBO (small bowel obstruction): Status: Acute (2) Hypothyroidism (acquired): Status: Acute (3) Diabetes mellitus, type II: Status: Chronic (4) Essential hypertension: Status: Chronic (5) ADD (attention deficit disorder): Status: Chronic (6) Anemia in ESRD (end-stage renal disease): Status: Chronic Comment: Will need more JERMAINE due to hospitalization and blood loss to lab (7) ESRD on hemodialysis: Status: Chronic (8) Morbid (severe) obesity due to excess calories: Status: Chronic Comment: This is the central problem that has led directly to most of her other maladies. Especially infection of CVC (9) CAD (coronary artery disease): Status: Chronic (10) GERD (gastroesophageal reflux disease): Status: Chronic (11) COPD (chronic obstructive pulmonary disease): Status: Acute Narrative A/P Narrative: Assessment and Plans: 1. Small bowel obstruction: Downgrade from step down ICU to med surg. d/c telemetry. Will work with general surgeon, and will keep NT tube and NPO status until then. Hold Plavix in case surgery is indicated Zofran [place] Dilaudid 2. T2DM: Will keep patient NPO status until cleared by surgery Insulin Lispro SSI q6hr Accu Check q6hr Hypoglycemia protocol 3. Essential hypertension: Coreg Hydralazine IV 4. GERD: Famotidine IV 6. Hypothyroidism: Continue thyroid replacement therapy 7. ESRD on hemodialysis: Hemodialysis Thursday as per nephrology 8. COPD: Continue bronchodilators from home regimen 9. ADD: Adderall 10. Depression: Lexapro Risperidone GI ppx: Famotidine DVT ppx: SCDs Code status: Full Prognosis: Stable Disposition: inpatient med surg Time Spent With Patient Time: Total time spent is greater than 50% in coordination of care (as documented) at patient's floor/unit and/or counseling patient: Subsequent: Total time with patient: 35 - 49 minutes QUALITY VTE Deep Vein Thrombosis/Pulmonary Embolism Present on Admission: No
[2023-01-21] MEDS: DEXTROAMPHETAMINE AMPHETAMINE 15 MG PO SCH ×3 (08:29→21:55)
[2023-01-21] MEDS: FAMOTIDINE/PF 20 MG/2 ML VIAL IV SCH ×2 (08:30→21:02)
[2023-01-21] MEDS: ESCITALOPRAM 20 MG TABLET PO SCH (08:30)
[2023-01-21] MEDS: BENZOCAINE/MENTHOL 1 LOZENGE PO PRN ×3 (08:30→18:28)
[2023-01-21] MEDS: risperiDONE 1 MG TABLET PO SCH ×2 (08:30→21:02)
[2023-01-21] MEDS: DOCUSATE SODIUM 100 MG CAPSULE PO SCH (08:32)
[2023-01-21] MEDS: lamoTRIgine 100 MG TABLET PO SCH ×2 (08:32→21:03)
[2023-01-21] MEDS: CARVEDILOL 12.5 MG TABLET PO SCH ×2 (08:32→17:19)
[2023-01-21] MEDS: HYDROcodone/APAP 5/325MG TABLET PO PRN ×4 (08:32→21:55)
[2023-01-21] MEDS: MONTELUKAST 10 MG TABLET PO SCH (21:02)
--- NOTE | 2023-01-21 23:19 | General Surgery Progress Note ---
SUBJECTIVE Subjective Patient information: Note initiated : 01/21/23 at 1430 pm Service Date, if different from initiated Date: [] Patient: Benny Virk 57 y/o F admitted on 01/19/23 for weak, vomiting. Chief Complaint: [] Feeling better today, no abdominal pain, passing some gas and diminished NGT output Constitutional Vitals: Vital Signs Temp Pulse Resp BP Pulse Ox O2 Del Method O2 Flow Rate 97.6 F 62 16 106/45 99 Nasal Cannula 2 01/21/23 20:06 01/21/23 20:33 01/21/23 20:33 01/21/23 20:06 01/21/23 20:33 01/21/23 20:33 01/21/23 20:33 Period Temp Pulse Resp BP Sys/Phan Pulse Ox O2 Del Method O2 Flow Rate Last 24 Hr 97.3 F-98.8 F 62-100 11-22 96-162/44-90 91-100 BiPAP-Room Air 2-30 Intake and Output 01/21/23 01/21/23 01/22/23 11:59 19:59 03:59 Intake Total 473 727 Output Total 0 3400 Balance 473 -2673 Weight 224 lb 11.2 oz Patient Weight 01/22/23 03:59 Weight 224 lb 11.2 oz Intake & Output: Intake & Output 01/21/23 01/21/23 01/22/23 11:59 19:59 03:59 Intake Total 473 727 Output Total 0 3400 Balance 473 -2673 Weight 224 lb 11.2 oz Intake: IV 373 677 Dextrose 5%-Ns IV Solution 1, 323 677 000 ml @ 70 mls/hr IV .[id number] [facility] Rx#:[id number] Zosyn 2.25 gm In Dextrose 5% in 50 Water 50 ml @ 100 mls/hr IV Q8H [facility] Rx#:[id number] Oral 100 50 Tube Feeding 0 0 Output: Gastric Drainage 200 Right Nare 200 Void Amount 0 200 # of times incontinent of urine 0 0 Stool 0 Hemodialysis UF 3000 Other: # Voids 0 0 # Bowel Movements 0 0 # of times incontinent of 0 0 Bowels Exam: looks well, conversant GI/Abdominal Additional comments: belly is soft and non distended, non tender, NGT in place A/P Assessment and plan (1) SBO (small bowel obstruction): Assessment and plan: Resolving SBO Continue NGT for now Probable SBFT tomorrow with NGT removal and initiation of clears if all looks well Status: Acute Time Spent With Patient Time: Total time spent is greater than 50% in coordination of care (as documented) at patient's floor/unit and/or counseling patient:
[2023-01-22] MEDS: INSULIN LISPRO 1 UNIT/0.01 ML UNIT SQ SCH ×5 (00:11→20:39)
[2023-01-22] MEDS: HYDROcodone/APAP 5/325MG TABLET PO PRN ×4 (04:14→21:55)
--- NOTE | 2023-01-22 05:52 | Nephrology Progress Note ---
SUBJECTIVE Subjective Patient information: Note initiated : 01/22/23 at 5:46 am Patient: Benny Virk 57 y/o F admitted on 01/19/23 for weak, vomiting. Chief Complaint: Weakness Pertinent ROS: Weakness NG tube Constitutional Vitals: Vital Signs Temp Pulse Resp BP Pulse Ox O2 Del Method O2 Flow Rate 97.5 F 76 12 140/54 98 Nasal Cannula 2 01/22/23 04:14 01/22/23 04:14 01/22/23 04:14 01/22/23 04:14 01/22/23 04:14 01/22/23 04:14 01/22/23 04:14 Period Temp Pulse Resp BP Sys/Phan Pulse Ox O2 Del Method O2 Flow Rate Last 24 Hr 97.3 F-98.8 F 61-100 11-20 101-162/45-90 91-100 BiPAP-Room Air 2-30 Intake and Output 01/21/23 01/22/23 01/22/23 19:59 03:59 11:59 Intake Total 727 100 Output Total 3400 50 270 Balance -2673 -50 -170 Weight 224 lb 11.2 oz Intake & Output: Intake & Output 01/21/23 01/22/23 01/22/23 19:59 03:59 11:59 Intake Total 727 100 Output Total 3400 50 270 Balance -2673 -50 -170 Weight 224 lb 11.2 oz Intake: IV 677 Dextrose 5%-Ns IV Solution 1, 677 000 ml @ 70 mls/hr IV .[id number] [facility] Rx#:[id number] Oral 50 100 Tube Feeding 0 Output: Gastric Drainage 200 270 Right Nare 200 270 Void Amount 200 50 # of times incontinent of urine 0 Hemodialysis UF 3000 Other: Urine Appearance Clear Urine Color Yellow # Voids 0 # Bowel Movements 0 # of times incontinent of 0 Bowels General appearance: cooperative and no acute distress Head Head exam: Present normal inspection Eye Eye exam: Present normal appearance ENT Additional comments: NG tube with black drainage Respiratory Respiratory exam: Absent respiratory distress Cardiovascular Cardiovascular exam: Present normal rate and rhythm GI/Abdominal GI/Abdominal exam: Present soft Extremities Exam Extremities exam: Absent joint swelling or pedal edema Neurological Exam Neurological exam: Present alert and oriented X3 Psychiatric Psychiatric exam: Present normal affect and normal mood Skin Skin exam: Present warm; Absent rash A/P Assessment and plan (1) ESRD on hemodialysis: Assessment and plan: Benny Virk is a 57-year-old female with end stage renal disease on hemodialysis(due to diabetic nephropathy by a kidney biopsy on 07/14/22), chronic anemia due to ESRD, hypertension, diabetes mellitus type 2, recent line sepsis presented to ED on 01/19/23 for weakness, abdominal pain, vomiting. She missed her dialysis. In ED, workup was consistent with small bowel obstruction. Nephrology consultation was requested for end stage renal disease. Recent infections: History of MSSA Bacteremia associated with tunneled HD cath. Positive blood cultures on 11/29/22, 11/30/22. TTE on 11/30/22: No vegetation. CT Chest, Abdomen and Pelvis wo contrast on 12/01/22: No source identified. Catheter removed on 12/01/22. Negative blood cultures on 12/02/22, 12/03/22. History of Enterococcus species and Coagulase negative Staph (Oxacillin resistant) bacteremia with tunneled HD cath. Positive blood cultures on 12/24/22, 12/26/22. Treated with Vancomycin IV post dialysis from 12/31/22 to 01/16/23. CT Abdomen and Pelvis wo contrast on 01/19/23: No source identified. Negative blood cultures on 01/19/23. History of Citrobacter freundii#2 and Pseudomonas aeruginosa urinary tract infection on 12/19/22 s/p Ciprofloxacin 250 PO BID (12/25/22 to 01/01/23). End stage renal disease on hemodialysis on Thursday, Thursday, Thursday at [facility]. Access: Tunneled HD catheter. Chronic anemia due to ESRD. Small bowel obstruction. Progress: Last hemodialysis on 01/20/23. Recommendations/Plan: Next hemodialysis on Thursday. Status: Chronic Time Spent With Patient Time: Total time spent is greater than 50% in coordination of care (as documented) at patient's floor/unit and/or counseling patient:
[2023-01-22] MEDS: 0.9 % SODIUM CHLORIDE 10 ML SYRINGE IV SCH ×3 (05:56→20:40)
[2023-01-22 06:31] LABS: Basophils # (Auto) 0.02 K/mcL (0.00-0.30); Basophils % (Auto) 0.3 % (0.0-2.0); Eosinophils # (Auto) 0.97 K/mcL (0.00-0.70); Hematocrit 32.8 % (34.1-44.9); Hemoglobin 9.9 g/dL (11.2-15.7); Lymphocytes # (Auto) 1.48 K/mcL (1.50-4.80); Lymphocytes % (Auto) 19.8 % (15.5-49.0); Mean Corpuscular HGB Conc 30.2 g/dL (31.0-36.0); Mean Platelet Volume 11.9 fL (8.8-12.5); Monocytes # (Auto) 0.95 K/mcL (0.10-0.90); Monocytes % (Auto) 12.7 % (1.0-12.0); Neutrophils % (Auto) 53.9 % (38.0-78.0); Platelet Count 134 K/mcL (140-440); RBC 3.28 M/mcL (3.59-5.38); Red Cell Distribution Width 13.4 % (11.5-14.5); WBC 7.5 K/mcL (4.5-11.0)
[2023-01-22 06:42] LABS: ALT/SGPT 10 U/L (<40); AST/SGOT 15 U/L (<32); Albumin 3.4 gm/dL (3.2-5.2); Albumin/Globulin Ratio 1.1 (1.0-2.3); Alkaline Phosphatase 81 U/L (39-117); Bilirubin,Total 0.2 mg/dL (0.1-1.0); Blood Urea Nitrogen 16 mg/dL (6-20); Calcium 8.8 mg/dL (8.6-10.4); Carbon Dioxide 26 mmol/L (22-30); Chloride 97 mmol/L (96-108); Globulin 3.2 gm/dL (2.2-3.7); Glomerular Filtration Rate 16; Glucose 98 mg/dL (70-105)
[2023-01-22] MEDS: LEVOTHYROXINE 100 MCG VIAL IV SCH (07:23)
[2023-01-22] MEDS: lamoTRIgine 100 MG TABLET PO SCH ×2 (08:32→20:40)
[2023-01-22] MEDS: ESCITALOPRAM 20 MG TABLET PO SCH (08:32)
[2023-01-22] MEDS: CARVEDILOL 12.5 MG TABLET PO SCH ×2 (08:33→16:48)
[2023-01-22] MEDS: risperiDONE 1 MG TABLET PO SCH ×2 (08:33→20:40)
[2023-01-22] MEDS: DEXTROAMPHETAMINE AMPHETAMINE 15 MG PO SCH ×2 (08:34→20:41)
[2023-01-22] MEDS: FAMOTIDINE/PF 20 MG/2 ML VIAL IV SCH (08:35)
[2023-01-22] MEDS: BENZOCAINE/MENTHOL 1 LOZENGE PO PRN ×2 (08:40→22:36)
[2023-01-22] MEDS: FORMOTEROL FUMARATE 20 MCG/2 ML INH SCH ×2 (10:18→21:20)
[2023-01-22] MEDS: DEXTROSE 5%-NS 1,000 ML IV SCH (10:25)
--- NOTE | 2023-01-22 10:45 | XRay Report ---
INDICATION: eval for persistent sbo TECHNIQUE: Water-soluble contrast material was injected through this patient's esophagogastric tube. Serial imaging to 1 hour post ingestion performed. COMPARISON: CT scan dated 01/19/2023. FINDINGS: Stomach and small bowel appear normal. There is no dilatation. There is contrast material within the colon by one hour post ingestion. Appearance is consistent with resolution of mechanical small bowel obstruction. IMPRESSION: 1. Resolution of mechanical small bowel obstruction 2. Normal limited small bowel study with water-soluble contrast material Interpreted and Authenticated by: Esau Barillas 01/22/23
[2023-01-22] MEDS ORDERED: ALBUTEROL SULFATE 60 PUFF INHALER INH PRN (12:24)
[2023-01-22] MEDS ORDERED: MAGNESIUM HYDROXIDE 30 ML ORAL.SUSP PO PRN (12:24)
[2023-01-22] MEDS ORDERED: BISACODYL 10 MG SUPP.RECT PR PRN (12:24)
[2023-01-22] MEDS ORDERED: FLEETS ADULT ENEMA PR PRN (12:24)
--- NOTE | 2023-01-22 12:24 | Internal Med Progress Note ---
SUBJECTIVE Subjective Patient information: Note initiated : 01/22/23 at 12:22 pm Service Date, if different from initiated Date: [] Patient: Benny Virk a 57 y/o F admitted on 01/19/23 for weak, vomiting. Chief Complaint: [] Interval history: Ms. Virk is a 57 year old female resident at [facility] has history of ESRD on HD on MWF, diabetes mellitus 2 on insulin, hypertension, COPD requiring supplemental oxygen, hypothyroidism, history of back surgery, chronic back pain on opioids, ADHD, bipolar affective disorder, borderline personality disorder presented with acute onset of nausea, vomiting and abdominal pain since this morning. Patient reported she got up with nausea, had multiple episodes of emesis, nonbloody and constant 10/10 abdominal pain. She reported feeling cold but denied any fever. She was recently hospitalized for septic shock secondary to hemodialysis catheter infection, MSSA bacteremia, encephalopathy and was discharged to higher level of care on 12/03/2022.. It seems like patient is getting serial blood cultures during hemodialysis, patient positive blood culture with coagulase- negative staph on 12/28/2022, apparently nephrology is planning for outpatient transesophageal echocardiogram. Review of record reveals patient has history of cholecystectomy, hysterectomy and hernia repair. In the ED a CT scan of abdomen and pelvis demonstrated mechanical small bowel obstruction with a transition point in left upper quadrant. Gastroccult positive. Lab work showed WBC 10.5, hemoglobin 11.7, renal profile consistent with ESRD. VBG showed elevated PCO2 of 60. Dr. Copeland from general surgery saw patient in consultation. NG tube was placed. Nephrology plan to perform hemodialysis next day. Plavix was held. Patient was started on IV Zosyn per surgery. 01/20. Seen and examined. Overall feeling a little better. NG tube output 1100 overnight. Patient reports she is burping a lot however has not passed any flatus, no bowel movement. Surgery will be evaluating patient. She had low blood glucose of 60 this morning and was given oral glucose and blood glucose improved to 160s. She is on IV fluids. Patient will be dialyzed today per nephrology. 01/21: There was no major overnight events. No hypoglycemia episodes overnight. Patient is feeling very good this morning. She denies any abdominal pain. She denies any nausea or vomiting. Repeat KUB this morning showing improved bowel gas pattern. We will see what general surgeons recommend regarding the NG tube, when to feed patients, and overall management of the small bowel obstructions. We will keep the patient n.p.o. status for the time being and we will continue D5 NS. We will DC Zosyn because there is no sign of active infections and the leukocytosis resolved. We will downgrade the patient from stepdown ICU to [facility] and will DC telemetry. 01/22: Small bowel follow-through performed this morning showing resolution of the small bowel obstructions. Patient had a bowel movement with loose watery stool earlier this morning. Patient is coming of nausea but denies any vomiting. She denies any abdominal pain at the moment. We will DC the NG tube. We will start the patient on clear liquid diet. No plans for surgery at the moment. Constitutional Vitals: Vital Signs Temp Pulse Resp BP Pulse Ox O2 Del Method O2 Flow Rate 36.4 C 62 16 122/64 99 Nasal Cannula 2 01/22/23 08:07 01/22/23 10:10 01/22/23 10:10 01/22/23 08:07 01/22/23 10:10 01/22/23 10:10 01/22/23 10:10 Period Temp Pulse Resp BP Sys/Phan Pulse Ox O2 Del Method O2 Flow Rate Last 24 Hr 36.3 C-36.7 C 61-100 12-18 101-140/45-90 98-100 Nasal Cannula- Room Air 2-2 Intake and Output 01/22/23 01/22/23 01/22/23 03:59 11:59 19:59 Intake Total 1100 Output Total 50 270 Balance -50 830 Weight 101.922 kg Intake & Output: Intake & Output 01/22/23 01/22/23 01/22/23 03:59 11:59 19:59 Intake Total 1100 Output Total 50 270 Balance -50 830 Weight 101.922 kg Intake: IV 1000 Dextrose 5%-Ns IV Solution 1, 1000 000 ml @ 70 mls/hr IV .[id number] [facility] Rx#:[id number] Oral 100 Output: Gastric Drainage 270 Right Nare 270 Void Amount 50 Other: Urine Appearance Clear Urine Color Yellow Head Head exam: Present atraumatic and normal inspection Eye Eye exam: Present normal appearance ENT ENT exam: Present mucous membranes moist, normal exam and normal external ear exam Additional comments: Nasal cannula and NG tube in place Neck Neck exam: Present normal inspection Respiratory Respiratory exam: Present normal respiratory exam Cardiovascular Cardiovascular exam: Present normal rate and rhythm GI/Abdominal GI/Abdominal exam: Present normal bowel sounds Back Exam Back exam: Present normal inspection Neurological Exam Neurological exam: Present alert and oriented X3 Skin Skin exam: Present intact and warm OBJ DATA Labs 01/22/23 05:26 01/22/23 05:26 Labs: Abnormal Lab Results 01/22/23 01/22/23 01/21/23 05:26 05:26 05:16 WBC RBC 3.28 L Hgb 9.9 L Hct 32.8 L MCV MCHC 30.2 L Plt Count 134 L Lymph % (Auto) [place] % (Auto) 12.7 H Eos % (Auto) 13.0 H Lymph # (Auto) 1.48 L [place] # (Auto) 0.95 H Eos # (Auto) 0.97 H Absolute Neutrophils ABG Methemoglobin VBG pCO2 VBG pO2 VBG HCO3 VBG Total CO2 VBG O2 Saturation VBG Base Excess Carboxyhemoglobin Chloride Carbon Dioxide POC Total CO2 POC BUN BUN 27 H Creatinine 3.1 H 3.6 H POC Creatinine Glucose POC Glucose Globulin Urine Appearance Urine Protein Urine Glucose (UA) Urine RBC Urine WBC Ur Squamous Epith Cells Hyaline Casts Urine Mucus 01/21/23 01/20/23 01/20/23 05:16 09:25 05:12 WBC 12.7 H RBC 3.09 L Hgb 9.4 L 10.9 L Hct 31.3 L MCV 101.3 H 105.0 H MCHC 30.0 L 28.8 L Plt Count Lymph % (Auto) 9.4 L [place] % (Auto) Eos % (Auto) 12.3 H 10.6 H Lymph # (Auto) 1.19 L [place] # (Auto) 0.92 H 1.14 H Eos # (Auto) 1.17 H 1.35 H Absolute Neutrophils 8.96 H ABG Methemoglobin VBG pCO2 VBG pO2 VBG HCO3 VBG Total CO2 VBG O2 Saturation VBG Base Excess Carboxyhemoglobin Chloride Carbon Dioxide POC Total CO2 POC BUN BUN Creatinine POC Creatinine Glucose POC Glucose Globulin Urine Appearance Hazy A Urine Protein >=500 A Urine Glucose (UA) 50 A Urine RBC 4 H Urine WBC 7 H Ur Squamous Epith Cells 7 H Hyaline Casts 17 H Urine Mucus Few A 01/19/23 01/19/23 01/19/23 16:55 16:50 14:26 WBC RBC Hgb Hct MCV 100.5 H MCHC 30.2 L Plt Count Lymph % (Auto) 12.1 L [place] % (Auto) Eos % (Auto) Lymph # (Auto) 1.26 L [place] # (Auto) 1.02 H Eos # (Auto) Absolute Neutrophils ABG Methemoglobin 0.3 L VBG pCO2 60.5 H* VBG pO2 50.6 H VBG HCO3 35.3 H VBG Total CO2 37.2 H VBG O2 Saturation 81.5 H VBG Base Excess 8 H Carboxyhemoglobin 3.9 H Chloride 94 L Carbon Dioxide 34 H POC Total CO2 POC BUN BUN 52 H Creatinine 4.3 H POC Creatinine Glucose POC Glucose Globulin Urine Appearance Urine Protein Urine Glucose (UA) Urine RBC Urine WBC Ur Squamous Epith Cells Hyaline Casts Urine Mucus 01/19/23 01/19/23 14:25 14:19 WBC RBC Hgb Hct MCV MCHC Plt Count Lymph % (Auto) [place] % (Auto) Eos % (Auto) Lymph # (Auto) [place] # (Auto) Eos # (Auto) Absolute Neutrophils ABG Methemoglobin VBG pCO2 VBG pO2 VBG HCO3 VBG Total CO2 VBG O2 Saturation VBG Base Excess Carboxyhemoglobin Chloride 92 L Carbon Dioxide 31 H POC Total CO2 41.0 H POC BUN 61 H BUN 54 H Creatinine 4.6 H POC Creatinine 5.2 H* Glucose 107 H POC Glucose 111 H Globulin 4.0 H Urine Appearance Urine Protein Urine Glucose (UA) Urine RBC Urine WBC Ur Squamous Epith Cells Hyaline Casts Urine Mucus Meds: Medications Hydrocodone Bitart/Acetaminophen (Hydrocodone/Apap 5/325mg Tablet) 1 tab PO Q4HP PRN; Protocol PRN Reason: Per Pain Protocol Last Admin: 01/22/23 10:46 Dose: 1 tab Albuterol/Ipratropium (Ipratropium/Albuterol 3 Ml Ampul.Neb) 3 ml NEB Q6HRT PRN PRN Reason: Shortness Of Breath Or Wheezing Carvedilol (Carvedilol 12.5 Mg Tablet) 25 mg PO BIDCC PATRICA Last Admin: 01/22/23 08:33 Dose: 25 mg Dextrose (Dextrose 50% 50 Ml Vial) 0 ml IV UD PRN PRN Reason: Per Sliding Scale Last Admin: 01/20/23 05:09 Dose: 50 ml Diagnostic Test (Pha) (Accu-Chek 1 Each Strip) 1 each FS Q6 [facility] Last Admin: 01/22/23 05:15 Dose: 1 each Escitalopram Oxalate (Escitalopram 20 Mg Tablet) 20 mg PO DAILY [facility] Last Admin: 01/22/23 08:32 Dose: 20 mg Famotidine (Famotidine/Pf 20 Mg/2 Ml Vial) 20 mg IV Q12 [facility] Last Admin: 01/22/23 08:35 Dose: 20 mg Glucose (Dextrose 31 Gm Oral.Susp) 15 gm PO PRN PRN PRN Reason: Hypoglycemia Last Admin: 01/20/23 11:53 Dose: 15 gm Hydralazine HCl (Hydralazine 20 Mg/Ml Vial) 10 mg IV Q4-6HP PRN PRN Reason: Hypertension Hydromorphone HCl (Hydromorphone 0.5 Mg/0.5 Ml Syringe) 0.5 mg IV Q4HP PRN; Protocol PRN Reason: Per Pain Protocol Last Admin: 01/20/23 22:21 Dose: 0.5 mg Dextrose/Sodium Chloride (Dextrose 5%-Ns Iv Solution) 1,000 mls @ 70 mls/hr IV .[id number] [facility] Last Infusion: 01/22/23 11:11 Dose: Infused Insulin Human Lispro (Insulin Lispro 1 Unit/0.01 Ml Unit) 0 unit SQ Q6 [facility]; Protocol Last Admin: 01/22/23 05:56 Dose: Not Given Lamotrigine (Lamotrigine 100 Mg Tablet) 50 mg PO BID [facility] Last Admin: 01/22/23 08:32 Dose: 50 mg Levothyroxine Sodium (Levothyroxine 100 Mcg Vial) 100 mcg IV QAMAC [facility] Last Admin: 01/22/23 07:23 Dose: 100 mcg Montelukast Sodium (Montelukast 10 Mg Tablet) 10 mg PO HS [facility] Last Admin: 01/21/23 21:02 Dose: 10 mg Ondansetron HCl (Ondansetron 4 Mg/2 Ml Vial) 4 mg IV Q4HP PRN; Protocol PRN Reason: Nausea And Vomiting Last Admin: 01/20/23 20:31 Dose: 4 mg Dextroamphetamine- Amphetamine [ Adderall] 15 Mg Tab 2 dose PO BID [facility] Last Admin: 01/22/23 08:34 Dose: 2 dose Formoterol Fumarate 20 Mcg/2 Ml Solution For Nebulizing 1 dose INH BID [facility] Last Admin: 01/22/23 10:18 Dose: 1 dose Sildenafil (Pulm. Hypertension) 20 Mg Tablet 1 dose PO TID [facility] Last Admin: 01/22/23 10:24 Dose: 1 dose Risperidone (Risperidone 1 Mg Tablet) 1 mg PO BID [facility] Last Admin: 01/22/23 08:33 Dose: 1 mg Senna (Sennosides 1 Tablet) 2 tab PO HSP PRN PRN Reason: Constipation Sodium Chloride (0.9 % Sodium Chloride 10 Ml Syringe) 10 ml IV Q8 [facility] Last Admin: 01/22/23 05:56 Dose: Not Given Throat Lozenges (Benzocaine/Menthol 1 Lozenge) 1 lozenge PO PRN PRN PRN Reason: Sore Throat Last Admin: 01/22/23 08:40 Dose: 1 lozenge ABG Interpretation ABG results: 01/19/23 16:50 ABG Methemoglobin 0.3 L VBG pH 7.38 VBG pCO2 60.5 H* VBG pO2 50.6 H VBG HCO3 35.3 H VBG Total CO2 37.2 H VBG O2 Saturation 81.5 H VBG Base Excess 8 H A/P Assessment and plan (1) SBO (small bowel obstruction): Status: Acute (2) Hypothyroidism (acquired): Status: Acute (3) Diabetes mellitus, type II: Status: Chronic (4) Essential hypertension: Status: Chronic (5) ADD (attention deficit disorder): Status: Chronic (6) Anemia in ESRD (end-stage renal disease): Status: Chronic (7) ESRD on hemodialysis: Status: Chronic (8) Morbid (severe) obesity due to excess calories: Status: Chronic Comment: This is the central problem that has led directly to most of her other maladies. Especially infection of CVC (9) CAD (coronary artery disease): Status: Chronic (10) GERD (gastroesophageal reflux disease): Status: Chronic (11) COPD (chronic obstructive pulmonary disease): Status: Acute Narrative A/P Narrative: Assessment and Plans: 1. Small bowel obstruction: Inpatient med surg Small bowel follow-through performed this morning showing resolution of the small bowel obstructions. Patient had a bowel movement with loose watery stool earlier this morning. d/c NG tube Clear liquid diet No plan for surgery for now, resume Plavix Zofran [facility] Dilaudid 2. T2DM: Clear liquid diet Insulin Lispro SSI AC HS Accu Check AC HS Hypoglycemia protocol 3. Essential hypertension: Coreg Amlodipine Hydralazine IV 4. GERD: Famotidine 6. Hypothyroidism: Continue thyroid replacement therapy 7. ESRD on hemodialysis: Hemodialysis Thursday as per nephrology 8. COPD: Continue bronchodilators from home regimen 9. ADD: Adderall 10. Depression: Lexapro Risperidone GI ppx: Famotidine DVT ppx: SCDs Code status: Full Prognosis: Stable Disposition: inpatient med surg Time Spent With Patient Time: Total time spent is greater than 50% in coordination of care (as documented) at patient's floor/unit and/or counseling patient: Subsequent: Total time with patient: 35 - 49 minutes QUALITY VTE Deep Vein Thrombosis/Pulmonary Embolism Present on Admission: No
[2023-01-22] MEDS ORDERED: ACETAMINOPHEN 325 MG TABLET PO PRN (12:35)
[2023-01-22] MEDS: hydrALAZINE 25 MG TABLET PO SCH ×2 (15:10→20:40)
[2023-01-22] MEDS: CALCIUM CARBONATE 500 MG TAB.CHEW CHEWED SCH (16:47)
[2023-01-22] MEDS: MONTELUKAST 10 MG TABLET PO SCH (20:40)
[2023-01-22] MEDS: FAMOTIDINE 20 MG TABLET PO SCH (20:40)
[2023-01-22] MEDS: SENNOSIDES/DOCUSATE SODIUM 1 TAB TABLET PO SCH (20:40)
[2023-01-22] MEDS ORDERED: ATORVASTATIN 40 MG TABLET PO SCH (21:00)
[2023-01-23] MEDS: HYDROcodone/APAP 5/325MG TABLET PO PRN (05:13)
[2023-01-23] MEDS: 0.9 % SODIUM CHLORIDE 10 ML SYRINGE IV SCH (05:14)
[2023-01-23 06:23] LABS: Basophils # (Auto) 0.03 K/mcL (0.00-0.30); Basophils % (Auto) 0.4 % (0.0-2.0); Eosinophils # (Auto) 0.98 K/mcL (0.00-0.70); Eosinophils % (Auto) 12.6 % (0.0-7.0); Hematocrit 33.9 % (34.1-44.9); Hemoglobin 9.9 g/dL (11.2-15.7); Lymphocytes # (Auto) 1.52 K/mcL (1.50-4.80); Lymphocytes % (Auto) 19.5 % (15.5-49.0); Mean Cell Volume 101.8 fL (80.0-100.0); Mean Corpuscular HGB Conc 29.2 g/dL (31.0-36.0); Mean Platelet Volume 12.1 fL (8.8-12.5); Monocytes # (Auto) 0.82 K/mcL (0.10-0.90); Monocytes % (Auto) 10.5 % (1.0-12.0); Neutrophils % (Auto) 56.7 % (38.0-78.0); Platelet Count 144 K/mcL (140-440); RBC 3.33 M/mcL (3.59-5.38); Red Cell Distribution Width 13.3 % (11.5-14.5); WBC 7.8 K/mcL (4.5-11.0)
[2023-01-23 06:43] LABS: ALT/SGPT 10 U/L (<40); AST/SGOT 13 U/L (<32); Albumin 3.5 gm/dL (3.2-5.2); Alkaline Phosphatase 82 U/L (39-117); Bilirubin,Total 0.2 mg/dL (0.1-1.0); Blood Urea Nitrogen 29 mg/dL (6-20); Calcium 8.9 mg/dL (8.6-10.4); Carbon Dioxide 22 mmol/L (22-30); Chloride 101 mmol/L (96-108); Globulin 3.4 gm/dL (2.2-3.7); Glomerular Filtration Rate 10; Glucose 111 mg/dL (70-105)
--- NOTE | 2023-01-23 07:05 | Nephrology Progress Note ---
SUBJECTIVE Subjective Patient information: Note initiated : 01/23/23 at 7:03 am Patient: Benny Virk 57 y/o F admitted on 01/19/23 for weak, vomiting. Chief Complaint: Weakness Pertinent ROS: Weakness Constitutional Vitals: Vital Signs Temp Pulse Resp BP Pulse Ox O2 Del Method O2 Flow Rate 97.5 F 62 16 102/49 100 Nasal Cannula 1 01/22/23 08:07 01/23/23 04:00 01/23/23 04:43 01/22/23 23:48 01/23/23 04:00 01/23/23 04:00 01/23/23 04:00 Period Temp Pulse Resp BP Sys/Phan Pulse Ox O2 Del Method O2 Flow Rate Last 24 Hr 97.5 F 62-68 16-18 102-132/49-64 99-100 Nasal Cannula-Nasal Cannula 1-2 Intake and Output 01/22/23 01/23/23 01/23/23 19:59 03:59 11:59 Intake Total 100 400 Balance 100 400 Weight 228 lb 4.8 oz Intake & Output: Intake & Output 01/22/23 01/23/23 01/23/23 19:59 03:59 11:59 Intake Total 100 400 Balance 100 400 Weight 228 lb 4.8 oz Intake: Oral 100 400 Other: Meal Dinner Percent of Meal Consumed 100% Feeding Ability Independent Stool Size Moderate Small Small Stool Color Brown Brown Stool Consistency Liquid Soft Watery # Voids 1 1 1 # Bowel Movements 1 1 1 General appearance: cooperative and no acute distress Head Head exam: Present normal inspection Eye Eye exam: Present normal appearance ENT Additional comments: NG tube with black drainage Respiratory Respiratory exam: Absent respiratory distress Cardiovascular Cardiovascular exam: Present normal rate and rhythm GI/Abdominal GI/Abdominal exam: Present soft Extremities Exam Extremities exam: Absent joint swelling or pedal edema Neurological Exam Neurological exam: Present alert and oriented X3 Psychiatric Psychiatric exam: Present normal affect and normal mood Skin Skin exam: Present warm; Absent rash A/P Assessment and plan (1) ESRD on hemodialysis: Assessment and plan: Benny Virk is a 57-year-old female with end stage renal disease on hemodia lysis(due to diabetic nephropathy by a kidney biopsy on 07/14/22), chronic anemia due to ESRD, hypertension, diabetes mellitus type 2, recent line sepsis presented to ED on 01/19/23 for weakness, abdominal pain, vomiting. She missed her dialysis. In ED, workup was consistent with small bowel obstruction. Nephrology consultation was requested for end stage renal disease. Recent infections: History of MSSA Bacteremia associated with tunneled HD cath. Positive blood cultures on 11/29/22, 11/30/22. TTE on 11/30/22: No vegetation. CT Chest, Abdomen and Pelvis wo contrast on 12/01/22: No source identified. Catheter removed on 12/01/22. Negative blood cultures on 12/02/22, 12/03/22. History of Enterococcus species and Coagulase negative Staph (Oxacillin resistant) bacteremia with tunneled HD cath. Positive blood cultures on 12/24/22, 12/26/22. Treated with Vancomycin IV post dialysis from 12/31/22 to 01/16/23. CT Abdomen and Pelvis wo contrast on 01/19/23: No source identified. Negative blood cultures on 01/19/23. History of Citrobacter freundii#2 and Pseudomonas aeruginosa urinary tract infection on 12/19/22 s/p Ciprofloxacin 250 PO BID (12/25/22 to 01/01/23). End stage renal disease on hemodialysis on Thursday, Thursday, Thursday at [facility]. Access: Tunneled HD catheter. Chronic anemia due to ESRD. Small bowel obstruction, resolved. Recommendations/Plan: Hemodialysis today as inpatient or outpatient. Status: Chronic Time Spent With Patient Time: Total time spent is greater than 50% in coordination of care (as documented) at patient's floor/unit and/or counseling patient:
[2023-01-23] MEDS: INSULIN LISPRO 1 UNIT/0.01 ML UNIT SQ SCH (07:25)
--- NOTE | 2023-01-23 08:09 | General Surgery Progress Note ---
SUBJECTIVE Subjective Patient information: Note initiated : 01/23/23 at 8:07 am Service Date, if different from initiated Date: [] Patient: Benny Virk 57 y/o F admitted on 01/19/23 for weak, vomiting. Chief Complaint: [] Doing well, passing large amounts of stool - Small Bowel Follow Through yesterday showed full resolution of the prior SBO and tolerating her diet well Constitutional Vitals: Vital Signs Temp Pulse Resp BP Pulse Ox O2 Del Method O2 Flow Rate 97.1 F 63 18 124/59 94 Room Air 1 01/23/23 07:23 01/23/23 07:23 01/23/23 07:23 01/23/23 07:23 01/23/23 07:23 01/23/23 07:23 01/23/23 04:00 Period Temp Pulse Resp BP Sys/Phan Pulse Ox O2 Del Method O2 Flow Rate Last 24 Hr 97.1 F 62-66 16-18 102-132/49-61 94-100 Nasal Cannula-Room Air 1-2 Intake and Output 01/22/23 01/23/23 01/23/23 19:59 03:59 11:59 Intake Total 100 400 Balance 100 400 Weight 228 lb 4.8 oz Intake & Output: Intake & Output 01/22/23 01/23/23 01/23/23 19:59 03:59 11:59 Intake Total 100 400 Balance 100 400 Weight 228 lb 4.8 oz Intake: Oral 100 400 Other: Meal Dinner Percent of Meal Consumed 100% Feeding Ability Independent Stool Size Moderate Small Small Stool Color Brown Brown Stool Consistency Liquid Soft Watery # Voids 1 1 1 # Bowel Movements 1 1 1 Exam: looks good, non toxic, NAD GI/Abdominal Additional comments: soft and non tender, non distended A/P Assessment and plan (1) SBO (small bowel obstruction): Assessment and plan: Resolved SBO OK for Regular Diet and Discharge from Surgical Standpoint We will sign off at this time - please call Dr Copeland at any time with questions or concerns Status: Acute Time Spent With Patient Time: Total time spent is greater than 50% in coordination of care (as documented) at patient's floor/unit and/or counseling patient:
[2023-01-23] MEDS: CALCIUM CARBONATE 500 MG TAB.CHEW CHEWED SCH (08:12)
[2023-01-23] MEDS: LEVOTHYROXINE 100 MCG VIAL IV SCH (08:12)
[2023-01-23] MEDS: lamoTRIgine 100 MG TABLET PO SCH (08:12)
[2023-01-23] MEDS: ESCITALOPRAM 20 MG TABLET PO SCH (08:13)
[2023-01-23] MEDS: FAMOTIDINE 20 MG TABLET PO SCH (08:13)
[2023-01-23] MEDS: risperiDONE 1 MG TABLET PO SCH (08:13)
[2023-01-23] MEDS: CARVEDILOL 12.5 MG TABLET PO SCH (08:15)
[2023-01-23] MEDS: DEXTROAMPHETAMINE AMPHETAMINE 15 MG PO SCH (08:15)
[2023-01-23] MEDS: hydrALAZINE 25 MG TABLET PO SCH (08:15)
[2023-01-23] MEDS: SENNOSIDES/DOCUSATE SODIUM 1 TAB TABLET PO SCH (08:17)
--- NOTE | 2023-01-23 08:34 | Discharge Summary ---
Discharge Provider Provider IMPORTANT FOLLOW-UP INFORMATION FOR PCP: Patient information: Note initiated : 01/23/23 at 8:31 am Service Date, if different from initiated Date: [] Patient: Benny Virk 57 y/o F admitted on 01/19/23 for weak, vomiting. Chief Complaint: [] Date of admission: 01/19/23 18:25 Discharge date: 01/23/23 Primary care physician: VALERIO Negro Attending physician on admission: Jose Ribeiro Consults: 01/19/23 Consult to Physician [CONS] Stat Comment: Consulting Provider: Jose Ribeiro Reason For Exam: Physician to Consult 01/19/23 15:45 Consult to Physician [CONS] Stat Comment: Consulting Provider: Kenotn Copeland Reason For Exam: Physician to Consult 01/19/23 16:10 Consult to Physician [CONS] Stat Comment: Consulting Provider: Shaye Wynn Reason For Exam: Physician to Consult Attending physician on discharge: Chi Leon Pui COURSE Hospital Course Hospital course: Ms. Virk is a 57 year old female resident at [facility] has history of ESRD on HD on MWF, diabetes mellitus 2 on insulin, hypertension, COPD requiring supplemental oxygen, hypothyroidism, history of back surgery, chronic back pain on opioids, ADHD, bipolar affective disorder, borderline personality disorder presented with acute onset of nausea, vomiting and abdominal pain since this morning. Patient reported she got up with nausea, had multiple episodes of emesis, nonbloody and constant 10/10 abdominal pain. She reported feeling cold but denied any fever. She was recently hospitalized for septic shock secondary to hemodialysis catheter infection, MSSA bacteremia, encephalopathy and was discharged to higher level of care on 12/03/2022.. It seems like patient is getting serial blood cult ures during hemodialysis, patient positive blood culture with coagulase-negative staph on 12/28/2022, apparently nephrology is planning for outpatient transesophageal echocardiogram. Review of record reveals patient has history of cholecystectomy, hysterectomy and hernia repair. In the ED a CT scan of abdomen and pelvis demonstrated mechanical small bowel obstruction with a transition point in left upper quadrant. Gastroccult positive. Lab work showed WBC 10.5, hemoglobin 11.7, renal profile consistent with ESRD. VBG showed elevated PCO2 of 60. Dr. Copeland from general surgery saw patient in consultation. NG tube was placed. Nephrology plan to perform hemodialysis next day. Plavix was held. Patient was started on IV Zosyn per surgery. 01/20. Seen and examined. Overall feeling a little better. NG tube output 1100 overnight. Patient reports she is burping a lot however has not passed any flatus, no bowel movement. Surgery will be evaluating patient. She had low blood glucose of 60 this morning and was given oral glucose and blood glucose improved to 160s. She is on IV fluids. Patient will be dialyzed today per nephrology. 01/21: There was no major overnight events. No hypoglycemia episodes overnight. Patient is feeling very good this morning. She denies any abdominal pain. She denies any nausea or vomiting. Repeat KUB this morning showing improved bowel gas pat tern. We will see what general surgeons recommend regarding the NG tube, when to feed patients, and overall management of the small bowel obstructions. We will keep the patient n.p.o. status for the time being and we will continue D5 NS. We will DC Zosyn because there is no sign of active infections and the leukocytosis resolved. We will downgrade the patient from stepdown ICU to [facility] and will DC telemetry. 01/22: Small bowel follow-through performed this morning showing resolution of the small bowel obstructions. Patient had a bowel movement with loose watery stool earlier this morning. Patient is coming of nausea but denies any vomiting. She denies any abdominal pain at the moment. We will DC the NG tube. We will start the patient on clear liquid diet. No plans for surgery at the moment. 01/23: Discharged to SNF today. Will arrange hemodialysis outpatient later this morning. All questions answered prior to patient being physically discharged. Discharge diagnosis: Small bowel obstruction Time Spent with Patient Time attestation: Total time spent providing and/or coordinating discharge services: Time spent: Greater than 30 minutes EXAM Constitutional Vitals: Temp Pulse Resp BP Pulse Ox O2 Del Method O2 Flow Rate 36.2 C 63 18 124/59 94 Room Air 1 01/23/23 07:23 01/23/23 07:23 01/23/23 07:23 01/23/23 07:23 01/23/23 07:23 01/23/23 07:23 01/23/23 04:00 General appearance: cooperative and no acute distress Head Head exam: Present atraumatic and normocephalic Eye Eye exam: Present EOMI and PERRL ENT ENT exam: Present mucous membranes moist, normal exam and normal external ear exam Neck Neck exam: Present normal inspection; Absent lymphadenopathy, tenderness or thy romegaly Respiratory Respiratory exam: Absent accessory muscle use, respiratory distress or wheezes Cardiovascular Cardiovascular exam: Present normal rate and rhythm; Absent JVD GI/Abdominal GI/Abdominal exam: Present normal bowel sounds and soft; Absent organomegaly or tenderness Extremities Exam Extremities exam: Present full ROM, normal capillary refill and normal inspection; Absent tenderness Neurological Exam Neurological exam: Present alert, CN II-XII intact and oriented X3; Absent motor sensory deficit Psychiatric Psychiatric exam: Present normal affect and normal mood; Absent anxious or depressed Skin Skin exam: Present dry and intact Discharge Data Data Completed and Pending Labs on day of discharge: Labs from last 24 hours 01/23/23 01/23/23 05:28 05:00 WBC 7.8 RBC 3.33 L Hgb 9.9 L Hct 33.9 L MCV 101.8 H MCH 29.7 MCHC 29.2 L RDW 13.3 Plt Count 144 MPV 12.1 Immature Gran % (Auto) 0.3 Neut % (Auto) 56.7 Lymph % (Auto) 19.5 [place] % (Auto) 10.5 Eos % (Auto) 12.6 H Baso % (Auto) 0.4 Lymph # (Auto) 1.52 [place] # (Auto) 0.82 Eos # (Auto) 0.98 H Baso # (Auto) 0.03 Immature Gran # 0.02 Absolute Neutrophils 4.41 Sodium 137 Potassium 4.1 Chloride 101 Carbon Dioxide 22 Anion Gap 14.0 BUN 29 H Creatinine 4.5 H GFR Calculation 10 Glucose 111 H Calcium 8.9 Total Bilirubin 0.2 AST 13 ALT 10 Alkaline Phosphatase 82 Total Protein 6.9 Albumin 3.5 Globulin 3.4 Albumin/Globulin Ratio 1.0 Preliminary micro results at discharge 01/19/23 16:50 Blood Culture - Preliminary Blood 01/19/23 16:47 Blood Culture - Preliminary Blood Discharge Plan Patient/Caregiver Discharge Instructions Activity: increase activity as tolerated Diet: Renal/Consistent Carbs Prescriptions: Continued Aranesp (in polysorbate) 100 mcg/mL solution 100 mcg subcut Q2W PRN (Reason: hemoglobin <10.0) Qty: 1 0RF dextroamphetamine-amphetamine [Adderall] 30 mg tablet 30 mg PO BID Rx Instructions: administer doses at least 4-6 hours apart methocarbamol 750 mg tablet 750 mg PO Q6H PRN (Reason: Muscle Spasm) atorvastatin 80 mg tablet 80 mg PO QHS carvedilol 12.5 MG tablet 25 mg PO BIDCC Rx Instructions: Hold if SBP < 100 or P <60. Notify MD if held 3x in 7 day period levothyroxine 100 MCG tablet 100 mcg PO HS montelukast 10 MG tablet 10 mg PO HS epinephrine [EpiPen 2-Abhi] 0.3 MG/0.3 ML auto-injector 0.3 mg IM PRN PRN (Reason: Allergic Symptoms) escitalopram oxalate 20 MG tablet 20 mg PO DAILY famotidine 20 mg Tablet 20 mg PO BID cholecalciferol (vitamin D3) [Vitamin D3] 25 mcg (1,000 unit) Capsule 25 mcg PO DAILY acetaminophen [Tylenol] 325 mg Tablet 650 mg PO Q4H PRN (Reason: Pain) magnesium hydroxide [Milk of Magnesia] 400 mg/5 mL Suspension 30 ml PO QDAY PRN (Reason: Constipation) Rx Instructions: As needed for no BM in 3 days bisacodyl [Dulcolax (bisacodyl)] 10 mg Suppository 10 mg AL DAILYP PRN (Reason: Constipation) Rx Instructions: insert 1 suppository rectally as needed for no BM on shift following Milk of Magnesia dose risperidone 0.5 mg Tablet 1 mg PO BID glucagon HCl [Glucagon (HCl) Emergency Kit] 1 mg Recon Soln 1 mg SUBCUT Q15M PRN (Reason: Hypoglycemia) Rx Instructions: until target blood sugar attained Combivent Respimat 20-100 mcg/actuation mist 1 puff INHALATION QID clopidogrel 75 mg tablet 75 mg PO DAILY budesonide 0.5 mg/2 mL Suspension For Nebulization 1 mg inhalation DAILY sildenafil (pulm.hypertension) 20 mg tablet 1 tab PO TID Rx Instructions: For Pulomary artery HTN formoterol fumarate 20 mcg/2 mL solution for nebulization 1 vial INHALATION BID albuterol sulfate 90 mcg/actuation HFA aerosol inhaler 2 puff INHALATION Q6HP PRN (Reason: wheezing) lamotrigine 100 mg Tablet 50 mg PO BID furosemide [Lasix] 80 mg tablet 80 mg PO BID Qty: 60 3RF hydrocodone-acetaminophen 10-325 mg tablet 1 tab PO Q4HP PRN (Reason: pain) Qty: 7 0RF hydralazine 50 mg Tablet 50 mg PO TID Qty: 90 0RF amlodipine [Norvasc] 10 mg Tablet 10 mg PO QDAY Qty: 30 0RF Rx Instructions: Take TUE,KATHERINE,SAT, and SUN for hypertension. Hold prior to dialysis insulin degludec [Tresiba FlexTouch U-100] 100 unit/mL (3 mL) insulin pen 50 unit subcut BID calcium carbonate 500 mg calcium (1,250 mg) Tablet,Chewable 1,500 mg PO TIDWMEAL Fleet Enema 19-7 gram/118 mL Enema 118 ml AL DAILYP PRN (Reason: Constipation) Rx Instructions: Give if no BM after dulcolax suppository sennosides-docusate sodium [Senna Plus] 8.6-50 mg Tablet 2 tab PO BID insulin lispro 100 unit/mL Solution See Protocol subcut ACHS Protocol: Insulin Sliding Scale, Med Condition: HUMALOG/NOVALOG SC SLIDING Dose/Route: SCALE Condition: FSBS < 70 Dose/Route: Give 4 Oz juice, or 15gm oral Instruction: Glucose, or 25ml D50W IV if Dose/Route: unable to take PO. Recheck in Instruction: 15 min and repeat if FSBS < 70 Condition: FSBS 71-140 Dose/Route: NO COVERAGE Condition: FSBS 141-170 Dose/Route: 2 UNITS Condition: FSBS 171-200 Dose/Route: 4 UNITS Condition: FSBS 201-250 Dose/Route: 6 UNITS Condition: FSBS 251-300 Dose/Route: 8 UNITS Condition: FSBS 301-350 Dose/Route: 10 UNITS Condition: FSBS 351-400 Dose/Route: 12 UNITS Condition: FSBS > 400 Dose/Route: 14 UNITS; REPEAT Q2H X2 Instruction: CONTINUE FOLLOWING SLIDING Condition: SCALE; IF STILL > 400; CALL Dose/Route: PHYSICIAN Other Ambulatory Orders: OT Discharge Order (Routine) Facility: [facility] - Location: Conversion-Longterm Ordered By: Mina Smith Physical Therapy at Discharge - General (Routine) Facility: [facility] - Location: Conversion-Longterm Ordered By: Mina Smith Follow Up Plan Follow up with: Lyric Crowder ARNP [Primary Care Provider] - Patient Disposition: Xfer SNF Rehab Potential: Good I certify that the patient requires SNF services: Yes Overall status at discharge: patient is back to baseline Discharge Orders: Discharge Order (Routine); Ordered 01/23/23 Ordered By: Mina OCAMPO VTE Deep Vein Thrombosis/Pulmonary Embolism Present on Admission: No
[2023-01-23] MEDS ORDERED: amLODIPine 10 MG TABLET PO SCH (09:00)
[2023-01-23] MEDS ORDERED: VITAMIN D3 25 MCG TABLET PO SCH (09:00)
[2023-01-23] MEDS ORDERED: CLOPIDOGREL 75 MG TABLET PO SCH (09:00)
[2023-01-23] MEDS ORDERED: BUDESONIDE 0.5 MG/2 ML AMPUL.NEB NEB SCH (09:00)
[2023-01-23] MEDS: FORMOTEROL FUMARATE 20 MCG/2 ML INH SCH (09:14)
== END 2023-01-23 09:35 | DRG 388 ==
LOC: ED 13:10 → ICU 18:25
PROVIDERS: ADMIT Internal Medicine; ATTEND Internal Medicine